=== PATIENT | male | born 1935 | race Caucasian/White ===

== ENCOUNTER 2019-02-24 06:00 | Outpatient (RCR) | payer MEDICARE, OTHER, SELFPAY | END 2019-02-25 23:59 | disposition home or self-care (01) | LOC: LAB 06:00 | PROVIDERS: Visit Provider Family Medicine | DX: F34.1 Dysthymic disorder (principal) | CPT/HCPCS: 36415 ×3; 80048; 85025; 85610 ×3 ==

== ENCOUNTER 2019-09-15 13:06 | Inpatient (IN) | payer MEDICARE, OTHER, SELFPAY ==
[2019-09-15 13:11] VITALS: BP 115/91; PULSE 74; RESP 14; TEMP 37.2; O2SAT 95; BMI 25.8
--- NOTE | 2019-09-15 13:12 | W.ED.MALEGU ---
HPI - Male Genitourinary General: Chief complaint: Urogenital-Male Stated complaint: direct admit Time Seen by Provider: 09/15/19 13:11 Source: patient Mode of arrival: ambulatory Limitations: no limitations History of Present Illness: HPI Narrative: Mr. James is a nice 84-year-old male who comes in with urinary retention. He is to be a direct admission by Dr. Carranza but was here in the ER to get screened. Patient has cough, fever, shortness of breath, loss of sense of smell and loss of sense of taste. He has no symptoms consistent with covert infection. Review of Systems General: Reports: 10 or more systems reviewed and unremarkable except in HPI and below PFSH ED PFSH: Medical History BPH NOS w ur obs/LUTS Cardiomyopathy Chronic GERD Clot retention of urine Hyperlipidemia Hypertension Hypothyroidism Kidney stone Thromboembolism Urinary retention Surgical History H/O skin graft History of bone marrow biopsy Previous back surgery Social History Smoking and tobacco status: never smoked Alcohol intake: never Marital status: / Current occupational status: retired History of recent travel: No Physical Exam Const: COMMON NORMALS: no acute distress, patient oriented x3, no limitations, healthy appearing and well nourished GENERAL APPEARANCE: cooperative, well kempt and well developed HENMT: COMMON NORMALS: normocephalic, atraumatic, external ears normal, EAC's normal and Normal external nose present HEAD & SCALP: normal to inspection, normocephalic and atraumatic FACE & SINUS: normal facial exam and face symmetric NOSE: Normal external nose present and Normal nares present EXTERNAL EAR: Yes external ears normal EXTERNAL AUDITORY CANAL: EAC's normal MOUTH: Normal oral and palatal mucosa present, lip normal and tongue normal Eye: COMMON NORMALS: Equal, round and reactive pupils present and conjunctivae normal GENERAL EYE: appearance normal, both eyes and all related structures ALIGNMENT: Yes alignment normal PERIORBITAL: periorbital findings normal EYELID: eyelids normal CONJUNCTIVA: Yes conjunctivae normal SCLERA: sclerae normal PUPIL: Yes Equal, round and reactive pupils present Neck/C-Spine: COMMON NORMALS: full ROM, no lymphadenopathy, supple, no meningeal signs and no JVD GENERAL: Yes normal visual inspection and Yes trachea midline Chest: COMMONS NORMALS: normal inspection of the chest and normal palpation of entire chest wall Resp: COMMON NORMALS: normal respiratory effort, No retractions and No use of accessory muscles EFFORT & INSPECTION: Yes able to speak in complete sentences and Yes symmetric chest movement AUSCULTATION: no crackles, no rales, no rhonchi and no wheezes Cardio: COMMON NORMALS: no JVD, regular rate, regular rhythm, S1 normal heart sound present and S2 normal heart sound present RATE: regular rate RHYTHM: regular rhythm HEART SOUNDS: S1 normal heart sound present, S2 normal heart sound present, no click, no gallops, no murmurs, no rubs and abnormal split S2 GI: COMMON NORMALS: Soft to palpation and No hepatosplenomegaly present PALPATION: Yes Soft to palpation, Yes Tenderness to palpation present (GI), No Guarding due to palpation present (GI), No Rigid due to palpation, Yes No hepatosplenomegaly present, No Hernia present, No Palpable mass present and No Pulsatile mass present : COMMON NORMALS: Yes no CVA tenderness BLADDER/KIDNEY EXAM: Yes no CVA tenderness Back/Pelvis: COMMON NORMALS: no CVA tenderness, thoracic and lumbar spine normal to inspection, no thoracic nor lumbar tenderness and thoraco-lumbar ROM normal Extremity: COMMON NORMALS: normal to inspection, full ROM, capillary refill normal, no joint enlargement, no clubbing, cyanosis or edema and no calf tenderness Neuro: COMMON NORMALS: patient oriented x3, CN's II-XII intact bilaterally, moves all extremities, no focal motor deficits and no sensory deficits noted MENINGEAL SIGNS: Yes no meningeal signs SPEECH: speech normal Psych: COMMON NORMALS: mental status grossly normal, Normal thought process present, cooperative, normal affect, speech normal and activity/motor behavior normal APPEARANCE: Yes well kempt SPEECH: Yes normal speech THOUGHT PROCESS: Normal thought process present Skin: COMMON NORMALS: no rashes or lesions noted, turgor normal, no jaundice, no petechiae and no mottling GENERAL SKIN EXAM: no rashes or lesions noted and turgor normal MDM - Male MDM Narrative: Medical decision making narrative: Patient has no signs or symptoms consistent with covert infection. Do not believe he needs screened with the test. The patient be admitted to Dr. Carranza with Dr. Auguste consulting. Admission orders have already been placed. Discharge Plan Discharge Patient Disposition: Admitted As Inpatient Clinical Impression: Clot retention of urine, BPH NOS w ur obs/LUTS Condition: Stable Prescriptions: No Action tamsulosin 0.4 mg capsule 0.4 mg PO DAILY RF: 0 levothyroxine 50 mcg capsule 50 mcg PO DAILY RF: 0 nystatin 100,000 unit/gram powder 1 applic TOPICAL DAILY RF: 0 acetaminophen 500 mg capsule 500 mg PO Q6H PRNRF: 0 magnesium hydroxide [Milk of Magnesia] 400 mg/5 mL suspension 5 ml PO DAILY PRNRF: 0 digoxin 125 mcg (0.125 mg) tablet 125 mcg PO DAILY RF: 0 carvedilol 6.25 mg tablet 6.25 mg PO BID RF: 0 fluoxetine 40 mg capsule 40 mg PO DAILY RF: 0 aripiprazole 2 mg tablet 2 mg PO DAILY RF: 0 albuterol sulfate 0.63 mg/3 mL solution for nebulization 0.63 mg INHALATION Q6H RF: 0 calcium carbonate [Calcium 600] 600 mg calcium (1,500 mg) tablet 600 mg PO DAILY RF: 0 ascorbic acid (vitamin C) 500 mg capsule PO RF: 0 cholecalciferol (vitamin D3) 1,250 mcg (50,000 unit) capsule PO RF: 0 tramadol 50 mg tablet 50 mg PO BID PRNRF: 0 lisinopril 20 mg tablet 20 mg PO DAILY RF: 0 prednisone 1 mg tablet 1 mg PO DAILY RF: 0 furosemide 20 mg tablet 20 mg PO DAILY RF: 0 warfarin 6 mg tablet 3 mg PO DAILY RF: 0 cephalexin 500 mg capsule 500 mg PO TID RF: 0 [place]: Shyann Har[place], [facility] [place] - Coding Level of Care Code ED Neuro Urologist for Renzo Arana
--- NOTE | 2019-09-15 14:46 | PM.HP ---
Providers/Chief Complaint Admitting Physician: Nishi Angela MD Primary Care Provider: Shyann Harman MD, [facility] [place] Chief Complaint: Blood in urine, difficulty urinating History of Present Illness Alex James is a 84 year old male presents directly from urology clinic at the behest of Dr. Carranza following referral there from [facility] due to noted urinary retention and gross hematuria with noted bladder distention and abnormal appearing bladder with clot on CT scan of the abdomen and pelvis. Patient is quite a limited historian and is not able to provide much detail. Case was discussed with Dr. Carranza with request for direct admission. From the review of [facility] records and visit note from earlier today, patient has quite a few medical comorbidities including chronic atrial fibrillation, on anticoagulation with Coumadin, history of right lower extremity DVT, chronic systolic CHF, hypertension. He lives at assisted living facility close to [facility] and states that he had noticed gross blood in his urine for about 3 to 4 days now. He does not recall seeing any blood clots and no blood in his stool. He denies abdominal pain, is unable to tell me how much she was urinating within that timeframe, denies any fever/chills, denies prior episodes of the same. He has been on Coumadin for some time though cannot remember exactly how long and does not recall his last INR. He follows up at the [facility] and med list confirmation is currently pending. He had a cystoscopy done by Dr. Carranza earlier today with clot evacuation, aggressive irrigation and catheter placement. There was some evidence of papillary changes on the bladder neck suspicious for TCCA. Direct admission is requested for further management of gross hematuria including continued aggressive irrigation with potential need for cystoscopy in OR. I have requested lab work and verbal report of last INR is 2.6. Current blood pressure is 87/51 and have requested a 1 L normal saline bolus to be given. Currently in the process of establishing peripheral IV access. Patient does not appear to be in any distress, discussed plan of care which she is agreeable to. Also discussed CODE STATUS, would like to be full code. Review of Systems General: Reports: Other (Patient is a limited historian) Const: Denies: fever(s) or chills Card: Denies: chest pain, edema, swelling of feet/ankles, lightheadedness, syncope, pre-syncope, dyspnea on exertion or orthopnea Resp: Denies: dyspnea, productive cough or non-productive cough GI: Denies: abdominal pain, nausea, vomiting, hematemesis or hematochezia : Reports: difficulty urinating and hematuria; Denies: dysuria Musc: Denies: back pain Skin/Breast: Denies: rash Neuro: Reports: weakness in extremities; Denies: difficulty walking or frequent falls Psych: Denies: anxiety Medications/Allergies Home Medications Medication Instructions Recorded Confirmed Last Taken Type acetaminophen 500 mg capsule 500 mg PO Q6H PRN 09/15/19 09/15/19 Unknown History albuterol sulfate 2.5 mg INHALATION Q4H PRN 09/15/19 09/15/19 Unknown History aripiprazole 2 mg tablet 2 mg PO DAILY 09/15/19 09/15/19 09/14/19 History bisacodyl 10 mg CA DAILY PRN 09/15/19 09/15/19 Unknown History calcium carbonate 600 mg calcium 1,500 mg PO DAILY 09/15/19 09/15/19 09/15/19 History (1,500 mg) tablet carvedilol 6.25 mg tablet 6.25 mg PO BID 09/15/19 09/15/19 09/15/19 History cephalexin 500 mg capsule 500 mg PO TID 09/15/19 09/15/19 09/15/19 History cholecalciferol (vitamin D3) 25 mcg PO DAILY 09/15/19 09/15/19 09/15/19 History [Vitamin D3] digoxin 125 mcg (0.125 mg) tablet 125 mcg PO DAILY 09/15/19 09/15/19 09/15/19 History fluoxetine 40 mg capsule 40 mg PO DAILY 09/15/19 09/15/19 09/15/19 History furosemide 20 mg tablet 20 mg PO BID 09/15/19 09/15/19 09/15/19 History levothyroxine 50 mcg capsule 50 mcg PO DAILY 09/15/19 09/15/19 09/15/19 History lisinopril 20 mg tablet 20 mg PO BID 09/15/19 09/15/19 09/15/19 History magnesium hydroxide 400 mg/5 mL 30 ml PO DAILY PRN 09/15/19 09/15/19 Unknown History oral suspension polyethylene glycol 3350 [Miralax] 17 g PO DAILY 09/15/19 09/15/19 Unknown History prednisone 1 mg tablet 1 mg PO DAILY 09/15/19 09/15/19 09/15/19 History tamsulosin 0.4 mg capsule 0.4 mg PO DAILY 09/15/19 09/15/19 09/14/19 History tramadol 50 mg tablet 50 mg PO BID PRN 09/15/19 09/15/19 Unknown History warfarin See Rx Instructions .ROUTE .COMPLEX 09/15/19 09/15/19 09/14/19 History warfarin 6 mg tablet See Rx Instructions .ROUTE .COMPLEX 09/15/19 09/15/19 09/13/19 History Allergies Allergy/AdvReac Type Severity Reaction Status Date / Time No Known Allergies Allergy Unverified 09/15/19 08:38 PFSH Acute PFSH: Medical History (Updated 09/15/19 @ 20:14 by Nishi Angela MD) BPH (benign prostatic hyperplasia) BPH NOS w ur obs/LUTS Cardiomyopathy Chronic atrial fibrillation Chronic GERD Clot retention of urine Congestive heart failure Hyperlipidemia Hypertension Hypothyroidism Kidney stone Osteoarthritis Peripheral vascular disease Thromboembolism Urinary retention Surgical History H/O skin graft History of bone marrow biopsy Previous back surgery Social History Smoking and tobacco status: never smoked Alcohol intake: never Substance/Drug Use: never Lives independently: Yes Housing: Assisted Living Facility Marital status: / Current occupational status: retired History of recent travel: No Vitals/I&O/Wt Last Vital Signs Temp 98.9 F 09/15/19 13:11 Pulse 74 09/15/19 13:11 Resp 14 09/15/19 13:11 BP 115/91 09/15/19 13:11 Pulse Ox 95 09/15/19 13:11 Weight last 48 hrs Weight 77.111 kg Physical Exam Const: COMMON NORMALS: no acute distress, patient oriented x3 and alert GENERAL APPEARANCE: cooperative and comfortable ORIENTATION/CONSCIOUSNESS: Yes awake OTHER: -looks appropriate for age HENMT: COMMON NORMALS: normocephalic, atraumatic and moist oral mucous membranes HEAD & SCALP: normocephalic and atraumatic GENERAL EAR: hearing grossly impaired Laterality: bilateral Eye: COMMON NORMALS: Equal, round and reactive pupils present, EOMs intact bilaterally and conjunctivae normal CONJUNCTIVA: Yes conjunctivae normal PUPIL: Yes Equal, round and reactive pupils present Neck/C-Spine: COMMON NORMALS: full ROM GENERAL: Yes normal visual inspection and Yes trachea midline Resp: COMMON NORMALS: normal respiratory effort, No retractions, No use of accessory muscles and clear to auscultation bilaterally EFFORT & INSPECTION: Yes able to speak in complete sentences, Yes symmetric chest movement and No tachypneic AUSCULTATION: clear to auscultation bilaterally Cardio: COMMON NORMALS: regular rate, regular rhythm, S1 normal heart sound present and S2 normal heart sound present RATE: regular rate RHYTHM: regular rhythm HEART SOUNDS: S1 normal heart sound present, S2 normal heart sound present and Murmur heart sound present systolic GI: COMMON NORMALS: Normal to inspection, nondistended, normoactive bowel sounds present, Soft to palpation and non-tender PALPATION: Yes Soft to palpation : BLADDER/KIDNEY EXAM: Yes catheter in place Extremity: COMMON NORMALS: normal to inspection, full ROM and no clubbing, cyanosis or edema; negative for no pedal edema Neuro: COMMON NORMALS: patient oriented x3, moves all extremities, no focal motor deficits and no sensory deficits noted Psych: COMMON NORMALS: mental status grossly normal, Normal thought process present, cooperative, normal affect and speech normal SPEECH: Yes normal speech THOUGHT PROCESS: Normal thought process present Skin: COMMON NORMALS: no rashes or lesions noted, no jaundice, no petechiae and no mottling NARRATIVE SKIN EXAM: -chronic venous stasis dermatitis GENERAL SKIN EXAM: no rashes or lesions noted Data : 09/15/19 14:10 09/15/19 14:10 A&P Assessment and plan (1) Clot retention of urine: -Noted to have urinary retention and required aggressive irrigation of bladder done by Dr. Carranza in clinic -Catheter placed; continue to monitor output -Continue bladder irrigation -Urology evaluation by Dr. Carranza appreciated -Due to noted gross hematuria will need to continue to hold Coumadin and any other antiplatelet or anticoagulation therapy -Close monitoring of hemoglobin -UA with noted hematuria/+LE/+bacteria/minimal pyuria; start on Ceftriaxone particularly with noted instrumentation, catheter placement, leukocytosis Status: Acute (2) Lesion of bladder: -Noted to have evidence of papillary lesion in the bladder consistent with TCCA cystoscopy and noted abnormal appearing bladder with clot on CT scan Status: Acute (3) BPH NOS w ur obs/LUTS: -Resume tamsulosin -Noted chronic bladder wall thickening with evidence of bilateral hydronephrosis likely related to bladder outlet obstruction -Catheter in place Status: Acute (4) Hypertension: -Monitor vital signs -Resume oral antihypertensives Status: Chronic Qualifiers: Hypertension type: essential hypertension Qualified Code(s): I10 - Essential (primary) hypertension (5) Hypothyroidism: -Resume levothyroxine Status: Chronic Qualifiers: Hypothyroidism type: unspecified Qualified Code(s): E03.9 - Hypothyroidism, unspecified (6) Hyperlipidemia: Status: Chronic Qualifiers: Hyperlipidemia type: unspecified Qualified Code(s): E78.5 - Hyperlipidemia, unspecified (7) Congestive heart failure: -No evidence of CHF exacerbation currently -Echo (2013): EF=35%, diffuse hypokinesis, moderate MR, trace AR, moderate to severe TR, moderate biatrial enlargement Status: Chronic Qualifiers: Heart failure type: systolic Heart failure chronicity: chronic Qualified Code(s): I50.22 - Chronic systolic (congestive) heart failure (8) Chronic atrial fibrillation: -Rate controlled -Telemetry monitoring Status: Chronic (9) Warfarin-induced coagulopathy: -Has been taking Coumadin secondary to chronic atrial fibrillation -INR supratherapeutic at 3.32; daily INR -Hold Coumadin in light of gross hematuria Status: Acute Additional A&P Information -NPO after midnight in case of need for intervention -DVT ppx with SCDs, no AC due to bleeding -Dispo: home -Code status: FULL code Attestations Medical Necessity Statement*: Alex James's hospital stay will require greater than 2 midnights for management of gross hematuria including irrigation, noted urinary retention s/p catheter placement Time Spent in Patient Care: Greater than 35 minutes (>than 50% of time spent in counselling and/or direct pt care on unit). Coding Level of Care Code Acute Oracle Applications Developer for Chg Fwd Exam Comprehensive Diagnoses Clot retention of urine R33.8 Lesion of bladder N32.9 BPH NOS w ur obs/LUTS N40.1 Hypertension I10 Hypertension type: essential hypertension Hypothyroidism E03.9 Hypothyroidism type: unspecified Hyperlipidemia E78.5 Hyperlipidemia type: unspecified Congestive heart failure I50.22 Heart failure type: systolic Heart failure chronicity: chronic Chronic atrial fibrillation I48.20 Warfarin-induced coagulopathy D68.32; T45.515A
[2019-09-15 15:27] LABS: Lactic Sepsis W/Reflex 1.2 mmol/L (0.5-2.2)
[2019-09-15 15:28] LABS: Alanine Aminotransferase 12 U/L (0-41); Albumin Level 3.7 g/dL (3.5-5.2); Alkaline Phosphatase 72 IU/L (40-130); Anion Gap 12.7 (5-19); Aspartate Amino Transferase 22 U/L (0-40); Blood Urea Nitrogen 42 mg/dL (8-23); Calcium 8.6 mg/dL (8.5-10.5); Carbon Dioxide 23 mmol/L (22-29); Chloride 105 mmol/L (98-107); Globulin 2.8 g/dL (1.3-4.6); Glucose 119 mg/dL (65-115); Osmolality Calculated 281 mOsm/kg (285-295); Potassium 4.7 mmol/L (3.5-5.1); Sodium 136 mmol/L (136-145); Total Bilirubin 0.8 mg/dL (0.15-1.2); Total Protein 6.5 g/dL (6.6-8.7)
[2019-09-15] MEDS: sodium chloride 0.9% 1,000 ML 999 ML IV (15:36)
[2019-09-15 15:57] VITALS: BP 109/66; PULSE 72; RESP 18; O2SAT 92
[2019-09-15 16:02] LABS: Basophils # 0.1 10^3/uL (0.0-0.1); Basophils % 0.4 %; Eosinophils # 0.4 10^3/uL (0.0-0.8); Eosinophils % 2.9 %; Hematocrit 37.6 % (42.0-52.0); Hemoglobin 11.8 g/dL (11.7-16.6); Lymphocytes % 7.6 %; Mean Corpuscular HGB Conc 31.4 g/dL (30.0-36.0); Mean Corpuscular Hemoglobin 30.6 pg (28.0-34.0); Mean Corpuscular Volume 97.4 fL (80-94); Mean Platelet Volume 11.3 fL (7.4-10.4); Monocytes # 1.6 10^3/uL (0.2-0.9); Monocytes % 12.8 %; Neutrophils # 9.55 10^3/uL (1.8-7.7); Neutrophils % 75.9 %; Nucleated Red Blood Cells % 0 %; Platelet Count 179 10^3/cmm (130-400); Red Blood Count 3.86 10^6/uL (4.1-5.3); Red Cell Distribution Width 15.5 % (12.1-15.1); White Blood Count 12.6 10^3/uL (4.0-10.0)
[2019-09-15 16:26] LABS: INR 3.32 (0.8-1.2)
[2019-09-15 16:27] VITALS: BP 117/65; PULSE 79; RESP 18; TEMP 36.2; O2SAT 97
--- NOTE | 2019-09-15 16:27 | ECG_ITS ---
[facility] Test Date: 2019-09-15 Pat Name: Alex James Department: Room: 270 Gender: Male [employer] Prescription Clerk: : 1935 Requested By: Nishi Angela Order Number: [id number] MD: Jason Wall M.D. Measurements Intervals [place] Rate: 85 P: [place]: -1 QRS: -56 QRSD: 108 T: 68 QT: 386 QTc: 461 Interpretive Statements ATRIAL FIBRILLATION WITH ABERRANT CONDUCTION OR VENTRICULAR PREMATURE COMPLEXES INCOMPLETE RIGHT BUNDLE BRANCH BLOCK [90+ ms QRS DURATION, TERMINAL R IN V1/V2, 40+ ms S IN I/aVL/V4/V5/V6] LEFT ANTERIOR FASCICULAR BLOCK [QRS AXIS <= -45, QR IN I, RS IN II] MODERATE ST DEPRESSION [0.05+ mV ST DEPRESSION] No previous ECG available for comparison Electronically Signed On 09-16-2019 16:30:52 CDT by Jason Wall M.D. [id number]
--- NOTE | 2019-09-15 16:28 | PC.NURSE ---
patient arrived on unit
[2019-09-15] MEDS: carvedilol 6.25 mg Tablet PO (17:42)
[2019-09-15] MEDS: sodium chloride 0.45% 1,000 ML 75 ML IV (17:42)
--- NOTE | 2019-09-15 18:10 | P.MISC_ITS ---
Miscellaneous Note Purpose of Documentation: Transfer of information on H&P done in the clinic to inpatient Note: Alex James [place] ER referral Following for: URINARY RETENTION GROSS HEMATURIA CURRENT VISIT 09/15/2019: UROLOGY INITIAL visit Patient was seen in the emergency department at [facility] this weekend with complaints of gross hematuria and bladder distention. I spoke with the ER physician. He had about 2000 cc in his bladder per his report. Large amount of blood was drained. Some clots. I encouraged him to put a larger catheter and then the 16 that they had and. He assured me that if he would. INR was elevated at 2.6 patient is on warfarin. CT scan showed markedly abnormal appearing bladder with clot and question of neoplastic process. Current data Catheter is draining bloody urine. Bladder feels somewhat distended. I did review the CT scan and agree that it looks abnormal. I expect there is probably neoplastic process. Recommended cystoscopy for further evaluation. PROCEDURE: Cystoscopy with clot evacuation 2% lidocaine jelly was instilled into the urethra. Flexible cystoscope was advanced through the urethra into the bladder. Large amount of clot was immediately detected. There was evidence of some papillary changes on the bladder neck suspicious for TCCA. Bladder was aggressively irrigated through the scope as well through an additional catheter until clot was cleared and no more was returning. This was about 3 L of sterile water. Scope was then repassed and while there was still some clot and there the visualization was much better and there appeared to be significant amount of papillary change consistent with TCCA. Catheter was replaced. 24 Moroccan hematuria catheter. Patient will be admitted for further evaluation and treatment. Obtained for medical management. We will plan on direct admission but have him screened appropriately in the emergency department first. The Above Note Contains the Following: Location, Severity, Quality, Context, Modifing Factors and Associated Signs and Symptoms Allergies No Known Allergies Allergy (Unverified 09/15/19 08:38) Home Medications acetaminophen 500 mg PO Q6H PRN albuterol sulfate 0.63 mg inhalation Q6H aripiprazole 2 mg PO DAILY ascorbic acid (vitamin C) mg PO calcium carbonate (Calcium 600) 600 mg PO DAILY carvedilol 6.25 mg PO BID cephalexin 500 mg PO TID cholecalciferol (vitamin D3) PO digoxin 125 mcg PO DAILY fluoxetine 40 mg PO DAILY furosemide 20 mg PO DAILY levothyroxine 50 mcg PO DAILY lisinopril 20 mg PO DAILY magnesium hydroxide (Milk of Magnesia) 5 mL PO DAILY PRN nystatin 1 applic topical DAILY prednisone 1 mg PO DAILY tamsulosin 0.4 mg PO DAILY tramadol 50 mg PO BID PRN warfarin 3 mg PO DAILY PFSH No Known Allergies Allergy (Unverified 09/15/19 08:38) Medical History Cardiomyopathy Chronic GERD Hyperlipidemia Hypertension Hypothyroidism Kidney stone Thromboembolism Urinary retention Surgical History H/O skin graft History of bone marrow biopsy Previous back surgery Social History Smoking and tobacco status: never smoked Alcohol intake: never Marital status: / Current occupational status: retired History of recent travel: No Review of Systems Const: Denies: fever(s), chills or fatigue Eyes: Denies: change in vision ENMT: Denies: change in hearing Card: Denies: chest pain Resp: Denies: dyspnea, productive cough or non-productive cough GI: Denies: abdominal pain : Reports: hematuria; Denies: flank pain, dysuria, urinary frequency or urinary urgency Musc: Denies: neck pain or back pain Adonay/Lymph: Denies: easy bruising or easy bleeding Vital Signs 11:32 Weight 170 lb BMI 25.8 BP 116/72 Pulse 88 Temp 98.9 F Physical Exam Const: COMMON NORMALS: alert and well nourished GENERAL APPEARANCE: cooperative, well kempt, well developed, anxious and ill appearing HENMT: COMMON NORMALS: normocephalic and atraumatic HEAD & SCALP: normocephalic and atraumatic Eye: COMMON NORMALS: conjunctivae normal and no scleral icterus CONJUNCTIVA: Yes conjunctivae normal Neck/C-Spine: COMMON NORMALS: full ROM GENERAL: Yes normal visual inspection Resp: COMMON NORMALS: normal respiratory effort EFFORT & INSPECTION: No lab ored and No Actively coughing Cardio: COMMON NORMALS: regular rate RATE: regular rate PERIPHERAL PULSES: other (Venous stasis changes bilaterally lower extremities) OTHER: Loud systolic murmur GI: COMMON NORMALS: Soft to palpation and non-tender PALPATION: Yes Soft to palpation : MALE GROIN/PERINEUM EXAM: No ecchymosis and No hernia PENIS: normal penis MEATUS: meatus normal, no meatla discharge and No Blood at meatus present SCROTUM: Yes testes descended bilaterally, No edematous and No scrotal swelling TESTES: No absent testicle, No testicular tenderness, No testicular mass, Yes epididymides normal and No epididymal tenderness Extremity: COMMON NORMALS: no clubbing, cyanosis or edema OTHER: Changes bilateral lower extremities with mild edema Neuro: COMMON NORMALS: no focal motor deficits SENSORIUM/ORIENTATION: Yes alert Psych: APPEARANCE: Yes well kempt ATTITUDE: Yes engaged Skin: COMMON NORMALS: no rashes or lesions noted and no jaundice GENERAL SKIN EXAM: no rashes or lesions noted Assessment & Plan (1) Clot retention of urine: Assessment & Plan - Onesimo Carranza MD: Admit to the hospital for bladder irrigation and management. He failed outpatient management. Consider cystoscopy under anesthesia for clot evacuation if cannot clear with aggressive irrigation through large bore hematuria catheter. Hold WARFARIN. 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 Suspicious also on CT scan. Status: Acute Code(s): N32.9 - Bladder disorder, unspecified (3) BPH NOS w ur obs/LUTS: Assessment & Plan - Onesimo Carranza MD: Chronic bladder wall thickening with evidence of bilateral hydronephrosis likely related to bladder outlet obstruction. Orders: Orders: Cysto W Clot Evacuation (FFS only) Today
[2019-09-15 18:23] LABS: Add Urine Microscopic? YES; Bilirubin Urine Neg (NEGATIVE); Blood Urine 3+ (Negative); Glucose Urine UA Norm (Normal); Ketones Urine Negative (Negative); Leukocyte Esterase Urine 1+ (Negative); Nitrate Urine Negative (Negative); Protein Urine 3+ (Negative); Urine Appearance Turbid (CLEAR); Urine Color Red (Yellow); Urobilinogen Urine Neg (Negative); pH Urine 5 (5-7)
[2019-09-15 18:24] LABS: Add Urine Culture? Yes; Bacteria Urine 1+
[2019-09-15 18:25] LABS: RBC Urine TOO NUMEROUS TO CNT /hpf (0-2)
--- NOTE | 2019-09-15 18:36 | PC.NURSE ---
irrigated tapia catheter with 120ml sterile water. rcvd 75ml out
[2019-09-15 19:36] VITALS: BP 94/60; PULSE 72; RESP 18; TEMP 37; O2SAT 97
[2019-09-15] MEDS: cefTRIAXone 1,000 MG in sodium chloride 0.9% (plus) 50 ML 100 MG IV (20:57)
[2019-09-15 23:45] VITALS: BP 117/63; PULSE 82; RESP 18; TEMP 36.7; O2SAT 96
[2019-09-16] VITALS (10 sets, daily range): BP systolic 103–126; BP diastolic 57–75; PULSE 67–82; RESP 16–24; TEMP 36.4–36.8; O2SAT 94–100
--- NOTE | 2019-09-16 01:33 | PC.NURSE ---
MANUAL IRRIGATION Manually irrigated tapia catheter twice tonight. Urine continues to be dark red with no clots noted. Patient was made NPO at midnight. Tapia draining without any issues noted.
[2019-09-16] MEDS: sodium chloride 0.45% 1,000 ML 75 ML IV ×2 (05:30→20:57)
[2019-09-16 05:45] LABS: INR 2.96 (0.8-1.2)
[2019-09-16 06:05] LABS: Anion Gap 13.8 (5-19); Blood Urea Nitrogen 40 mg/dL (8-23); Calcium 8.3 mg/dL (8.5-10.5); Carbon Dioxide 22 mmol/L (22-29); Chloride 106 mmol/L (98-107); Glucose 119 mg/dL (65-115); Osmolality Calculated 283 mOsm/kg (285-295); Potassium 4.8 mmol/L (3.5-5.1); Sodium 137 mmol/L (136-145)
[2019-09-16 06:46] LABS: Basophils # 0.1 10^3/uL (0.0-0.1); Basophils % 0.8 %; Eosinophils # 0.4 10^3/uL (0.0-0.8); Eosinophils % 4.2 %; Hematocrit 35.6 % (42.0-52.0); Hemoglobin 11.3 g/dL (11.7-16.6); Lymphocytes % 9.9 %; Mean Corpuscular HGB Conc 31.7 g/dL (30.0-36.0); Mean Corpuscular Hemoglobin 31.4 pg (28.0-34.0); Mean Corpuscular Volume 98.9 fL (80-94); Mean Platelet Volume 11.5 fL (7.4-10.4); Monocytes # 1.1 10^3/uL (0.2-0.9); Monocytes % 10.8 %; Neutrophils # 7.71 10^3/uL (1.8-7.7); Neutrophils % 73.9 %; Nucleated Red Blood Cells % 0 %; Platelet Count 170 10^3/cmm (130-400); Red Cell Distribution Width 15.5 % (12.1-15.1); White Blood Count 10.4 10^3/uL (4.0-10.0)
[2019-09-16] MEDS: carvedilol 6.25 mg Tablet PO ×2 (09:19→17:41)
[2019-09-16] MEDS: calcium carbonate 500 mg Chew Tablet 1500 MG PO (09:19)
[2019-09-16] MEDS: levothyroxine 50 mcg Tablet PO (09:19)
[2019-09-16] MEDS: digoxin 125 mcg Tablet PO (09:19)
[2019-09-16] MEDS: predniSONE 1 mg Tablet PO (09:19)
[2019-09-16] MEDS: ARIPiprazole 2 mg Tablet PO (09:19)
[2019-09-16] MEDS: tamsulosin 0.4 mg Capsule PO (09:19)
[2019-09-16] MEDS: polyethylene glycol 3350 Pkt 17 gm PO (09:21)
[2019-09-16] MEDS: cholecalciferol (vitamin D3) 1,000 unit Tablet 1000 UNIT PO (09:21)
[2019-09-16] MEDS: fluoxetine 20 mg Capsule 40 MG PO (09:21)
--- NOTE | 2019-09-16 09:48 | PC.NURSE ---
Rcvd call from [place], [facility], she was checking on patient.
--- NOTE | 2019-09-16 10:54 | PC.CHAP ---
Pastoral Care Encounter/Spiritual Assessment Type of Contact [] Declined adult manager visit [] Patient/Family/Request visit [] Outpatient visit [] Follow-up visit [] Physician referral [] Code/Alert [x] Routine visit [] Staff referral [] Actively dying [] Patient sleeping [] Family support [] [] Out of room [] Palliative care [] [x] Receiving care in room [] Pre-surgical visit [] Trauma [] Long length of stay [] ICU visit [] Other: Relational/Emotional Strength [x] Patient feels connected with others/family/visitors/staff [] Distress [] Loneliness/isolation [] Abandonment Spirituality of Patient [x] Person of Adrienne [] Attends Rastafari of their Adrienne [x] Believes in Prayer [] Reads Bible or Catholic materials [] There are Spiritual issues to be addressed Group President Interventions [x] Prayer [x] Active listening [x] Non-anxious presence [x] Spiritual/emotional support [] Crisis/trauma care [x] Spiritual counseling [] Bereavement support [] Provided bereavement packet [] Provided Bible/devotional materials [] Provided toy/stuffed animal, coloring book to patient or family member [] Provided Communion [] Anointing/[place] [] Salvation [x] Completed spiritual assessment [] Other: Impact on Illness or Injury [] Angry [] Fearful [] Anxious [] Often cries [] Exhaustion [] Unable to work [] Unable to attend bahai [] Unable to walk/stand [] Unable to read [] Unable to drive [] Unable to eat/drink [] Unable to sleep [] Unable to be with family [] Patient intubated [] Other: Summary Will have surgery to [facility], feels good, good attitude Family to care for him Time spent with patient 10 mins
--- NOTE | 2019-09-16 11:14 | PC.NURSE ---
Placed [address] tapia and CBI. Notified Dr Carranza. Per Dr Carranza, still need to do periodically manually irrigation.
[2019-09-16] MEDS: phytonadione (ADULT) 10 mg/mL Ampule 1 mL PO (12:52)
[2019-09-16 13:20] LABS: Basophils # 0.1 10^3/uL (0.0-0.1); Basophils % 0.7 %; Eosinophils # 0.4 10^3/uL (0.0-0.8); Eosinophils % 3.7 %; Hematocrit 35.3 % (42.0-52.0); Hemoglobin 11.2 g/dL (11.7-16.6); Lymphocytes # 0.9 10^3/uL (0.8-4.8); Lymphocytes % 9.3 %; Mean Corpuscular HGB Conc 31.7 g/dL (30.0-36.0); Mean Corpuscular Hemoglobin 31.9 pg (28.0-34.0); Mean Corpuscular Volume 100.6 fL (80-94); Mean Platelet Volume 11.2 fL (7.4-10.4); Monocytes % 10.2 %; Neutrophils # 7.21 10^3/uL (1.8-7.7); Neutrophils % 75.8 %; Nucleated Red Blood Cells % 0 %; Platelet Count 166 10^3/cmm (130-400); Red Blood Count 3.51 10^6/uL (4.1-5.3); Red Cell Distribution Width 15.8 % (12.1-15.1); White Blood Count 9.5 10^3/uL (4.0-10.0)
[2019-09-16 13:48] LABS: Alanine Aminotransferase 12 U/L (0-41); Albumin Level 3.6 g/dL (3.5-5.2); Alkaline Phosphatase 72 IU/L (40-130); Anion Gap 12.4 (5-19); Aspartate Amino Transferase 21 U/L (0-40); Blood Urea Nitrogen 35 mg/dL (8-23); Calcium 8.6 mg/dL (8.5-10.5); Carbon Dioxide 22 mmol/L (22-29); Chloride 105 mmol/L (98-107); Globulin 2.7 g/dL (1.3-4.6); Glucose 159 mg/dL (65-115); Osmolality Calculated 281 mOsm/kg (285-295); Potassium 4.4 mmol/L (3.5-5.1); Sodium 135 mmol/L (136-145); Total Bilirubin 0.9 mg/dL (0.15-1.2); Total Protein 6.3 g/dL (6.6-8.7)
[2019-09-16 15:46] LABS: INR 2.73 (0.8-1.2)
--- NOTE | 2019-09-16 16:18 | PC.NURSE ---
called patient's brother per patient's request.
--- NOTE | 2019-09-16 16:22 | PM.PN ---
Subjective Subjective: Interval history: Had 1125 mL urine output overnight, hemodynamically stable, maintained on room air, stable hemoglobin, improved renal function, INR of 2.96. Per discussion with Dr. Carranza will plan for or tomorrow if can get INR less than 1.5. Has three-way catheter in place for CBI. Noted hematuria. Medications: Reviewed: Yes Medication Review Details: Active Medications Generic Name Dose Route Start Last Admin Trade Name Freq PRN Reason Stop Dose Admin Acetaminophen 650 mg 09/15/19 16:27 Tylenol PO Q6H PRN Mild/Mod Pain Or Temp >/= 101 Aripiprazole 2 mg 09/16/19 09:00 09/16/19 09:19 Abilify PO 2 mg DAILY PLACIDO Administration Bisacodyl 10 mg 09/15/19 16:27 Bisac-Evac RI DAILY PRN Constipation Calcium Carbonate 1,500 mg 09/16/19 09:00 09/16/19 09:19 Tums PO 1,500 mg DAILY PLACIDO Administration Carvedilol 6.25 mg 09/15/19 18:00 09/16/19 09:19 Coreg PO 6.25 mg BID PLACIDO Administration Digoxin 125 mcg 09/16/19 09:00 09/16/19 09:19 Lanoxin PO 125 mcg DAILY PLACIDO Administration Fluoxetine HCl 40 mg 09/16/19 09:00 09/16/19 09:21 Prozac PO 40 mg DAILY PLACIDO Administration Sodium Chloride 1,000 mls @ 75 ml s/hr 09/15/19 16:27 09/16/19 05:30 Sodium Chloride 0.45% IV 75 mls/hr .[id number] PLACIDO Administration Ceftriaxone Sodium 1,000 mg/ 50 mls @ 100 mls/ hr 09/15/19 20:15 09/15/19 20:57 Sodium Chloride IV 100 mls/hr Q24H PLACIDO Administration Protocol Dextrose/Sodium Ch loride 1,000 mls @ 0 mls /hr 09/16/19 10:45 Dextrose 5%-Sod Chloride 0.45% IV .Q0M PLACIDO KVO Levothyroxine Sodi um 50 mcg 09/16/19 09:00 09/16/19 09:19 Synthroid PO 50 mcg DAILY PLACIDO Administration Magnesium Hydroxid e 30 ml 09/15/19 16:27 Milk Of Magnesia PO DAILY PRN Constipation Morphine Sulfate 2 mg 09/15/19 16:27 Morphine IVP Q4H PRN SEVERE PAIN Ondansetron HCl 4 mg 09/15/19 16:27 Zofran IVP Q8H PRN vomiting, or N/V if npo Polyethylene Glyco l 17 gm 09/16/19 09:00 09/16/19 09:21 Miralax PO 17 gm DAILY PLACIDO Administration Prednisone 1 mg 09/16/19 09:00 09/16/19 09:19 Prednisone PO 1 mg DAILY PLACIDO Administration Tamsulosin HCl 0.4 mg 09/16/19 09:00 09/16/19 09:19 Flomax PO 0.4 mg DAILY PLACIDO Administration Tramadol HCl 50 mg 09/15/19 16:27 Ultram PO BID PRN MILD TO MODERATE PAIN Vitamin D 1,000 unit 09/16/19 09:00 09/16/19 09:21 Vitamin D3 PO 1,000 unit DAILY PLACIDO Administration No Known Allergies Allergy (Unverified 09/15/19 08:38) Vitals/I&O/Wt Last Vital Signs Temp 98.3 F 09/16/19 15:25 Pulse 77 09/16/19 15:25 Resp 18 09/16/19 15:25 BP 117/62 09/16/19 15:25 Pulse Ox 99 09/16/19 15:25 09/16/19 09/16/19 09/16/19 06:59 14:59 22:59 Intake Total 885 / 2245 720 / 720 Output Total 1125 / 1550 1001 / 1001 Balance -240 / 695 -281 / -281 Weight last 48 hrs Weight 75.07 kg Weight 77.111 kg Physical Exam Const: COMMON NORMALS: no acute distress, patient oriented x3 and alert GENERAL APPEARANCE: cooperative and comfortable ORIENTATION/CONSCIOUSNESS: Yes awake OTHER: -looks appropriate for age HENMT: COMMON NORMALS: normocephalic, atraumatic and moist oral mucous membranes HEAD & SCALP: normocephalic and atraumatic GENERAL EAR: hearing grossly impaired Laterality: bilateral Eye: COMMON NORMALS: Equal, round and reactive pupils present, EOMs intact bilaterally and conjunctivae normal CONJUNCTIVA: Yes conjunctivae normal PUPIL: Yes Equal, round and reactive pupils present Neck/C-Spine: COMMON NORMALS: full ROM GENERAL: Yes normal visual inspection and Yes trachea midline Resp: COMMON NORMALS: normal respiratory effort, No retractions, No use of accessory muscles and clear to auscultation bilaterally EFFORT & INSPECTION: Yes able to speak in complete sentences, Yes symmetric chest movement and No tachypneic AUSCULTATION: clear to auscultation bilaterally Cardio: COMMON NORMALS: regular rate, regular rhythm, S1 normal heart sound present and S2 normal heart sound present RATE: regular rate RHYTHM: regular rhythm HEART SOUNDS: S1 normal heart sound present, S2 normal heart sound present and Murmur heart sound present systolic GI: COMMON NORMALS: Normal to inspection, nondistended, normoactive bowel sounds present, Soft to palpation and non-tender PALPATION: Yes Soft to palpation : BLADDER/KIDNEY EXAM: Yes catheter in place OTHER: -noted gross hematuria Extremity: COMMON NORMALS: normal to inspection, full ROM and no clubbing, cyanosis or edema; negative for no pedal edema Neuro: COMMON NORMALS: patient oriented x3, moves all extremities, no focal motor deficits and no sensory deficits noted SENSORIUM/ORIENTATION: Yes alert Psych: COMMON NORMALS: mental status grossly normal, Normal thought process present, cooperative, normal affect and speech normal SPEECH: Yes normal speech THOUGHT PROCESS: Normal thought process present Skin: COMMON NORMALS: no rashes or lesions noted, no jaundice, no petechiae and no mottling NARRATIVE SKIN EXAM: -chronic venous stasis dermatitis GENERAL SKIN EXAM: no rashes or lesions noted Urinary Catheter Management^: 3-way Urethral CBI: Cath Placed During This Visit: yes Urinary Catheter Date of Insertion: 09/16/19 Urinary Catheter Time of Insertion: 11:09 Data : 09/16/19 11:26 09/16/19 11:26 Micro: Microbiology 09/15/19 16:49 Blood Culture - Preliminary Blood SPECIMEN COLLECTED 09/15/19 16:47 Blood Culture - Preliminary Blood SPECIMEN COLLECTED A&P Assessment and plan (1) Clot retention of urine: -Noted to have urinary retention and required aggressive irrigation of bladder done by Dr. Carranza in clinic -Catheter placed; continue to monitor output -Continue bladder irrigation -Urology evaluation by Dr. Carranza appreciated; plan for cystoscopy with clot evacuation and possible bladder tumor resection tomorrow if INR < 1.5 -Due to noted gross hematuria will need to continue to hold Coumadin and any other antiplatelet or anticoagulation therapy -Close monitoring of hemoglobin -UA with noted hematuria/+LE/+bacteria/minimal pyuria; on Ceftriaxone particularly with noted instrumentation, catheter placement, leukocytosis Status: Acute (2) Lesion of bladder: -Noted to have evidence of papillary lesion in the bladder consistent with TCCA cystoscopy and noted abnormal appearing bladder with clot on CT scan Status: Acute (3) BPH NOS w ur obs/LUTS: -continue tamsulosin -Noted chronic bladder wall thickening with evidence of bilateral hydronephrosis likely related to bladder outlet obstruction -Catheter in place Status: Acute (4) Hypertension: -VSS; continue to monitor vital signs -continue oral antihypertensives Status: Chronic Qualifiers: Hypertension type: essential hypertension Qualified Code(s): I10 - Essential (primary) hypertension (5) Hypothyroidism: -continue levothyroxine Status: Chronic Qualifiers: Hypothyroidism type: unspecified Qualified Code(s): E03.9 - Hypothyroidism, unspecified (6) Hyperlipidemia: Status: Chronic Qualifiers: Hyperlipidemia type: unspecified Qualified Code(s): E78.5 - Hyperlipidemia, unspecified (7) Congestive heart failure: -No evidence of CHF exacerbation currently -Echo (2013): EF=35%, diffuse hypokinesis, moderate MR, trace AR, moderate to severe TR, moderate biatrial enlargement Status: Chronic Qualifiers: Heart failure chronicity: chronic Heart failure type: systolic Qualified Code(s): I50.22 - Chronic systolic (congestive) heart failure (8) Chronic atrial fibrillation: -Rate controlled -Telemetry monitoring Status: Chronic (9) Warfarin-induced coagulopathy: -Has been taking Coumadin secondary to chronic atrial fibrillation -daily INR -Hold Coumadin in light of gross hematuria -due to need for procedure, hematuria, will need to reverse coagulopathy; give vitamin K and FFPs; goal is INR <1.5 Status: Acute Additional A&P Information -on CLD currently -DVT ppx with SCDs, no AC due to bleeding -Dispo: home -Code status: FULL code Attestations Medical Necessity Statement*: Patient requires hospitalization for continued management of gross hematuria, warfarin induced coagulopathy pending cystoscopy with clot evacuation and possible bladder tumor resection. Time Spent in Patient Care: 16 - 35 minutes (>than 50% of time spent in counselling and/or direct pt care on unit). Coding Level of Care Code Acute Etymology Professor for Chg Fwd Exam Comprehensive Diagnoses Clot retention of urine R33.8 Lesion of bladder N32.9 BPH NOS w ur obs/LUTS N40.1 Hypertension I10 Hypertension type: essential hypertension Hypothyroidism E03.9 Hypothyroidism type: unspecified Hyperlipidemia E78.5 Hyperlipidemia type: unspecified Congestive heart failure I50.22 Heart failure chronicity: chronic Heart failure type: systolic Chronic atrial fibrillation I48.20 Warfarin-induced coagulopathy D68.32; T45.515A
[2019-09-16] MEDS: cefTRIAXone 1,000 MG in sodium chloride 0.9% (plus) 50 ML 100 MG IV (20:57)
--- NOTE | 2019-09-16 21:13 | PM.PN ---
Subjective Subjective: Interval history: Urology f/u: HD#2 Still with grossly bloody urine and clots. Difficulty clearing clots. Aggressive irrigation by staff helped. CBI initiated. Rv'd with Dr. Angela and given the difficulty with managing bladder and ongoing effect of Warfarin, she will be working to decrease INR and hopefully ceased bleeding or at worst improve safety of cysto under anesthesia, clot evac, possible TURBT. Vitals/I&O/Wt Last Vital Signs Temp 98.1 F 09/16/19 21:04 Pulse 67 09/16/19 21:04 Resp 16 09/16/19 21:04 BP 114/71 09/16/19 21:04 Pulse Ox 98 09/16/19 20:45 09/16/19 09/16/19 09/16/19 06:59 14:59 22:59 Intake Total 885 / 2295 720 / 720 1198 / 1918 Output Total 1125 / 1550 1001 / 1001 100 / 1101 Balance -240 / 745 -281 / -281 1098 / 817 Weight last 48 hrs Weight 165 lb 8 oz Weight 170 lb Physical Exam Const: COMMON NORMALS: no acute distress, alert and well nourished GENERAL APPEARANCE: well kempt and well developed HENMT: COMMON NORMALS: normocephalic and atraumatic HEAD & SCALP: normocephalic and atraumatic Eye: COMMON NORMALS: conjunctivae normal and no scleral icterus CONJUNCTIVA: Yes conjunctivae normal Resp: COMMON NORMALS: normal respiratory effort EFFORT & INSPECTION: No labored and No Actively coughing : COMMON NORMALS: Yes no CVA tenderness, Yes normal external exam and Yes scrotum normal BLADDER/KIDNEY EXAM: Yes no CVA tenderness Back/Pelvis: COMMON NORMALS: no CVA tenderness Neuro: SENSORIUM/ORIENTATION: Yes alert Psych: APPEARANCE: Yes grossly normal and Yes well kempt ATTITUDE: Yes calm and Yes engaged Skin: COMMON NORMALS: no rashes or lesions noted and no jaundice GENERAL SKIN EXAM: no rashes or lesions noted Urinary Catheter Management^: 3-way Urethral CBI: Cath Placed During This Visit: yes Urinary Catheter Date of Insertion: 09/16/19 Urinary Catheter Time of Insertion: 11:09 Data : 09/16/19 11:26 09/16/19 11:26 Micro: Microbiology 09/15/19 16:49 Blood Culture - Preliminary Blood NEGATIVE TO DATE 09/15/19 16:47 Blood Culture - Preliminary Blood NEGATIVE TO DATE A&P Assessment and plan (1) Warfarin-induced coagulopathy: Status: Acute (2) Clot retention of urine: ? clot evac tomorrow if can safely reduce risk of bleeding Status: Acute (3) BPH NOS w ur obs/LUTS: Status: Acute (4) Lesion of bladder: Status: Acute Attestations Medical Necessity Statement*: failed OP management of hematuria. Surgery indicated Coding Level of Care Code Acute Corporate Aircraft Mechanic for [facility] Fwd Diagnoses Warfarin-induced coagulopathy D68.32; T45.515A Clot retention of urine R33.8 BPH NOS w ur obs/LUTS N40.1 Lesion of bladder N32.9
[2019-09-17] VITALS (26 sets, daily range): BP systolic 84–170; BP diastolic 50–87; PULSE 52–86; RESP 12–24; TEMP 36.6–36.9; O2SAT 93–100
[2019-09-17 04:43] LABS: INR 1.47 (0.8-1.2)
[2019-09-17 04:48] LABS: Anion Gap 13.5 (5-19); Blood Urea Nitrogen 26 mg/dL (8-23); Calcium 8.5 mg/dL (8.5-10.5); Carbon Dioxide 21 mmol/L (22-29); Chloride 109 mmol/L (98-107); Glucose 104 mg/dL (65-115); Osmolality Calculated 285 mOsm/kg (285-295); Potassium 4.5 mmol/L (3.5-5.1); Sodium 139 mmol/L (136-145)
[2019-09-17 04:50] LABS: Basophils # 0.1 10^3/uL (0.0-0.1); Basophils % 0.7 %; Eosinophils # 0.6 10^3/uL (0.0-0.8); Eosinophils % 6.4 %; Hematocrit 32.2 % (42.0-52.0); Hemoglobin 10.1 g/dL (11.7-16.6); Mean Corpuscular HGB Conc 31.4 g/dL (30.0-36.0); Mean Corpuscular Volume 98.8 fL (80-94); Monocytes # 0.9 10^3/uL (0.2-0.9); Monocytes % 10.5 %; Neutrophils # 6.13 10^3/uL (1.8-7.7); Neutrophils % 70.9 %; Nucleated Red Blood Cells % 0 %; Platelet Count 152 10^3/cmm (130-400); Red Blood Count 3.26 10^6/uL (4.1-5.3); Red Cell Distribution Width 15.2 % (12.1-15.1); White Blood Count 8.6 10^3/uL (4.0-10.0)
--- NOTE | 2019-09-17 07:06 | P.PN_ITS ---
Subjective Subjective: Interval history: Urology follow-up: Continues with gross hematuria. CBI running. INR is now 1.47. Based on the above I recommended proceeding with surgery as previously disc ussed. Plan will be to perform clot evacuation and possible TURBT pending what ever is discovered behind the clot. Reviewed with the patient in detail. Informed consent obtained. No fever or chills. Denies chest pain. No shortness of breath Mild confusion at baseline. Medications: Reviewed: Yes Vitals/I&O/Wt Last Vital Signs Temp 98.2 F 09/17/19 04:00 Pulse 76 09/17/19 04:00 Resp 18 09/17/19 04:00 BP 128/74 09/17/19 04:00 Pulse Ox 98 09/17/19 04:00 09/16/19 09/17/19 09/17/19 22:59 06:59 14:59 Intake Total 1198 / 1918 328 / 2246 Output Total 100 / 1101 Balance 1098 / 817 328 / 1145 Weight last 48 hrs Weight 165 lb 8 oz Weight 170 lb Physical Exam Const: COMMON NORMALS: no acute distress, alert and well nourished GENERAL APPEARANCE: well kempt and well developed ORIENTATION/CONSCIOUSNESS: not confused HENMT: COMMON NORMALS: normocephalic and atraumatic HEAD & SCALP: normocephalic and atraumatic Resp: COMMON NORMALS: normal respiratory effort EFFORT & INSPECTION: No labored and No Actively coughing Neuro: SENSORIUM/ORIENTATION: Yes alert Psych: APPEARANCE: Yes grossly normal and Yes well kempt ATTITUDE: Yes calm and Yes engaged Urinary Catheter Management^: 3-way Urethral CBI: Cath Placed During This Visit: yes Reason for Continuing Indwelling Catheter: Other Urinary Catheter Date of Insertion: 09/16/19 Urinary Catheter Time of Insertion: 11:09 Data : 09/17/19 04:20 09/17/19 04:20 Micro: Microbiology 09/15/19 16:49 Blood Culture - Preliminary Blood NEGATIVE TO DATE 09/15/19 16:47 Blood Culture - Preliminary Blood NEGATIVE TO DATE A&P Assessment and plan (1) Clot retention of urine: Decision for surgery. To the operating room as time available. Status: Acute (2) BPH NOS w ur obs/LUTS: Status: Acute (3) Warfarin-induced coagulopathy: Corrected. Status: Acute Attestations Medical Necessity Statement*: Require surgical intervention today for the above discussed issues. Coagulopathy has been corrected. Coding Level of Care Code Acute Tour Sales Representative for Chg Fwd Diagnoses Clot retention of urine R33.8 BPH NOS w ur obs/LUTS N40.1 Warfarin-induced coagulopathy D68.32; T45.515A
--- NOTE | 2019-09-17 07:57 | PM.PN ---
Subjective Subjective: Interval history: Hemodynamically stable, afebrile, warfarin induced coagulopathy corrected with INR 1.47 this morning, received an additional unit of FFP's overnight. Plan to proceed to the OR per Dr. Carranza today. Received call from anesthesia following completion of case stating that patient was being transferred to ICU on vent support, had been noted to be hypotensive at the end of the case, decreased responsiveness, received epinephrine with some improvement in his blood pressure. Serial ABGs done, reviewed. Repeat labs pending. EBL of 50 mL. CBI ongoing. Currently on FiO2 of 100% and PEEP of 8. On propofol for sedation. Hernandez catheter is show some blood-tinged urine though this seems to be clearing up. Seen later in the afternoon following repeat ABG showing significantly increased PO2 so FiO2 decreased to 40%. Remains on sedation with propofol though this is been weaned down. CBI continues. Repeat hemoglobin noted to be 9.6 this afternoon. Medications: Reviewed: Yes Medication Review Details: Active Medications Generic Name Dose Route Start Last Admin Trade Name Freq PRN Reason Stop Dose Admin Acetaminophen 650 mg 09/15/19 16:27 Tylenol PO Q6H PRN Mild/Mod Pain Or Temp >/= 101 Albuterol Sulfate 2.5 mg 09/17/19 07:19 Albuterol INHALATION ONCE PRN WHEEZING Aripiprazole 2 mg 09/16/19 09:00 09/16/19 09:19 Abilify PO 2 mg DAILY PLACIDO Administration Bisacodyl 10 mg 09/15/19 16:27 Bisac-Evac ID DAILY PRN Constipation Calcium Carbonate 1,500 mg 09/16/19 09:00 09/16/19 09:19 Tums PO 1,500 mg DAILY PLACIDO Administration Carvedilol 6.25 mg 09/15/19 18:00 09/16/19 17:41 Coreg PO 6.25 mg BID PLACIDO Administration Dexamethasone 4 mg 09/17/19 07:19 Decadron IVP 09/18/19 07:19 Q5M PRN Nausea unrelieved by Reglan Digoxin 125 mcg 09/16/19 09:00 09/16/19 09:19 Lanoxin PO 125 mcg DAILY PLACIDO Administration Famotidine 20 mg 09/17/19 07:19 Pepcid Inj IVP ONCE PRN HEARTBURN Fentanyl 50 mcg 09/17/19 07:19 Sublimaze IVP Q10M PRN Preop Pain Fentanyl 50 mcg 09/17/19 07:19 Sublimaze IVP 09/18/19 07:19 Q5M PRN Pain level 6-10 P ACU Phase I Fentanyl 100 mcg 09/17/19 07:19 Sublimaze IVP ONCE PRN Per anesthesia fo r block Fluoxetine HCl 40 mg 09/16/19 09:00 09/16/19 09:21 Prozac PO 40 mg DAILY PLACIDO Administration Hydromorphone HCl 0.5 mg 09/17/19 07:19 Dilaudid Inj IVP 09/18/19 07:19 Q10M PRN Pain level 7-10 P ACU Phase I Hydromorphone HCl 0.25 mg 09/17/19 07:19 Dilaudid Inj IVP 09/18/19 07:19 Q10M PRN Pain level 4-6 PA CU Phase I Sodium Chloride 1,000 mls @ 75 ml s/hr 09/15/19 16:27 09/16/19 20:57 Sodium Chloride 0.45% IV 75 mls/hr .[id number] PLACIDO Administration Ceftriaxone Sodium 1,000 mg/ 50 mls @ 100 mls/ hr 09/15/19 20:15 09/16/19 20:57 Sodium Chloride IV 100 mls/hr Q24H PLACIDO Administration Protocol Dextrose/Sodium Ch loride 1,000 mls @ 0 mls /hr 09/16/19 10:45 Dextrose 5%-Sod Chloride 0.45% IV .Q0M PLACIDO KVO Sodium Chloride 500 mls @ 999 mls /hr 09/17/19 07:19 Sodium Chloride 0.9% IV .Q31M PRN HYPOTENSION Sodium Chloride 1,000 mls @ 30 ml s/hr 09/17/19 07:30 Sodium Chloride 0.9% IV 09/18/19 07:29 .Q24H PLACIDO Ipratropium Bromid e 0.5 mg 09/17/19 07:19 Atrovent Neb INHALATION ONCE PRN WHEEZING Levothyroxine Sodi um 50 mcg 09/16/19 09:00 09/16/19 09:19 Synthroid PO 50 mcg DAILY PLACIDO Administration Lidocaine HCl 0.1 ml 09/17/19 07:19 Lidocaine 1% INTRADERMA 09/18/19 07:18 PRN PRN anesthetic prior to IV start Lidocaine HCl 1 ml 09/17/19 07:19 Lidocaine 2% Vis cous TOPICAL PRN PRN Anesthetic prior to IV start Magnesium Hydroxid e 30 ml 09/15/19 16:27 Milk Of Magnesia PO DAILY PRN Constipation Meperidine HCl 12.5 mg 09/17/19 07:19 Demerol IVP 09/18/19 07:19 Q5M PRN Shivering PACU Ph ase I Metoclopramide HCl 10 mg 09/17/19 07:19 Reglan IVP 09/18/19 07:19 Q5M PRN Nausea unrelieved by Zofran Metoclopramide HCl 10 mg 09/17/19 07:19 Reglan IVP ONCE PRN N/V if zofran ine ffective Midazolam HCl 5 mg 09/17/19 07:19 Versed IVP ONCE PRN Per anesthesia fo r block Midazolam HCl 2 mg 09/17/19 07:19 Versed IVP Q5M PRN Preop Anxiety Morphine Sulfate 2 mg 09/15/19 16:27 Morphine IVP Q4H PRN SEVERE PAIN Morphine Sulfate 2 mg 09/17/19 07:19 Morphine IVP 09/18/19 07:19 Q2M PRN Pain level 6-10 P ACU Phase I Morphine Sulfate 2 mg 09/17/19 07:19 Morphine IVP 09/18/19 07:19 Q5M PRN Pain level 2-5 PA CU Phase I Morphine Sulfate 0 mg 09/17/19 07:19 Morphine IVP Q5M PRN Breakthrough Pain PACU PhaseII Ondansetron HCl 4 mg 09/15/19 16:27 Zofran IVP Q8H PRN vomiting, or N/V if npo Ondansetron HCl 4 mg 09/17/19 07:19 Zofran IVP Q15M PRN Nausea/Vomiting P ACU PHASE II Ondansetron HCl 4 mg 09/17/19 07:19 Zofran IVP Q5M PRN NAUSEA AND VOMITI NG Ondansetron HCl 4 mg 09/17/19 07:19 Zofran IVP 09/18/19 07:19 Q5M PRN Nausea PACU Phase I Polyethylene Glyco l 17 gm 09/16/19 09:00 09/16/19 09:21 Miralax PO 17 gm DAILY PLACIDO Administration Prednisone 1 mg 09/16/19 09:00 09/16/19 09:19 Prednisone PO 1 mg DAILY PLACIDO Administration Scopolamine 1 patch 09/17/19 07:19 Transderm-Scop TRANSDERMA ONCE PRN Nausea/ Vomiting Prophylaxis Tamsulosin HCl 0.4 mg 09/16/19 09:00 09/16/19 09:19 Flomax PO 0.4 mg DAILY PLACIDO Administration Tramadol HCl 50 mg 09/15/19 16:27 Ultram PO BID PRN MILD TO MODERATE PAIN Vitamin D 1,000 unit 09/16/19 09:00 09/16/19 09:21 Vitamin D3 PO 1,000 unit DAILY PLACIDO Administration No Known Allergies Allergy (Unverified 09/15/19 08:38) Vitals/I&O/Wt Last Vital Signs Temp 98.4 F 09/17/19 07:30 Pulse 81 09/17/19 07:30 Resp 18 09/17/19 07:30 BP 125/60 09/17/19 07:30 Pulse Ox 93 09/17/19 07:30 09/16/19 09/17/19 09/17/19 22:59 06:59 14:59 Intake Total 1198 / 1918 328 / 2246 Output Total 100 / 1101 Balance 1098 / 817 328 / 1145 Weight last 48 hrs Weight 75.07 kg Weight 77.111 kg Physical Exam Const: COMMON NORMALS: no acute distress GENERAL APPEARANCE: frail appearing and patient mechanically ventilated OTHER: -looks appropriate for age -Sedated with propofol HENMT: COMMON NORMALS: normocephalic, atraumatic and moist oral mucous membranes HEAD & SCALP: normocephalic and atraumatic GENERAL EAR: hearing grossly impaired Laterality: bilateral Eye: COMMON NORMALS: EOMs intact bilaterally and conjunctivae normal CONJUNCTIVA: Yes conjunctivae normal PUPIL: Yes Pinpoint pupils bilaterally Neck/C-Spine: COMMON NORMALS: full ROM GENERAL: Yes normal visual inspection and Yes trachea midline Resp: COMMON NORMALS: normal respiratory effort, No retractions, No use of accessory muscles and clear to auscultation bilaterally EFFORT & INSPECTION: Yes able to speak in complete sentences, Yes symmetric chest movement and No tachypneic AUSCULTATION: clear to auscultation bilaterally OTHER: -Intubated, initial FiO2 of 100% with PEEP of 8 and tidal volume of 500; by late afternoon titrated to FiO2 40% Cardio: COMMON NORMALS: regular rate, regular rhythm, S1 normal heart sound present and S2 normal heart sound present RATE: regular rate RHYTHM: regular rhythm HEART SOUNDS: S1 normal heart sound present, S2 normal heart sound present and Murmur heart sound present systolic GI: COMMON NORMALS: Normal to inspection, nondistended, normoactive bowel sounds present, Soft to palpation and non-tender PALPATION: Yes Soft to palpation : BLADDER/KIDNEY EXAM: Yes catheter in place Catheter type (Male): other (Three-way) OTHER: -noted gross hematuria Extremity: COMMON NORMALS: normal to inspection, full ROM and no clubbing, cyanosis or edema; negative for no pedal edema Neuro: OTHER: -Sedated Psych: OTHER: -Sedated Skin: COMMON NORMALS: no rashes or lesions noted, no jaundice, no petechiae and no mottling NARRATIVE SKIN EXAM: -chronic venous stasis dermatitis GENERAL SKIN EXAM: no rashes or lesions noted Urinary Catheter Management^: 3-way Urethral CBI: Cath Placed During This Visit: yes Reason for Continuing Indwelling Catheter: Other Urinary Catheter Date of Insertion: 09/16/19 Urinary Catheter Time of Insertion: 11:09 Data : 09/17/19 14:57 09/17/19 17:41 Micro: Microbiology 09/15/19 17:45 Urine Culture - Preliminary Urine,Clean Catch 09/15/19 16:49 Blood Culture - Preliminary Blood NEGATIVE TO DATE 09/15/19 16:47 Blood Culture - Preliminary Blood NEGATIVE TO DATE A&P Assessment and plan (1) Acute respiratory failure: -Remains on vent support following return from OR -Sedation with propofol -Daily ABG, chest x-ray while on vent support -Weaning trial when appropriate -Pulmonary toilet, RT -Repeat echo ordered with noted EF of 40%, global LV hypokinesis, severe biatrial enlargement, mild AR -ABG seems to be indicative of metabolic acidosis, give some sodium bicarbonate, IVF Status: Acute Qualifiers: Respiratory failure complication: unspecified whether with hypoxia or hypercapnia Qualified Code(s): J96.00 - Acute respiratory failure, unspecified whether with hypoxia or hypercapnia (2) Clot retention of urine: -Noted to have urinary retention and required aggressive irrigation of bladder done by Dr. Carranza in clinic -Catheter placed; continue to monitor output -Continue bladder irrigation -Urology evaluation by Dr. Carranza appreciated; plan for cystoscopy with clot evacuation and possible bladder tumor resection today (INR < 1.5) -Due to noted gross hematuria will need to continue to hold Coumadin and any other antiplatelet or anticoagulation therapy -Close monitoring of hemoglobin -UA with noted hematuria/+LE/+bacteria/minimal pyuria; on Ceftriaxone particularly with noted instrumentation, catheter placement, leukocytosis. Urine cx prelim negative. Blood cx prelim negative. 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 cystoscopy and noted abnormal appearing bladder with clot on CT scan s/p bladder tumor resection Status: Acute (4) BPH NOS w ur obs/LUTS: -continue tamsulosin -Noted chronic bladder wall thickening with evidence of bilateral hydronephrosis likely related to bladder outlet obstruction -3-way catheter in place due to need for CBI Status: Acute (5) Hypertension: -hypotensive post-op; continue to monitor vital signs -continue oral antihypertensives -IVF hydration Status: Chronic Qualifiers: Hypertension type: essential hypertension Qualified Code(s): I10 - Essential (primary) hypertension (6) Hypothyroidism: -continue levothyroxine Status: Chronic Qualifiers: Hypothyroidism type: unspecified Qualified Code(s): E03.9 - Hypothyroidism, unspecified (7) Hyperlipidemia: Status: Chronic Qualifiers: Hyperlipidemia type: unspecified Qualified Code(s): E78.5 - Hyperlipidemia, unspecified (8) Congestive heart failure: -No evidence of CHF exacerbation currently though need to monitor closely for this due to need for fluid resuscitation -Echo: EF=40%, diffuse LV hypokinesis, severe biatrial enlargement Status: Chronic Qualifiers: Heart failure chronicity: chronic Heart failure type: systolic Qualified Code(s): I50.22 - Chronic systolic (congestive) heart failure (9) Chronic atrial fibrillation: -Rate controlled -Telemetry monitoring Status: Chronic (10) Warfarin-induced coagulopathy: -Has been taking Coumadin secondary to chronic atrial fibrillation -daily INR -Hold Coumadin in light of gross hematuria -due to need for procedure, hematuria, needed reversal of coagulopathy; given vitamin K x 1 and FFPs x 2 Status: Acute Additional A&P Information -NPO due to vent support -DVT ppx with SCDs, no AC due to bleeding -Dispo: home -Code status: FULL code -transferred to ICU post-op due to vent support, hemodynamic instability Attestations Medical Necessity Statement*: Patient requires hospitalization for continued management of hematuria and noted bladder abnormality, pending cystoscopy, clot evacuation and bladder tumor resection today. Time Spent in Patient Care: 16 - 35 minutes (>than 50% of time spent in counselling and/or direct pt care on unit). 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
[2019-09-17] MEDS: sodium chloride 0.9% 1,000 ML 30 ML IV (10:38)
--- NOTE | 2019-09-17 10:51 | P.ANESASSM_ITS ---
Pre-Anesthetic Assessment Pre-Anesthetic Assessment: Height/Weight: Height 1.73 m Weight 75.07 kg Temp Pulse Resp BP Pulse Ox 98.5 F 86 18 126/81 95 09/17/19 10:25 09/17/19 10:25 09/17/19 10:25 09/17/19 10:25 09/17/19 10:25 Preop Diagnosis: hematuria Proposed Procedure: Operation Date: 09/17/19 11:00 Proposed Procedures p Transurethral Resection Bladder Tumor(Not Applicable) - Onesimo Carranza MD s Cystoscopy(Not Applicable) - Onesimo Carranza MD s Clot Evacuation Fulguration(Not Applicable) - Onesimo Carranza MD Familial anesthetic complications: none Was Beta Chano taken within 24 hours: Yes Last intake: Intake Last Liquid Date 09/17/19 Last Liquid Time 00:00 Last Solid Date 09/17/19 Last Solid Time 00:00 Social: Social History: No alcohol and No tobacco Exam: Pre-Anes Outpt Exam: alert, oriented x 3, clear to auscultation bilaterally and regular rate & rhythm Airway: Cervical ROM: WNL MP: 3 Dentition: False Pulmonary: Pulmonary: None reported CV/HEM: CV/HEM: Afib (rate controlled), CHF, HTN and GA Comments: echo 2013 - severe TR, mod MR, trace AV, EF 35% reversing warfarin with FFP and ling K Metabolic: Metabolic: Hyperlipidemia and Thyroid Neuropsych: Neuropsych: None reported Anesthetic Plan: ASA status: 4 Anesthesia: General Meds/Allergies Current Medications: Current Medications Generic Name Dose Route Start Last Admin Trade Name Freq PRN Reason Stop Dose Admin Aripiprazole 2 mg 09/16/19 09:00 09/16/19 09:19 Abilify PO 2 mg DAILY PLACIDO Administration Calcium Carbonate 1,500 mg 09/16/19 09:00 09/16/19 09:19 Tums PO 1,500 mg DAILY PLACIDO Administration Carvedilol 6.25 mg 09/15/19 18:00 09/16/19 17:41 Coreg PO 6.25 mg BID PLACIDO Administration Digoxin 125 mcg 09/16/19 09:00 09/16/19 09:19 Lanoxin PO 125 mcg DAILY PLACIDO Administration Fluoxetine HCl 40 mg 09/16/19 09:00 09/16/19 09:21 Prozac PO 40 mg DAILY PLACIDO Administration Sodium Chloride 1,000 mls @ 75 ml s/hr 09/15/19 16:27 09/16/19 20:57 Sodium Chloride 0.45% IV 75 mls/hr .[id number] PLACIDO Administration Ceftriaxone Sodium 1,000 mg/ 50 mls @ 100 mls/ hr 09/15/19 20:15 09/16/19 20:57 Sodium Chloride IV 100 mls/hr Q24H PLACIDO Administration Protocol Sodium Chloride 1,000 mls @ 30 ml s/hr 09/17/19 07:30 09/17/19 10:38 Sodium Chloride 0.9% IV 09/18/19 07:29 30 mls/hr .Q24H PLACIDO Administration Levothyroxine Sodi um 50 mcg 09/16/19 09:00 09/16/19 09:19 Synthroid PO 50 mcg DAILY PLACIDO Administration Polyethylene Glyco l 17 gm 09/16/19 09:00 09/16/19 09:21 Miralax PO 17 gm DAILY PLACIDO Administration Prednisone 1 mg 09/16/19 09:00 09/16/19 09:19 Prednisone PO 1 mg DAILY PLACIDO Administration Tamsulosin HCl 0.4 mg 09/16/19 09:00 09/16/19 09:19 Flomax PO 0.4 mg DAILY PLACIDO Administration Vitamin D 1,000 unit 09/16/19 09:00 09/16/19 09:21 Vitamin D3 PO 1,000 unit DAILY PLACIDO Administration Additional Medication Information: Active Medications Generic Name Dose Route Start Last Admin Trade Name Freq PRN Reason Stop Dose Admin Acetaminophen 650 mg 09/15/19 16:27 Tylenol PO Q6H PRN Mild/Mod Pain Or Temp >/= 101 Albuterol Sulfate 2.5 mg 09/17/19 07:19 Albuterol INHALATION ONCE PRN WHEEZING Aripiprazole 2 mg 09/16/19 09:00 09/16/19 09:19 Abilify PO 2 mg DAILY PLACIDO Administration Bisacodyl 10 mg 09/15/19 16:27 Bisac-Evac MO DAILY PRN Constipation Calcium Carbonate 1,500 mg 09/16/19 09:00 09/16/19 09:19 Tums PO 1,500 mg DAILY PLACIDO Administration Carvedilol 6.25 mg 09/15/19 18:00 09/16/19 17:41 Coreg PO 6.25 mg BID PLACIDO Administration Dexamethasone 4 mg 09/17/19 07:19 Decadron IVP 09/18/19 07:19 Q5M PRN Nausea unrelieved by Reglan Digoxin 125 mcg 09/16/19 09:00 09/16/19 09:19 Lanoxin PO 125 mcg DAILY PLACIDO Administration Famotidine 20 mg 09/17/19 07:19 Pepcid Inj IVP ONCE PRN HEARTBURN Fentanyl 50 mcg 09/17/19 07:19 Sublimaze IVP Q10M PRN Preop Pain Fentanyl 50 mcg 09/17/19 07:19 Sublimaze IVP 09/18/19 07:19 Q5M PRN Pain level 6-10 P ACU Phase I Fentanyl 100 mcg 09/17/19 07:19 Sublimaze IVP ONCE PRN Per anesthesia fo r block Fluoxetine HCl 40 mg 09/16/19 09:00 09/16/19 09:21 Prozac PO 40 mg DAILY PLACIDO Administration Hydromorphone HCl 0.5 mg 09/17/19 07:19 Dilaudid Inj IVP 09/18/19 07:19 Q10M PRN Pain level 7-10 P ACU Phase I Hydromorphone HCl 0.25 mg 09/17/19 07:19 Dilaudid Inj IVP 09/18/19 07:19 Q10M PRN Pain level 4-6 PA CU Phase I Sodium Chloride 1,000 mls @ 75 ml s/hr 09/15/19 16:27 09/16/19 20:57 Sodium Chloride 0.45% IV 75 mls/hr .[id number] PLACIDO Administration Ceftriaxone Sodium 1,000 mg/ 50 mls @ 100 mls/ hr 09/15/19 20:15 09/16/19 20:57 Sodium Chloride IV 100 mls/hr Q24H PLACIDO Administration Protocol Dextrose/Sodium Ch loride 1,000 mls @ 0 mls /hr 09/16/19 10:45 Dextrose 5%-Sod Chloride 0.45% IV .Q0M PLACIDO KVO Sodium Chloride 500 mls @ 999 mls /hr 09/17/19 07:19 Sodium Chloride 0.9% IV .Q31M PRN HYPOTENSION Sodium Chloride 1,000 mls @ 30 ml s/hr 09/17/19 07:30 Sodium Chloride 0.9% IV 09/18/19 07:29 .Q24H PLACIDO Ipratropium Bromid e 0.5 mg 09/17/19 07:19 Atrovent Neb INHALATION ONCE PRN WHEEZING Levothyroxine Sodi um 50 mcg 09/16/19 09:00 09/16/19 09:19 Synthroid PO 50 mcg DAILY PLACIDO Administration Lidocaine HCl 0.1 ml 09/17/19 07:19 Lidocaine 1% INTRADERMA 09/18/19 07:18 PRN PRN anesthetic prior to IV start Lidocaine HCl 1 ml 09/17/19 07:19 Lidocaine 2% Vis cous TOPICAL PRN PRN Anesthetic prior to IV start Magnesium Hydroxid e 30 ml 09/15/19 16:27 Milk Of Magnesia PO DAILY PRN Constipation Meperidine HCl 12.5 mg 09/17/19 07:19 Demerol IVP 09/18/19 07:19 Q5M PRN Shivering PACU Ph ase I Metoclopramide HCl 10 mg 09/17/19 07:19 Reglan IVP 09/18/19 07:19 Q5M PRN Nausea unrelieved by Zofran Metoclopramide HCl 10 mg 09/17/19 07:19 Reglan IVP ONCE PRN N/V if zofran ine ffective Midazolam HCl 5 mg 09/17/19 07:19 Versed IVP ONCE PRN Per anesthesia fo r block Midazolam HCl 2 mg 09/17/19 07:19 Versed IVP Q5M PRN Preop Anxiety Morphine Sulfate 2 mg 09/15/19 16:27 Morphine IVP Q4H PRN SEVERE PAIN Morphine Sulfate 2 mg 09/17/19 07:19 Morphine IVP 09/18/19 07:19 Q2M PRN Pain level 6-10 P ACU Phase I Morphine Sulfate 2 mg 09/17/19 07:19 Morphine IVP 09/18/19 07:19 Q5M PRN Pain level 2-5 PA CU Phase I Morphine Sulfate 0 mg 09/17/19 07:19 Morphine IVP Q5M PRN Breakthrough Pain PACU PhaseII Ondansetron HCl 4 mg 09/15/19 16:27 Zofran IVP Q8H PRN vomiting, or N/V if npo Ondansetron HCl 4 mg 09/17/19 07:19 Zofran IVP Q15M PRN Nausea/Vomiting P ACU PHASE II Ondansetron HCl 4 mg 09/17/19 07:19 Zofran IVP Q5M PRN NAUSEA AND VOMITI NG Ondansetron HCl 4 mg 09/17/19 07:19 Zofran IVP 09/18/19 07:19 Q5M PRN Nausea PACU Phase I Polyethylene Glyco l 17 gm 09/16/19 09:00 09/16/19 09:21 Miralax PO 17 gm DAILY PLACIDO Administration Prednisone 1 mg 09/16/19 09:00 09/16/19 09:19 Prednisone PO 1 mg DAILY PLACIDO Administration Scopolamine 1 patch 09/17/19 07:19 Transderm-Scop TRANSDERMA ONCE PRN Nausea/ Vomiting Prophylaxis Tamsulosin HCl 0.4 mg 09/16/19 09:00 09/16/19 09:19 Flomax PO 0.4 mg DAILY PLACIDO Administration Tramadol HCl 50 mg 09/15/19 16:27 Ultram PO BID PRN MILD TO MODERATE PAIN Vitamin D 1,000 unit 09/16/19 09:00 09/16/19 09:21 Vitamin D3 PO 1,000 unit DAILY PLACIDO Administration No Known Allergies Allergy (Unverified 09/15/19 08:38) PFSH Anesthesia PFSH: Medical History (Updated 09/15/19 @ 20:14 by Nishi Angela MD) BPH (benign prostatic hyperplasia) BPH NOS w ur obs/LUTS Cardiomyopathy Chronic atrial fibrillation Chronic GERD Clot retention of urine Congestive heart failure Hyperlipidemia Hypertension Hypothyroidism Kidney stone Osteoarthritis Peripheral vascular disease Thromboembolism Urinary retention Surgical History H/O skin graft History of bone marrow biopsy Previous back surgery Social History Smoking and tobacco status: never smoked Alcohol intake: never Substance/Drug Use: never Lives independently: Yes Housing: Assisted Living Facility Marital status: / Current occupational status: retired History of recent travel: No Data Anesthesia CBC & Chem 7: 09/17/19 04:20 09/17/19 04:20 Other Labs: Laboratory Results - last 48 hr 09/15/19 09/15/19 09/15/19 14:10 14:10 14:10 WBC 12.6 H RBC 3.86 L Hgb 11.8 Hct 37.6 L MCV 97.4 H MCH 30.6 MCHC 31.4 RDW 15.5 H Plt Count 179 MPV 11.3 H Neut % (Auto) 75.9 Lymph % (Auto) 7.6 [place] % (Auto) 12.8 Eos % (Auto) 2.9 Baso % (Auto) 0.4 Neut # (Auto) 9.55 H Lymph # (Auto) 1.0 [place] # (Auto) 1.6 H Eos # (Auto) 0.4 Baso # (Auto) 0.1 Nucleated RBC % (auto) 0 Nucleated RBCs # 0.0 PT INR Sodium 136 Potassium 4.7 Chloride 105 Carbon Dioxide 23 Anion Gap 12.7 BUN 42 H Creatinine 1.4 H Glucose 119 H Calculated Osmolality 281 L Lactic Acid 1.2 Calcium 8.6 Total Bilirubin 0.8 AST 22 ALT 12 Alkaline Phosphatase 72 Total Protein 6.5 L Albumin 3.7 Globulin 2.8 Urine Color Urine Appearance Urine pH Ur Specific [place] Urine Protein Urine Glucose (UA) Urine Ketones Urine Blood Urine Nitrate Urine Bilirubin Urine Urobilinogen Ur Leukocyte Esterase Urine RBC Urine WBC Ur Squamous Epith Cells Amorphous Sediment Urine Bacteria Blood Type Rho(D) Type 09/15/19 09/15/19 09/16/19 14:10 17:45 04:12 WBC 10.4 H RBC 3.60 L Hgb 11.3 L Hct 35.6 L MCV 98.9 H MCH 31.4 MCHC 31.7 RDW 15.5 H Plt Count 170 MPV 11.5 H Neut % (Auto) 73.9 Lymph % (Auto) 9.9 [place] % (Auto) 10.8 Eos % (Auto) 4.2 Baso % (Auto) 0.8 Neut # (Auto) 7.71 H Lymph # (Auto) 1.0 [place] # (Auto) 1.1 H Eos # (Auto) 0.4 Baso # (Auto) 0.1 Nucleated RBC % (auto) 0 Nucleated RBCs # 0.0 PT 35.00 H INR 3.32 H Sodium Potassium Chloride Carbon Dioxide Anion Gap BUN Creatinine Glucose Calculated Osmolality Lactic Acid Calcium Total Bilirubin AST ALT Alkaline Phosphatase Total Protein Albumin Globulin Urine Color Red Urine Appearance Turbid Urine pH 5 Ur Specific [place] 1.020 Urine Protein 3+ H Urine Glucose (UA) Norm Urine Ketones Negative Urine Blood 3+ H Urine Nitrate Negative Urine Bilirubin Neg Urine Urobilinogen Neg Ur Leukocyte Esterase 1+ H Urine RBC Too numerous to cnt H Urine WBC 5-10 H Ur Squamous Epith Cells None Amorphous Sediment Not Reportable Urine Bacteria 1+ H Blood Type Rho(D) Type 09/16/19 09/16/19 09/16/19 04:12 04:12 11:26 WBC RBC Hgb Hct MCV MCH MCHC RDW Plt Count MPV Neut % (Auto) Lymph % (Auto) [place] % (Auto) Eos % (Auto) Baso % (Auto) Neut # (Auto) Lymph # (Auto) [place] # (Auto) Eos # (Auto) Baso # (Auto) Nucleated RBC % (auto) Nucleated RBCs # PT 32.00 H INR 2.96 H Sodium 137 135 L Potassium 4.8 4.4 Chloride 106 105 Carbon Dioxide 22 22 Anion Gap 13.8 12.4 BUN 40 H 35 H Creatinine 1.3 H 1.2 Glucose 119 H 159 H Calculated Osmolality 283 L 281 L Lactic Acid Calcium 8.3 L 8.6 Total Bilirubin 0.9 AST 21 ALT 12 Alkaline Phosphatase 72 Total Protein 6.3 L Albumin 3.6 Globulin 2.7 Urine Color Urine Appearance Urine pH Ur Specific [place] Urine Protein Urine Glucose (UA) Urine Ketones Urine Blood Urine Nitrate Urine Bilirubin Urine Urobilinogen Ur Leukocyte Esterase Urine RBC Urine WBC Ur Squamous Epith Cells Amorphous Sediment Urine Bacteria Blood Type Rho(D) Type 09/16/19 09/16/19 09/16/19 11:26 15:21 15:21 WBC 9.5 RBC 3.51 L Hgb 11.2 L Hct 35.3 L MCV 100.6 H MCH 31.9 MCHC 31.7 RDW 15.8 H Plt Count 166 MPV 11.2 H Neut % (Auto) 75.8 Lymph % (Auto) 9.3 [place] % (Auto) 10.2 Eos % (Auto) 3.7 Baso % (Auto) 0.7 Neut # (Auto) 7.21 Lymph # (Auto) 0.9 [place] # (Auto) 1.0 H Eos # (Auto) 0.4 Baso # (Auto) 0.1 Nucleated RBC % (auto) 0 Nucleated RBCs # 0.0 PT 30.00 H INR 2.73 H Sodium Potassium Chloride Carbon Dioxide Anion Gap BUN Creatinine Glucose Calculated Osmolality Lactic Acid Calcium Total Bilirubin AST ALT Alkaline Phosphatase Total Protein Albumin Globulin Urine Color Urine Appearance Urine pH Ur Specific [place] Urine Protein Urine Glucose (UA) Urine Ketones Urine Blood Urine Nitrate Urine Bilirubin Urine Urobilinogen Ur Leukocyte Esterase Urine RBC Urine WBC Ur Squamous Epith Cells Amorphous Sediment Urine Bacteria Blood Type O Positive Rho(D) Type Positive 09/16/19 09/17/19 09/17/19 22:09 04:20 04:20 WBC 8.6 RBC 3.26 L Hgb 10.1 L Hct 32.2 L MCV 98.8 H MCH 31.0 MCHC 31.4 RDW 15.2 H Plt Count 152 MPV 11.0 H Neut % (Auto) 70.9 Lymph % (Auto) 11.0 [place] % (Auto) 10.5 Eos % (Auto) 6.4 Baso % (Auto) 0.7 Neut # (Auto) 6.13 Lymph # (Auto) 1.0 [place] # (Auto) 0.9 Eos # (Auto) 0.6 Baso # (Auto) 0.1 Nucleated RBC % (auto) 0 Nucleated RBCs # 0.0 PT 21.50 H 18.40 H INR 1.80 H 1.47 H Sodium Potassium Chloride Carbon Dioxide Anion Gap BUN Creatinine Glucose Calculated Osmolality Lactic Acid Calcium Total Bilirubin AST ALT Alkaline Phosphatase Total Protein Albumin Globulin Urine Color Urine Appearance Urine pH Ur Specific [place] Urine Protein Urine Glucose (UA) Urine Ketones Urine Blood Urine Nitrate Urine Bilirubin Urine Urobilinogen Ur Leukocyte Esterase Urine RBC Urine WBC Ur Squamous Epith Cells Amorphous Sediment Urine Bacteria Blood Type Rho(D) Type 09/17/19 04:20 WBC RBC Hgb Hct MCV MCH MCHC RDW Plt Count MPV Neut % (Auto) Lymph % (Auto) [place] % (Auto) Eos % (Auto) Baso % (Auto) Neut # (Auto) Lymph # (Auto) [place] # (Auto) Eos # (Auto) Baso # (Auto) Nucleated RBC % (auto) Nucleated RBCs # PT INR Sodium 139 Potassium 4.5 Chloride 109 H Carbon Dioxide 21 L Anion Gap 13.5 BUN 26 H Creatinine 1.1 Glucose 104 Calculated Osmolality 285 Lactic Acid Calcium 8.5 Total Bilirubin AST ALT Alkaline Phosphatase Total Protein Albumin Globulin Urine Color Urine Appearance Urine pH Ur Specific [place] Urine Protein Urine Glucose (UA) Urine Ketones Urine Blood Urine Nitrate Urine Bilirubin Urine Urobilinogen Ur Leukocyte Esterase Urine RBC Urine WBC Ur Squamous Epith Cells Amorphous Sediment Urine Bacteria Blood Type Rho(D) Type Micro: Microbiology 09/15/19 17:45 Urine Culture - Preliminary Urine,Clean Catch 09/15/19 16:49 Blood Culture - Preliminary Blood NEGATIVE TO DATE 09/15/19 16:47 Blood Culture - Preliminary Blood NEGATIVE TO DATE Cardiac Studies: No Data to Display
[2019-09-17] MEDS: lidocaine 2% Urojet 20 mL TOPICAL (11:33)
--- NOTE | 2019-09-17 13:29 | P.OP_ITS ---
Operative Report Date of procedure: September 17, 2019 Pre-op Diagnosis: Clot urinary retention, bladder tumor Post-op diagnosis: same Procedure Done: Cystoscopy, clot evacuation Transurethral resection of bladder tumor large Pathology: Bladder tumor and clot Surgeon: Tere Anesthesia: General Estimated blood loss: 150 cc to 200 cc estimated Urine output: Not measured Complications: None Findings: 1. 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 Appears to be muscle invasive. Not completely resected but fulgurated down to its base 2. Large clot adherent to the left lateral and anterior bladder wall evacuated. Has become organized. Condition: stable Disposition: PACU Brief History: Mr. James is a very pleasant 84-year-old white male who presented to the emergency department at [facility] recently with gross hematuria and clot retention. Presented to my office in follow-up with a catheter in place and was found to have a large amount of clot in the bladder and was direct admitted from my office to the hospital for further evaluation. Further complicated by chronic warfarin therapy. His warfarin has been stopped upon admission he was placed on multiple manual irrigations as well as eventually CBI but failed to spontaneously stop. In the office a flexible cystoscopy was performed that showed what appeared to be papillary tumor but it was not easily identified because of the large amount of clot in the bladder. Ultimately was decided to proceed with cystoscopy clot evacuation and transurethral section of bladder tumor due to the inability to manage this con servatively. Procedure: After routine preoperative evaluation examination and obtaining of informed consent he was taken to the operating suite on 09/17/2019 where general anesthesia was administered without difficulty after appropriate timeout was formed, SCDs confirmed to be functioning, preoperative antibiotics administered, beta-emiliana protocol confirmed. Prepped and draped in usual sterile fashion in dorsolithotomy position pain careful attention to avoiding pressure points. 21 [place] cystoscope with 30 degree lens was introduced into urethral meatus and advanced into the bladder under videoscopy. There is a large amount of clot in the bladder. The 21 [place] cystoscope was then exchanged for a 25 [place] cystoscope and Miguel A evacuator was utilized to remove a large amount of clot. It was then reinspected and there was a large papillary tumor with wide base involvement appeared to be muscle invasive on the left lateral bladder wall probably involving least to one diverticulum. There was also a very large well organized clot with some papillary changes around it on the anterior bladder wall. The urethra was then calibrated with Giovani sounds and easily accommodated 30 [place]. 2% lidocaine jelly was instilled into the urethra. The 25 continuous flow resectoscope sheath with visual obturator in place was advanced into the bladder under videoscopy. The bipolar gyrus system was utilized with the super loop 30 degree lens. Attention was directed to the papillary tumor on the left bladder wall. It was hard to see the extent of it. The area involving the bladder neck was initially resected and this was from lateral to the left ureteral orifice extending anteriorly along the left bladder wall to the roughly 2 o'clock position. The resection was then extended more in a cephalad direction until the extent of the tumor was completely defined. Deep resection was conducted but the tumor appeared to be muscle invasive and not completely resected. The button probe was utilized to fulgurate the base. The tumor itself was greater than 5 cm in diameter. Attention was directed to the anterior bladder mass that was felt to be mostly old clot but possibly some papillary tumor. The resectoscope was actually used for resecting this organized clot and eventually broke loose from the anterior bladder wall. Was then broken up into pieces utilizing the loop and these pieces were evacuated with the Ellik evacuator. The bladder itself was rather inflamed and fairly diffusely oozing but no severe bleeding was noted after fulguration of the tumor base with the button probe and spot fulgurating areas along the bladder neck. All chips were evacuated from the bladder with an Ellik evacuator and confirmed. Hemostasis was good. Bladder was drained with a 24 [place] three-way Hernandez catheter and CBI was initiated and remained clear with fairly low rate. Tolerated procedure well without complications and was awakened in the operating room and returned to the recovery room in stable condition.
--- NOTE | 2019-09-17 14:03 | PC.NURSE ---
called ICU and gave report to Jessenia
[2019-09-17 14:46] LABS: ABG PCO2 39.4 mmHg (35-45); ABG PH Result 7.22 (7.35-7.45); Arterial Blood Gas Hematocrit 32.3 % (42-52); Base Excess ABG -11.1 mmol/L (-2.0-2.0); Blood Gas Allen Test Pos; Blood Gas Sample Site Not specified; Blood Gas Sample Type Arterial; Carboxyhemoglobin 1.1 %THgb (0.4-20.1); HGB O2 Sat 98.3 % (95-100); Ionized Calcium Level - ABG 1.2 mmol/L (1.1-1.4); Methemoglobin 0.8 % (0.4-1.5); Potassium Level - ABG 4.2 mmol/L (3.5-5.0); Total Hemoglobin 10.5 g/dL (14-18)
--- NOTE | 2019-09-17 14:55 | PC.NURSE ---
Addendum entered by Sigrid Garner RN 09/17/19 15:23: et tube and CBI noted. anesthesia at bedside. Original Note: pt here from OR
--- NOTE | 2019-09-17 15:00 | PC.NURSE ---
RECEIVED FROM OR, PT INTUBATED/CBI WITH PINK/RED DRAINAGE. ARTERIAL LINE TO LEFT BRACHIAL. BILAT WRIST RESTRAINTS ON. SCD'S ON/WORKING.
--- NOTE | 2019-09-17 16:01 | USCV_ITS ---
Alex James Age: 84 Gender: M : 1935 Exam Date: 09/17/2019 16:28 Ordering Phys: Nishi Angela MD Technologist: Meghan Fan Exam Location: [facility] [place] Indication: HYPOTENSION POST OP KNOWN HX OF CHF WITH EF OF 35% BP: 170 / 66 HR: 60 Rhythm: Sinus Technical Quality: Good MEASUREMENTS (Male / Female) Normal Values 2D ECHO LV Diastolic Diameter PLAX 4.6 cm 4.2 - 5.9 / 3.9 - 5.3 cm LV Systolic Diameter PLAX 4.5 cm LV Chamber Size 4.3 cm IVS Diastolic Thickness 3.9 cm 0.6 - 1.0 / 0.6 - 0.9 cm IVS Systolic Thickness 1.7 cm LVPW Diastolic Thickness 4.6 cm 0.6 - 1.0 / 0.6 - 0.9 cm LVPW Systolic Thickness 1.7 cm RV Chamber Size 4.1 cm LVOT Diameter 2.0 cm LV Ejection Fraction 2D Teich 8.4 % LV Ejection Fraction MOD 2C -60.1 % LV Ejection Fraction 2C AL -60.0 % LA Diameter 4.7 cm LA Width 4.4 cm LA Height 6.5 cm RA Width 4.8 cm RA Height 5.8 cm Aorta at Sinotubular Diameter 3.4 cm M-MODE LV Diastolic Diameter MM 5.8 cm 4.2 - 5.9 / 3.9 - 5.3 cm LV Systolic Diameter MM 5.3 cm LV Ejection Fraction MM Teich 16.0 % IVS Diastolic Thickness MM 1.4 cm 0.6 - 1.0 / 0.6 - 0.9 cm IVS Systolic Thickness MM 1.7 cm LVPW Diastolic Thickness MM 1.5 cm 0.6 - 1.0 / 0.6 - 0.9 cm LVPW Systolic Thickness MM 1.8 cm RV Diastolic Diameter MM 2.3 cm Aortic Annulus Diameter 3.6 cm LA Ao Ratio MM 1.3 MV E Point Septal Separation 0.9 cm DOPPLER AV Peak Velocity 300.0 cm/s LVOT Peak Velocity 51.0 cm/s AV Area Cont Eq vti 0.5 cm squared AV Area Cont Eq pk 0.6 cm squared FINDINGS Left Ventricle Normal left ventricular cavity size. Mild left ventricular hypertrophy. Mildly decreased left ventricular systolic function. Global left ventricular hypokinesis. Left ventricular ejection fraction is estimated at 40 %. Diastolic function was not assessed. Right Ventricle Normal right ventricular size and systolic function. Right Atrium Severely increased right atrial size. Left Atrium Severely increased left atrial size. Mitral Valve Structurally normal mitral valve. Doppler interrogation not performed Aortic Valve Structurally normal trileaflet aortic valve. Severe aortic valve calcification. Technologist noted the aortic valve leaflets were restricted in motion. Visually the valve stenosis appears severe. The gradient however does not suggest severe aortic stenosis with a calculated aortic valve area 0.55 cm squared. There is also mild aortic insufficiency. Tricuspid Valve Structurally normal tricuspid valve. Pulmonic Valve Pulmonic valve not well visualized. Pericardium There is a small hemodynamically insignificant pericardial effusion. Aorta Normal ascending aorta dimension. CONCLUSIONS Normal left ventricular cavity size. Mild left ventricular hypertrophy. Mildly decreased left ventricular systolic function. Global left ventricular hypokinesis. Left ventricular ejection fraction is estimated at 40 %. Diastolic function was not assessed. Severely increased right atrial size. Severely increased left atrial size. Structurally normal trileaflet aortic valve. Severe aortic valve calcification. Technologist noted the aortic valve leaflets were restricted in motion. Visually the valve stenosis appears severe. The gradient however does not suggest severe aortic stenosis with a calculated aortic valve area 0.55 cm squared. There is also mild aortic insufficiency. There is a small hemodynamically insignificant pericardial effusion. Previous study was performed 12/15/2013. The current evaluation of the left ventricular function is similar or slightly better than was noted in 2013. Otherwise the small pericardial effusion is new and the aortic stenosis appears to be new. Dr. Jason Wall MD (Electronically Signed) Final Date: 17 September 2019 17:10 S
[2019-09-17 16:24] LABS: Basophils # 0.1 10^3/uL (0.0-0.1); Basophils % 0.6 %; Eosinophils # 0.3 10^3/uL (0.0-0.8); Eosinophils % 3.3 %; Hematocrit 31.1 % (42.0-52.0); Hemoglobin 9.6 g/dL (11.7-16.6); Lymphocytes # 0.7 10^3/uL (0.8-4.8); Lymphocytes % 7.9 %; Mean Corpuscular HGB Conc 30.9 g/dL (30.0-36.0); Mean Corpuscular Hemoglobin 30.6 pg (28.0-34.0); Mean Platelet Volume 12.7 fL (7.4-10.4); Monocytes # 0.7 10^3/uL (0.2-0.9); Monocytes % 7.7 %; Neutrophils # 7.42 10^3/uL (1.8-7.7); Neutrophils % 79.9 %; Nucleated Red Blood Cells % 0 %; Platelet Count 174 10^3/cmm (130-400); Red Blood Count 3.14 10^6/uL (4.1-5.3); Red Cell Distribution Width 15.2 % (12.1-15.1); White Blood Count 9.3 10^3/uL (4.0-10.0)
[2019-09-17] MEDS: sodium bicarbonate 8.4% 1 mEq/mL 50mL Syr 50 MEQ IVP (16:53)
[2019-09-17] MEDS: sodium chloride 0.9% 1,000 ML 125 ML IV (16:54)
[2019-09-17 17:03] LABS: ABG PCO2 36.1 mmHg (35-45); ABG PH Result 7.25 (7.35-7.45); Arterial Blood Gas Hematocrit 31.2 % (42-52); Base Excess ABG -10.4 mmol/L (-2.0-2.0); Blood Gas Allen Test Pos; Blood Gas Sample Site Radial, left; Blood Gas Sample Type Arterial; Blood Gas Tidal Volume 0.5; Oxygen Device VENT
--- NOTE | 2019-09-17 17:31 | XR_ITS ---
WS: [id number] Portable AP upright chest, 09/17/2019 Clinical Data: OG PLACEMENT Comparison: Portable chest, 12/14/2013. Findings: The endotracheal tube and oral gastric tube are in good position. There is a patchy opacity in the left lower lobe which could represent pneumonia. No nodules, masses or effusions are seen. Th e heart is enlarged. The pulmonary vascularity is not increased. No pneumothorax is seen. The aortic arch and descending aorta show calcification. XR/XR chest 1V portable [id number] Impression: 1. Satisfactory position of oral gastric and endotracheal tube. 2. Possible left lower lobe pneumonia. 3. Cardiomegaly.
[2019-09-17] MEDS: propofol 1,000 MG/100 ML INJ 11.3 MG IV (17:46)
[2019-09-17 18:10] LABS: Anion Gap 13.4 (5-19); Blood Urea Nitrogen 26 mg/dL (8-23); Calcium 7.5 mg/dL (8.5-10.5); Carbon Dioxide 18 mmol/L (22-29); Chloride 112 mmol/L (98-107); Glucose 138 mg/dL (65-115); Osmolality Calculated 287 mOsm/kg (285-295); Potassium 4.4 mmol/L (3.5-5.1); Sodium 139 mmol/L (136-145)
--- NOTE | 2019-09-17 18:51 | PC.NURSE ---
PT RECOVERY TIME AN HOUR. CBI DRAINING WITHOUT COMPLICATIONS. RESTING QUIETLY.
--- NOTE | 2019-09-17 19:17 | PM.MISC ---
Miscellaneous Note Note: UROLOGY postoperative check: Earlier today he underwent a cystoscopy, clot evacuation, transurethral resection of large bladder tumor. Technically the procedure went well. 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 He remained stable throughout the case. Catheter was left indwelling and CBI was started. At the immediate completion of the procedure he appeared to be a good candidate for return to the floor but in the PACU early on he started developing tachypnea and hypotension. He was intubated and transferred to the ICU for further critical care. Currently from a urologic perspective: CBI is running with clear to light pink at a moderate pace. Reviewed with the nursing staff manual irrigation techniques and rationale for it. Discussed CBI titration. Will be available and encouraged the nursing staff to call for questions.
[2019-09-17] MEDS: cefTRIAXone 1,000 MG in sodium chloride 0.9% (plus) 50 ML 100 MG IV (21:14)
[2019-09-18] VITALS (34 sets, daily range): BP systolic 96–136; BP diastolic 44–80; PULSE 66–143; RESP 12–24; TEMP 36.4–37.7; O2SAT 94–100
[2019-09-18] MEDS: propofol 1,000 MG/100 ML INJ 11.3 MG IV (00:38)
[2019-09-18] MEDS: sodium chloride 0.9% 1,000 ML 125 ML IV ×3 (02:54→18:16)
[2019-09-18 04:57] LABS: INR 1.35 (0.8-1.2)
[2019-09-18 05:24] LABS: Anion Gap 14.5 (5-19); Blood Urea Nitrogen 25 mg/dL (8-23); Calcium 7.6 mg/dL (8.5-10.5); Carbon Dioxide 16 mmol/L (22-29); Chloride 113 mmol/L (98-107); Glucose 103 mg/dL (65-115); Osmolality Calculated 285 mOsm/kg (285-295); Potassium 4.5 mmol/L (3.5-5.1); Sodium 139 mmol/L (136-145)
[2019-09-18 05:49] LABS: ABG PCO2 35.5 mmHg (35-45); ABG PH Result 7.32 (7.35-7.45); Arterial Blood Gas Hematocrit 32.1 % (42-52); Base Excess ABG -7.1 mmol/L (-2.0-2.0); Blood Gas Sample Site Femoral, left; Blood Gas Sample Type Arterial; HCO3 ABG 18.3 mmol/L (22-26); Oxygen Device VENT
[2019-09-18 05:58] LABS: Basophils # 0.1 10^3/uL (0.0-0.1); Basophils % 0.5 %; Eosinophils # 0.1 10^3/uL (0.0-0.8); Hematocrit 30.1 % (42.0-52.0); Hemoglobin 9.2 g/dL (11.7-16.6); Lymphocytes # 0.6 10^3/uL (0.8-4.8); Lymphocytes % 6.1 %; Mean Corpuscular HGB Conc 30.6 g/dL (30.0-36.0); Mean Corpuscular Hemoglobin 30.5 pg (28.0-34.0); Mean Corpuscular Volume 99.7 fL (80-94); Mean Platelet Volume 11.3 fL (7.4-10.4); Monocytes # 0.9 10^3/uL (0.2-0.9); Neutrophils # 8.42 10^3/uL (1.8-7.7); Neutrophils % 83.1 %; Nucleated Red Blood Cells % 0 %; Platelet Count 156 10^3/cmm (130-400); Red Blood Count 3.02 10^6/uL (4.1-5.3); Red Cell Distribution Width 15.4 % (12.1-15.1); White Blood Count 10.1 10^3/uL (4.0-10.0)
--- NOTE | 2019-09-18 06:00 | XR_ITS ---
WS: [id number] Portable AP semiupright chest, 09/18/2019 Clinical Data: on vent support Comparison: Portable chest, 09/17/2019 Findings: The oral gastric and endotracheal tube remain in good position. No nodules, masses or effus ions are seen. The heart is enlarged. The pulmonary vascularity is not increased. The patchy opacity in the left mid lung has diminished but there is now opacity in the right hilum. XR/XR chest 1V portable [id number] Impression: 1. No change in position of endotracheal tube and oral gastric tube. 2. Decrease in opacity in left midlung. 3. Increase in opacity in right hilum. 4. No change in atherosclerosis and cardiomegaly.
--- NOTE | 2019-09-18 08:31 | P.PN_ITS ---
Subjective Subjective: Interval history: Remains on vent support, FiO2 40%, ABG noted, sedation with propofol at 25 mcg/kg/min. weaning trial today, had 500 mL urine output overnight, CBI ongoing. He is postop day #1 status post cystoscopy, clot evacuation and bladder tumor resection. Hemodynamically stable, afebrile. Slight leukocytosis with white count of 10.1, hemoglobin of 9.2, normal cr eatinine. [place]-tinged urine in Hernandez bag. Weaning trial successful and able to extubate. Seen several times throughout the day including during visit with brother in the afternoon. Has done well thr oughout the day, passed bedside swallow and started on diet. Case discussed briefly with Dr. Carranza. Medications: Reviewed: Yes Medication Review Details: Active Medications Generic Name Dose Route Start Last Admin Trade Name Freq PRN Reason Stop Dose Admin Acetaminophen 650 mg 09/15/19 16:27 Tylenol PO Q6H PRN Mild/Mod Pain Or Temp >/= 101 Aripiprazole 2 mg 09/16/19 09:00 09/17/19 17:35 Abilify PO Not Given DAILY [facility] Bisacodyl 10 mg 09/15/19 16:27 Bisac-Evac [place] DAILY PRN Constipation Calcium Carbonate 1,500 mg 09/16/19 09:00 09/17/19 17:36 Tums PO Not Given DAILY [facility] Carvedilol 6.25 mg 09/15/19 18:00 09/17/19 18:35 Coreg PO Not Given BID PLACIDO Digoxin 125 mcg 09/16/19 09:00 09/17/19 17:36 Lanoxin PO Not Given DAILY PLACIDO Fluoxetine HCl 40 mg 09/16/19 09:00 09/17/19 17:37 Prozac PO Not Given DAILY [facility] Ceftriaxone Sodium 1,000 mg/ 50 mls @ 100 mls/ hr 09/15/19 20:15 09/17/19 21:44 Sodium Chloride IV Infused Q24H [facility] Infusion Protocol Dextrose/Sodium Ch loride 1,000 mls @ 0 mls /hr 09/16/19 10:45 Dextrose 5%-Sod Chloride 0.45% IV .Q0M PLACIDO KVO Sodium Chloride 1,000 mls @ 125 m ls/hr 09/17/19 16:15 09/18/19 02:54 Sodium Chloride 0.9% IV 125 mls/hr .Q8H PLACIDO Administration Propofol 1,000 mg in 100 m ls @ 0 mls/hr 09/17/19 16:15 09/18/19 00:38 Diprivan IV 25 mcg/kg/min .Q0M PLACIDO 11.3 mls/hr Administration Protocol Per Protocol Levothyroxine Sodi um 50 mcg 09/16/19 09:00 09/17/19 17:37 Synthroid PO Not Given DAILY [facility] Magnesium Hydroxid e 30 ml 09/15/19 16:27 Milk Of Magnesia PO DAILY PRN Constipation Morphine Sulfate 2 mg 09/15/19 16:27 Morphine IVP Q4H PRN SEVERE PAIN Ondansetron HCl 4 mg 09/15/19 16:27 Zofran IVP Q8H PRN vomiting, or N/V if npo Polyethylene Glyco l 17 gm 09/16/19 09:00 09/17/19 17:37 Miralax PO Not Given DAILY [facility] Prednisone 1 mg 09/16/19 09:00 09/17/19 17:37 Prednisone PO Not Given DAILY [facility] Tamsulosin HCl 0.4 mg 09/16/19 09:00 09/17/19 17:37 Flomax PO Not Given DAILY [facility] Tramadol HCl 50 mg 09/15/19 16:27 Ultram PO BID PRN MILD TO MODERATE PAIN Vitamin D 1,000 unit 09/16/19 09:00 09/17/19 17:36 Vitamin D3 PO Not Given DAILY [facility] No Known Allergies Allergy (Unverified 09/15/19 08:38) Vitals/I&O/Wt Last Vital Signs Temp 98.5 F 09/17/19 10:25 Pulse 71 09/18/19 06:00 Resp 17 09/18/19 07:49 BP 102/48 09/18/19 06:00 Pulse Ox 100 09/18/19 06:00 09/17/19 09/18/19 09/18/19 22:59 06:59 14:59 Intake Total 1550 / 1550 1077.593 / 2627.593 Output Total 1050 / 1050 500 / 1550 Balance 500 / 500 577.593 / 1077.593 Physical Exam Const: COMMON NORMALS: no acute distress GENERAL APPEARANCE: frail appearing and patient mechanically ventilated ORIENTATION/CONSCIOUSNESS: Yes awake OTHER: -looks appropriate for age -Sedated with propofol HENMT: COMMON NORMALS: normocephalic, atraumatic and moist oral mucous membranes HEAD & SCALP: normocephalic and atraumatic GENERAL EAR: hearing grossly impaired Laterality: bilateral Eye: COMMON NORMALS: EOMs intact bilaterally and conjunctivae normal CONJUNCTIVA: Yes conjunctivae normal PUPIL: Yes Pinpoint pupils bilaterally Neck/C-Spine: COMMON NORMALS: full ROM GENERAL: Yes normal visual inspection and Yes trachea midline Resp: COMMON NORMALS: normal respiratory effort, No retractions, No use of accessory muscles and clear to auscultation bilaterally EFFORT & INSPECTION: Yes able to speak in complete sentences, Yes symmetric chest movement and No tachypneic AUSCULTATION: clear to auscultation bilaterally OTHER: -on vent support (40%/500/8) Cardio: COMMON NORMALS: regular rate, regular rhythm, S1 normal heart sound present and S2 normal heart sound present RATE: regular rate RHYTHM: regular rhythm HEART SOUNDS: S1 normal heart sound present, S2 normal heart sound present and Murmur heart sound present systolic GI: COMMON NORMALS: Normal to inspection, nondistended, normoactive bowel sounds present, Soft to palpation and non-tender PALPATION: Yes Soft to palpation : BLADDER/KIDNEY EXAM: Yes catheter in place OTHER: -noted pink-tinged urine Extremity: COMMON NORMALS: normal to inspection, full ROM and no clubbing, cyanosis or edema; negative for no pedal edema Neuro: COMMON NORMALS: moves all extremities, no focal motor deficits and no sensory deficits noted OTHER: -Sedated Psych: COMMON NORMALS: mental status grossly normal, Normal thought process present, cooperative, normal affect and speech normal SPEECH: Yes normal speech THOUGHT PROCESS: Normal thought process present OTHER: -Sedated Skin: COMMON NORMALS: no rashes or lesions noted, no jaundice, no petechiae and no mottling NARRATIVE SKIN EXAM: -chronic venous stasis dermatitis GENERAL SKIN EXAM: no rashes or lesions noted Urinary Catheter Management^: 3-way Urethral CBI: Cath Placed During This Visit: yes Reason for Continuing Indwelling Catheter: Accurate Measurement of Urinary Output in Critically Ill Patients Urinary Catheter Date of Insertion: 09/16/19 Urinary Catheter Time of Insertion: 11:09 Data : 09/18/19 03:59 09/18/19 03:59 Micro: Microbiology 09/17/19 15:15 Gram Stain - Final Sputum - Endotracheal Tube Aspirate 09/15/19 17:45 Urine Culture - Preliminary Urine,Clean Catch A&P Assessment and plan (1) Acute respiratory failure: -Remains on vent support following return from OR -Sedation with propofol -Daily ABG, chest x-ray while on vent support -Weaning trial today -Pulmonary toilet, RT -Repeat echo ordered with noted EF of 40%, global LV hypokinesis, severe biatrial enlargement, mild AR -given some sodium bicarbonate, on IVF -CXR today reported as increased opacity in R hilum Status: Acute Qualifiers: Respiratory failure complication: unspecified whether with hypoxia or hypercapnia Qualified Code(s): J96.00 - Acute respiratory failure, unspecified whether with hypoxia or hypercapnia (2) Clot retention of urine: -Noted to have urinary retention and required aggressive irrigation of bladder done by Dr. Carranza in clinic -Catheter placed; continue to monitor output -Continue bladder irrigation -Urology evaluation by Dr. Carranza appreciated; s/p cystoscopy with clot evacuation and bladder tumor resection; POD # 1 -Due to noted gross hematuria, Coumadin on hold -Close monitoring of hemoglobin -UA with noted hematuria/+LE/+bacteria/minimal pyuria; on Ceftriaxone particularly with noted instrumentation, catheter placement, leukocytosis. Urine cx prelim negative. Blood cx prelim negative. Status: Resolved (3) Lesion of bladder: -Noted to have evidence of papillary lesion in the bladder consistent with TCCA cystoscopy and noted abnormal appearing bladder with clot on CT scan s/p bladder tumor resection Status: Deleted (4) BPH NOS w ur obs/LUTS: -continue tamsulosin -Noted chronic bladder wall thickening with evidence of bilateral hydronephrosis likely related to bladder outlet obstruction -3-way catheter in place due to need for CBI Status: Acute (5) Hypertension: -hypotensive post-op; continue to monitor vital signs -continue oral antihypertensives -IVF hydration Status: Chronic Qualifiers: Hypertension type: essential hypertension Qualified Code(s): I10 - Essential (primary) hypertension (6) Hypothyroidism: -continue levothyroxine Status: Chronic Qualifiers: Hypothyroidism type: unspecified Qualified Code(s): E03.9 - Hypothyroidism, unspecified (7) Hyperlipidemia: Status: Chronic Qualifiers: Hyperlipidemia type: unspecified Qualified Code(s): E78.5 - Hyperlipidemia, unspecified (8) Congestive heart failure: -No evidence of CHF exacerbation currently though need to monitor closely for this due to need for fluid resuscitation -Echo: EF=40%, diffuse LV hypokinesis, severe biatrial enlargement Status: Chronic Qualifiers: Heart failure chronicity: chronic Heart failure type: systolic Qualified Code(s): I50.22 - Chronic systolic (congestive) heart failure (9) Chronic atrial fibrillation: -Rate controlled -Telemetry monitoring Status: Chronic (10) Warfarin-induced coagulopathy: -Has been taking Coumadin secondary to chronic atrial fibrillation -daily INR -Hold Coumadin in light of gross hematuria -due to need for procedure, hematuria, needed reversal of coagulopathy; given vitamin K x 1 and FFPs x 2 Status: Acute Additional A&P Information -NPO, bedside dysphasia screening -DVT ppx with SCDs, no AC due to bleeding -Dispo: home -Code status: FULL code -ICU care post-op due to vent support, hemodynamic instability Attestations Medical Necessity Statement*: Patient requires hospitalization for continued management of acute respiratory failure, on vent support, he is status post cystoscopy, clot evacuation and bladder tumor resection. Time Spent in Patient Care: 16 - 35 minutes (>than 50% of time spent in counselling and/or direct pt care on unit) . Critical Care Time: The high probability of a clinically significant, sudden or life threatening deterioration of the patient's [cardiovascular, respiratory] system(s) required my full and direct attention, intervention and personal management. The critical care time is as shown. This time is in addition to time spent performing any reported procedures but includes the following: [x] Data and vital sign review and interpretation [x] Patient assessment, examination and intervention [x] Documentation [x] Medication orders and management Critical Care Time (min): 20 Coding Level of Care Code Acute Detasseler for Chema Fwd Exam Comprehensive Diagnoses Acute respiratory failure J96.00 Respiratory failure complication: unspecified whether with hypoxia or hypercapnia Clot retention of urine R33.8 Lesion of bladder N32.9 BPH NOS w ur obs/LUTS N40.1 Hypertension I10 Hypertension type: essential hypertension Hypothyroidism E03.9 Hypothyroidism type: unspecified Hyperlipidemia E78.5 Hyperlipidemia type: unspecified Congestive heart failure I50.22 Heart failure chronicity: chronic Heart failure type: systolic Chronic atrial fibrillation I48.20 Warfarin-induced coagulopathy D68.32; T45.515A
[2019-09-18 08:35] LABS: Lactate (Lactic Acid level) 0.8 mmol/L (0.5-2.2)
--- NOTE | 2019-09-18 08:50 | PC.SOCIAL ---
IMM Page 2 of IMM given to patient. SS will need to explain this when patient is extubated.
[2019-09-18] MEDS: morphine 4 mg/mL SDV 1 mL 2 MG IVP ×2 (12:18→17:37)
[2019-09-18] MEDS: tamsulosin 0.4 mg Capsule PO (13:36)
[2019-09-18] MEDS: TRAMadol 50 mg Tablet PO (13:37)
[2019-09-18] MEDS: cholecalciferol (vitamin D3) 1,000 unit Tablet 1000 UNIT PO (13:37)
[2019-09-18] MEDS: levothyroxine 50 mcg Tablet PO (13:37)
[2019-09-18] MEDS: calcium carbonate 500 mg Chew Tablet 1500 MG PO (13:37)
[2019-09-18] MEDS: fluoxetine 20 mg Capsule 40 MG PO (13:38)
[2019-09-18] MEDS: digoxin 125 mcg Tablet PO (13:38)
[2019-09-18] MEDS: polyethylene glycol 3350 Pkt 17 gm PO (13:39)
[2019-09-18] MEDS: carvedilol 6.25 mg Tablet PO (18:09)
--- NOTE | 2019-09-18 19:00 | PC.NURSE ---
Report taken from SOLEDAD Randall. Vital signs are stable. Patient is resting comfortably. Oxygen saturation is 97% on 1L/NC. CBI is running very slow. Dr. Carranza at bedside and states CBI can be tapered to stop throughout the night if the patient's urine stays pink to clear. Currently clear. 2 bags of sodium irrigant hanging with around 600 mL per bag remaining. 550 mL of urine emptied from patient's tapia catheter. Patient has no concerns at this time. Bed in lowest position, call light in place.
--- NOTE | 2019-09-18 19:00 | PC.NURSE ---
Upon beginning of shift reported art line was removed today. Dressing is present. No bleeding noted from site.
--- NOTE | 2019-09-18 19:09 | PM.PN ---
Subjective Subjective: Interval history: POD #1 extensive clot evacuation, transurethral section of large bladder tumor left bladder Doing much better this afternoon. This morning his urine was much better as far as clarity and CBI was able to be weaned down substantially with essentially clear urine this evening. He is also been extubated since I saw him this morning. He is alert and oriented very pleasant. Still forgetful but remembers the important details of what we had discussed preoperatively. Discussed with the nursing staff the goals of CBI and flow management. Had a long discussion with his brother today updating him on the findings intraoperatively and the vents postoperatively. He had a chance to visit with Alex today. He was pretty upbeat. Tried to call his sister but she was not available. We will try again tomorrow. I am scheduled to be leaving town tomorrow or Sunday pending his status. At this point it looks like it will be safe based on his ability to wean off the CBI and his urine remaining clear. We will confirm that before he leaves. Discussed with Dr. Angela. Otherwise no fever or chills. No expressed shortness of breath. He did have some groin pain earlier but that seems to be improved now. Denies any significant complaints other than mentioned above Vitals/I&O/Wt Last Vital Signs Temp 97.6 F 09/18/19 16:00 Pulse 106 H 09/18/19 18:00 Resp 16 09/18/19 17:37 BP 104/59 09/18/19 18:00 Pulse Ox 99 09/18/19 18:00 09/18/19 09/18/19 09/18/19 06:59 14:59 22:59 Intake Total 1077.593 / 2627.593 1000 / 1000 743.75 / 1743.75 Output Total 500 / 1550 Balance 577.593 / 9532.548 7778 / 1000 743.75 / 1743.75 Physical Exam Const: COMMON NORMALS: no acute distress, alert and well nourished GENERAL APPEARANCE: well kempt and well developed HENMT: COMMON NORMALS: normocephalic and atraumatic HEAD & SCALP: normocephalic and atraumatic Resp: COMMON NORMALS: normal respiratory effort EFFORT & INSPECTION: No labored and No Actively coughing Neuro: SENSORIUM/ORIENTATION: Yes alert Psych: APPEARANCE: Yes grossly normal and Yes well kempt ATTITUDE: Yes calm and Yes engaged Urinary Catheter Management^: 3-way Urethral CBI: Cath Placed During This Visit: yes Reason for Continuing Indwelling Catheter: Accurate Measurement of Urinary Output in Critically Ill Patients Urinary Catheter Date of Insertion: 09/16/19 Urinary Catheter Time of Insertion: 11:09 Data : 09/18/19 03:59 09/18/19 03:59 Micro: Microbiology 09/17/19 15:15 Gram Stain - Final Sputum - Endotracheal Tube Aspirate Sputum Culture - Preliminary 09/15/19 17:45 Urine Culture - Final Urine,Clean Catch A&P Assessment and plan (1) 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 Not completely resected but resected deeply. Certainly the source of his gross hematuria and clot retention. Overall health is poor. We will review palliative treatment after he recovers. Status: Acute (2) BPH NOS w ur obs/LUTS: Recent retention. Likely related to clots and chronic BPH/obstruction. We will leave the catheter in. 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
[2019-09-18] MEDS: cefTRIAXone 1,000 MG in sodium chloride 0.9% (plus) 50 ML 100 MG IV (20:04)
[2019-09-19] VITALS (15 sets, daily range): BP systolic 97–130; BP diastolic 55–83; PULSE 74–117; RESP 16–23; TEMP 36.3–36.7; O2SAT 92–98
[2019-09-19 05:36] LABS: Basophils # 0.1 10^3/uL (0.0-0.1); Basophils % 0.5 %; Eosinophils # 0.4 10^3/uL (0.0-0.8); Eosinophils % 4.2 %; Hematocrit 25.4 % (42.0-52.0); Lymphocytes % 10.4 %; Mean Corpuscular HGB Conc 35.4 g/dL (30.0-36.0); Mean Corpuscular Hemoglobin 37.8 pg (28.0-34.0); Mean Corpuscular Volume 106.7 fL (80-94); Monocytes # 1.1 10^3/uL (0.2-0.9); Monocytes % 11.5 %; Neutrophils # 6.72 10^3/uL (1.8-7.7); Neutrophils % 72.9 %; Nucleated Red Blood Cells % 0 %; Platelet Count 158 10^3/cmm (130-400); Red Blood Count 2.38 10^6/uL (4.1-5.3); Red Cell Distribution Width 17.5 % (12.1-15.1); White Blood Count 9.2 10^3/uL (4.0-10.0)
[2019-09-19 05:48] LABS: INR 1.29 (0.8-1.2)
[2019-09-19 05:54] LABS: Anion Gap 11.2 (5-19); Blood Urea Nitrogen 21 mg/dL (8-23); Carbon Dioxide 20 mmol/L (22-29); Chloride 112 mmol/L (98-107); Glucose 95 mg/dL (65-115); Osmolality Calculated 284 mOsm/kg (285-295); Potassium 4.2 mmol/L (3.5-5.1); Sodium 139 mmol/L (136-145)
--- NOTE | 2019-09-19 08:32 | P.PN_ITS ---
Subjective Subjective: Interval history: Postoperative day #2 clot evacuation transurethral section of bladder tumor large. CBI has been weaned off with minimal pinkness of the color of the urine. No requirement for manual irrigation. He is feeling much better. Appetite improving. No fever or chills. Seems back to his baseline from mental status perspective. Recommendations: 1. Maintain Hernandez catheter at discharge. Nursing can put a plug in the irrigation port. 2. I will see him back early the week of September 28 for reevaluation. Hopefully voiding trial at that time. 3. Reviewed my out-of-town schedule with Dr. Angela and with the patient. It does not appear that there will be any further intervention required urologically. If things do not work out so well and he starts having significant rebleeding my office/nurse practitioner Kimber Jones can help facilitate transfer as indicated to regional urology. Medications: Reviewed: Yes Vitals/I&O/Wt Last Vital Signs Temp 99.0 F 09/18/19 19:00 Pulse 81 09/19/19 07:47 Resp 16 09/19/19 07:47 BP 120/68 09/19/19 06:00 Pulse Ox 98 09/19/19 07:47 09/18/19 09/19/19 09/19/19 22:59 06:59 14:59 Intake Total 743.75 / 1743.75 Output Total 550 / 550 600 / 1150 Balance 193.75 / 1193.75 -600 / 593.75 Physical Exam Const: COMMON NORMALS: no acute distress, alert and well nourished GENERAL APPEARANCE: well kempt and well developed HENMT: COMMON NORMALS: normocephalic and atraumatic HEAD & SCALP: normocephalic and atraumatic Resp: COMMON NORMALS: normal respiratory effort EFFORT & INSPECTION: No labored and No Actively coughing Neuro: SENSORIUM/ORIENTATION: Yes alert Psych: APPEARANCE: Yes grossly normal and Yes well kempt ATTITUDE: Yes calm and Yes engaged Urinary Catheter Management^: 3-way Urethral CBI: Cath Placed During This Visit: yes Reason for Continuing Indwelling Catheter: Acute Urinary Retention or Obstruction Urinary Catheter Date of Insertion: 09/16/19 Urinary Catheter Time of Insertion: 11:09 Data : 09/19/19 04:45 09/19/19 04:45 Micro: Microbiology 09/17/19 15:15 Gram Stain - Final Sputum - Endotracheal Tube Aspirate Sputum Culture - Preliminary 09/15/19 17:45 Urine Culture - Final Urine,Clean Catch A&P Assessment and plan (1) 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 Not completely resected but resected deeply. Certainly the source of his gross hematuria and clot retention. Overall health is poor. We will review palliative treatment after he recovers. Able to wean CBI off over the last 12 hours. Will need to be discharged on Hernandez catheter for further healing. I think it is necessary to avoid blood thinners for at least a couple weeks and that the risk of rebleeding is substantially higher and if that occurs again his overall status is poor enough that he may not be able to tolerate that insult. Risks and benefits point toward avoiding that situation Status: Acute (2) BPH NOS w ur obs/LUTS: Recent retention. Likely related to clots and chronic BPH/obstruction. We will leave the catheter in at discharge and try voiding trial on return to my clinic if he is recovered well enough. Status: Acute Attestations Medical Necessity Statement*: Significant improvement but with recent critical care events he is not ready for discharge yet but is working toward that. Will need Hernandez catheter in place at discharge. 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
[2019-09-19] MEDS: calcium carbonate 500 mg Chew Tablet 1500 MG PO (08:50)
[2019-09-19] MEDS: digoxin 125 mcg Tablet PO (08:50)
[2019-09-19] MEDS: tamsulosin 0.4 mg Capsule PO (08:50)
[2019-09-19] MEDS: polyethylene glycol 3350 Pkt 17 gm PO (08:50)
[2019-09-19] MEDS: cholecalciferol (vitamin D3) 1,000 unit Tablet 1000 UNIT PO (08:50)
[2019-09-19] MEDS: levothyroxine 50 mcg Tablet PO (08:51)
[2019-09-19] MEDS: carvedilol 6.25 mg Tablet PO ×2 (08:51→18:31)
[2019-09-19] MEDS: fluoxetine 20 mg Capsule 40 MG PO (08:51)
[2019-09-19] MEDS: predniSONE 1 mg Tablet PO (08:59)
[2019-09-19] MEDS: ARIPiprazole 2 mg Tablet PO (09:00)
--- NOTE | 2019-09-19 09:02 | P.PN_ITS ---
Subjective Subjective: Interval history: Since extubation has done well, currently on room air, hemodynamically stable and afebrile, had 1150 mL urine output overnight. Stable hemoglobin at 9.0, resolved leukocytosis, normal renal function and electrolytes. [place]pster-tinged urine okay per Dr. Carranza, no need to continue CBI. He is POD # 2 s/p cystoscopy, clot evacuation and large bladder tumor resection. Case discussed briefly with Dr. Carranza. Will advance diet. No complaints currently. Will transfer to the floor for continued care. Medications: Reviewed: Yes Medication Review Details: Active Medications Generic Name Dose Route Start Last Admin Trade Name Freq PRN Reason Stop Dose Admin Acetaminophen 650 mg 09/15/19 16:27 Tylenol PO Q6H PRN Mild/Mod Pain Or Temp >/= 101 Aripiprazole 2 mg 09/16/19 09:00 09/17/19 17:35 Abilify PO Not Given DAILY [facility] Bisacodyl 10 mg 09/15/19 16:27 Bisac-Evac [place] DAILY PRN Constipation Calcium Carbonate 1,500 mg 09/16/19 09:00 09/17/19 17:36 Tums PO Not Given DAILY [facility] Carvedilol 6.25 mg 09/15/19 18:00 09/17/19 18:35 Coreg PO Not Given BID [facility]O Digoxin 125 mcg 09/16/19 09:00 09/17/19 17:36 Lanoxin PO Not Given DAILY [facility] Fluoxetine HCl 40 mg 09/16/19 09:00 09/17/19 17:37 Prozac PO Not Given DAILY [facility] Ceftriaxone Sodium 1,000 mg/ 50 mls @ 100 mls/ hr 09/15/19 20:15 09/17/19 21:44 Sodium Chloride IV Infused Q24H [facility]O Infusion Protocol Dextrose/Sodium Ch loride 1,000 mls @ 0 mls /hr 09/16/19 10:45 Dextrose 5%-Sod Chloride 0.45% IV .Q0M [facility]ACIDO KVO Sodium Chloride 1,000 mls @ 125 m ls/hr 09/17/19 16:15 09/18/19 02:54 Sodium Chloride 0.9% IV 125 mls/hr .Q8H [facility]ACIDO Administration Propofol 1,000 mg in 100 m ls @ 0 mls/hr 09/17/19 16:15 09/18/19 00:38 Diprivan IV 25 mcg/kg/min .Q0M PLACIDO 11.3 mls/hr Administration Protocol Per Protocol Levothyroxine Sodi um 50 mcg 09/16/19 09:00 09/17/19 17:37 Synthroid PO Not Given DAILY [facility] Magnesium Hydroxid e 30 ml 09/15/19 16:27 Milk Of Magnesia PO DAILY PRN Constipation Morphine Sulfate 2 mg 09/15/19 16:27 Morphine IVP Q4H PRN SEVERE PAIN Ondansetron HCl 4 mg 09/15/19 16:27 Zofran IVP Q8H PRN vomiting, or N/V if npo Polyethylene Glyco l 17 gm 09/16/19 09:00 09/17/19 17:37 Miralax PO Not Given DAILY [facility] Prednisone 1 mg 09/16/19 09:00 09/17/19 17:37 Prednisone PO Not Given DAILY [facility] Tamsulosin HCl 0.4 mg 09/16/19 09:00 09/17/19 17:37 Flomax PO Not Given DAILY [facility] Tramadol HCl 50 mg 09/15/19 16:27 Ultram PO BID PRN MILD TO MODERATE PAIN Vitamin D 1,000 unit 09/16/19 09:00 09/17/19 17:36 Vitamin D3 PO Not Given DAILY [facility] No Known Allergies Allergy (Unverified 09/15/19 08:38) Vitals/I&O/Wt Last Vital Signs Temp 99.0 F 09/18/19 19:00 Pulse 95 09/19/19 08:50 Resp 16 09/19/19 07:47 BP 120/68 09/19/19 06:00 Pulse Ox 98 09/19/19 07:47 09/18/19 09/19/19 09/19/19 22:59 06:59 14:59 Intake Total 743.75 / 1743.75 Output Total 550 / 550 600 / 1150 Balance 193.75 / 1193.75 -600 / 593.75 Physical Exam Const: COMMON NORMALS: no acute distress, patient oriented x3 and alert GENERAL APPEARANCE: frail appearing ORIENTATION/CONSCIOUSNESS: Yes awake OTHER: -looks appropriate for age -very pleasant HENMT: COMMON NORMALS: normocephalic, atraumatic and moist oral mucous membranes HEAD & SCALP: normocephalic and atraumatic GENERAL EAR: hearing grossly impaired Laterality: bilateral Eye: COMMON NORMALS: Equal, round and reactive pupils present, EOMs intact bilaterally and conjunctivae normal CONJUNCTIVA: Yes conjunctivae normal PUPIL: Yes Equal, round and reactive pupils present Neck/C-Spine: COMMON NORMALS: full ROM GENERAL: Yes normal visual inspection and Yes trachea midline Resp: COMMON NORMALS: normal respiratory effort, No retractions, No use of acc essory muscles and clear to auscultation bilaterally EFFORT & INSPECTION: Yes able to speak in complete sentences, Yes symmetric chest movement and No tachypneic AUSCULTATION: clear to auscultation bilaterally OTHER: -on RA Cardio: COMMON NORMALS: regular rate, regular rhythm, S1 normal heart sound present and S2 normal heart sound present RATE: regular rate RHYTHM: regular rhythm HEART SOUNDS: S1 normal heart sound present, S2 normal heart sound present and Murmur heart sound present systolic GI: COMMON NORMALS: Normal to inspection, nondistended, normoactive bowel sounds present, Soft to palpation and non-tender PALPATION: Yes Soft to palpation : BLADDER/KIDNEY EXAM: Yes catheter in place OTHER: -noted pink-tinged urine Extremity: COMMON NORMALS: normal to inspection, full ROM and no clubbing, cyanosis or edema; negative for no pedal edema Neuro: COMMON NORMALS: patient oriented x3, moves all extremities, no focal motor deficits and no sensory deficits noted SENSORIUM/ORIENTATION: Yes alert Psych: COMMON NORMALS: mental status grossly normal, Normal thought process present, cooperative, normal affect and speech normal SPEECH: Yes normal speech THOUGHT PROCESS: Normal thought process present Skin: COMMON NORMALS: no rashes or lesions noted, no jaundice, no petechiae and no mottling NARRATIVE SKIN EXAM: -chronic venous stasis dermatitis GENERAL SKIN EXAM: no rashes or lesions noted Urinary Catheter Management^: 3-way Urethral CBI: Cath Placed During This Visit: yes Reason for Continuing Indwelling Catheter: Acute Urinary Retention or Obstruction Urinary Catheter Date of Insertion: 09/16/19 Urinary Catheter Time of Insertion: 11:09 Data : 09/19/19 04:45 09/19/19 04:45 Micro: Microbiology 09/17/19 15:15 Gram Stain - Final Sputum - Endotracheal Tube Aspirate Sputum Culture - Preliminary 09/15/19 17:45 Urine Culture - Final Urine,Clean Catch A&P Assessment and plan (1) Acute respiratory failure: -Extubated on 09/17 -Pulmonary toilet, RT -Repeat echo with noted EF of 40%, global LV hypokinesis, severe biatrial enlargement, mild AR -off IVF -CXR today reported as increased opacity in R hilum Status: Acute Qualifiers: Respiratory failure complication: unspecified whether with hypoxia or hypercapnia Qualified Code(s): J96.00 - Acute respiratory failure, unspecified whether with hypoxia or hypercapnia (2) Clot retention of urine: -Noted to have urinary retention and required aggressive irrigation of bladder done by Dr. Carranza in clinic -Catheter placed; continue to monitor output -no need for continued continuous bladder irrigation -Urology evaluation by Dr. Carranza appreciated; s/p cystoscopy with clot evacuation and bladder tumor resection; POD # 2 -Due to noted gross hematuria, Coumadin on hold -Close monitoring of hemoglobin -UA with noted hematuria/+LE/+bacteria/minimal pyuria; on Ceftriaxone particularly with noted instrumentation, catheter placement, leukocytosis. Urine cx prelim negative. Blood cx prelim negative. Will plan on continued antibiotics on discharge per discussion with Dr. 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 cystoscopy and noted abnormal appearing bladder with clot on CT scan s/p large bladder tumor resection Status: Deleted (4) BPH NOS w ur obs/LUTS: -continue tamsulosin -Noted chronic bladder wall thickening with evidence of bilateral hydronephrosis likely related to bladder outlet obstruction -3-way catheter in place due to need for CBI Status: Acute (5) Hypertension: -hypotensive post-op; continue to monitor vital signs -continue oral antihypertensives -off IVF hydration Status: Chronic Qualifiers: Hypertension type: essential hypertension Qualified Code(s): I10 - Essential (primary) hypertension (6) Hypothyroidism: -continue levothyroxine Status: Chronic Qualifiers: Hypothyroidism type: unspecified Qualified Code(s): E03.9 - Hypothyroidism, unspecified (7) Hyperlipidemia: Status: Chronic Qualifiers: Hyperlipidemia type: unspecified Qualified Code(s): E78.5 - Hyperlipidemia, unspecified (8) Congestive heart failure: -No evidence of CHF exacerbation currently -Echo: EF=40%, diffuse LV hypokinesis, severe biatrial enlargement Status: Chronic Qualifiers: Heart failure chronicity: chronic Heart failure type: systolic Qualified Code(s): I50.22 - Chronic systolic (congestive) heart failure (9) Chronic atrial fibrillation: -Rate controlled -Telemetry monitoring Status: Chronic (10) Warfarin-induced coagulopathy: -Has been taking Coumadin secondary to chronic atrial fibrillation -daily INR -Hold Coumadin in light of gross hematuria. Very high risk for bleeding if anticoagulation resumed so we will continue to hold off on this -due to need for procedure, hematuria, needed reversal of coagulopathy; given vitamin K x 1 and FFPs x 2 Status: Acute Additional A&P Information -bedside dysphasia screening, has done well with liquid diet so will advance diet -DVT ppx with SCDs, no AC due to bleeding -Dispo: We will need SNF placement in light of hematuria, need for continued Hernandez catheter maintenance -Code status: FULL code -Transfer to floor for continued care Attestations Medical Necessity Statement*: Patient requires hospitalization for continued management of hematuria, status post large bladder tumor resection and clot evacuation. Time Spent in Patient Care: 16 - 35 minutes (>than 50% of time spent in counselling and/or direct pt care on unit) . Coding Level of Care Code Acute Rig Welder for Chg Fwd Exam Comprehensive Diagnoses Acute respiratory failure J96.00 Respiratory failure complication: unspecified whether with hypoxia or hypercapnia Clot retention of urine R33.8 Lesion of bladder N32.9 BPH NOS w ur obs/LUTS N40.1 Hypertension I10 Hypertension type: essential hypertension Hypothyroidism E03.9 Hypothyroidism type: unspecified Hyperlipidemia E78.5 Hyperlipidemia type: unspecified Congestive heart failure I50.22 Heart failure chronicity: chronic Heart failure type: systolic Chronic atrial fibrillation I48.20 Warfarin-induced coagulopathy D68.32; T45.515A
--- NOTE | 2019-09-19 19:29 | PM.MISC ---
Miscellaneous Note Purpose of Documentation: UPDATE Note: Evening check. Urine is bloody or this evening than it has been since the CBI was tapered off. Reviewed with the nursing staff. Recommendations: 1. Manual irrigation to clear any clots. This will probably be enough 2. If persists can restart normal saline CBI and taper as tolerated.
[2019-09-19] MEDS: cefTRIAXone 1,000 MG in sodium chloride 0.9% (plus) 50 ML 100 MG IV (21:25)
--- NOTE | 2019-09-19 21:53 | PC.NURSE ---
BREWER IRRIGATION Aggressively irrigated 5 clots in first syringe that were dime size, using sterile technique. Pt tolerated well. No other clots were irrigated after the first syringe. Pushed in before irrigation: 100mL Pushed in throughout entire irrigation: 250mL Pulled out: 210mL Brewer bag contained 250mL and contained several dime sized clots.
[2019-09-20] VITALS (7 sets, daily range): BP systolic 119–135; BP diastolic 70–77; PULSE 61–85; RESP 14–20; TEMP 36.6–37; O2SAT 92–99
--- NOTE | 2019-09-20 05:24 | PC.NURSE ---
TAPIA IRRIGATION Aggressively irrigated tapia, using sterile technique. Pt tolerated well. One pea sized clot observed in second syringe. In 100mL before irrigation in during irrigation 100mL Out 175mL
[2019-09-20 05:58] LABS: Basophils # 0.1 10^3/uL (0.0-0.1); Basophils % 0.6 %; Eosinophils # 0.3 10^3/uL (0.0-0.8); Eosinophils % 2.9 %; Hemoglobin 9.8 g/dL (11.7-16.6); Lymphocytes % 9.5 %; Mean Corpuscular HGB Conc 33.8 g/dL (30.0-36.0); Mean Corpuscular Hemoglobin 35.4 pg (28.0-34.0); Mean Corpuscular Volume 104.7 fL (80-94); Mean Platelet Volume 11.1 fL (7.4-10.4); Monocytes % 10.1 %; Neutrophils # 7.84 10^3/uL (1.8-7.7); Neutrophils % 76.4 %; Nucleated Red Blood Cells % 0 %; Platelet Count 186 10^3/cmm (130-400); Red Blood Count 2.77 10^6/uL (4.1-5.3); Red Cell Distribution Width 17.6 % (12.1-15.1); White Blood Count 10.3 10^3/uL (4.0-10.0)
[2019-09-20] MEDS: calcium carbonate 500 mg Chew Tablet 1500 MG PO (09:19)
[2019-09-20] MEDS: cholecalciferol (vitamin D3) 1,000 unit Tablet 1000 UNIT PO (09:19)
[2019-09-20] MEDS: carvedilol 6.25 mg Tablet PO ×2 (09:19→17:22)
[2019-09-20] MEDS: tamsulosin 0.4 mg Capsule PO (09:19)
[2019-09-20] MEDS: ARIPiprazole 2 mg Tablet PO (09:19)
[2019-09-20] MEDS: levothyroxine 50 mcg Tablet PO (09:19)
[2019-09-20] MEDS: predniSONE 1 mg Tablet PO (09:19)
[2019-09-20] MEDS: fluoxetine 20 mg Capsule 40 MG PO (09:19)
[2019-09-20] MEDS: digoxin 125 mcg Tablet PO (09:20)
[2019-09-20] MEDS: ondansetron 2 mg/ML SDV 2 mL 4 MG IVP (09:32)
--- NOTE | 2019-09-20 10:41 | PC.SOCIAL ---
IMM Update Pg 2 of IMM updated and copy left at bedside for patient.
--- NOTE | 2019-09-20 12:28 | PM.PN ---
Subjective Subjective: Interval history: Patient did require some manual irrigation due to noted clots, urine has cleared up, hemodynamically stable, afebrile, remains on room air, improved hemoglobin today, slight increase in creatinine from 0.9->1.1 though still within normal limits, slight increase in leukocytosis from 9.2->10.3 today. He is POD # 3 s/p cystoscopy with clot evacuation and bladder tumor resection. Had some nausea and abdominal discomfort earlier this AM, resolved now. Feels ok otherwise. Medications: Reviewed: Yes Medication Review Details: Active Medications Generic Name Dose Route Start Last Admin Trade Name Freq PRN Reason Stop Dose Admin Acetaminophen 650 mg 09/15/19 16:27 Tylenol PO Q6H PRN Mild/Mod Pain Or Temp >/= 101 Aripiprazole 2 mg 09/16/19 09:00 09/20/19 09:19 Abilify PO 2 mg DAILY [facility] Administration Bisacodyl 10 mg 09/15/19 16:27 Bisac-Evac [place] DAILY PRN Constipation Calcium Carbonate 1,500 mg 09/16/19 09:00 09/20/19 09:19 Tums PO 1,500 mg DAILY [facility] Administration Carvedilol 6.25 mg 09/15/19 18:00 09/20/19 09:19 Coreg PO 6.25 mg BID [facility] Administration Digoxin 125 mcg 09/16/19 09:00 09/20/19 09:20 Lanoxin PO 125 mcg DAILY [facility] Administration Fluoxetine HCl 40 mg 09/16/19 09:00 09/20/19 09:19 Prozac PO 40 mg DAILY [facility] Administration Ceftriaxone Sodium 1,000 mg/ 50 mls @ 100 mls/ hr 09/15/19 20:15 09/19/19 21:25 Sodium Chloride IV 100 mls/hr Q24H [facility] Administration Protocol Levothyroxine Sodi um 50 mcg 09/16/19 09:00 09/20/19 09:19 Synthroid PO 50 mcg DAILY [facility] Administration Magnesium Hydroxid e 30 ml 09/15/19 16:27 Milk Of Magnesia PO DAILY PRN Constipation Morphine Sulfate 2 mg 09/15/19 16:27 09/18/19 17:37 Morphine IVP 2 mg Q4H PRN Administration SEVERE PAIN Ondansetron HCl 4 mg 09/15/19 16:27 09/20/19 09:32 Zofran IVP 4 mg Q8H PRN Administration vomiting, or N/V if npo Polyethylene Glyco l 17 gm 09/19/19 13:33 Miralax PO PRN PRN CONSTIPATION Prednisone 1 mg 09/16/19 09:00 09/20/19 09:19 Prednisone PO 1 mg DAILY [facility] Administration Tamsulosin HCl 0.4 mg 09/16/19 09:00 09/20/19 09:19 Flomax PO 0.4 mg DAILY [facility] Administration Tramadol HCl 50 mg 09/15/19 16:27 09/18/19 13:37 Ultram PO 50 mg BID PRN Administration MILD TO MODERATE PAIN Vitamin D 1,000 unit 09/16/19 09:00 09/20/19 09:19 Vitamin D3 PO 1,000 unit DAILY [facility] Administration No Known Allergies Allergy (Unverified 09/15/19 08:38) Vitals/I&O/Wt Last Vital Signs Temp 98.5 F 09/20/19 12:00 Pulse 61 09/20/19 12:00 Resp 14 09/20/19 12:00 BP 130/70 09/20/19 12:00 Pulse Ox 94 09/20/19 12:00 09/19/19 09/20/19 09/20/19 22:59 06:59 14:59 Intake Total 240 / 594 240 / 240 Output Total 250 / 400 275 / 675 Balance -10 / 194 -275 / -81 240 / 240 Physical Exam Const: COMMON NORMALS: no acute distress, patient oriented x3 and alert GENERAL APPEARANCE: frail appearing ORIENTATION/CONSCIOUSNESS: Yes awake OTHER: -looks appropriate for age -very pleasant HENMT: COMMON NORMALS: normocephalic, atraumatic and moist oral mucous membranes HEAD & SCALP: normocephalic and atraumatic GENERAL EAR: hearing grossly impaired Laterality: bilateral Eye: COMMON NORMALS: Equal, round and reactive pupils present, EOMs intact bilaterally and conjunctivae normal CONJUNCTIVA: Yes conjunctivae normal PUPIL: Yes Equal, round and reactive pupils present Neck/C-Spine: COMMON NORMALS: full ROM GENERAL: Yes normal visual inspection and Yes trachea midline Resp: COMMON NORMALS: normal respiratory effort, No retractions, No use of accessory muscles and clear to auscultation bilaterally EFFORT & INSPECTION: Yes able to speak in complete sentences, Yes symmetric chest movement and No tachypneic AUSCULTATION: clear to auscultation bilaterally OTHER: -on RA Cardio: COMMON NORMALS: regular rate, regular rhythm, S1 normal heart sound present and S2 normal heart sound present RATE: regular rate RHYTHM: regular rhythm HEART SOUNDS: S1 normal heart sound present, S2 normal heart sound present and Murmur heart sound present systolic GI: COMMON NORMALS: Normal to inspection, nondistended, normoactive bowel sounds present, Soft to palpation and non-tender PALPATION: Yes Soft to palpation : BLADDER/KIDNEY EXAM: Yes catheter in place MALE GROIN/PERINEUM EXAM: Yes hernia (large L inguinal hernia) OTHER: -noted pink-tinged urine Extremity: COMMON NORMALS: normal to inspection, full ROM and no clubbing, cyanosis or edema; negative for no pedal edema Neuro: COMMON NORMALS: patient oriented x3, moves all extremities, no focal motor deficits and no sensory deficits noted SENSORIUM/ORIENTATION: Yes alert Psych: COMMON NORMALS: mental status grossly normal, Normal thought process present, cooperative, normal affect and speech normal SPEECH: Yes normal speech THOUGHT PROCESS: Normal thought process present Skin: COMMON NORMALS: no rashes or lesions noted, no jaundice, no petechiae and no mottling NARRATIVE SKIN EXAM: -chronic venous stasis dermatitis GENERAL SKIN EXAM: no rashes or lesions noted Urinary Catheter Management^: 3-way Urethral CBI: Cath Placed During This Visit: yes Reason for Continuing Indwelling Catheter: Acute Urinary Retention or Obstruction Urinary Catheter Date of Insertion: 09/16/19 Urinary Catheter Time of Insertion: 11:09 Data : 09/20/19 05:31 09/19/19 04:45 Micro: Microbiology 09/17/19 15:15 Gram Stain - Final Sputum - Endotracheal Tube Aspirate Sputum Culture - Final A&P Assessment and plan (1) Acute respiratory failure: -Extubated on 09/17 -Pulmonary toilet, RT -Repeat echo with noted EF of 40%, global LV hypokinesis, severe biatrial enlargement, mild AR -off IVF -CXR (09/17) reported as increased opacity in R hilum Status: Acute Qualifiers: Respiratory failure complication: unspecified whether with hypoxia or hypercapnia Qualified Code(s): J96.00 - Acute respiratory failure, unspecified whether with hypoxia or hypercapnia (2) Clot retention of urine: -Noted to have urinary retention and required aggressive irrigation of bladder done by Dr. Carranza in clinic -Catheter placed; continue to monitor output -no need for continued continuous bladder irrigation -Urology evaluation by Dr. Carranza appreciated; s/p cystoscopy with clot evacuation and bladder tumor resection; POD # 3 -Due to noted gross hematuria, Coumadin on hold -Close monitoring of hemoglobin -UA with noted hematuria/+LE/+bacteria/minimal pyuria; on Ceftriaxone particularly with noted instrumentation, catheter placement, leukocytosis. Urine cx prelim negative. Blood cx prelim negative. Will plan on continued antibiotics on discharge per discussion with Dr. 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 cystoscopy and noted abnormal appearing bladder with clot on CT scan s/p large bladder tumor resection Status: Deleted (4) BPH NOS w ur obs/LUTS: -continue tamsulosin -Noted chronic bladder wall thickening with evidence of bilateral hydronephrosis likely related to bladder outlet obstruction -3-way catheter in place due to need for CBI Status: Acute (5) Hypertension: -normotensive; continue to monitor vital signs -continue oral antihypertensives -off IVF hydration Status: Chronic Qualifiers: Hypertension type: essential hypertension Qualified Code(s): I10 - Essential (primary) hypertension (6) Hypothyroidism: -continue levothyroxine Status: Chronic Qualifiers: Hypothyroidism type: unspecified Qualified Code(s): E03.9 - Hypothyroidism, unspecified (7) Hyperlipidemia: Status: Chronic Qualifiers: Hyperlipidemia type: unspecified Qualified Code(s): E78.5 - Hyperlipidemia, unspecified (8) Congestive heart failure: -No evidence of CHF exacerbation currently -Echo: EF=40%, diffuse LV hypokinesis, severe biatrial enlargement Status: Chronic Qualifiers: Heart failure chronicity: chronic Heart failure type: systolic Qualified Code(s): I50.22 - Chronic systolic (congestive) heart failure (9) Chronic atrial fibrillation: -Rate controlled -Telemetry monitoring Status: Chronic (10) Warfarin-induced coagulopathy: -Has been taking Coumadin secondary to chronic atrial fibrillation -Hold Coumadin in light of gross hematuria. Very high risk for bleeding if anticoagulation resumed so we will continue to hold off on this -due to need for procedure, hematuria, needed reversal of coagulopathy; given vitamin K x 1 and FFPs x 2 Status: Acute Additional A&P Information -cardiac diet as tolerated -DVT ppx with SCDs, no AC due to bleeding -Dispo: accepted to [facility] [place], anticipate discharge tomorrow -Code status: FULL code Attestations Medical Necessity Statement*: Patient requires hospitalization for continued post-op care, will need monitoring today to determine how much manual irrigation will be necessary for intermittent hematuria. Time Spent in Patient Care: 16 - 35 minutes (>than 50% of time spent in counselling and/or direct pt care on unit). Coding Level of Care Code Acute Final Rail Cutter for Chg Fwd Exam Comprehensive Diagnoses Acute respiratory failure J96.00 Respiratory failure complication: unspecified whether with hypoxia or hypercapnia Clot retention of urine R33.8 Lesion of bladder N32.9 BPH NOS w ur obs/LUTS N40.1 Hypertension I10 Hypertension type: essential hypertension Hypothyroidism E03.9 Hypothyroidism type: unspecified Hyperlipidemia E78.5 Hyperlipidemia type: unspecified Congestive heart failure I50.22 Heart failure chronicity: chronic Heart failure type: systolic Chronic atrial fibrillation I48.20 Warfarin-induced coagulopathy D68.32; T45.515A
[2019-09-20] MEDS: cefTRIAXone 1,000 MG in sodium chloride 0.9% (plus) 50 ML 100 MG IV (20:30)
[2019-09-21] VITALS: BP 122/74; PULSE 90; RESP 18; TEMP 37; O2SAT 97
[2019-09-21 04:00] VITALS: BP 128/79; PULSE 86; RESP 17; TEMP 37.1; O2SAT 96
--- NOTE | 2019-09-21 05:59 | PC.NURSE ---
SHIFT SUMMARY Has had a good night. Hernandez draining pink tinged urine without any clots noted. Did have X3 loose/liquid BM's tonight. Gets up to BSC with one assist. Says does feel weak when up.
[2019-09-21 08:00] VITALS: BP 128/82; PULSE 72; RESP 16; TEMP 36.7; O2SAT 95
[2019-09-21] MEDS: tamsulosin 0.4 mg Capsule PO (08:13)
[2019-09-21] MEDS: fluoxetine 20 mg Capsule 40 MG PO (08:13)
[2019-09-21 08:14] VITALS: PULSE 72
[2019-09-21] MEDS: carvedilol 6.25 mg Tablet PO (08:14)
[2019-09-21] MEDS: digoxin 125 mcg Tablet PO (08:14)
[2019-09-21] MEDS: predniSONE 1 mg Tablet PO (08:14)
[2019-09-21] MEDS: ARIPiprazole 2 mg Tablet PO (08:14)
[2019-09-21] MEDS: cholecalciferol (vitamin D3) 1,000 unit Tablet 1000 UNIT PO (08:15)
[2019-09-21] MEDS: levothyroxine 50 mcg Tablet PO (08:15)
[2019-09-21] MEDS: calcium carbonate 500 mg Chew Tablet 1500 MG PO (08:16)
--- NOTE | 2019-09-21 11:14 | P.DS_ITS ---
Discharge Providers Date of Admission: 09/15/19 15:01 Date of Discharge: September 21, 2019 Attending Provider at Admission: Nishi Angela MD Attending Provider at Discharge: Nishi Angela MD Primary Care Provider: Shyann Harman MD, [facility] [place] Diagnoses at Discharge Discharge Diagnosis (1) Acute respiratory failure: Status: Resolved Problem details: -Extubated on 09/17 -Pulmonary toilet, RT -Repeat echo with noted EF of 40%, global LV hypokinesis, severe biatrial enlargement, mild AR -off IVF -CXR (09/17) reported as increased opacity in R hilum Qualifiers: Respiratory failure complication: unspecified whether with hypoxia or hypercapnia Qualified Code(s): J96.00 - Acute respiratory failure, unspecified whether with hypoxia or hypercapnia (2) Clot retention of urine: Status: Resolved Problem details: -Noted to have urinary retention and required aggressive irrigation of bladder done by Dr. Carranza in clinic -Catheter placed; continue to monitor output -no need for continued continuous bladder irrigation -Urology evaluation by Dr. Carranza appreciated; s/p cystoscopy with clot evacuation and bladder tumor resection; POD # 4 -Due to noted gross hematuria, Coumadin on hold -Close monitoring of hemoglobin -UA with noted hematuria/+LE/+bacteria/minimal pyuria; on Ceftriaxone particularly with noted instrumentation, catheter placement, leukocytosis. Urine cx prelim negative. Blood cx prelim negative. Will d/c on continued antibiotics on discharge per discussion with Dr. 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 cystoscopy and noted abnormal appearing bladder with clot on CT scan s/p large bladder tumor resection (4) BPH NOS w ur obs/LUTS: Status: Acute Problem details: -continue tamsulosin -Noted chronic bladder wall thickening with evidence of bilateral hydronephrosis likely related to bladder outlet obstruction -3-way catheter in place due to need for CBI (5) Hypertension: Status: Chronic Problem details: -normotensive; continue to monitor vital signs -continue Coreg, resume low dose lasix, d/c ACEi -off IVF hydration Qualifiers: Hypertension type: essential hypertension Qualified Code(s): I10 - Essential (primary) hypertension (6) Hypothyroidism: Status: Chronic Problem details: -continue levothyroxine Qualifiers: Hypothyroidism type: unspecified Qualified Code(s): E03.9 - Hypothyroidism, unspecified (7) Hyperlipidemia: Status: Chronic Qualifiers: Hyperlipidemia type: unspecified Qualified Code(s): E78.5 - Hyperlipidemia, unspecified (8) Congestive heart failure: Status: Chronic Problem details: -No evidence of CHF exacerbation currently -Echo: EF=40%, diffuse LV hypokinesis, severe biatrial enlargement Qualifiers: Heart failure chronicity: chronic Heart failure type: systolic Qualified Code(s): I50.22 - Chronic systolic (congestive) heart failure (9) Chronic atrial fibrillation: Status: Chronic Problem details: -Rate controlled -Telemetry monitoring (10) Warfarin-induced coagulopathy: Status: Chronic Problem details: -Has been taking Coumadin secondary to chronic atrial fibrillation -Hold Coumadin in light of gross hematuria. Very high risk for bleeding if anticoagulation resumed so we will continue to hold off on this -due to need for procedure, hematuria, needed reversal of coagulopathy; given vitamin K x 1 and FFPs x 2 Reason for Visit Reason for Visit: Blood in urine, difficulty urinating Hospital Course Hospital Course: Patient was initially admitted to the medical surgical floor secondary to having been found to have gross hematuria and having been evaluated by Dr. Carranza in the office. Direct admission was requested in light of patient's symptoms. He was found to have an abnormal appearing bladder with ariadna t on CT scan and required aggressive irrigation of the bladder and placement of Hernandez catheter by Dr. Carranza in the clinic prior to admission. Patient had been on anticoagulation with Coumadin with noted Coumadin induced coagulopathy. In light of gross hematuria anticoagulation was held. INR was found to be supratherapeutic and due to need for surgical intervention including clot evacuation, resection of bladder tumor patient required reversal of coagulopathy, given vitamin K x1 and 2 bags of FFPs. He is hemoglobin was closely monitored as well and he has not required transfusion of any additional blood products. Unfortunately immediately postop he was found to be quite hypotensive and somewhat difficult to arouse so remained intubated and was transferred to ICU thereafter. He was extubated within approximately 24 hours postop and has remained stable from a respiratory standpoint. He is POD # 4 s/p cystoscopy with clot evacuation and bladder tumor resection, pathology is pendi ng though per Dr. Carranza grossly appears to be neoplastic. With continued irrigation urine has cleared up but he has required some manual irrigation due to some clotting. Hernandez catheter is to remain in place per Dr. Carranza's instructions and manual irrigation to be done as needed to clear any noted clots and ensure Hernandez catheter is functioning normally. Patient is to remain off anticoagulation for at least 2 to 3 weeks due to high risk of bleeding. Unfortunately due to underlying history of chronic atrial fibrillation this will put him at risk for possible stroke, however in light of gross hematuria, benefits of discontinuation of anticoagulation far outweigh risks of stroke. Had an intensive discussion about this with the patient as well. Once respiratory status is stabilized status post extubation he was transferred to the floor for continued care. Due to hospitalization and advanced age she has been physically deconditioned and will require rehabilitation. He was previo usly living in an assisted living facility. He is agreeable to SNF placement and has been accepted to [facility] [place]. He will be continued on empiric antibiotic therapy, blood cultures have been negative, urine cultures have been negative as well and sputum cultures grew mixed jeramy. While hospitalized he was covered with ceftriaxone. He has been afebrile, hemodynamically stable and on room air. He will require continued monitoring of his hemoglobin. Follow-up has been arranged with Dr. Carranza for September 28 and he will need to follow-up with his primary care provider as well. Of note patient's blood pressure has been well controlled without SUNIL inhibitor or Lasix. However due to underlying chronic systolic CHF with ejection fraction of 40% we will resume low-dose Lasix. Lisinopril can be discontinued at this time. Discharge Summary: -Patient to follow up with primary care physician within 1 week or per SNF -Patient to follow up with Dr. Carranza on 09/29/2019 -Patient will need follow up CBC done on Sunday to continue to monitor his hemoglobin. Physical Exam Const: COMMON NORMALS: no acute distress, patient oriented x3 and alert GENERAL APPEARANCE: frail appearing ORIENTATION/CONSCIOUSNESS: Yes awake OTHER: -looks appropriate for age -very pleasant HENMT: COMMON NORMALS: normocephalic, atraumatic and moist oral mucous membranes HEAD & SCALP: normocephalic and atraumatic GENERAL EAR: hearing grossly impaired Laterality: bilateral Eye: COMMON NORMALS: Equal, round and reactive pupils present, EOMs intact bilaterally and conjunctivae normal CONJUNCTIVA: Yes conjunctivae normal PUPIL: Yes Equal, round and reactive pupils present Neck/C-Spine: COMMON NORMALS: full ROM GENERAL: Yes normal visual inspection and Yes trachea midline Resp: COMMON NORMALS: normal respiratory effort, No retractions, No use of accessory muscles and clear to auscultation bilaterally EFFORT & INSPECTION: Yes able to speak in complete sentences, Yes symmetric chest movement and No tachypneic AUSCULTATION: clear to auscultation bilaterally OTHER: -on RA Cardio: COMMON NORMALS: regular rate, regular rhythm, S1 normal heart sound present and S2 normal heart sound present RATE: regular rate RHYTHM: regular rhythm HEART SOUNDS: S1 normal heart sound present, S2 normal heart sound present and Murmur heart sound present systolic GI: COMMON NORMALS: Normal to inspection, nondistended, normoactive bowel sounds present, Soft to palpation and non-tender PALPATION: Yes Soft to palpation : BLADDER/KIDNEY EXAM: Yes catheter in place MALE GROIN/PERINEUM EXAM: Yes hernia (large L inguinal hernia) OTHER: -no hematuria, dark yellow urine in catheter bag Extremity: COMMON NORMALS: normal to inspection, full ROM and no clubbing, cyanosis or edema; negative for no pedal edema Neuro: COMMON NORMALS: patient oriented x3, moves all extremities, no focal motor deficits and no sensory deficits noted SENSORIUM/ORIENTATION: Yes alert Psych: COMMON NORMALS: mental status grossly normal, Normal thought process present, cooperative, normal affect and speech normal SPEECH: Yes normal speech THOUGHT PROCESS: Normal thought process present Skin: COMMON NORMALS: no rashes or lesions noted, no jaundice, no petechiae and no mottling NARRATIVE SKIN EXAM: -chronic venous stasis dermatitis GENERAL SKIN EXAM: no rashes or lesions noted Urinary Catheter Management^: 3-way Urethral CBI: Cath Placed During This Visit: yes Reason for Continuing Indwelling Catheter: Acute Urinary Retention or Obstruction Urinary Catheter Date of Insertion: 09/16/19 Urinary Catheter Time of Insertion: 11:09 Discharge Data Data Completed and Pending: Completed Studies During Hospitalization Category Date Time Status XR chest 1V gavino ble [id number] Routine Exams 09/18/19 06:00 Completed XR chest 1V gavino ble [id number] Stat Exams 09/17/19 17:31 Completed CV echo limited 9 7118 Routine Ultrasound 09/17/19 16:01 Completed Pending at discharge Category Date Time Status Pathology: Surgic al [PTH] Routine Pth 09/17/19 14:39 Received Vitals: Last Vital Signs Temp 98.0 F 09/21/19 08:00 Pulse 72 09/21/19 08:14 Resp 16 09/21/19 08:00 BP 128/82 09/21/19 08:00 Pulse Ox 95 09/21/19 08:00 Discharge Plan Discharge Patient Disposition: Xfer SNF Condition: Stable Prescriptions: New levothyroxine 50 mcg tablet 50 mcg PO DAILY Qty: 30 RF: 0 Continued fluoxetine 40 mg capsule 40 mg PO DAILY Qty: 30 RF: 0 carvedilol 6.25 mg tablet 6.25 mg PO BID Qty: 30 RF: 0 albuterol sulfate 2.5 mg /3 mL (0.083 %) Solution For Nebulization 2.5 mg INHALATION Q4H PRN (Reason: Shortness Of Breath) Qty: 30 RF: 0 Miralax 17 gram Powder In Packet 17 g PO DAILY Qty: 30 RF: 0 tramadol 50 mg tablet 50 mg PO BID PRN (Reason: Pain) Qty: 30 RF: 0 Calcium 600 600 mg calcium (1,500 mg) tablet 1,500 mg PO DAILY Qty: 30 RF: 0 Milk of Magnesia 400 mg/5 mL suspension 30 ml PO DAILY PRN (Reason: Constipation) Qty: 30 RF: 0 tamsulosin 0.4 mg capsule 0.4 mg PO DAILY Qty: 30 RF: 0 prednisone 1 mg tablet 1 mg PO DAILY Qty: 30 RF: 0 bisacodyl 10 mg Suppository 10 mg KS DAILY PRN (Reason: Constipation) Qty: 30 RF: 0 digoxin 125 mcg (0.125 mg) tablet 125 mcg PO DAILY Qty: 30 RF: 0 acetaminophen 500 mg capsule 500 mg PO Q6H PRN (Reason: Pain) Qty: 30 RF: 0 aripiprazole 2 mg tablet 2 mg PO DAILY Qty: 30 RF: 0 Vitamin D3 25 mcg (1,000 unit) Tablet 25 mcg PO DAILY Qty: 30 RF: 0 Changed cephalexin 500 mg capsule 500 mg PO Q6H 7 Days Qty: 28 RF: 0 furosemide 20 mg tablet 20 mg PO DAILY Qty: 30 RF: 0 Discontinued lisinopril 20 mg tablet 20 mg PO BID RF: 0 warfarin 6 mg tablet See Rx Instructions .ROUTE .COMPLEX RF: 0 warfarin 5 mg Tablet See Rx Instructions .ROUTE .COMPLEX RF: 0 Discharge Orders: Discharge Order (Routine); Ordered 09/21/19 Ordered By: Nishi Angela Referrals: [facility] [Outside] Shyann Harman MD, [facility] [place] [Primary Care Provider] - 4-7 days (Post hospital discharge follow up. ) Onesimo Carranza MD [Physician] - 09/29/19 (Post hospital discharge follow up) Discharge Diet: Cardiac Discharge Activity: Increase activity as tolerated and As per PT/OT instructions Patient Instructions: Levothyroxine (By mouth) Activity Restrictions/Additional Instructions: -Patient has a Hernandez catheter in place that will need to be irrigated manually as needed to clear any clots and/or if noted gross hematuria -Patient is quite deconditioned physically so will need continued fall precautions and assistance with all out of bed activity -Patient will need CBC drawn on Sunday (09/23/2019) to continue to monitor his hemoglobin. Discharge Attestations Time Spent in Discharge Care*: greater than 30 min Specific Discharge Activities: Specific discharge activities: educating patient, discussing with case liner/social workers/dc planners, documenting/other paperwork and evaluating patient/reviewing data Status at Discharge: Cognitive status at discharge: cognitively intact , Behavioral status at discharge: cooperative , Functional status at discharge: other assisted ambulation (at least 1 person assist) Overall status at discharge: patient is progressing back to baseline Quality Metrics Clinical Quality Measures During this hospital stay, did patient experience: None Coding Level of Care Code Acute Student Specialist for [facility] Fwd Exam Comprehensive Diagnoses Acute respiratory failure J96.00 Respiratory failure complication: unspecified whether with hypoxia or hypercapnia Clot retention of urine R33.8 Lesion of bladder N32.9 BPH NOS w ur obs/LUTS N40.1 Hypertension I10 Hypertension type: essential hypertension Hypothyroidism E03.9 Hypothyroidism type: unspecified Hyperlipidemia E78.5 Hyperlipidemia type: unspecified Congestive heart failure I50.22 Heart failure chronicity: chronic Heart failure type: systolic Chronic atrial fibrillation I48.20 Warfarin-induced coagulopathy D68.32; T45.515A
[2019-09-21 11:32] VITALS: PULSE 72
[2019-09-21 11:56] VITALS: BP 126/71; PULSE 73; RESP 16; TEMP 36.6; O2SAT 98
== END 2019-09-21 13:16 | disposition skilled nursing facility (03) | DRG 668 ==
LOC: ER 15:02 → MEDSURG 15:33 → ICU 09-17 14:34 → MEDSURG 09-19 13:16
PROVIDERS: Anesthesiology; Urology; Admitting Provider Family Medicine; PCP Family Medicine; Visit Provider Family Medicine
PROC: 0TBB8ZZ Excision of Bladder, Via Natural or Artificial Opening Endoscopic (ICD-10-PCS; principal; 2019-09-17 11:00)
PROC: 0TJB8ZZ Inspection of Bladder, Via Natural or Artificial Opening Endoscopic (ICD-10-PCS; CPT 52000; 2019-09-17 11:00)
PROC: 0T5B8ZZ Destruction of Bladder, Via Natural or Artificial Opening Endoscopic (ICD-10-PCS; 2019-09-17 11:00)
DX: R31.0 Gross hematuria (principal); J96.00 Acute respiratory failure, unspecified whether with hypoxia or hypercapnia; I50.22 Chronic systolic (congestive) heart failure; D68.32 Hemorrhagic disorder due to extrinsic circulating anticoagulants; I48.20 Chronic atrial fibrillation, unspecified; I42.9 Cardiomyopathy, unspecified; T45.515A Adverse effect of anticoagulants, initial encounter; Y92.230 Patient room in hospital as the place of occurrence of the external cause; I11.0 Hypertensive heart disease with heart failure; E03.9 Hypothyroidism, unspecified; E78.5 Hyperlipidemia, unspecified; N40.1 Benign prostatic hyperplasia with lower urinary tract symptoms; R33.8 Other retention of urine
CPT/HCPCS: 12345; 36415; 36430; 36600; 71045; 80048; 80051; 80053; 81001; 81003; 82803; 82810; 83605; 83986; 85025; 85610; 86900; 86927; 87040; 87070; 87086; 87205; 88305; 93005; 93308; 94002; 94003; 94799; 96375; 97110; 97116; 97161; 97530; 99282; J0696; J2270; J2370; J2405; J2704; J2710; J3010; J3430; J3490; J7030; J7512; P9017

== ENCOUNTER 2019-09-26 09:19 | Inpatient (IN) | payer MEDICARE, OTHER, SELFPAY ==
[2019-09-26] VITALS (12 sets, daily range): BP systolic 111–136; BP diastolic 64–79; PULSE 73–85; RESP 16–20; TEMP 36.4–37; O2SAT 94–99; BMI 25.4
--- NOTE | 2019-09-26 09:35 | CT_ITS ---
WS: [id number] CT ABDOMEN PELVIS TECHNIQUE: Contrast-enhanced CT of the abdomen and pelvis with coronal and sagittal reformatted image s. CLINICAL INFORMATION: hematemesis COMPARISON: CT abdomen pelvis September 13, 2019 and DLP: 826.[address] scans at [facility] use at least one of these dose optimization techniques: automat ed exposure control; mA and/or kV adjustment per patient size (includes targeted exams where dose is matched to clinical indication); or iterative reconstruction. FINDINGS: Cardiomegaly. Small pericardial effusion. Bibasilar atelectasis. Large left inguinal hernia containin g dilated sigmoid colon with air-fluid levels. This is progressed since September 13, 2019. There is diffu se dilatation with air-fluid levels involving the entire mid to distal small bowel and colon. Finding s presumably due to obstruction from the incarcerated left inguinal hernia. No evidence of ischemia. No free air. Air-fluid level in the stomach and distal esophagus. Proximal duodenum is decompressed. Small bowel measures up to 4 CM. A few small hepatic cysts. Cholelithiasis. Fatty atrophy of the pancreas. Normal caliber abdominal ao rta. Aortic calcification. Adrenal glands are normal. Normal spleen. Large bilateral lobulated renal cysts. No hydronephrosis. Lung bases are well aerated. Hernandez catheter in place. Diffuse thickening of the bladder suspicious for transitional cell carcinoma. Recommend correlation w ith clinical history. Attempted notification EVELIO Montero at 09/26/2019 11:04 AM. Not currently available for verbal report. CT/CT abdomen pelvis w con* [id number] IMPRESSION: 1. Obstructed left inguinal hernia containing sigmoid colon with air-fluid lev els. Upstream dilatation involving the mid and distal small bowel and entire co nick with air-fluid levels. Obstruction is new since September 13, 2019. 2. Cardiomegaly with small pericardial effusion. 3. Hernadnez catheter in place with diffuse nodular bladder wall thickening suspic ious for transitional cell carcinoma. Some high attenuation in the bladder susp icious for blood products. 4. Lobulated bilateral renal cysts. 5. Cholelithiasis.
--- NOTE | 2019-09-26 09:56 | W.ED.NAVMDI ---
Documented by User: EVELIO Montero 09/26/19 09:58 HPI - Nausea/Vomiting/Diarrhea General: Chief complaint: Nausea/Vomiting/Diarrhea Stated complaint: COFFEE GROUND EMESIS Time Seen by Provider: 09/26/19 09:35 History of Present Illness: HPI Narrative: Patient brought in by ambulance with complaint of hematic emesis coffee-ground emesis this morning. Patient states he feels fine threw up a couple times was recently in the hospital for bladder mass. Patient has a Hernandez in. MD elicited complaint: vomiting Pertinent past history: other Onset (ago): hour(s) Description of vomiting: coffee grounds Associated nausea: Yes Associated abdominal pain: No Associated symtoms: Reports no associated symptoms and nausea; Denies anxiety, change in vision, chest pain or headache(s) Review of Systems Const: Denies: fever(s), chills or body aches Eyes: Denies: change in vision or blurry vision ENMT: Denies: throat pain or nasal congestion Card: Denies: chest pain or dyspnea on exertion Resp: Denies: dyspnea, productive cough or non-productive cough GI: Reports: nausea, vomiting and coffee ground emesis : Denies: difficulty urinating Musc: Denies: extremity pain Skin/Breast: Denies: rash Neuro: Denies: headache(s) Psych: Denies: anxiety or depression Adonay/Lymph: Denies: easy bruising PFSH ED PFSH: Medical History (Updated 09/26/19 @ 12:47 by Shanelle Kwok) BPH (benign prostatic hyperplasia) BPH NOS w ur obs/LUTS -continue tamsulosin -Noted chronic bladder wall thickening with evidence of bilateral hydronephrosis likely related to bladder outlet obstruction -3-way catheter in place due to need for CBI 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 Carranza in clinic -Catheter placed; continue to monitor output -no need for continued continuous bladder irrigation -Urology evaluation by Dr. Carranza appreciated; s/p cystoscopy with clot evacuation and bladder tumor resection; POD # 4 -Due to noted gross hematuria, Coumadin on hold -Close monitoring of hemoglobin -UA with noted hematuria/+LE/+bacteria/minimal pyuria; on Ceftriaxone particularly with noted instrumentation, catheter placement, leukocytosis. Urine cx prelim negative. Blood cx prelim negative. Will d/c on continued antibiotics on discharge per discussion with Dr. Carranza Congestive heart failure -No evidence of CHF exacerbation currently -Echo: EF=40%, diffuse LV hypokinesis, severe biatrial enlargement Hyperlipidemia Hypertension -normotensive; continue to monitor vital signs -continue Coreg, resume low dose lasix, d/c ACEi -off IVF hydration Hypothyroidism -continue levothyroxine Kidney stone Osteoarthritis Peripheral vascular disease Thromboembolism Urinary retention Surgical History H/O skin graft History of bone marrow biopsy Previous back surgery Social History Smoking and tobacco status: never smoked Alcohol intake: never Lives independently: Yes Housing: Assisted Living Facility Marital status: / Marital status details: x 52 yrs Current occupational status: retired History of recent travel: No Physical Exam Const: COMMON NORMALS: no acute distress, average body habitus and patient oriented x3 HENMT: COMMON NORMALS: normocephalic HEAD & SCALP: normal to inspection and normocephalic FACE & SINUS: normal facial exam Eye: COMMON NORMALS: conjunctivae normal GENERAL EYE: appearance normal, both eyes and all related structures CONJUNCTIVA: Yes conjunctivae normal Neck/C-Spine: COMMON NORMALS: no JVD Chest: COMMONS NORMALS: normal inspection of the chest Resp: COMMON NORMALS: normal respiratory effort and clear to auscultation bilaterally AUSCULTATION: clear to auscultation bilaterally Cardio: COMMON NORMALS: no JVD, regular rate and regular rhythm RATE: regular rate RHYTHM: regular rhythm GI: INSPECTION: Yes abdominal distension AUSCULTATION: Yes normoactive bowel sounds : OTHER: Hernandez in place has a large scrotal hernia left side Extremity: COMMON NORMALS: normal to inspection and full ROM Neuro: COMMON NORMALS: patient oriented x3 Course Vital Signs: Vital signs: Vital Signs Temperature 98.6 F 09/26/19 09:45 Pulse Rate 79 09/26/19 12:23 Respiratory Rate 16 09/26/19 12:23 Blood Pressure 111/69 09/26/19 12:23 Pulse Oximetry 96 09/26/19 12:23 MDM - Nausea/Vomiting/Diarrhea Lab Data: Labs: Lab Results 09/26/19 09/26/19 09/26/19 Range/Units 08:42 08:42 09:51 WBC 12.9 H (4.0-10.0) 10^3/ uL RBC 3.89 L (4.1-5.3) 10^6/u L Hgb 11.7 (11.7-16.6) g/dL Hct 37.1 L (42.0-52.0) % MCV 95.4 H (80-94) fL MCH 30.1 (28.0-34.0) pg MCHC 31.5 (30.0-36.0) g/dL RDW 15.9 H (12.1-15.1) % Plt Count 312 (130-400) 10^3/c mm MPV 10.9 H (7.4-10.4) fL Neut % (Auto) 87.4 % Lymph % (Auto) 5.1 % Carlisle % (Auto) 6.0 % Eos % (Auto) 0.5 % Baso % (Auto) 0.4 % Neut # (Auto) 11.23 H (1.8-7.7) 10^3/u L Lymph # (Auto) 0.7 L (0.8-4.8) 10^3/u L Carlisle # (Auto) 0.8 (0.2-0.9) 10^3/u L Eos # (Auto) 0.1 (0.0-0.8) 10^3/u L Baso # (Auto) 0.1 (0.0-0.1) 10^3/u L Nucleated RBC % (a uto) 0 % Nucleated RBCs # 0.0 /100WBC Sodium 138 (136-145) mmol/L Potassium 4.0 (3.5-5.1) mmol/L Chloride 105 (98-107) mmol/L Carbon Dioxide 19 L (22-29) mmol/L Anion Gap 18.0 (5-19) BUN 23 (8-23) mg/dL Creatinine 1.2 (0.7-1.2) mg/dL GFR Calculation Not Reportable Glucose 155 H (65-115) mg/dL Calculated Osmolal ity 286 (285-295) mOsm/k g Calcium 9.3 (8.5-10.5) mg/dL Total Bilirubin 1.1 (0.15-1.2) mg/dL AST 27 (0-40) U/L ALT 18 (0-41) U/L Alkaline Phosphata se 125 (40-130) IU/L Total Protein 7.5 (6.6-8.7) g/dL Albumin 4.5 (3.5-5.2) g/dL Globulin 3.0 (1.3-4.6) g/dL Urine Color (Yellow) Urine Appearance (CLEAR) Urine pH (5-7) Ur Specific Gravit y (1.005-1.030) Urine Protein (Negative) Urine Glucose (UA) (Normal) Urine Ketones (Negative) Urine Blood (Negative) Urine Nitrate (Negative) Urine Bilirubin (NEGATIVE) Urine Urobilinogen (Negative) mg/dL Ur Leukocyte Nadia ase (Negative) Urine RBC (0-2) /hpf Urine WBC (0-5) /hpf Ur Squamous Epith Cells (0-5) Calcium Oxalate Cr ystal /hpf Amorphous Sediment Urine Bacteria (NONE) Urine Mucus Blood Type O Positive Rho(D) Type Positive Antibody Screen Negative 09/26/19 Range/Units 10:50 WBC (4.0-10.0) 10^3/ uL RBC (4.1-5.3) 10^6/u L Hgb (11.7-16.6) g/dL Hct (42.0-52.0) % MCV (80-94) fL MCH (28.0-34.0) pg MCHC (30.0-36.0) g/dL RDW (12.1-15.1) % Plt Count (130-400) 10^3/c mm MPV (7.4-10.4) fL Neut % (Auto) % Lymph % (Auto) % Carlisle % (Auto) % Eos % (Auto) % Baso % (Auto) % Neut # (Auto) (1.8-7.7) 10^3/u L Lymph # (Auto) (0.8-4.8) 10^3/u L Carlisle # (Auto) (0.2-0.9) 10^3/u L Eos # (Auto) (0.0-0.8) 10^3/u L Baso # (Auto) (0.0-0.1) 10^3/u L Nucleated RBC % (a uto) % Nucleated RBCs # /100WBC Sodium (136-145) mmol/L Potassium (3.5-5.1) mmol/L Chloride (98-107) mmol/L Carbon Dioxide (22-29) mmol/L Anion Gap (5-19) BUN (8-23) mg/dL Creatinine (0.7-1.2) mg/dL GFR Calculation Glucose (65-115) mg/dL Calculated Osmolal ity (285-295) mOsm/k g Calcium (8.5-10.5) mg/dL Total Bilirubin (0.15-1.2) mg/dL AST (0-40) U/L ALT (0-41) U/L Alkaline Phosphata se (40-130) IU/L Total Protein (6.6-8.7) g/dL Albumin (3.5-5.2) g/dL Globulin (1.3-4.6) g/dL Urine Color Yellow (Yellow) Urine Appearance Cloudy (CLEAR) Urine pH 5.0 (5-7) Ur Specific Gravit y 1.015 (1.005-1.030) Urine Protein 2+ H (Negative) Urine Glucose (UA) Norm (Normal) Urine Ketones Negative (Negative) Urine Blood 3+ H (Negative) Urine Nitrate Negative (Negative) Urine Bilirubin Neg (NEGATIVE) Urine Urobilinogen Norm (Negative) mg/dL Ur Leukocyte Nadia ase 2+ H (Negative) Urine RBC >100 H (0-2) /hpf Urine WBC 25-40 H (0-5) /hpf Ur Squamous Epith Cells 5-10 H (0-5) Calcium Oxalate Cr ystal 0-4 H /hpf Amorphous Sediment Not Reportable Urine Bacteria 2+ H (NONE) Urine Mucus 1+ Blood Type Rho(D) Type Antibody Screen Discharge Plan Discharge Patient Disposition: Admitted As Inpatient Admit Provider: Rosa M Robles Clinical Impression: Hematemesis, Bowel obstruction Condition: Stable Sign Out Sign Out Data: Patient Sign Out occurred on 09/26/19 at 11:17. Patient's care was discussed, and care was transferred from to [facility]. Coding Level of Care Code ED Travel Accommodation Inspector for g Fwd Exam Comprehensive Documented by User: Shanelle Kwok 09/26/19 12:47 HPI - Nausea/Vomiting/Diarrhea General: Chief complaint: Nausea/Vomiting/Diarrhea Stated complaint: COFFEE GROUND EMESIS Time Seen by Provider: 09/26/19 09:35 PFSH ED PFSH: Medical History (Updated 09/26/19 @ 12:47 by Shanelle Kwok) BPH (benign prostatic hyperplasia) BPH NOS w ur obs/LUTS -continue tamsulosin -Noted chronic bladder wall thickening with evidence of bilateral hydronephrosis likely related to bladder outlet obstruction -3-way catheter in place due to need for CBI 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 Carranza in clinic -Catheter placed; continue to monitor output -no need for continued continuous bladder irrigation -Urology evaluation by Dr. Carranza appreciated; s/p cystoscopy with clot evacuation and bladder tumor resection; POD # 4 -Due to noted gross hematuria, Coumadin on hold -Close monitoring of hemoglobin -UA with noted hematuria/+LE/+bacteria/minimal pyuria; on Ceftriaxone particularly with noted instrumentation, catheter placement, leukocytosis. Urine cx prelim negative. Blood cx prelim negative. Will d/c on continued antibiotics on discharge per discussion with Dr. Carranza Congestive heart failure -No evidence of CHF exacerbation currently -Echo: EF=40%, diffuse LV hypokinesis, severe biatrial enlargement Hyperlipidemia Hypertension -normotensive; continue to monitor vital signs -continue Coreg, resume low dose lasix, d/c ACEi -off IVF hydration Hypothyroidism -continue levothyroxine Kidney stone Osteoarthritis Peripheral vascular disease Thromboembolism Urinary retention Surgical History H/O skin graft History of bone marrow biopsy Previous back surgery Social History Smoking and tobacco status: never smoked Alcohol intake: never Lives independently: Yes Housing: Assisted Living Facility Marital status: / Marital status details: x 52 yrs Current occupational status: retired History of recent travel: No Course Vital Signs: Vital signs: Vital Signs Temperature 98.6 F 09/26/19 09:45 Pulse Rate 79 09/26/19 12:23 Respiratory Rate 16 09/26/19 12:23 Blood Pressure 111/69 09/26/19 12:23 Pulse Oximetry 96 09/26/19 12:23 MDM - Nausea/Vomiting/Diarrhea MDM Narrative: Medical decision making narrative: Case was turned over to me from Ankur Doherty APN. Please see his notes for his history, physical exam and medical decision-making notes. I agree with his work-up and assessment. Case was turned over me secondary to the likelihood of needing admission and GI bleed. Patient states he is no longer on any anticoagulation. Here his vital signs are stable. There is no history of liver disease or liver cirrhosis. CT scan shows obstruction and before I could attempt a reduction Dr. Russell who had been consulted and saw the patient and was able to completely reduce his hernia by his report but then the hernia immediately recurs. He will follow clinically. He agrees with admission to the floor. I also reviewed the case with Dr. Robles and she is agreeable to admission to the floor. Lactate, digoxin are pending at this time. We will follow-up on those labs and further care will be dictated by Dr. Robles and Yvonne. Lab Data: Attestation: I reviewed the patient's lab results. Labs: Lab Results 09/26/19 09/26/19 09/26/19 Range/Units 08:42 08:42 09:51 WBC 12.9 H (4.0-10.0) 10^3/ uL RBC 3.89 L (4.1-5.3) 10^6/u L Hgb 11.7 (11.7-16.6) g/dL Hct 37.1 L (42.0-52.0) % MCV 95.4 H (80-94) fL MCH 30.1 (28.0-34.0) pg MCHC 31.5 (30.0-36.0) g/dL RDW 15.9 H (12.1-15.1) % Plt Count 312 (130-400) 10^3/c mm MPV 10.9 H (7.4-10.4) fL Neut % (Auto) 87.4 % Lymph % (Auto) 5.1 % Carlisle % (Auto) 6.0 % Eos % (Auto) 0.5 % Baso % (Auto) 0.4 % Neut # (Auto) 11.23 H (1.8-7.7) 10^3/u L Lymph # (Auto) 0.7 L (0.8-4.8) 10^3/u L Carlisle # (Auto) 0.8 (0.2-0.9) 10^3/u L Eos # (Auto) 0.1 (0.0-0.8) 10^3/u L Baso # (Auto) 0.1 (0.0-0.1) 10^3/u L Nucleated RBC % (a uto) 0 % Nucleated RBCs # 0.0 /100WBC Sodium 138 (136-145) mmol/L Potassium 4.0 (3.5-5.1) mmol/L Chloride 105 (98-107) mmol/L Carbon Dioxide 19 L (22-29) mmol/L Anion Gap 18.0 (5-19) BUN 23 (8-23) mg/dL Creatinine 1.2 (0.7-1.2) mg/dL GFR Calculation Not Reportable Glucose 155 H (65-115) mg/dL Calculated Osmolal ity 286 (285-295) mOsm/k g Calcium 9.3 (8.5-10.5) mg/dL Total Bilirubin 1.1 (0.15-1.2) mg/dL AST 27 (0-40) U/L ALT 18 (0-41) U/L Alkaline Phosphata se 125 (40-130) IU/L Total Protein 7.5 (6.6-8.7) g/dL Albumin 4.5 (3.5-5.2) g/dL Globulin 3.0 (1.3-4.6) g/dL Urine Color (Yellow) Urine Appearance (CLEAR) Urine pH (5-7) Ur Specific Gravit y (1.005-1.030) Urine Protein (Negative) Urine Glucose (UA) (Normal) Urine Ketones (Negative) Urine Blood (Negative) Urine Nitrate (Negative) Urine Bilirubin (NEGATIVE) Urine Urobilinogen (Negative) mg/dL Ur Leukocyte Nadia ase (Negative) Urine RBC (0-2) /hpf Urine WBC (0-5) /hpf Ur Squamous Epith Cells (0-5) Calcium Oxalate Cr ystal /hpf Amorphous Sediment Urine Bacteria (NONE) Urine Mucus Blood Type O Positive Rho(D) Type Positive Antibody Screen Negative 09/26/19 Range/Units 10:50 WBC (4.0-10.0) 10^3/ uL RBC (4.1-5.3) 10^6/u L Hgb (11.7-16.6) g/dL Hct (42.0-52.0) % MCV (80-94) fL MCH (28.0-34.0) pg MCHC (30.0-36.0) g/dL RDW (12.1-15.1) % Plt Count (130-400) 10^3/c mm MPV (7.4-10.4) fL Neut % (Auto) % Lymph % (Auto) % Carlisle % (Auto) % Eos % (Auto) % Baso % (Auto) % Neut # (Auto) (1.8-7.7) 10^3/u L Lymph # (Auto) (0.8-4.8) 10^3/u L Carlisle # (Auto) (0.2-0.9) 10^3/u L Eos # (Auto) (0.0-0.8) 10^3/u L Baso # (Auto) (0.0-0.1) 10^3/u L Nucleated RBC % (a uto) % Nucleated RBCs # /100WBC Sodium (136-145) mmol/L Potassium (3.5-5.1) mmol/L Chloride (98-107) mmol/L Carbon Dioxide (22-29) mmol/L Anion Gap (5-19) BUN (8-23) mg/dL Creatinine (0.7-1.2) mg/dL GFR Calculation Glucose (65-115) mg/dL Calculated Osmolal ity (285-295) mOsm/k g Calcium (8.5-10.5) mg/dL Total Bilirubin (0.15-1.2) mg/dL AST (0-40) U/L ALT (0-41) U/L Alkaline Phosphata se (40-130) IU/L Total Protein (6.6-8.7) g/dL Albumin (3.5-5.2) g/dL Globulin (1.3-4.6) g/dL Urine Color Yellow (Yellow) Urine Appearance Cloudy (CLEAR) Urine pH 5.0 (5-7) Ur Specific Gravit y 1.015 (1.005-1.030) Urine Protein 2+ H (Negative) Urine Glucose (UA) Norm (Normal) Urine Ketones Negative (Negative) Urine Blood 3+ H (Negative) Urine Nitrate Negative (Negative) Urine Bilirubin Neg (NEGATIVE) Urine Urobilinogen Norm (Negative) mg/dL Ur Leukocyte Nadia ase 2+ H (Negative) Urine RBC >100 H (0-2) /hpf Urine WBC 25-40 H (0-5) /hpf Ur Squamous Epith Cells 5-10 H (0-5) Calcium Oxalate Cr ystal 0-4 H /hpf Amorphous Sediment Not Reportable Urine Bacteria 2+ H (NONE) Urine Mucus 1+ Blood Type Rho(D) Type Antibody Screen Imaging Data^: CT Abd/Pel: Radiologist's impression: [place] [address] CT Scan Report Signed Patient: Alex James Unit #: [id number] : 1935 Age/Sex: 84 / M ADM Date: 09/26/19 Loc: ER Room/Bed: Attending Dr: Ordering Provider/Ordering MD: Shabana Doherty , [facility] Date of Service: 09/26/19 Procedure(s): CT abdomen pelvis w con* [id number] Accession Number(s): [id number] Report Number: [id number] WS: [id number] CT ABDOMEN PELVIS TECHNIQUE: Contrast-enhanced CT of the abdomen and pelvis with coronal and sagittal reformatted images. CLINICAL INFORMATION: hematemesis COMPARISON: CT abdomen pelvis September 13, 2019 and DLP: 826.[address] scans at [facility] use at least one of these dose optimization techniques: automated exposure control; mA and/or kV adjustment per patient size (includes targeted exams where dose is matched to clinical indication); or iterative reconstruction. FINDINGS: Cardiomegaly. Small pericardial effusion. Bibasilar atelectasis. Large left inguinal hernia containing dilated sigmoid colon with air-fluid levels. This is progressed since September 13, 2019. There is diffuse dilatation with air-fluid levels involving the entire mid to distal small bowel and colon. Findings presumably due to obstruction from the incarcerated left inguinal hernia. No evidence of ischemia. No free air. Air-fluid level in the stomach and distal esophagus. Proximal duodenum is decompressed. Small bowel measures up to 4 CM. A few small hepatic cysts. Cholelithiasis. Fatty atrophy of the pancreas. Normal caliber abdominal aorta. Aortic calcification. Adrenal glands are normal. Normal spleen. Large bilateral lobulated renal cysts. No hydronephrosis. Lung bases are well aerated. Hernandez catheter in place. Diffuse thickening of the bladder suspicious for transitional cell carcinoma. Recommend correlation with clinical history. Attempted notification EVELIO Montero at 09/26/2019 11:04 AM. Not currently available for verbal report. CT/CT abdomen pelvis w con* [id number] IMPRESSION: 1. Obstructed left inguinal hernia containing sigmoid colon with air-fluid levels. Upstream dilatation involving the mid and distal small bowel and entire colon with air-fluid levels. Obstruction is new since September 13, 2019. 2. Cardiomegaly with small pericardial effusion. 3. Hernandez catheter in place with diffuse nodular bladder wall thickening suspicious for transitional cell carcinoma. Some high attenuation in the bladder suspicious for blood products. 4. Lobulated bilateral renal cysts. 5. Cholelithiasis. Dictated By: Scott Leal MD Signed By: Scott Leal MD Signed Date/Time: 09/26/19 1106 DD/ 1056 EKG Data^: EKG 1: Attestation: I personally reviewed and interpreted this EKG as follows: EKG interpretation date: 09/26/19 EKG interpretation time: 12:21 Interpretation: Atrial fibrillation with ventricular rate of 80 beats a minute, left axis deviation, borderline LVH, nonspecific ST-T wave changes. Discharge Plan Discharge Patient Disposition: Admitted As Inpatient Admit Provider: Rosa M Robles Clinical Impression: Hematemesis, Bowel obstruction Condition: Stable Sign Out Sign Out Data: Patient Sign Out occurred on 09/26/19 at 11:17. Patient's care was discussed, and care was transferred from to Shanelle Kwok. Coding Level of Care Code ED Travel Accommodation Inspector for Chg Fwd Exam Comprehensive
[2019-09-26 10:15] LABS: Alanine Aminotransferase 18 U/L (0-41); Albumin Level 4.5 g/dL (3.5-5.2); Alkaline Phosphatase 125 IU/L (40-130); Aspartate Amino Transferase 27 U/L (0-40); Basophils # 0.1 10^3/uL (0.0-0.1); Basophils % 0.4 %; Blood Urea Nitrogen 23 mg/dL (8-23); Calcium 9.3 mg/dL (8.5-10.5); Carbon Dioxide 19 mmol/L (22-29); Chloride 105 mmol/L (98-107); Eosinophils # 0.1 10^3/uL (0.0-0.8); Eosinophils % 0.5 %; Glucose 155 mg/dL (65-115); Hematocrit 37.1 % (42.0-52.0); Hemoglobin 11.7 g/dL (11.7-16.6); Lymphocytes # 0.7 10^3/uL (0.8-4.8); Lymphocytes % 5.1 %; Mean Corpuscular HGB Conc 31.5 g/dL (30.0-36.0); Mean Corpuscular Hemoglobin 30.1 pg (28.0-34.0); Mean Corpuscular Volume 95.4 fL (80-94); Mean Platelet Volume 10.9 fL (7.4-10.4); Monocytes # 0.8 10^3/uL (0.2-0.9); Neutrophils # 11.23 10^3/uL (1.8-7.7); Neutrophils % 87.4 %; Nucleated Red Blood Cells % 0 %; Osmolality Calculated 286 mOsm/kg (285-295); Platelet Count 312 10^3/cmm (130-400); Red Blood Count 3.89 10^6/uL (4.1-5.3); Red Cell Distribution Width 15.9 % (12.1-15.1); Sodium 138 mmol/L (136-145); Total Bilirubin 1.1 mg/dL (0.15-1.2); Total Protein 7.5 g/dL (6.6-8.7); White Blood Count 12.9 10^3/uL (4.0-10.0)
[2019-09-26] MEDS: lidocaine 2% viscous 15 ML, aluminum-mag hydrox-simethicon 30 ML, sucralfate oral liq 1 GM PO (10:18)
[2019-09-26] MEDS: ondansetron 2 mg/ML SDV 2 mL 4 MG IVP (10:49)
[2019-09-26] MEDS: iodixanol 320 mg/mL 100mL Btl IV (10:49)
[2019-09-26] MEDS: pantoprazole 40 mg SDV IVP ×2 (10:49→11:52)
[2019-09-26 11:29] LABS: Add Urine Microscopic? YES; Bilirubin Urine Neg (NEGATIVE); Blood Urine 3+ (Negative); Glucose Urine UA Norm (Normal); Ketones Urine Negative (Negative); Leukocyte Esterase Urine 2+ (Negative); Nitrate Urine Negative (Negative); Protein Urine 2+ (Negative); Specific Gravity, Urine 1.015 (1.005-1.030); Urine Appearance Cloudy (CLEAR); Urine Color Yellow (Yellow); Urobilinogen Urine Norm (Negative)
[2019-09-26 11:41] LABS: Add Urine Culture? Yes; Bacteria Urine 2+; Calcium Oxalate Crystals Urine 0-4 /hpf; Mucus Urine 1+; RBC Urine >100 /hpf (0-2); WBC Urine 25-40 /hpf (0-5)
[2019-09-26] MEDS: pantoprazole 40 MG in sodium chloride 0.9% (plus) 100 ML 20 MG IV ×2 (11:52→18:26)
--- NOTE | 2019-09-26 12:07 | ECG_ITS ---
[facility] Test Date: 2019-09-26 Pat Name: Alex James Department: Room: Gender: Male Patient Support Associate: : 1935 Requested By: Shanelle Call Order Number: [id number] Dre MD: Jason Wall M.D. Measurements Intervals [place] Rate: 80 P: MI: -1 QRS: -42 QRSD: 124 T: -44 QT: 425 QTc: 493 Interpretive Statements ATRIAL FIBRILLATION WITH ABERRANT CONDUCTION OR VENTRICULAR PREMATURE COMPLEXES LEFT AXIS DEVIATION [QRS AXIS < -30] MODERATE INTRAVENTRICULAR CONDUCTION DELAY [110+ ms QRS DURATION] MODERATE ST DEPRESSION [0.05+ mV ST DEPRESSION] PROLONGED QT INTERVAL Compared to ECG 09/15/2019 17:46:29 Left-axis deviation now present Intraventricular conduction delay now present Prolonged QT interval now present Incomplete right bundle-branch block no longer present Left anterior fascicular block no longer present ST (T wave) deviation still present Electronically Signed On 09-26-2019 16:06:21 CDT by Jason Wall M.D. [email or web address]
[2019-09-26] MEDS: piperacillin-tazobactam 3.375 GM in sodium chloride 0.9% (plus) 50 ML IV (12:21)
--- NOTE | 2019-09-26 12:24 | PC.NURSE ---
Pt cleaned , placed new clean diaper and repositioned for comfort
--- NOTE | 2019-09-26 12:36 | PC.NURSE ---
EKG done at 1221 and shown to ER doctor
[2019-09-26 12:48] LABS: INR 1.13 (0.8-1.2)
[2019-09-26 12:49] LABS: Partial Thromboplastin Time 34.8 SECONDS (23.9-36.7)
--- NOTE | 2019-09-26 12:50 | PM.CONSULT ---
Providers/Reason For Consult Consulting Physican/Specialty*: General Surgery Cooper Russell MD Reason for Consult*: 1. Large left inguinal hernia containing sigmoid colon on CT. 2. Coffee-ground emesis. Attending Physician: Rosa M Robles MD Primary Care Provider: Shyann Harman MD, [facility] History of Present Illness History of Present Illness Alex James is a 84 year old male who presented to the emergency room today with a report of coffee-ground emesis from his assisted living facility. The patient was just in the hospital within the past 10 days and was discovered to have bladder cancer and underwent TURBT but it is suspected the tumor is muscle invasive. He has a indwelling Hernandez catheter. He says he had a small bowel movement this morning, but admits that he had several episodes of emesis at the assisted living facility. He cannot tell me that he saw any blood, but I believe this was reported as coffee-ground emesis. The patient has a documented history of GERD, but says he rarely gets heartburn. He has no known history of peptic ulcer disease. He was found to have a very large left inguinal hernia on exam but reports that that has been there for years, and is not giving him any more problems than it ever has. He denies any abdominal pain. He had a CAT scan which revealed the large left inguinal hernia and the radiologist felt that the sigmoid colon that was within the hernia was compromised enough that it was creating an obstructive process. Meds/Allergies Home Medications and Allergies Home Medications Medication Instructions Recorded Confirmed Last Taken Type acetaminophen 500 mg PO Q6H PRN #30 cap 09/21/19 09/26/19 Unknown Rx albuterol sulfate 2.5 mg INHALATION Q4H PRN #30 vial 09/21/19 09/26/19 Unknown Rx aripiprazole 2 mg PO DAILY #30 tab 09/21/19 09/26/19 09/25/19 Rx bisacodyl 10 mg NM DAILY PRN #30 each 09/21/19 09/26/19 Unknown Rx calcium carbonate [Calcium 600] 1,500 mg PO DAILY #30 tab 09/21/19 09/26/19 09/25/19 Rx carvedilol 6.25 mg PO BID #30 tab 09/21/19 09/26/19 09/25/19 Rx cephalexin 500 mg PO Q6H 7 Days #28 cap 09/21/19 09/26/19 09/25/19 Rx cholecalciferol (vitamin D3) 25 mcg PO DAILY #30 tab 09/21/19 09/26/19 09/25/19 Rx [Vitamin D3] digoxin 125 mcg PO DAILY #30 tab 09/21/19 09/26/19 09/25/19 Rx fluoxetine 40 mg PO DAILY #30 cap 09/21/19 09/26/19 09/25/19 Rx furosemide 20 mg PO DAILY #30 tab 09/21/19 09/26/19 09/25/19 Rx levothyroxine 50 mcg PO DAILY #30 tab 09/21/19 09/26/19 09/25/19 Rx magnesium hydroxide [Milk of 30 ml PO DAILY PRN #30 ml 09/21/19 09/26/19 Unknown Rx Magnesia] prednisone 1 mg PO DAILY #30 tab 09/21/19 09/26/19 09/25/19 Rx tamsulosin 0.4 mg PO DAILY #30 cap 09/21/19 09/26/19 09/25/19 Rx tramadol 50 mg PO BID PRN #30 tab 09/21/19 09/26/19 09/25/19 Rx Allergies Allergy/AdvReac Type Severity Reaction Status Date / Time No Known Allergies Allergy Unverified 09/26/19 09:29 Current Medications Current Medications Generic Name Dose Route Start Last Admin Trade Name Freq PRN Reason Stop Dose Admin Pantoprazole Sodium 40 mg/ 100 mls @ 20 mls/hr 09/26/19 11:11 09/26/19 11:52 Sodium Chloride IV 09/26/19 16:10 8 mg/hr .Q5H ONE 20 mls/hr Administration 8 MG/HR PFSH Acute PFSH: Medical History (Updated 09/26/19 @ 13:07 by Cooper Russell MD) BPH (benign prostatic hyperplasia) BPH NOS w ur obs/LUTS -continue tamsulosin -Noted chronic bladder wall thickening with evidence of bilateral hydronephrosis likely related to bladder outlet obstruction -3-way catheter in place due to need for CBI 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 Carranza in clinic -Catheter placed; continue to monitor output -no need for continued continuous bladder irrigation -Urology evaluation by Dr. Carranza appreciated; s/p cystoscopy with clot evacuation and bladder tumor resection; POD # 4 -Due to noted gross hematuria, Coumadin on hold -Close monitoring of hemoglobin -UA with noted hematuria/+LE/+bacteria/minimal pyuria; on Ceftriaxone particularly with noted instrumentation, catheter placement, leukocytosis. Urine cx prelim negative. Blood cx prelim negative. Will d/c on continued antibiotics on discharge per discussion with Dr. Carranza Congestive heart failure -No evidence of CHF exacerbation currently -Echo: EF=40%, diffuse LV hypokinesis, severe biatrial enlargement Hyperlipidemia Hypertension -normotensive; continue to monitor vital signs -continue Coreg, resume low dose lasix, d/c ACEi -off IVF hydration Hypothyroidism -continue levothyroxine Kidney stone No intervention needed Osteoarthritis Peripheral vascular disease Thromboembolism History of DVT right lower extremity Urinary retention Surgical History (Updated 09/26/19 @ 13:00 by Cooper Russell MD) H/O skin graft Following debridement on left lower extremity for necrotizing fasciitis History of bone marrow biopsy Previous back surgery Previously documented, but patient cannot remember having this done as of 09/26/2019 Social History Smoking and tobacco status: never smoked Alcohol intake: never Lives independently: Yes Housing: Assisted Living Facility Marital status: / Marital status details: x 52 yrs Current occupational status: retired History of recent travel: No Vitals/I&O/Wt Last Vital Signs Temp 98.6 F 09/26/19 09:45 Pulse 79 09/26/19 12:23 Resp 16 09/26/19 12:23 BP 111/69 09/26/19 12:23 Pulse Ox 96 09/26/19 12:23 Weight last 48 hrs Weight 167 lb Physical Exam Narrative: EXAM NARRATIVE: The patient was encountered in his room in the emergency department. He does not appear to be in any acute distress. The pupils are equal. No carotid bruits are heard. The lungs are clear anteriorly. The heart seems regular but there is a significant systolic murmur best heard at the left lower sternal border and over the mitral area. His heart seems quite large as I can hear his heartbeat very easily even through the left side of his chest laterally. The abdomen is softly distended throughout. He does not seem to have much in the way of tenderness, however. He has a large left inguinal hernia occupying the majority of the left hemiscrotum. This was actually very soft and minimally tender, and while I can get all of the fluid and contents to temporarily reduce, upon letting go everything just feels the hemiscrotum back up again. In short, this does not appear to be tightly incarcerated at all. The extremities show some evidence of arterial insufficiency but no significant edema. Neurologically the patient can move all limbs to command. Data Imaging^: CT Abd/Pel: Radiologist's impression: CT abdomen/pelvis 09/26/2019 iMPRESSION: 1. Obstructed left inguinal hernia containing sigmoid colon with air-fluid levels. Upstream dilatation involving the mid and distal small bowel and entire colon with air-fluid levels. Obstruction is new since September 13, 2019. 2. Cardiomegaly with small pericardial effusion. 3. Hernandez catheter in place with diffuse nodular bladder wall thickening suspicious for transitional cell carcinoma. Some high attenuation in the bladder suspicious for blood products. 4. Lobulated bilateral renal cysts. 5. Cholelithiasis. A&P Assessment and plan (1) Hernia, inguinal, left: The patient has a documented history of a large left inguinal hernia at least as far back as 2013. His hernia extends into the left hemiscrotum and contains a loop of sigmoid colon. The radiologist felt that the patient was obstructed from this, but it is quite soft and reducible; it just extends right back into the scrotum after is reduced. In looking at the CT, the patient has some narrowing of the sigmoid as it enters the hernia but he has fluid filling the sigmoid distally and even a full rectum of fluid. While he may have some partial obstruction from this, I do not think he is completely obstructed. Nevertheless, I discussed repairing the hernia with him since he has been dealing with it for so long. He does not really want to have surgery at this point. We briefly discussed a nasogastric tube since he has been vomiting, and he says, I will think about it. Status: Acute (2) Coffee ground emesis: The patient has no history of peptic ulcer disease but does have a documented history of GERD. He has been on Coumadin, but it is unclear how long it is been since he has been on that. I will be discussing a possible EGD with him as the days progress, certainly if there are any further issues. Status: Acute (3) Chronic GERD: Status: Acute Consult Attestations Medical Necessity Statement: See admitting service's notation. Coding Level of Care Code Acute Spa Coordinator for Chg Fwd Diagnoses Hernia, inguinal, left K40.90 Coffee ground emesis K92.0 Chronic GERD K21.9
[2019-09-26 13:13] LABS: Lactic Sepsis W/Reflex 1.1 mmol/L (0.5-2.2)
[2019-09-26 13:15] LABS: Troponin(5th) Baseline 41 ng/L (0-15)
[2019-09-26 13:36] LABS: Digoxin 0.7 ng/mL (0.6-1.2)
--- NOTE | 2019-09-26 14:07 | ECG_ITS ---
[facility] Test Date: 2019-09-26 Pat Name: Alex James Department: Room: 251 Gender: Male Camp Director: : 1935 Requested By: Shanelle Call Order Number: [id number] Dre MD: Jason Wall M.D. Measurements Intervals [place] Rate: 79 P: SD: -1 QRS: -34 QRSD: 121 T: -38 QT: 433 QTc: 498 Interpretive Statements ATRIAL FIBRILLATION MARKED LEFT AXIS DEVIATION [QRS AXIS < -30] MODERATE INTRAVENTRICULAR CONDUCTION DELAY [110+ ms QRS DURATION] MODERATE ST DEPRESSION [0.05+ mV ST DEPRESSION] PROLONGED QT INTERVAL Compared to ECG 09/26/2019 12:21:04 Ventricular premature complex(es) no longer present Aberrant conduction of supraventricular beat(s) no longer present ST (T wave) deviation still present Electronically Signed On 09-26-2019 16:20:28 CDT by Jason Wall M.D. [id number]
[2019-09-26] MEDS: sodium chloride 0.9% 1,000 ML 100 ML IV (14:49)
[2019-09-26 15:26] LABS: Troponin 5 2HR 45.24 ng/L (0-15); Troponin 5 2HR Delta 4.24 ABS# (0-10)
--- NOTE | 2019-09-26 17:04 | PM.HP ---
Providers/Chief Complaint Admitting Physician: Rosa M Robles MD Primary Care Provider: Shyann Harman MD, [facility] [place] Chief Complaint: COFFEE GROUND EMESIS History of Present Illness Alex James is a 84 year old male with PMH systolic CHF EF 40%, chronic atrial fibrillation,history of right lower extremity DVT, hypertension, invasive bladder cancer recently admitted here for gross hematuria and warfarin induced coagulaopathy s/p clot evacuation, resection of bladder tumor. Postop he was found to be quite hypotensive and somewhat difficult to arouse so remained intubated and was transferred to ICU thereafter. He was extubated within approximately 24 hours postop and has remained stable from a respiratory standpoint. anticoagulation was discontinued for at least 2 to 3 weeks due to high risk of bleeding. He was discharged to SNF on 09/20 in stable condition. He returned today for reported coffee-ground emesis and multiple episodes of vomiting. He had a CAT scan which revealed a long standing large left inguinal hernia with concern for obstructive process. Surgical consult was sought for the same. He denies any ezra, brielle bleeding per rectum. he is hemodynamically stable, no evidence of anemia, hb at 11 Review of Systems General: Reports: 10 or more systems reviewed and unremarkable except in HPI and below Const: Denies: fever(s), chills or body aches Eyes: Denies: change in vision, blurry vision or photophobia ENMT: Reports: hoarseness; Denies: throat pain, enlarged tonsils, odynophagia or nasal congestion Card: Denies: chest pain, palpitations, irregular heart rhythm, edema, swelling of feet/ankles, lightheadedness, pre-syncope, dyspnea on exertion or orthopnea Resp: Denies: dyspnea, productive cough, non-productive cough, wheezing, stridor, pain on inspiration, change in phlegm color, hemoptysis or chest congestion GI: Denies: abdominal pain, nausea, vomiting, hematemesis, coffee ground emesis, dysphagia, heartburn, diarrhea, constipation, GI cramping, change in stool character, hematochezia or melena : Denies: flank pain, dysuria, urinary frequency, urinary urgency, urinary hesitancy or hematuria Musc: Denies: neck pain, back pain, extremity pain, joint swelling, joint warmth or deformity Neuro: Denies: headache(s), numbness in extremities, weakness in extremities, sensory changes, difficulty walking, frequent falls, dizziness, vertigo, behavioral changes, Slurred speech present or seizure-like activity Psych: Denies: anxiety, depression, suicidal ideation or homicidal ideation Endo: Denies: polyuria, polydipsia, tired all the time, cold intolerance or hot flashes Adonay/Lymph: Denies: easy bruising or easy bleeding Medications/Allergies Home Medications Medication Instructions Recorded Confirmed Last Taken Type acetaminophen 500 mg PO Q6H PRN #30 cap 09/21/19 09/26/19 Unknown Rx albuterol sulfate 2.5 mg INHALATION Q4H PRN #30 vial 09/21/19 09/26/19 Unknown Rx aripiprazole 2 mg PO DAILY #30 tab 09/21/19 09/26/19 09/25/19 Rx bisacodyl 10 mg IA DAILY PRN #30 each 09/21/19 09/26/19 Unknown Rx calcium carbonate [Calcium 600] 1,500 mg PO DAILY #30 tab 09/21/19 09/26/19 09/25/19 Rx carvedilol 6.25 mg PO BID #30 tab 09/21/19 09/26/19 09/25/19 Rx cephalexin 500 mg PO Q6H 7 Days #28 cap 09/21/19 09/26/19 09/25/19 Rx cholecalciferol (vitamin D3) 25 mcg PO DAILY #30 tab 09/21/19 09/26/19 09/25/19 Rx [Vitamin D3] digoxin 125 mcg PO DAILY #30 tab 09/21/19 09/26/19 09/25/19 Rx fluoxetine 40 mg PO DAILY #30 cap 09/21/19 09/26/19 09/25/19 Rx furosemide 20 mg PO DAILY #30 tab 09/21/19 09/26/19 09/25/19 Rx levothyroxine 50 mcg PO DAILY #30 tab 09/21/19 09/26/19 09/25/19 Rx magnesium hydroxide [Milk of 30 ml PO DAILY PRN #30 ml 09/21/19 09/26/19 Unknown Rx Magnesia] prednisone 1 mg PO DAILY #30 tab 09/21/19 09/26/19 09/25/19 Rx tamsulosin 0.4 mg PO DAILY #30 cap 09/21/19 09/26/1909/24/20 Rx tramadol 50 mg PO BID PRN #30 tab 09/21/19 09/26/19 09/25/19 Rx Allergies Allergy/AdvReac Type Severity Reaction Status Date / Time No Known Allergies Allergy Unverified 09/26/19 09:29 PFSH Acute PFSH: Medical History BPH (benign prostatic hyperplasia) BPH NOS w ur obs/LUTS -continue tamsulosin -Noted chronic bladder wall thickening with evidence of bilateral hydronephrosis likely related to bladder outlet obstruction -3-way catheter in place due to need for CBI 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 Carranza in clinic -Catheter placed; continue to monitor output -no need for continued continuous bladder irrigation -Urology evaluation by Dr. Carranza appreciated; s/p cystoscopy with clot evacuation and bladder tumor resection; POD # 4 -Due to noted gross hematuria, Coumadin on hold -Close monitoring of hemoglobin -UA with noted hematuria/+LE/+bacteria/minimal pyuria; on Ceftriaxone particularly with noted instrumentation, catheter placement, leukocytosis. Urine cx prelim negative. Blood cx prelim negative. Will d/c on continued antibiotics on discharge per discussion with Dr. 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 History of bone marrow biopsy Previous back surgery Previously documented, but patient cannot remember having this done as of 09/26/2019 Social History Smoking and tobacco status: never smoked Alcohol intake: never Lives independently: Yes Housing: Assisted Living Facility Marital status: / Marital status details: x 52 yrs Current occupational status: retired History of recent travel: No Vitals/I&O/Wt Last Vital Signs Temp 98.4 F 09/26/19 15:39 Pulse 73 09/26/19 15:39 Resp 20 H 09/26/19 15:39 BP 132/66 09/26/19 15:39 Pulse Ox 94 09/26/19 15:39 Weight last 48 hrs Weight 75.75 kg Physical Exam Narrative: EXAM NARRATIVE: GEN: Awake, alert and oriented, no acute distress CVS: S1S2 N RS: CTA B/L Abd: Soft,distended+, BS sluggish, non tender to palpation MANAGING SUPERVISOR: no focal neuro deficits Data : 09/26/19 08:42 09/26/19 08:42 A&P Assessment and plan (1) Hematemesis: Status: Acute Qualifiers: Nausea presence: with nausea Qualified Code(s): K92.0 - Hematemesis (2) Bowel obstruction: Status: Acute Qualifiers: Intestinal obstruction extent: complete Intestinal obstruction type: unspecified Qualified Code(s): K56.601 - Complete intestinal obstruction, unspecified as to cause (3) Hernia, inguinal, left: Status: Acute (4) 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 no repeat episodes here Received protonix 80mg in ED and started on infusion Hb stable at 11.7, no hemodynamic comrpomise NPO for now # SBO due to obstructed hernia Surgical consult with Dr. Russell Patient declined placement of NGT & would like some greg eot decide about possible EGD Continue NPO for now, IVF gentle hydration # recent h/o bladder ca s/p cytoscopic resection, no current hematuria # chronic A fib, rate controlled, off a/c due to h/o significant hematuria # cardiomyopathy with systolic CHF, currently euvolemic, gentle iv hydration Full code DVT ppx: lovenox Attestations Medical Necessity Statement*: SBO, hematemesis, anticpate > 2 midnight for evaluation and management Coding Level of Care Code Acute Lead Pressman for Chg Fwd Diagnoses Hematemesis K92.0 Nausea presence: with nausea Bowel obstruction K56.601 Intestinal obstruction extent: complete Intestinal obstruction type: unspecified Hernia, inguinal, left K40.90 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
[2019-09-26] MEDS: carvedilol 6.25 mg Tablet PO (17:39)
[2019-09-26] MEDS: enoxaparin 40 mg/0.4 mL Syringe SUBCUT (17:39)
--- NOTE | 2019-09-26 18:07 | ECG_ITS ---
[facility] Test Date: 2019-09-26 Pat Name: Alex James Department: Room: 251 Gender: Male Home Teaching Grades 9 Thru 12 Teacher: : 1935 Requested By: Shanelle Call Order Number: [id number] Dre MD: Makeda Cason M.D. Measurements Intervals [place] Rate: 77 P: [place]: -1 QRS: -46 QRSD: 129 T: -35 QT: 437 QTc: 497 Interpretive Statements ATRIAL FIBRILLATION WITH ABERRANT CONDUCTION OR VENTRICULAR PREMATURE COMPLEXES LEFT ANTERIOR FASCICULAR BLOCK NONSPECIFIC ST & T-WAVE ABNORMALITY PROLONGED QT INTERVAL Compared to ECG 09/26/2019 14:16:23 Ventricular premature complex(es) now present Aberrant conduction of supraventricular beat(s) now present Left anterior fascicular block now present T-wave abnormality now present Left-axis deviation no longer present Intraventricular conduction delay no longer present ST (T wave) deviation no longer present Electronically Signed On 09-27-2019 7:03:51 CDT by Makeda Cason M.D. [id number]
[2019-09-26 19:45] LABS: Troponin 5 6HR 50.03 ng/L (0-15); Troponin 5 6HR Delta 9.03 ng/L (0-12)
[2019-09-26 19:53] LABS: Digoxin 0.8 ng/mL (0.6-1.2)
[2019-09-27] VITALS (8 sets, daily range): BP systolic 101–132; BP diastolic 52–74; PULSE 68–79; RESP 16–18; TEMP 36.5–36.9; O2SAT 95–99
[2019-09-27] MEDS: pantoprazole 40 MG in sodium chloride 0.9% (plus) 100 ML 20 MG IV ×4 (00:20→10:36)
[2019-09-27] MEDS: sodium chloride 0.9% 1,000 ML 100 ML IV (02:12)
[2019-09-27 04:55] LABS: Blood Urea Nitrogen 26 mg/dL (8-23); Calcium 7.9 mg/dL (8.5-10.5); Carbon Dioxide 16 mmol/L (22-29); Chloride 114 mmol/L (98-107); Glucose 121 mg/dL (65-115); Osmolality Calculated 284 mOsm/kg (285-295); Sodium 138 mmol/L (136-145)
[2019-09-27 05:07] LABS: Anion Gap 12.4 (5-19); Potassium 4.4 mmol/L (3.5-5.1)
[2019-09-27 06:35] LABS: Basophils # 0.1 10^3/uL (0.0-0.1); Basophils % 0.7 %; Eosinophils # 0.2 10^3/uL (0.0-0.8); Eosinophils % 1.7 %; Hematocrit 30.4 % (42.0-52.0); Hemoglobin 10.1 g/dL (11.7-16.6); Lymphocytes # 0.7 10^3/uL (0.8-4.8); Lymphocytes % 7.9 %; Mean Corpuscular HGB Conc 33.2 g/dL (30.0-36.0); Mean Corpuscular Hemoglobin 33.7 pg (28.0-34.0); Mean Corpuscular Volume 101.3 fL (80-94); Mean Platelet Volume 10.2 fL (7.4-10.4); Monocytes # 0.8 10^3/uL (0.2-0.9); Monocytes % 9.1 %; Neutrophils # 7.09 10^3/uL (1.8-7.7); Nucleated Red Blood Cells % 0 %; Platelet Count 237 10^3/cmm (130-400); Red Cell Distribution Width 17.1 % (12.1-15.1); White Blood Count 8.9 10^3/uL (4.0-10.0)
[2019-09-27] MEDS: predniSONE 1 mg Tablet PO (08:33)
[2019-09-27] MEDS: carvedilol 6.25 mg Tablet PO ×2 (08:33→17:24)
[2019-09-27] MEDS: ARIPiprazole 2 mg Tablet PO (08:33)
[2019-09-27] MEDS: digoxin 125 mcg Tablet PO (08:33)
[2019-09-27] MEDS: fluoxetine 20 mg Capsule 40 MG PO (08:34)
--- NOTE | 2019-09-27 08:51 | PM.PN ---
Subjective Subjective: Interval history: The patient has no complaints this morning. He said he had a bowel movement this morning. I did confirm this with nursing. He says he is not terribly hungry but would appreciate something to drink. Vitals/I&O/Wt Last Vital Signs Temp 97.7 F 09/27/19 07:14 Pulse 70 09/27/19 08:34 Resp 18 09/27/19 07:14 BP 112/52 09/27/19 07:14 Pulse Ox 96 09/27/19 08:34 09/26/19 09/27/19 09/27/19 22:59 06:59 14:59 Intake Total 1570 / 1570 Output Total 50 / 500 450 / 500 Balance -50 / 1070 1120 / 1070 Weight last 48 hrs Weight 167 lb Physical Exam Narrative: EXAM NARRATIVE: The abdomen is less distended and is very soft. His large left inguinal hernia persists but remains reducible. Data : 09/27/19 06:18 09/27/19 03:21 A&P Assessment and plan (1) Hernia, inguinal, left: Persists. The patient indicates that he does not have any interest in having this repaired surgically right now. Status: Acute (2) Coffee ground emesis: Hemoglobin remains relatively stable. No further reports of hematemesis. Status: Acute (3) Chronic GERD: Status: Acute Attestations Medical Necessity Statement*: See admitting service's notation. Coding Level of Care Code Acute [employer] Center Manager for Renzo Arana Diagnoses Hernia, inguinal, left K40.90 Coffee ground emesis K92.0 Chronic GERD K21.9
--- NOTE | 2019-09-27 11:21 | PC.CHAP ---
Pastoral Care Encounter/Spiritual Assessment Type of Contact [] Declined sign shop supervisor visit [] Patient/Family/Request visit [] Outpatient visit [] Follow-up visit [] Physician referral [] Code/Alert [X] Routine visit [] Staff referral [] Actively dying [X] Patient sleeping [] Family support [] [] Out of room [] Palliative care [] [] Receiving care in room [] Pre-surgical visit [] Trauma [] Long length of stay [] ICU visit [] Other: Relational/Emotional Strength [] Patient feels connected with others/family/visitors/staff [] Distress [] Loneliness/isolation [] Abandonment Spirituality of Patient [] Person of Adrienne [] Attends Yarsani of their Adrienne [] Believes in Prayer [] Reads Bible or Anabaptism materials [] There are Spiritual issues to be addressed Transportation Worker Interventions [] Prayer [] Active listening [] Non-anxious presence [] Spiritual/emotional support [] Crisis/trauma care [] Spiritual counseling [] Bereavement support [] Provided bereavement packet [] Provided Bible/devotional materials [] Provided toy/stuffed animal, coloring book to patient or family member [] Provided Communion [] Anointing/[place] [] Salvation [] Completed spiritual assessment [] Other: Impact on Illness or Injury [] Angry [] Fearful [] Anxious [] Often cries [] Exhaustion [] Unable to work [] Unable to attend sikh [] Unable to walk/stand [] Unable to read [] Unable to drive [] Unable to eat/drink [] Unable to sleep [] Unable to be with family [] Patient intubated [] Other: Summary This pt indicated that a sign shop supervisor visit was welcome, but he was sleeping when I stopped by the room. I will try again tomorrow. Time spent with patient
--- NOTE | 2019-09-27 13:15 | PM.PN ---
Subjective Subjective: Interval history: Advanced to clear liquid today, had BM this morning, passing flatus, abdomen less distended, no further episodes of coffee ground emesis. Leukocytosis resolving. Medications: Reviewed: Yes Vitals/I&O/Wt Last Vital Signs Temp 97.9 F 09/27/19 11:06 Pulse 77 09/27/19 11:06 Resp 16 09/27/19 11:06 BP 128/67 09/27/19 11:06 Pulse Ox 97 09/27/19 11:06 09/26/19 09/27/19 09/27/19 22:59 06:59 14:59 Intake Total 1570 / 1570 215.667 / 215.667 Output Total 50 / 50 450 / 500 Balance -50 / -50 1120 / 1070 215.667 / 215.667 Weight last 48 hrs Weight 75.75 kg Physical Exam Narrative: EXAM NARRATIVE: GEN: Awake, alert and oriented, no acute distress CVS: S1S2 N RS: CTA B/L Abd: Soft, non tender, less distended today AUTOMATIC LATHE TENDER: no focal neuro deficits Data : 09/27/19 06:18 09/27/19 03:21 A&P Assessment and plan (1) Hematemesis: Status: Acute Qualifiers: Nausea presence: with nausea Qualified Code(s): K92.0 - Hematemesis (2) Bowel obstruction: Status: Acute Qualifiers: Intestinal obstruction extent: complete Intestinal obstruction type: unspecified Qualified Code(s): K56.601 - Complete intestinal obstruction, unspecified as to cause (3) Hernia, inguinal, left: Status: Acute (4) 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 no repeat episodes here Hb at 10<-- 11 D/c protonix drip start protonix 40mg po BID start on clears # SBO due to obstructed hernia Surgical consult appreciated Now appears to be resolving with conservative management Patient declined surgical intervnetion for hernia # recent h/o bladder ca s/p cytoscopic resection, no current hematuria UA +, howevre difficult to interpret with chronic Hernandez, was supposed to complete a 7 day course of cephalexin on discharge, will order CTX fro inpatient use and then change to po on d/c # chronic A fib, rate controlled, off a/c due to h/o significant hematuria # cardiomyopathy with systolic CHF, currently euvolemic, gentle iv hydration at 30cc/hr until adequate po intake can be resumed Full code DVT ppx: lovenox Attestations Medical Necessity Statement*: awaiting optimization of bowel function Coding Level of Care Code Acute Head Silverman for Chg Fwd Diagnoses Hematemesis K92.0 Nausea presence: with nausea Bowel obstruction K56.601 Intestinal obstruction extent: complete Intestinal obstruction type: unspecified Hernia, inguinal, left K40.90 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
[2019-09-27] MEDS: cefTRIAXone 1,000 MG in sodium chloride 0.9% (plus) 50 ML 100 MG IV (14:00)
[2019-09-27 16:20] LABS: Glucose Point of Care 187 mg/dL (70-110)
[2019-09-27] MEDS: enoxaparin 40 mg/0.4 mL Syringe SUBCUT (17:25)
[2019-09-27] MEDS: pantoprazole DR 40 mg Tablet PO (17:25)
[2019-09-27] MEDS: sodium chloride 0.9% 1,000 ML 30 ML IV (21:45)
[2019-09-28] VITALS (8 sets, daily range): BP systolic 105–119; BP diastolic 55–69; PULSE 55–81; RESP 16–20; TEMP 36.4–36.8; O2SAT 93–100
[2019-09-28 05:53] LABS: Basophils # 0.1 10^3/uL (0.0-0.1); Basophils % 0.8 %; Eosinophils # 0.2 10^3/uL (0.0-0.8); Eosinophils % 3.4 %; Hematocrit 28.9 % (42.0-52.0); Hemoglobin 9.2 g/dL (11.7-16.6); Lymphocytes # 0.8 10^3/uL (0.8-4.8); Lymphocytes % 11.3 %; Mean Corpuscular HGB Conc 31.8 g/dL (30.0-36.0); Mean Corpuscular Hemoglobin 31.9 pg (28.0-34.0); Mean Corpuscular Volume 100.3 fL (80-94); Mean Platelet Volume 10.3 fL (7.4-10.4); Monocytes # 0.8 10^3/uL (0.2-0.9); Monocytes % 10.6 %; Neutrophils # 5.21 10^3/uL (1.8-7.7); Neutrophils % 73.5 %; Nucleated Red Blood Cells % 0 %; Platelet Count 230 10^3/cmm (130-400); Red Blood Count 2.88 10^6/uL (4.1-5.3); Red Cell Distribution Width 15.8 % (12.1-15.1); White Blood Count 7.1 10^3/uL (4.0-10.0)
[2019-09-28 06:12] LABS: Alanine Aminotransferase 10 U/L (0-41); Albumin Level 3.3 g/dL (3.5-5.2); Alkaline Phosphatase 90 IU/L (40-130); Aspartate Amino Transferase 18 U/L (0-40); Blood Urea Nitrogen 26 mg/dL (8-23); Calcium 8.3 mg/dL (8.5-10.5); Carbon Dioxide 14 mmol/L (22-29); Chloride 116 mmol/L (98-107); Globulin 2.6 g/dL (1.3-4.6); Glucose 117 mg/dL (65-115); Osmolality Calculated 284 mOsm/kg (285-295); Sodium 138 mmol/L (136-145); Total Bilirubin 0.5 mg/dL (0.15-1.2); Total Protein 5.9 g/dL (6.6-8.7)
--- NOTE | 2019-09-28 07:42 | P.PN_ITS ---
Subjective Subjective: Interval history: The patient has no specific complaints this morning, and yet he says he is doing 50-50. He continues to have some loose bowel movements. He denies abdominal pain. Vitals/I&O/Wt Last Vital Signs Temp 97.9 F 09/28/19 04:00 Pulse 62 09/28/19 04:00 Resp 17 09/28/19 04:00 BP 113/59 09/28/19 04:00 Pulse Ox 96 09/28/19 04:00 09/27/19 09/28/19 09/28/19 22:59 06:59 14:59 Intake Total 240 / 1253.167 Output Total 400 / 975 575 / 975 Balance -160 / 278.167 -575 / 278.167 Weight last 48 hrs Weight 167 lb Physical Exam Narrative: EXAM NARRATIVE: Abdomen is soft and nontender. He certainly is less distended than he was when he presented. Data : 09/28/19 05:39 09/28/19 05:39 A&P Assessment and plan (1) Hernia, inguinal, left: The patient actually expressed some interest to me today in having his hernia repaired. He has some trepidation based on the fact that he had some problems following his recent bladder surgery necessitating intubation and an I [facility] admission, which is certainly understandable. I made him aware that it does not seem to be an urgent situation right now, and he has lived with the hernia for many years, but I am sure it is at least giving him intermittent problems. He is going to give the issue with some more thought today. Status: Acute (2) Coffee ground emesis: Hemoglobin has drifted just slightly. The patient is on Lovenox, but there is no clinical evidence otherwise of continued bleeding. Status: Acute (3) Chronic GERD: Status: Acute Attestations Medical Necessity Statement*: See admitting service's notation. Coding Level of Care Code Acute Technical Testing Engineer for [facility] Diagnoses Hernia, inguinal, left K40.90 Coffee ground emesis K92.0 Chronic GERD K21.9
[2019-09-28] MEDS: potassium chloride premix 40 MEQ/100 ML PREMIX 25 MEQ IV (08:37)
[2019-09-28] MEDS: fluoxetine 20 mg Capsule 40 MG PO (08:38)
[2019-09-28] MEDS: lidocaine 1% INJ 20 mL 5 ML IV (08:38)
[2019-09-28] MEDS: carvedilol 6.25 mg Tablet PO ×2 (08:38→17:58)
[2019-09-28] MEDS: ARIPiprazole 2 mg Tablet PO (08:39)
[2019-09-28] MEDS: digoxin 125 mcg Tablet PO (08:39)
[2019-09-28] MEDS: predniSONE 1 mg Tablet PO (08:40)
[2019-09-28] MEDS: pantoprazole DR 40 mg Tablet PO ×2 (08:40→17:58)
--- NOTE | 2019-09-28 11:00 | PC.CHAP ---
Pastoral Care Encounter/Spiritual Assessment Type of Contact [] Declined cloth dyeing range tender visit [] Patient/Family/Request visit [] Outpatient visit [X] Follow-up visit [] Physician referral [] Code/Alert [X] Routine visit [] Staff referral [] Actively dying [] Patient sleeping [] Family support [] [] Out of room [] Palliative care [] [] Receiving care in room [] Pre-surgical visit [] Trauma [] Long length of stay [] ICU visit [] Other: Relational/Emotional Strength [] Patient feels connected with others/family/visitors/staff [] Distress [X] Loneliness/isolation [] Abandonment Spirituality of Patient [] Person of Adrienne [] Attends Judaism of their Adrienne [] Believes in Prayer [] Reads Bible or Pentecostalism materials [] There are Spiritual issues to be addressed Photo Equipment Technician Interventions [] Prayer [X] Active listening [X] Non-anxious presence [X] Spiritual/emotional support [] Crisis/trauma care [] Spiritual counseling [X] Bereavement support [] Provided bereavement packet [] Provided Bible/devotional materials [] Provided toy/stuffed animal, coloring book to patient or family member [] Provided Communion [] Anointing/Mineral [] Salvation [X] Completed spiritual assessment [] Other: Impact on Illness or Injury [] Angry [] Fearful [] Anxious [] Often cries [] Exhaustion [] Unable to work [] Unable to attend jew [] Unable to walk/stand [] Unable to read [] Unable to drive [] Unable to eat/drink [] Unable to sleep [] Unable to be with family [] Patient intubated [] Other: Summary: Third attempt to visit Mr. James. He was interested in visiting and spent most of the time talking about his of 6 years. Mr. James seems of sound mind and advocated for himself in postponing another surgery to have taken place today until he feels stronger. Our visit was cut short when his physician rounded. However, he is open to a future cloth dyeing range tender visit. He continues to question why his would have developed cancer. I suspect depression, but due to visit being cut short, I was unable to continue that assessment as well as delve more into the spiritual connections related to her . Time spent with patient:20 mins
--- NOTE | 2019-09-28 11:01 | PM.PN ---
Subjective Subjective: Interval history: No events overnight tolerating diet well. Patient is passing flatus, states abdomen is not distended anymore, having 2-3 semisoft/soft bowel movements. Medications: Reviewed: Yes Vitals/I&O/Wt Last Vital Signs Temp 98.3 F 09/28/19 07:44 Pulse 66 09/28/19 08:39 Resp 18 09/28/19 07:44 BP 110/65 09/28/19 07:44 Pulse Ox 99 09/28/19 08:08 09/27/19 09/28/19 09/28/19 22:59 06:59 14:59 Intake Total 240 / 1253.167 480 / 480 Output Total 400 / 400 575 / 975 Balance -160 / 853.167 -575 / 278.167 480 / 480 Physical Exam Narrative: EXAM NARRATIVE: GEN: Awake, alert and oriented, no acute distress CVS: S1S2 N RS: CTA B/L Abd: Soft, non tender, less distended today CLINICAL LAB ASSISTANT: no focal neuro deficits Extremities: Bilateral varicose vein, chronic venous stasis changes Data : 09/28/19 05:39 09/28/19 05:39 Micro: Microbiology 09/26/19 10:50 Urine Culture - Preliminary Urine,Clean Catch A&P Assessment and plan (1) Hematemesis: Status: Acute Qualifiers: Nausea presence: with nausea Qualified Code(s): K92.0 - Hematemesis (2) Bowel obstruction: Status: Acute Qualifiers: Intestinal obstruction extent: complete Intestinal obstruction type: unspecified Qualified Code(s): K56.601 - Complete intestinal obstruction, unspecified as to cause (3) Hernia, inguinal, left: Status: Acute (4) 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 Mildly low as compared to yesterday. Could be dilutional as all the lines are lower today. Continue with Protonix 40 mg twice daily. Advance diet to full liquid diet. SBO due to obstructed hernia partially obstructed left inguinal hernia containing a loop of sigmoid colon: Surgical consult appreciated Today patient expressed some interest in surgical repair but states he needs to think further. Given the fact that hemoglobin is trended down a little today along with patient possibly thinking of surgery case was discussed with Dr. Russell and plan is to monitor him for 24 more hours and patient is agreeable they will take him to the OR otherwise possible discharge tomorrow. Patient having semisoft bowel movements. Given the fact that he has been on antibiotics for last 7 to 8 days cannot rule out C. difficile. We will do stool studies. Recent h/o bladder ca s/p cytoscopic resection, no current hematuria UA +, however difficult to interpret with chronic Hernandez, was supposed to complete a 7 day course of cephalexin on discharge, last dose to be done today. Patient received ceftriaxone yesterday. We will give 1 more dose today. Chronic A fib, rate controlled, off a/c due to h/o significant hematuria Continue with home dose of digoxin and carvedilol. Cardiomyopathy with systolic CHF, currently euvolemic. Last echocardiogram from 2013:Mildly increased left ventricular cavity size. Moderate diffuse hypokinesia left ventricle with ejection fraction of 35%. Moderate biatrial enlargement. Moderately severe tricuspid and moderate mitral valve regurgitation. Full code DVT ppx: lovenox Attestations Medical Necessity Statement*: Needs continued hospitalization for hematemesis work-up, SBO, partially obstructed inguinal hernia Time Spent in Patient Care: Greater than 35 minutes (>than 50% of time spent in counselling and/or direct pt care on unit). 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
[2019-09-28 11:12] LABS: Iron 21 ug/dL (59-158); Percent Saturation 9.2 % (20-50); Total Iron Binding Capacity 228 mcg/dl; Unsaturated Iron Binding 207 ug/dL (112-347)
[2019-09-28] MEDS: cefTRIAXone 1,000 MG in sodium chloride 0.9% (plus) 50 ML 100 MG IV (11:26)
[2019-09-28] MEDS: enoxaparin 40 mg/0.4 mL Syringe SUBCUT (17:58)
[2019-09-29] VITALS (7 sets, daily range): BP systolic 108–133; BP diastolic 65–79; PULSE 59–88; RESP 18–20; TEMP 36.3–36.6; O2SAT 98
[2019-09-29 04:03] LABS: Alanine Aminotransferase 10 U/L (0-41); Albumin Level 3.3 g/dL (3.5-5.2); Alkaline Phosphatase 89 IU/L (40-130); Anion Gap 10.3 (5-19); Aspartate Amino Transferase 16 U/L (0-40); Blood Urea Nitrogen 22 mg/dL (8-23); Carbon Dioxide 14 mmol/L (22-29); Chloride 117 mmol/L (98-107); Globulin 2.5 g/dL (1.3-4.6); Glucose 113 mg/dL (65-115); Osmolality Calculated 283 mOsm/kg (285-295); Potassium 3.3 mmol/L (3.5-5.1); Sodium 138 mmol/L (136-145); Total Bilirubin 0.3 mg/dL (0.15-1.2); Total Protein 5.8 g/dL (6.6-8.7)
[2019-09-29 06:28] LABS: Basophils # 0.1 10^3/uL (0.0-0.1); Basophils % 0.8 %; Eosinophils # 0.4 10^3/uL (0.0-0.8); Eosinophils % 4.6 %; Hematocrit 30.7 % (42.0-52.0); Hemoglobin 9.4 g/dL (11.7-16.6); Lymphocytes % 13.1 %; Mean Corpuscular HGB Conc 30.6 g/dL (30.0-36.0); Mean Corpuscular Hemoglobin 29.7 pg (28.0-34.0); Mean Corpuscular Volume 97.2 fL (80-94); Mean Platelet Volume 10.7 fL (7.4-10.4); Monocytes # 0.8 10^3/uL (0.2-0.9); Monocytes % 10.3 %; Neutrophils # 5.45 10^3/uL (1.8-7.7); Neutrophils % 70.8 %; Nucleated Red Blood Cells % 0 %; Platelet Count 209 10^3/cmm (130-400); Red Blood Count 3.16 10^6/uL (4.1-5.3); Red Cell Distribution Width 15.7 % (12.1-15.1); White Blood Count 7.7 10^3/uL (4.0-10.0)
--- NOTE | 2019-09-29 06:57 | P.PN_ITS ---
Subjective Subjective: Interval history: The patient has no complaints this morning. I talked to the patient and his sister (by phone) yesterday regarding his inguinal hernia. He has decided against proceeding with repair of his hernia at this time. It might be just as well, because he has now been found to have C. difficile in his stool. Vitals/I&O/Wt Last Vital Signs Temp 97.4 F L 09/29/19 04:00 Pulse 59 L 09/29/19 04:00 Resp 20 H 09/29/19 04:00 BP 115/68 09/29/19 04:00 Pulse Ox 98 09/29/19 04:00 09/28/19 09/28/19 09/29/19 14:59 22:59 06:59 Intake Total 1250 / 1970 720 / 1970 Output Total 250 / 525 275 / 525 Balance 1250 / 1445 470 / 1445 -275 / 1445 Physical Exam Narrative: EXAM NARRATIVE: Exam is unchanged. Data : 09/29/19 03:03 09/29/19 03:03 Micro: Microbiology 09/28/19 13:45 Stool Lactoferrin - Final Stool C.difficile Toxin B Gene (PCR) - Final Occult Blood (FIT) - Final 09/26/19 10:50 Urine Culture - Preliminary Urine,Clean Catch A&P Assessment and plan (1) Hernia, inguinal, left: We are going to hold off on a repair of his hernia. I will continue to try to follow peripherally but probably will not continue to see daily. Please call if I can be of further assistance. Status: Acute (2) Coffee ground emesis: Hemoglobin has drifted just slightly. The patient is on Lovenox, but there has been no clinical evidence otherwise of continued bleeding. Status: Acute (3) Chronic GERD: Status: Acute Attestations Medical Necessity Statement*: See admitting service's notation. Coding Level of Care Code Acute Insulation Estimator for [facility] Diagnoses Hernia, inguinal, left K40.90 Coffee ground emesis K92.0 Chronic GERD K21.9
[2019-09-29] MEDS: digoxin 125 mcg Tablet PO (08:06)
[2019-09-29] MEDS: carvedilol 6.25 mg Tablet PO (08:06)
[2019-09-29] MEDS: fluoxetine 20 mg Capsule 40 MG PO (08:06)
[2019-09-29] MEDS: ARIPiprazole 2 mg Tablet PO (08:06)
[2019-09-29] MEDS: pantoprazole DR 40 mg Tablet PO (08:06)
[2019-09-29] MEDS: predniSONE 1 mg Tablet PO (08:07)
--- NOTE | 2019-09-29 10:15 | PC.SOCIAL ---
IMM Page 2 of IMM and explained to patient. Initialed, dated, and timed and placed in chart. Copy provided to patient.
--- NOTE | 2019-09-29 15:27 | PM.DCS ---
Discharge Providers Date of Admission: 09/26/19 12:29 Date of Discharge: September 29, 2019 Attending Provider at Admission: Rosa M Robles MD Attending Provider at Discharge: Rosa M Robles MD Primary Care Provider: Shyann Harman MD, [facility] [place] Diagnoses at Discharge Discharge Diagnosis (1) Hernia, inguinal, left: Status: Acute (2) Coffee ground emesis: Status: Acute (3) Chronic GERD: Status: Acute (4) Bowel obstruction: Status: Acute Qualifiers: Intestinal obstruction extent: complete Intestinal obstruction type: unspecified Qualified Code(s): K56.601 - Complete intestinal obstruction, unspecified as to cause (5) C. difficile diarrhea: Status: Acute Reason for Visit Reason for Visit: COFFEE GROUND EMESIS Hospital Course Discharge Summary: Alex James is a 84 year old male with PMH systolic CHF EF 40%, chronic atrial fibrillation,history of right lower extremity DVT, hypertension, invasive bladder cancer recently admitted here for gross hematuria and warfarin induced coagulaopathy s/p clot evacuation, resection of bladder tumor. Postop he was found to be quite hypotensive and somewhat difficult to arouse so remained intubated and was transferred to ICU thereafter. He was extubated within approximately 24 hours postop and has remained stable from a respiratory standpoint. anticoagulation was discontinued for at least 2 to 3 weeks due to high risk of bleeding. He was discharged to SNF on 09/20 in stable condition. He returned on 09/25 for reported coffee-ground emesis and multiple episodes of vomiting. He had a CAT scan which revealed a long standing large left inguinal hernia with concern for obstructive process. Surgical consult was sought for the same, he was managed conservatively, declined surgical intervenetion for the large hernia, SBO improved with conservative management. He initially had constipation but then developed with C. difficile testing was done and return for PCR positive. He was started on treatment with oral vancomycin. There were no signs of toxic megacolon or fulminant C. difficile. Plan is to continue oral vancomycin for the next 14 days. He has not had any recurrence of hematemesis since being here. Hemoglobin has remained relatively stable at around 10. Anticoagulation remains on hold while he was here. He declined EGD for now, recommended to follow-up in the next 2 to 3 weeks. Protonix 40 mg p.o. twice daily has been initiated for the same. He denies any ezra, brielle bleeding per rectum. he is hemodynamically stable at day of discharge. Recommend follow-up with Dr. Carranza in the next 1 to 3 days. Physical Exam Narrative: EXAM NARRATIVE: GEN: Awake, alert and oriented, no acute distress CVS: S1S2 N RS: CTA B/L Abd: Soft, nt/nd , bs+ TIMBER POISONER: no focal neuro deficits Discharge Data Data Completed and Pending: Completed Studies During Hospitalization Category Date Time Status CT abdomen pelvis w con* [id number] Urge nt Cat Scan 09/26/19 09:35 Completed Labs from last 24 hours 09/29/19 09/29/19 03:03 03:03 WBC 7.7 RBC 3.16 L Hgb 9.4 L Hct 30.7 L MCV 97.2 H MCH 29.7 MCHC 30.6 RDW 15.7 H Plt Count 209 MPV 10.7 H Neut % (Auto) 70.8 Lymph % (Auto) 13.1 [place] % (Auto) 10.3 Eos % (Auto) 4.6 Baso % (Auto) 0.8 Neut # (Auto) 5.45 Lymph # (Auto) 1.0 [place] # (Auto) 0.8 Eos # (Auto) 0.4 Baso # (Auto) 0.1 Nucleated RBC % (a uto) 0 Nucleated RBCs # 0.0 Sodium 138 Potassium 3.3 L Chloride 117 H Carbon Dioxide 14 L Anion Gap 10.3 BUN 22 Creatinine 1.5 H GFR Calculation Not Reportable Glucose 113 Calculated Osmolal ity 283 L Calcium 8.0 L Total Bilirubin 0.3 AST 16 ALT 10 Alkaline Phosphata se 89 Total Protein 5.8 L Albumin 3.3 L Globulin 2.5 Vitals: Last Vital Signs Temp 97.3 F L 09/29/19 13:30 Pulse 67 09/29/19 13:30 Resp 18 09/29/19 13:30 BP 122/67 09/29/19 13:30 Pulse Ox 98 09/29/19 13:30 Discharge Plan Discharge Patient Disposition: Xfer SNF Condition: Stable Prescriptions: New vancomycin 1,000 mg Recon Soln 125 mg PO QID 14 Days Qty: 60 RF: 0 pantoprazole 40 mg Tablet,Delayed Release (Dr/Ec) 40 mg PO BID 30 Days Qty: 60 RF: 0 Continued fluoxetine 40 mg capsule 40 mg PO DAILY Qty: 30 RF: 0 carvedilol 6.25 mg tablet 6.25 mg PO BID Qty: 30 RF: 0 albuterol sulfate 2.5 mg /3 mL (0.083 %) Solution For Nebulization 2.5 mg INHALATION Q4H PRN (Reason: Shortness Of Breath) Qty: 30 RF: 0 tramadol 50 mg tablet 50 mg PO BID PRN (Reason: Pain) Qty: 30 RF: 0 calcium carbonate [Calcium 600] 600 mg calcium (1,500 mg) tablet 1,500 mg PO DAILY Qty: 30 RF: 0 magnesium hydroxide [Milk of Magnesia] 400 mg/5 mL suspension 30 ml PO DAILY PRN (Reason: Constipation) Qty: 30 RF: 0 tamsulosin 0.4 mg capsule 0.4 mg PO DAILY Qty: 30 RF: 0 prednisone 1 mg tablet 1 mg PO DAILY Qty: 30 RF: 0 levothyroxine 50 mcg tablet 50 mcg PO DAILY Qty: 30 RF: 0 bisacodyl 10 mg Suppository 10 mg MT DAILY PRN (Reason: Constipation) Qty: 30 RF: 0 cephalexin 500 mg capsule 500 mg PO Q6H 7 Days Qty: 28 RF: 0 digoxin 125 mcg (0.125 mg) tablet 125 mcg PO DAILY Qty: 30 RF: 0 furosemide 20 mg tablet 20 mg PO DAILY Qty: 30 RF: 0 acetaminophen 500 mg capsule 500 mg PO Q6H PRN (Reason: Pain) Qty: 30 RF: 0 aripiprazole 2 mg tablet 2 mg PO DAILY Qty: 30 RF: 0 cholecalciferol (vitamin D3) [Vitamin D3] 25 mcg (1,000 unit) Tablet 25 mcg PO DAILY Qty: 30 RF: 0 Discharge Orders: Discharge Order (Routine); Ordered 09/29/19 Ordered By: Rosa M Robles Referrals: Onesimo Carranza MD [Physician] - 09/30/19 3:15 pm Cooper Russell MD [Physician] - 2 weeks Discharge Diet: Usual diet Discharge Activity: Resume usual activity Patient Instructions: Clostridium Difficile, Vancomycin (By mouth), Pantoprazole (By mouth) Discharge Attestations Time Spent in Discharge Care*: less than 30 min Status at Discharge: Cognitive status at discharge: cognitively intact, Behavioral status at discharge: cooperative, Quality Metrics Clinical Quality Measures During this hospital stay, did patient experience: None Coding Level of Care Code Acute Innersole Fitter for Chg Fwd Diagnoses Hernia, inguinal, left K40.90 Coffee ground emesis K92.0 Chronic GERD K21.9 Bowel obstruction K56.601 Intestinal obstruction extent: complete Intestinal obstruction type: unspecified C. difficile diarrhea A04.72
== END 2019-09-29 16:48 | disposition skilled nursing facility (03) | DRG 389 ==
LOC: ER 11:17 → MEDSURG 12:45
PROVIDERS: Emergency Medicine; Nurse Practitioner Family; Student in an Organized Health Care Education/Training Program; Admitting Provider Student in an Organized Health Care Education/Training Program; PCP Family Medicine; Visit Provider Student in an Organized Health Care Education/Training Program
DX: K56.601 Complete intestinal obstruction, unspecified as to cause (principal); N13.8 Other obstructive and reflux uropathy; I42.9 Cardiomyopathy, unspecified; I48.20 Chronic atrial fibrillation, unspecified; I50.22 Chronic systolic (congestive) heart failure; K92.0 Hematemesis; A04.72 Enterocolitis due to Clostridium difficile, not specified as recurrent; K40.90 Unilateral inguinal hernia, without obstruction or gangrene, not specified as recurrent; C67.2 Malignant neoplasm of lateral wall of bladder; Z96.0 Presence of urogenital implants; K21.9 Gastro-esophageal reflux disease without esophagitis; N40.1 Benign prostatic hyperplasia with lower urinary tract symptoms; R33.8 Other retention of urine; I11.0 Hypertensive heart disease with heart failure; E78.5 Hyperlipidemia, unspecified; E03.9 Hypothyroidism, unspecified; N20.0 Calculus of kidney; M19.90 Unspecified osteoarthritis, unspecified site; I73.9 Peripheral vascular disease, unspecified; Z86.718 Personal history of other venous thrombosis and embolism
CPT/HCPCS: 12345; 36415; 36416; 74177; 80048; 80053; 80162; 81001; 81003; 82274; 82962; 83540; 83550; 83605; 83630; 84484; 85025; 85610; 85730; 86850; 86900; 87086; 87493; 87506; 93005; 96372; 96375; 99283; C9113; J0696; J1650; J2405; J2543; J3370; J3480; J7030; J7512; Q9967

== ENCOUNTER → 2019-11-26 10:56 | Outpatient (BNVA) | payer MEDICARE, OTHER, SELFPAY | PROVIDERS: PCP Family Medicine; Visit Provider Urology | DX: C67.2 Malignant neoplasm of lateral wall of bladder (principal) | CPT/HCPCS: 80053; 81001; 87077; 87086; 87186 ==

== ENCOUNTER 2019-12-19 08:42 | Emergency (ER) | payer MEDICARE, OTHER, SELFPAY ==
[2019-12-19 08:46] VITALS: BP 114/80; PULSE 82; RESP 18; TEMP 36.6; O2SAT 97; BMI 26.4
--- NOTE | 2019-12-19 08:51 | US_ITS ---
WS: [id number] SCROTAL ULTRASOUND EXAMINATION CLINICAL INFORMATION: scrotal swelling COMPARISON: None. FINDINGS: TESTES Edematous scrotum with marked skin thickening. Small left hydrocele. Scrotal thickening measuring up to 1.4 cm. Increased vascularity about the left testicle appears to be due to varicoceles. Normal int ratesticular vascularity Normal in size and echotexture, without focal lesion. Color Doppler: Normal color Doppler flow pattern. Right testes size: 3.2 cm x 1.8 cm x 1.8 cm. Left testes size: 3.8 cm x 2.9 cm x 3.2 cm. EPIDIDYMIDES Normal in size and echotexture, without focal lesion. Color Doppler: Normal color Doppler flow pattern. Right epididymis size: 1.0 cm . Left epididymitis size: 0.9 cm HYDROCELE Left hydrocele VARICOCELE Left OTHER FINDINGS None. US/US scrotum [id number] IMPRESSION: 1. Edematous scrotum with prominent skin thickening. 2. Normal testicular echotexture bilaterally with normal intratesticular vascu larity. 3. Small left hydrocele with increased vascularity about the left testicle due to varicoceles.
--- NOTE | 2019-12-19 08:52 | W.ED.MALEGU ---
HPI - Male Genitourinary General: Chief complaint: Urogenital-Male Stated complaint: SCROTUM SWELLING/ BLADDER CANCER Time Seen by Provider: 12/19/19 08:43 History of Present Illness: HPI Narrative: Patient is an 84-year-old male comes to the ED via EMS for scrotal swelling. Past medical history of BPH, bladder cancer, A. fib, GERD, CHF, hyperlipidemia and hypertension. Patient lives at [facility] with [facility]. Patient's nurse called this morning with complaints of patient having scrotal swelling and his penis inverted. When patient arrived here he complained of no pain or discomfort. He says he is able to urinate without any problem. He was aware of his bladder cancer diagnosis. Associated symptoms: Deny dysuria, hematuria, nausea or vomiting Review of Systems Const: Denies: fever(s), chills or fatigue Eyes: Denies: change in vision or eye discomfort ENMT: Denies: throat pain, odynophagia, nasal discharge or nasal congestion Card: Denies: chest pain, palpitations, edema, swelling of feet/ankles, dyspnea on exertion or orthopnea Resp: Denies: dyspnea, productive cough or non-productive cough GI: Denies: abdominal pain, nausea, vomiting, diarrhea, constipation or hematochezia : Reports: scrotal swelling; Denies: flank pain, difficulty urinating, dysuria or hematuria Musc: Denies: neck pain, back pain or extremity swelling Skin/Breast: Denies: rash or new lesions Neuro: Denies: headache(s), numbness in extremities or weakness in extremities [facility] ED PFSH: Medical History BPH (benign prostatic hyperplasia) BPH NOS w ur obs/LUTS -continue tamsulosin -Noted chronic bladder wall thickening with evidence of bilateral hydronephrosis likely related to bladder outlet obstruction -3-way catheter in place due to need for CBI 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 Carranza in clinic -Catheter placed; continue to monitor output -no need for continued continuous bladder irrigation -Urology evaluation by Dr. Carranza appreciated; s/p cystoscopy with clot evacuation and bladder tumor resection; POD # 4 -Due to noted gross hematuria, Coumadin on hold -Close monitoring of hemoglobin -UA with noted hematuria/+LE/+bacteria/minimal pyuria; on Ceftriaxone particularly with noted instrumentation, catheter placement, leukocytosis. Urine cx prelim negative. Blood cx prelim negative. Will d/c on continued antibiotics on discharge per discussion with Dr. 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 History of bone marrow biopsy Previous back surgery Previously documented, but patient cannot remember having this done as of 09/26/2019 Social History Smoking and tobacco status: never smoked Alcohol intake: never Lives independently: Yes Housing: Assisted Living Facility Marital status: / Marital status details: x 52 yrs Current occupational status: retired History of recent travel: No Physical Exam Const: COMMON NORMALS: no acute distress and alert GENERAL APPEARANCE: cooperative and comfortable ORIENTATION/CONSCIOUSNESS: Yes oriented to person and Yes oriented to place OTHER: Patient was unable to answer year and month question. HENMT: COMMON NORMALS: normocephalic HEAD & SCALP: normocephalic MOUTH: Normal oral and palatal mucosa present THROAT: posterior oropharynx normal and uvula midline Eye: COMMON NORMALS: Equal, round and reactive pupils present PUPIL: Yes Equal, round and reactive pupils present Neck/C-Spine: COMMON NORMALS: supple GENERAL: Yes normal visual inspection Resp: COMMON NORMALS: normal respiratory effort, No retractions, No use of accessory muscles and clear to auscultation bilaterally AUSCULTATION: clear to auscultation bilaterally Cardio: COMMON NORMALS: regular rate, S1 normal heart sound present, No gallops present (Cardio), No clicks present (Cardio) and Peripheral pulses 2+ throughout RATE: regular rate RHYTHM: abnormal rhythm irregularly irregular HEART SOUNDS: S1 normal heart sound present and Murmur heart sound present systolic Location: base Intensity: III/ Characteristics: harsh PERIPHERAL PULSES: Peripheral pulses 2+ throughout GI: COMMON NORMALS: Normal to inspection, nondistended, normoactive bowel sounds present, Soft to palpation, non-tender and no masses PALPATION: Yes Soft to palpation : COMMON NORMALS: Yes no CVA tenderness BLADDER/KIDNEY EXAM: Yes no CVA tenderness MALE GROIN/PERINEUM EXAM: No ecchymosis and No erythema PENIS: other (inverted penis) SCROTUM: Yes Scrotal tenderness present (mild discomfort), No erythematous and Yes scrotal swelling Scrotal swelling laterality: bilateral Back/Pelvis: COMMON NORMALS: no CVA tenderness Extremity: COMMON NORMALS: normal to inspection GENERAL: Yes edema (1+ pitting edema bilaterally at the ankles.) Neuro: COMMON NORMALS: moves all extremities SENSORIUM/ORIENTATION: Yes alert, Yes oriented to person and Yes oriented to place Skin: GENERAL SKIN EXAM: dry skin Course Reevaluation(s): Reevaluation #1: I performed a bladder scan on patient and I got around 200ml in bladder. Patient then tried to urinate and he was only able to get 30 mL out. He felt like he could urinate more but was unable to. Hernandez catheter was then placed and over 200 mL of urine came out. Consultations: Consultation #1: I contacted Dr. Carranza and he was familiar with this patient and has seen him multiple times in his clinic. I told him of the ultrasound findings and the scrotal swelling. He thought scrotal swelling is just edema. He told me to bladder scan to make sure he is not having trouble urinating. Have patient follow-up with Dr. Carranza. Vital Signs: Vital signs: Vital Signs Temperature 98.9 F 12/19/19 14:10 Pulse Rate 88 12/19/19 14:10 Respiratory Rate 16 12/19/19 14:10 Blood Pressure 114/62 12/19/19 14:10 Pulse Oximetry 96 12/19/19 14:10 MDM - Male MDM Narrative: Medical decision making narrative: Patient is an 84-year-old male comes to the ED via EMS for scrotal swelling. Past medical history of BPH, bladder cancer, A. fib, GERD, CHF, hyperlipidemia and hypertension. [facility]. Patient's nurse called this morning with complaints of patient having scrotal swelling and his penis inverted. Exam shows scrotal swelling and patient appeared to have some mild scrotal tenderness upon palpation. Hemoglobin 9.4, which is the same value as it was on 09/29/19. 1.6 creatinine today and on 09/29/19 it was 1.5. UA showed many white blood cells, RBCs and some bacteria even though urine was obtained by catheter put patient on Bactrim to treat potential UTI. Patient discharged with Hernandez catheter and will follow up with Dr. Carranza. Lab Data: Attestation: I reviewed the patient's lab results. Labs: Lab Results 12/19/19 12/19/19 12/19/19 Range/Units 09:09 09:09 11:35 WBC 5.5 (4.0-10.0) 10^3/ uL RBC 3.28 L (4.1-5.3) 10^6/u L Hgb 9.4 L (11.7-16.6) g/dL Hct 29.6 L (42.0-52.0) % MCV 90.2 (80-94) fL MCH 28.7 (28.0-34.0) pg MCHC 31.8 (30.0-36.0) g/dL RDW 22.0 H (12.1-15.1) % Plt Count 166 (130-400) 10^3/c mm MPV 10.7 H (7.4-10.4) fL Neut % (Auto) 69.6 % Lymph % (Auto) 12.0 % [place] % (Auto) 9.3 % Eos % (Auto) 4.7 % Baso % (Auto) 1.1 % Neut # (Auto) 3.81 (1.8-7.7) 10^3/u L Lymph # (Auto) 0.7 L (0.8-4.8) 10^3/u L [place] # (Auto) 0.5 (0.2-0.9) 10^3/u L Eos # (Auto) 0.3 (0.0-0.8) 10^3/u L Baso # (Auto) 0.1 (0.0-0.1) 10^3/u L Nucleated RBC % (a uto) 0.7 % Nucleated RBCs # 0.0 /100WBC Sodium 136 (136-145) mmol/L Potassium 4.4 (3.5-5.1) mmol/L Chloride 103 (98-107) mmol/L Carbon Dioxide 21 L (22-29) mmol/L Anion Gap 16.4 (5-19) BUN 41 H (8-23) mg/dL Creatinine 1.6 H (0.7-1.2) mg/dL GFR Calculation Not Reportable Glucose 120 H (65-115) mg/dL Calculated Osmolal ity 293 (285-295) mOsm/k g Calcium 8.5 (8.5-10.5) mg/dL Total Bilirubin 0.9 (0.15-1.2) mg/dL AST 19 (0-40) U/L ALT 8 (0-41) U/L Alkaline Phosphata se 185 H (40-130) IU/L Total Protein 7.1 (6.6-8.7) g/dL Albumin 3.4 L (3.5-5.2) g/dL Globulin 3.7 (1.3-4.6) g/dL Urine Color Yellow (Yellow) Urine Appearance Cloudy (CLEAR) Urine pH 5 (5-7) Ur Specific Gravit y 1.015 (1.005-1.030) Urine Protein 2+ H (Negative) Urine Glucose (UA) Norm (Normal) Urine Ketones Negative (Negative) Urine Blood 3+ H (Negative) Urine Nitrate Negative (Negative) Urine Bilirubin Neg (Negative) Urine Urobilinogen Norm (Negative) mg/dL Ur Leukocyte Nadia ase 2+ H (Negative) Urine RBC 10-15 H (0-2) /hpf Urine WBC 55-80 H (0-5) /hpf Ur Squamous Epith Cells 0-4 H (0-5) /hpf Amorphous Sediment Not Reportable Urine Bacteria 3+ H (NONE) /hpf Imaging Data: US: Attestation: I personally reviewed and interpreted this imaging study as follows: Radiologist's impression: [address] [address] Ultrasound Report Signed Patient: Alex James Unit #: [id number] : 1935 Age/Sex: 84 / M ADM Date: 12/19/19 Loc: ER Room/Bed: Attending Dr: Ordering Provider/Ordering MD: Ector Chaudhry Date of Service: 12/19/19 Procedure(s): US scrotum 72804 Accession Number(s): [id number] Report Number: [id number] WS: [id number] SCROTAL ULTRASOUND EXAMINATION CLINICAL INFORMATION: scrotal swelling COMPARISON: None. FINDINGS: TESTES Edematous scrotum with marked skin thickening. Small left hydrocele. Scrotal thickening measuring up to 1.4 cm. Increased vascularity about the left testicle appears to be due to varicoceles. Normal intratesticular vascularity Normal in size and echotexture, without focal lesion. Color Doppler: Normal color Doppler flow pattern. Right testes size: 3.2 cm x 1.8 cm x 1.8 cm. Left testes size: 3.8 cm x 2.9 cm x 3.2 cm. EPIDIDYMIDES Normal in size and echotexture, without focal lesion. Color Doppler: Normal color Doppler flow pattern. Right epididymis size: 1.0 cm . Left epididymitis size: 0.9 cm HYDROCELE Left hydrocele VARICOCELE Left OTHER FINDINGS None. US/US scrotum [id number] IMPRESSION: 1. Edematous scrotum with prominent skin thickening. 2. Normal testicular echotexture bilaterally with normal intratesticular vascularity. 3. Small left hydrocele with increased vascularity about the left testicle due to varicoceles. Dictated By: Scott Leal MD Signed By: Scott Leal MD Signed Date/Time: 12/19/19 1009 DD/ 1002 Discharge Plan Discharge Patient Disposition: Home Clinical Impression: Acute urinary retention Condition: Stable Prescriptions: New sulfamethoxazole-trimethoprim 800-160 mg tablet 1 tab PO BID 7 Days Qty: 14 RF: 0 No Action Enema 19-7 gram/118 mL enema 118 ml OR DAILY PRNRF: 0 Senna Plus 8.6-50 mg capsule 1 tab-cap PO BID PRNRF: 0 diphenhydramine HCl [Benadryl] 25 mg capsule 25 mg PO DAILY RF: 0 lidocaine HCl 2 % jelly 1 applic INTRA-URET ONCE Qty: 1 RF: 0 fluoxetine 40 mg capsule 40 mg PO DAILY Qty: 30 RF: 0 carvedilol 6.25 mg tablet 6.25 mg PO BID Qty: 30 RF: 0 albuterol sulfate 2.5 mg /3 mL (0.083 %) Solution For Nebulization 2.5 mg INHALATION Q4H PRN (Reason: Shortness Of Breath) Qty: 30 RF: 0 tramadol 50 mg tablet 50 mg PO BID PRN (Reason: Pain) Qty: 30 RF: 0 calcium carbonate [Calcium 600] 600 mg calcium (1,500 mg) tablet 1,500 mg PO DAILY Qty: 30 RF: 0 magnesium hydroxide [Milk of Magnesia] 400 mg/5 mL suspension 30 ml PO DAILY PRN (Reason: Constipation) Qty: 30 RF: 0 tamsulosin 0.4 mg capsule 0.4 mg PO DAILY Qty: 30 RF: 0 prednisone 1 mg tablet 1 mg PO DAILY Qty: 30 RF: 0 levothyroxine 50 mcg tablet 50 mcg PO DAILY Qty: 30 RF: 0 bisacodyl 10 mg Suppository 10 mg OR DAILY PRN (Reason: Constipation) Qty: 30 RF: 0 cephalexin 500 mg capsule 500 mg PO Q6H 7 Days Qty: 28 RF: 0 digoxin 125 mcg (0.125 mg) tablet 125 mcg PO DAILY Qty: 30 RF: 0 furosemide 20 mg tablet 20 mg PO DAILY Qty: 30 RF: 0 acetaminophen 500 mg capsule 500 mg PO Q6H PRN (Reason: Pain) Qty: 30 RF: 0 aripiprazole 2 mg tablet 2 mg PO DAILY Qty: 30 RF: 0 cholecalciferol (vitamin D3) [Vitamin D3] 25 mcg (1,000 unit) Tablet 25 mcg PO DAILY Qty: 30 RF: 0 Discharge Orders: Discharge Order (Routine); Ordered 12/19/19 Ordered By: Ector Chaudhry Referrals: Syhann Harman MD, [facility] [Primary Care Provider] - Discharge Diet: Regular Discharge Activity: Increase activity as tolerated Patient Instructions: Urinary Retention in Men (ED), Hernandez Catheter Placement and Care (ED) Activity Restrictions/Additional Instructions: Follow-up with medical provider as directed. Contact Dr. Carranza's office to set up an appointment with him early next week. Take medications as prescribed. Return to the ER or your medical provider if condition worsens. Please read and understand discharge instructions. If any questions, please ask. Discharge Date/Time: 12/19/19 14:14 Coding Level of Care Code ED Final Assembly Inspector for Chg Fwd Exam Comprehensive
[2019-12-19 09:07] VITALS: BP 112/82; PULSE 82; RESP 18; O2SAT 96
[2019-12-19 09:36] LABS: Alanine Aminotransferase 8 U/L (0-41); Albumin Level 3.4 g/dL (3.5-5.2); Alkaline Phosphatase 185 IU/L (40-130); Anion Gap 16.4 (5-19); Aspartate Amino Transferase 19 U/L (0-40); Blood Urea Nitrogen 41 mg/dL (8-23); Calcium 8.5 mg/dL (8.5-10.5); Carbon Dioxide 21 mmol/L (22-29); Chloride 103 mmol/L (98-107); Globulin 3.7 g/dL (1.3-4.6); Glucose 120 mg/dL (65-115); Osmolality Calculated 293 mOsm/kg (285-295); Potassium 4.4 mmol/L (3.5-5.1); Sodium 136 mmol/L (136-145); Total Bilirubin 0.9 mg/dL (0.15-1.2); Total Protein 7.1 g/dL (6.6-8.7)
[2019-12-19 09:58] LABS: Basophils # 0.1 10^3/uL (0.0-0.1); Basophils % 1.1 %; Eosinophils # 0.3 10^3/uL (0.0-0.8); Eosinophils % 4.7 %; Hematocrit 29.6 % (42.0-52.0); Hemoglobin 9.4 g/dL (11.7-16.6); Lymphocytes # 0.7 10^3/uL (0.8-4.8); Mean Corpuscular HGB Conc 31.8 g/dL (30.0-36.0); Mean Corpuscular Hemoglobin 28.7 pg (28.0-34.0); Mean Corpuscular Volume 90.2 fL (80-94); Mean Platelet Volume 10.7 fL (7.4-10.4); Monocytes # 0.5 10^3/uL (0.2-0.9); Monocytes % 9.3 %; Neutrophils # 3.81 10^3/uL (1.8-7.7); Neutrophils % 69.6 %; Nucleated Red Blood Cells % 0.7 %; Platelet Count 166 10^3/cmm (130-400); Red Blood Count 3.28 10^6/uL (4.1-5.3); White Blood Count 5.5 10^3/uL (4.0-10.0)
[2019-12-19 10:12] VITALS: BP 112/62; PULSE 94; RESP 18; O2SAT 93
[2019-12-19 11:30] VITALS: BP 116/67; PULSE 100; RESP 18; O2SAT 94
[2019-12-19 11:43] LABS: Bilirubin Urine Neg (Negative); Blood Urine 3+ (Negative); Glucose Urine UA Norm (Normal); Ketones Urine Negative (Negative); Leukocyte Esterase Urine 2+ (Negative); Nitrate Urine Negative (Negative); Protein Urine 2+ (Negative); Specific Gravity, Urine 1.015 (1.005-1.030); Urine Appearance Cloudy (CLEAR); Urine Color Yellow (Yellow); Urobilinogen Urine Norm (Negative); pH Urine 5 (5-7)
[2019-12-19 11:58] LABS: Squamous Epithelial Cell Urine 0-4 /hpf (0-5); WBC Urine 55-80 /hpf (0-5)
[2019-12-19 12:03] LABS: Add Urine Culture? Yes; Bacteria Urine 3+ /hpf
[2019-12-19 12:46] VITALS: BP 116/61; PULSE 89; RESP 20; O2SAT 96
[2019-12-19] MEDS: sulfamethoxazole-trimeth DS 160-800 mg Tablet 1 TAB PO (12:49)
[2019-12-19 14:10] VITALS: BP 114/62; PULSE 88; RESP 16; TEMP 37.2; O2SAT 96
--- NOTE | 2019-12-19 14:34 | DCPLANNER ---
business account manager had message to schedule a follow up appointment for patient with Dr. Carranza. business account manager called the office of Dr. Carranza, spoke with Emmie, gave clinic patients information. business account manager was told that patients information would be printed and reviewed. Clinic will call patient with appointment information.
--- NOTE | 2019-12-22 15:35 | DCPLANNER ---
Patient has a follow up appointment scheduled for , January 08, 2020 at 9:[address] Carranza. Clinic will call patient with appointment information.
--- NOTE | 2020-01-28 12:29 | DCPLANNER ---
Patient had a follow up appointment scheduled for 01.08.[address] Carranza - patient did attend appointment.
== END 2019-12-19 14:14 | disposition home or self-care (01) ==
PROVIDERS: Emergency Provider Physician Assistant; PCP Family Medicine
DX: R33.9 Retention of urine, unspecified (principal); I48.20 Chronic atrial fibrillation, unspecified; I11.0 Hypertensive heart disease with heart failure; I50.9 Heart failure, unspecified; E78.5 Hyperlipidemia, unspecified
CPT/HCPCS: 12345; 51702; 76870; 80053; 81001; 85025; 87040; 87086; 99284

== ENCOUNTER 2020-01-19 16:54 | Inpatient (IN) | payer MEDICARE, OTHER, SELFPAY ==
--- NOTE | 2020-01-19 17:02 | XR_ITS ---
WS: [id number] XR chest 1V portable [id number] REASON FOR EXAM: Shortness of breath FINDINGS: There is marked cardiomegaly. There are small bilateral pleural effusions. There does not appear to be pulmonary edema or other infiltrate at this time. The chest appears improved compared to 09/18/2019. XR/XR chest 1V portable [id number] IMPRESSION: Improved abnormal chest as above.
[2020-01-19 17:03] VITALS: BP 112/58; PULSE 85; RESP 24; TEMP 36.4; O2SAT 96; BMI 22.0
--- NOTE | 2020-01-19 17:15 | CT_ITS ---
WS: [id number] CT head wo con* [id number] REASON FOR EXAM: ams IV CONTRAST ADMINISTERED: Noncontrast TOTAL EXAM DLP: 820.[address] scans at [facility] use at least one of these dose optimization techniques: automat ed exposure control; mA and/or kV adjustment per patient size (includes targeted exams where dose is matched to clinical indication); or iterative reconstruction. FINDINGS: The bony calvarium is intact. No midline shift or other significant mass effect. No findings of intracranial hemorrhage and no extra-axial fluid collection. Symmetric global atrophy. No focal brain parenchymal abnormality. CT/CT head wo con* [id number] IMPRESSION: No acute intracranial abnormality.
--- NOTE | 2020-01-19 17:15 | ECG_ITS ---
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: : 1935 Requested By: Joselito Bernabe Order Number: [id number] MD: CONNIE JONES Measurements Intervals Alna Rate: 65 P: RI: QRS: -50 QRSD: 116 T: 95 QT: 417 QTc: 434 Interpretive Statements ATRIAL FIBRILLATION INCOMPLETE RIGHT BUNDLE BRANCH BLOCK [90+ ms QRS DURATION, TERMINAL R IN V1/V2, 40+ ms S IN I/aVL/V4/V5/V6] LEFT ANTERIOR FASCICULAR BLOCK [QRS AXIS <= -45, QR IN I, RS IN II] MODERATE ST DEPRESSION [0.05+ mV ST DEPRESSION] ABNORMAL QRS-T ANGLE [QRS-T AXIS DIFFERENCE > 60] Compared to ECG 09/26/2019 17:43:44 Incomplete right bundle-branch block now present ST (T wave) deviation now present Ventricular premature complex(es) no longer present Aberrant conduction of supraventricular beat(s) no longer present T-wave abnormality no longer present Prolonged QT interval no longer present Electronically Signed On 01-22-2020 15:30:07 COUNTER TOP MAKER by CONNIE JONES [id number]
[2020-01-19 17:35] LABS: ABG PCO2 26.7 mmHg (35-45); ABG PH Result 7.47 (7.35-7.45); Arterial Blood Gas Hematocrit 29.5 % (42-52); Base Excess ABG -3.2 mmol/L (-2.0-2.0); Blood Gas Operator Identificat GD; Blood Gas Sample Site Brachial, right; Blood Gas Sample Type Arterial; Carboxyhemoglobin 1.1 %THgb (0.4-20.1); HCO3 ABG 19.6 mmol/L (22-26); HGB O2 Sat 98.3 % (95-100); Methemoglobin 0.8 % (0.4-1.5); Oxygen Device NC; Total Hemoglobin 9.6 g/dL (14-18)
[2020-01-19 17:38] LABS: INR 1.33 (0.8-1.2)
--- NOTE | 2020-01-19 17:48 | ED_ITS ---
HPI - SOB/Dyspnea General: Chief Complaint: Shortness of Breath/Dyspnea Stated Complaint: WEAKNESS, LOW O2 Time Seen by Provider: 01/19/20 17:02 Source: patient and EMS Mode of arrival: EMS Limitations: no limitations History of Present Illness: HPI Narrative: Alex is an 84-year-old male that is here from assisted living. Per EMS and assisted living patient has had confusion. He is able to tell me his name and where he is from but does not know the year at home it was 194. Patient's not on oxygen then was in the 80s there on room air and they placed him on 4 L. Patient denies any cough or fever but full history is not very well from him due to his confusion. 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 Carranza in clinic -Catheter placed; continue to monitor output -no need for continued continuous bladder irrigation -Urology evaluation by Dr. Carranza appreciated; s/p cystoscopy with clot evacuation and bladder tumor resection; POD # 4 -Due to noted gross hematuria, Coumadin on hold -Close monitoring of hemoglobin -UA with noted hematuria/+LE/+bacteria/minimal pyuria; on Ceftriaxone particularly with noted instrumentation, catheter placement, leukocytosis. Urine cx prelim negative. Blood cx prelim negative. Will d/c on continued antibiotics on discharge per discussion with Dr. Carranza Congestive heart failure -No evidence of CHF exacerbation currently -Echo: EF=40%, diffuse LV hypokinesis, severe biatrial enlargement Hyperlipidemia Hypertension -normotensive; continue to monitor vital signs -continue Coreg, resume low dose lasix, d/c ACEi -off IVF hydration Hypothyroidism -continue levothyroxine Kidney stone No intervention needed Osteoarthritis Peripheral vascular disease Thromboembolism History of DVT right lower extremity Urinary retention Surgical History (System 01/19/20 @ 10:48 by Anabella Curran) H/O skin graft Following debridement on left lower extremity for necrotizing fasciitis History of bone marrow biopsy Previous back surgery Previously documented, but patient cannot remember having this done as of 09/26/2019 Family History (System 01/19/20 @ 10:48 by Anabella Curran) Father , at age 96 No problems noted. Mother , at age 72 Cancer breast Social History (System 01/19/20 @ 10:48 by Anabella Curran) Smoking and tobacco status: never smoked Alcohol intake: never Lives independently: Yes Housing: Assisted Living Facility Marital status: / Marital status details: x 52 yrs Current occupational status: retired History of recent travel: No Physical Exam Const: COMMON NORMALS: no acute distress, healthy appearing and alert; negative for patient oriented x3 ORIENTATION/CONSCIOUSNESS: Yes oriented to person, Yes oriented to place and Yes confused; not oriented to time HENMT: COMMON NORMALS: normocephalic and atraumatic HEAD & SCALP: normocephalic and atraumatic Eye: COMMON NORMALS: Equal, round and reactive pupils present and EOMs intact bilaterally PUPIL: Yes Equal, round and reactive pupils present Neck/C-Spine: COMMON NORMALS: full ROM and supple Chest: COMMONS NORMALS: normal inspection of the chest and normal palpation of entire chest wall Resp: COMMON NORMALS: normal respiratory effort, No retractions, No use of accessory muscles and clear to auscultation bilaterally AUSCULTATION: clear to auscultation bilaterally Cardio: COMMON NORMALS: regular rate, regular rhythm and No murmurs present (Cardio) RATE: regular rate RHYTHM: regular rhythm GI: COMMON NORMALS: Normal to inspection, nondistended, normoactive bowel sounds present, Soft to palpation, non-tender and no masses PALPATION: Yes Soft to palpation Extremity: COMMON NORMALS: normal to inspection and full ROM Neuro: COMMON NORMALS: moves all extremities and no focal motor deficits; negative for patient oriented x3 SENSORIUM/ORIENTATION: Yes alert, Yes oriented to person, Yes oriented to place and No oriented to time Psych: COMMON NORMALS: mental status grossly normal, Normal thought process present and cooperative THOUGHT PROCESS: Normal thought process present Skin: COMMON NORMALS: no rashes or lesions noted and no wounds GENERAL SKIN EXAM: no rashes or lesions noted Course Vital Signs: Vital signs: Vital Signs Temperature 97.6 F 01/19/20 17:03 Pulse Rate 70 01/19/20 18:59 Respiratory Rate 22 H 01/19/20 18:59 Blood Pressure 112/58 01/19/20 18:59 Pulse Oximetry 98 01/19/20 18:59 MDM - SOB/Dyspnea MDM Narrative: Medical decision making narrative: Patient presents here with confusion compared to baseline. Patient is well-appearing here has no signs of meningitis. He does have an elevated BNP with a history of CHF. He is required no oxygen here was able to turn his oxygen off and his pulse ox is been normal. I believe that EMS was getting a false reading. Spoke to hospitalist will admit for observation. Lab Data: Labs: Lab Results 01/19/20 01/19/20 01/19/20 Range/Units 17:15 17:15 17:15 WBC 4.6 (4.0-10.0) 10^3/ uL RBC 3.49 L (4.1-5.3) 10^6/u L Hgb 9.8 L (11.7-16.6) g/dL Hct 31.2 L (42.0-52.0) % MCV 89.4 (80-94) fL MCH 28.1 (28.0-34.0) pg MCHC 31.4 (30.0-36.0) g/dL RDW 27.1 H (12.1-15.1) % Plt Count 102 L (130-400) 10^3/c mm MPV 10.7 H (7.4-10.4) fL Neut % (Auto) 74.9 % Lymph % (Auto) 9.8 % Bulloch % (Auto) 7.2 % Eos % (Auto) 4.4 % Baso % (Auto) 1.1 % Neut # (Auto) 3.44 (1.8-7.7) 10^3/u L Lymph # (Auto) 0.5 L (0.8-4.8) 10^3/u L Bulloch # (Auto) 0.3 (0.2-0.9) 10^3/u L Eos # (Auto) 0.2 (0.0-0.8) 10^3/u L Baso # (Auto) 0.1 (0.0-0.1) 10^3/u L Nucleated RBC % (a uto) 1.7 % Nucleated RBCs # 0.1 /100WBC PT 16.90 H (12.1-14.9) SECO NDS INR 1.33 H (0.8-1.2) Specimen Type Sample Site ABG pH (7.35-7.45) ABG pCO2 (35-45) mmHg ABG pO2 (80.0-100.0) mmH g ABG HCO3 (22-26) mmol/L ABG Base Excess (-2.0-2.0) mmol/ L Deandre Test Hematocrit (42-52) % Hgb O2 Saturation (95-100) % Carboxyhemoglobin (0.4-20.1) %THgb Methemoglobin (0.4-1.5) % Total Hemoglobin (14-18) g/dL O2 Delivery Device O2 Liters/Min % FiO2 % Mandolin Repairer ID Sodium 140 (136-145) mmol/L Potassium 4.5 (3.5-5.1) mmol/L Chloride 106 (98-107) mmol/L Carbon Dioxide 20 L (22-29) mmol/L Anion Gap 18.5 (5-19) BUN 42 H (8-23) mg/dL Creatinine 1.6 H (0.7-1.2) mg/dL GFR Calculation Not Reportable Glucose 174 H (65-115) mg/dL Calculated Osmolal ity 305 H (285-295) mOsm/k g Calcium 8.9 (8.5-10.5) mg/dL Total Bilirubin 1.0 (0.15-1.2) mg/dL AST 19 (0-40) U/L ALT 8 (0-41) U/L Alkaline Phosphata se 216 H (40-130) IU/L NT-Pro-B Natriuret Pep 66083 H (0-450) pg/mL Total Protein 7.1 (6.6-8.7) g/dL Albumin 3.7 (3.5-5.2) g/dL Globulin 3.4 (1.3-4.6) g/dL Digoxin (0.6-1.2) ng/mL Influenza Type A A g (Negative) Influenza Type B A g (Negative) SARS-CoV-2 Ag (Rap id) (Negative) 01/19/20 01/19/20 01/19/20 Range/Units 17:17 17:30 17:30 WBC (4.0-10.0) 10^3/ uL RBC (4.1-5.3) 10^6/u L Hgb (11.7-16.6) g/dL Hct (42.0-52.0) % MCV (80-94) fL MCH (28.0-34.0) pg MCHC (30.0-36.0) g/dL RDW (12.1-15.1) % Plt Count (130-400) 10^3/c mm MPV (7.4-10.4) fL Neut % (Auto) % Lymph % (Auto) % Bulloch % (Auto) % Eos % (Auto) % Baso % (Auto) % Neut # (Auto) (1.8-7.7) 10^3/u L Lymph # (Auto) (0.8-4.8) 10^3/u L Bulloch # (Auto) (0.2-0.9) 10^3/u L Eos # (Auto) (0.0-0.8) 10^3/u L Baso # (Auto) (0.0-0.1) 10^3/u L Nucleated RBC % (a uto) % Nucleated RBCs # /100WBC PT (12.1-14.9) SECO NDS INR (0.8-1.2) Specimen Type Arterial Sample Site Brachial, right ABG pH 7.47 H (7.35-7.45) ABG pCO2 26.7 L (35-45) mmHg ABG pO2 151.0 H (80.0-100.0) mmH g ABG HCO3 19.6 L (22-26) mmol/L ABG Base Excess -3.2 L (-2.0-2.0) mmol/ L Deandre Test N/a Hematocrit 29.5 L (42-52) % Hgb O2 Saturation 98.3 (95-100) % Carboxyhemoglobin 1.1 (0.4-20.1) %THgb Methemoglobin 0.8 (0.4-1.5) % Total Hemoglobin 9.6 L (14-18) g/dL O2 Delivery Device Nc O2 Liters/Min 2.0 % FiO2 28.0 % Mandolin Repairer ID Gd Sodium (136-145) mmol/L Potassium (3.5-5.1) mmol/L Chloride (98-107) mmol/L Carbon Dioxide (22-29) mmol/L Anion Gap (5-19) BUN (8-23) mg/dL Creatinine (0.7-1.2) mg/dL GFR Calculation Glucose (65-115) mg/dL Calculated Osmolal ity (285-295) mOsm/k g Calcium (8.5-10.5) mg/dL Total Bilirubin (0.15-1.2) mg/dL AST (0-40) U/L ALT (0-41) U/L Alkaline Phosphata se (40-130) IU/L NT-Pro-B Natriuret Pep (0-450) pg/mL Total Protein (6.6-8.7) g/dL Albumin (3.5-5.2) g/dL Globulin (1.3-4.6) g/dL Digoxin (0.6-1.2) ng/mL Influenza Type A A g Negative (Negative) Influenza Type B A g Negative (Negative) SARS-CoV-2 Ag (Rap id) Negative (Negative) 01/19/20 Range/Units 18:32 WBC (4.0-10.0) 10^3/ uL RBC (4.1-5.3) 10^6/u L Hgb (11.7-16.6) g/dL Hct (42.0-52.0) % MCV (80-94) fL MCH (28.0-34.0) pg MCHC (30.0-36.0) g/dL RDW (12.1-15.1) % Plt Count (130-400) 10^3/c mm MPV (7.4-10.4) fL Neut % (Auto) % Lymph % (Auto) % Bulloch % (Auto) % Eos % (Auto) % Baso % (Auto) % Neut # (Auto) (1.8-7.7) 10^3/u L Lymph # (Auto) (0.8-4.8) 10^3/u L Bulloch # (Auto) (0.2-0.9) 10^3/u L Eos # (Auto) (0.0-0.8) 10^3/u L Baso # (Auto) (0.0-0.1) 10^3/u L Nucleated RBC % (a uto) % Nucleated RBCs # /100WBC PT (12.1-14.9) SECO NDS INR (0.8-1.2) Specimen Type Sample Site ABG pH (7.35-7.45) ABG pCO2 (35-45) mmHg ABG pO2 (80.0-100.0) mmH g ABG HCO3 (22-26) mmol/L ABG Base Excess (-2.0-2.0) mmol/ L Deandre Test Hematocrit (42-52) % Hgb O2 Saturation (95-100) % Carboxyhemoglobin (0.4-20.1) %THgb Methemoglobin (0.4-1.5) % Total Hemoglobin (14-18) g/dL O2 Delivery Device O2 Liters/Min % FiO2 % Mandolin Repairer ID Sodium (136-145) mmol/L Potassium (3.5-5.1) mmol/L Chloride (98-107) mmol/L Carbon Dioxide (22-29) mmol/L Anion Gap (5-19) BUN (8-23) mg/dL Creatinine (0.7-1.2) mg/dL GFR Calculation Glucose (65-115) mg/dL Calculated Osmolal ity (285-295) mOsm/k g Calcium (8.5-10.5) mg/dL Total Bilirubin (0.15-1.2) mg/dL AST (0-40) U/L ALT (0-41) U/L Alkaline Phosphata se (40-130) IU/L NT-Pro-B Natriuret Pep (0-450) pg/mL Total Protein (6.6-8.7) g/dL Albumin (3.5-5.2) g/dL Globulin (1.3-4.6) g/dL Digoxin 2.1 H (0.6-1.2) ng/mL Influenza Type A A g (Negative) Influenza Type B A g (Negative) SARS-CoV-2 Ag (Rap id) (Negative) Imaging Data^: CXR: Attestation: I personally reviewed and interpreted this imaging study as follows: Radiologist's impression: [address] [id number] XRay Report Signed Patient: Alex James Unit #: [id number] : 1935 Age/Sex: 84 / M ADM Date: 01/19/20 Loc: ER Room/Bed: Attending Dr: Ordering Provider/Ordering MD: Joselito Bernabe MD Date of Service: 01/19/20 Procedure(s): XR chest 1V portable [id number] Accession Number(s): [id number] Report Number: [id number] WS: [id number] XR chest 1V portable [id number] REASON FOR EXAM: Shortness of breath FINDINGS: There is marked cardiomegaly. There are small bilateral pleural effusions. There does not appear to be pulmonary edema or other infiltrate at this time. The chest appears improved compared to 09/18/2019. XR/XR chest 1V portable [id number] IMPRESSION: Improved abnormal chest as above. CT Head: Attestation: I personally reviewed and interpreted this imaging study as follows: Radiologist's impression: [address] [place] [address] CT Scan Report Signed Patient: Alex James Unit #: [id number] : 1935 Age/Sex: 84 / M ADM Date: 01/19/20 Loc: ER Room/Bed: Attending Dr: Ordering Provider/Ordering MD: Joselito Bernabe MD Date of Service: 01/19/20 Procedure(s): CT head wo con* [id number] Accession Number(s): [id number] Report Number: [id number] WS: [id number] CT head wo con* [id number] REASON FOR EXAM: ams IV CONTRAST ADMINISTERED: Noncontrast TOTAL EXAM DLP: 820.[address] scans at [facility] use at least one of these dose optimization techniques: automated exposure control; mA and/or kV adjustment per patient size (includes targeted exams where dose is matched to clinical indication); or iterative reconstruction. FINDINGS: The bony calvarium is intact. No midline shift or other significant mass effect. No findings of intracranial hemorrhage and no extra-axial fluid collection. Symmetric global atrophy. No focal brain parenchymal abnormality. CT/CT head wo con* [id number] IMPRESSION: No acute intracranial abnormality. EKG Data^: EKG 1: Attestation: I personally reviewed and interpreted this EKG as follows: EKG Interpretation Date: 01/19/20 EKG interpretation time: 18:29 Interpretation: afib hr [address] or t wave abnormalities qrs 116 qtc 428 Discharge Plan Discharge Patient Disposition: Admitted As Inpatient Clinical Impression: Altered mental status Congestive heart failure Qualifiers: Heart failure type: unspecified Heart failure chronicity: chronic Qualified Code(s): I50.9 - Heart failure, unspecified Condition: Stable Coding Level of Care Code ED [place] for g Fwd Exam Comprehensive
[2020-01-19 18:05] LABS: Alanine Aminotransferase 8 U/L (0-41); Albumin Level 3.7 g/dL (3.5-5.2); Alkaline Phosphatase 216 IU/L (40-130); Anion Gap 18.5 (5-19); Aspartate Amino Transferase 19 U/L (0-40); Blood Urea Nitrogen 42 mg/dL (8-23); Calcium 8.9 mg/dL (8.5-10.5); Carbon Dioxide 20 mmol/L (22-29); Chloride 106 mmol/L (98-107); Globulin 3.4 g/dL (1.3-4.6); Glucose 174 mg/dL (65-115); NT Pro B Type Natriuretic Pept 27416 pg/mL (0-450); Osmolality Calculated 305 mOsm/kg (285-295); Potassium 4.5 mmol/L (3.5-5.1); Sodium 140 mmol/L (136-145); Total Protein 7.1 g/dL (6.6-8.7)
[2020-01-19 18:19] LABS: Basophils # 0.1 10^3/uL (0.0-0.1); Basophils % 1.1 %; Eosinophils # 0.2 10^3/uL (0.0-0.8); Eosinophils % 4.4 %; Hematocrit 31.2 % (42.0-52.0); Hemoglobin 9.8 g/dL (11.7-16.6); Lymphocytes # 0.5 10^3/uL (0.8-4.8); Lymphocytes % 9.8 %; Mean Corpuscular HGB Conc 31.4 g/dL (30.0-36.0); Mean Corpuscular Hemoglobin 28.1 pg (28.0-34.0); Mean Corpuscular Volume 89.4 fL (80-94); Mean Platelet Volume 10.7 fL (7.4-10.4); Monocytes # 0.3 10^3/uL (0.2-0.9); Monocytes % 7.2 %; Neutrophils # 3.44 10^3/uL (1.8-7.7); Neutrophils % 74.9 %; Nucleated Red Blood Cells # 0.1 /100WBC; Nucleated Red Blood Cells % 1.7 %; Platelet Count 102 10^3/cmm (130-400); Red Blood Count 3.49 10^6/uL (4.1-5.3); Red Cell Distribution Width 27.1 % (12.1-15.1); White Blood Count 4.6 10^3/uL (4.0-10.0)
[2020-01-19 18:26] LABS: Influenza A by IFA Negative (Negative); Influenza B by IFA Negative (Negative)
[2020-01-19 18:27] LABS: SARS Covid-2 Antigen Negative (Negative)
[2020-01-19] MEDS: FUROsemide 10 mg/mL SDV 4mL 40 MG IVP (18:42)
[2020-01-19 18:59] VITALS: BP 112/58; PULSE 70; RESP 22; O2SAT 98
[2020-01-19 19:14] LABS: Digoxin 2.1 ng/mL (0.6-1.2)
--- NOTE | 2020-01-19 21:21 | PC.NURSE ---
pt brother Óscar at [phone] given an update with pt permission.
--- NOTE | 2020-01-19 21:56 | CTR_ITS ---
PROCEDURE INFORMATION: Exam: CT Abdomen And Pelvis Without Contrast Exam date and time: 01/19/2020 10:27 PM Age: 84 years old Clinical indication: Constipation; Additional info: Assess for hydronephrosis, obstruction TECHNIQUE: Imaging protocol: Computed tomography of the abdomen and pelvis without contrast. Radiation optimization: All CT scans at this facility use at least one of these dose optimization techniques: automated exposure control; mA and/or kV adjustment per patient size (includes targeted exams where dose is matched to clinical indication); or iterative reconstruction. COMPARISON: CT abdomen pelvis w con* [id number] 09/26/2019 10:26 AM RADIATION DOSE METRICS: Total DLP (mGy-cm): 1352.08 FINDINGS: Limitations: Examinations performed without intravenous contrast have limited ability to detect many conditions. Lungs: Moderate atelectasis and/or pneumonia at bilateral lung bases, increased from prior study. Moderate bilateral pleural effusions, new. Heart: Marked cardiomegaly. Small pericardial effusion. Liver: Unremarkable. Gallbladder and bile ducts: Numerous gallstones in the gallbladder. Pancreas: Unremarkable. Spleen: Unremarkable. Adrenal glands: Unremarkable. Kidneys and ureters: Many cysts in the right kidney, similar to prior study. Many cysts in the left kidney, similar to prior study. No renal stones identified. No hydronephrosis on either side. Stomach and bowel: No bowel obstruction identified. No diverticulitis identified. Appendix: The appendix is not identified as a separate structure. Intraperitoneal space: No free intraperitoneal air identified. Mild free fluid in the perihepatic region, perisplenic region, and pelvis, new. Large left inguinal hernia which contains fat, a short segment of the sigmoid colon, and substantial fluid. The fluid in the left inguinal hernia is new. Vasculature: No abdominal aortic aneurysm. Lymph nodes: Unremarkable. Urinary bladder: Hernandez catheter is noted in the bladder. Severe wall thickening of the bladder, consistent with chronic outlet obstruction and/or cystitis, increased relative to prior study. Reproductive: Unremarkable as visualized. Bones/joints: Marked degenerative changes of the lumbar spine. Soft tissues: Severe subcutaneous edema throughout the abdomen, pelvis, and proximal bilateral lower extremities, new. Other findings: If additional or more detailed information is needed, an addendum can be generated on request. CT/CT abdomen pelvis wo con [id number] IMPRESSION: 1. Severe wall thickening of the bladder, consistent with chronic outlet obstruction and/or cystitis, increased relative to prior study. 2. No renal stones identified. No hydronephrosis on either side. 3. Severe subcutaneous edema throughout the abdomen, pelvis, and proximal bilateral lower extremities, new. 4. Mild free fluid in the perihepatic region, perisplenic region, and pelvis, new. 5. Large left inguinal hernia which contains fat, a short segment of the sigmoid colon, and substantial fluid. The fluid in the left inguinal hernia is new. 6. Moderate atelectasis and/or pneumonia at bilateral lung bases, increased from prior study. Moderate bilateral pleural effusions, new. 7. Small pericardial effusion. Radiation Dose CTDIVOL = (mGy): DLP = 1352.08 (mGy-cm)
--- NOTE | 2020-01-19 22:13 | PM.HP ---
Providers/Chief Complaint Admitting Physician: Rosa M Robles MD Primary Care Provider: Shyann Har[place] [facility] [place] Complaint: WEAKNESS, LOW O2 History of Present Illness Alex James is a 84 year old male with PMH systolic CHF EF 40%, chronic atrial fibrillation off anticoagulation due to recurrent hematuria from known bladder cancer,history of right lower extremity DVT, hypertension, invasive bladder cancer with chronic changes noted on most recent urology w/up, overall poor candidate for aggressive cancer treatment due to significant functional decline. Per review of last urology notes, due to significant functional decline, there were concerns that patient may no longer be suitable for living at assisted living and there was possible consideration for hospice. He was recently treated for + urine cx for MRSA with 10 day course of po Bactrim. He is presenting today after being sent over from assisted living for increasing confusion and noted hypoxia this afternoon. Per EMS, 02 saturation was noted to be ~80%. However on presentation to the ER, patient was saturating 97% on RA. ABG did not reveal any signs of hypoxia or hypercapnea. Patient denies feeling short of breath. Per patient, his only complaint at this time is generalized weakness, progressive over the past month. He is able to correctly tell me his name, and that he is in the hospital. He does not know the year. Tells me there was concern about his breathing but unable to offer any details. When asked about if he feels he is confused, he sates that is a matter of perspective . Per discussion with his brother Óscar, this change in mentation has been more gradual at least over the past 2-3 months. Patient appears to have limited insight into his condition, he is aware that he has bladder cancer but uable to give me any details as to the treatment plan. Diagostics in the ER notable for ABG 7.47/151/26.7/19.7, cr stale at 1.6, BNP 2700, TSH 3.13, digoxin level 2.1, negative influenza and Covid antigens Review of Systems General: Reports: 10 or more systems reviewed and unremarkable except in HPI and below Const: Denies: fever(s), chills or body aches Eyes: Denies: change in vision, blurry vision or photophobia ENMT: Reports: hoarseness; Denies: throat pain, enlarged tonsils, odynophagia or nasal congestion Card: Denies: chest pain, palpitations, irregular heart rhythm, edema, swelling of feet/ankles, lightheadedness, pre-syncope, dyspnea on exertion or orthopnea Resp: Denies: dyspnea, productive cough, non-productive cough, wheezing, stridor, pain on inspiration, change in phlegm color, hemoptysis or chest congestion GI: Denies: abdominal pain, nausea, vomiting, hematemesis, coffee ground emesis, dysphagia, heartburn, diarrhea, constipation, GI cramping, change in stool character, hematochezia or melena : Denies: flank pain, dysuria, urinary frequency, urinary urgency, urinary hesitancy or hematuria Musc: Denies: neck pain, back pain, extremity pain, joint swelling, joint warmth or deformity Neuro: Denies: headache(s), numbness in extremities, weakness in extremities, sensory changes, difficulty walking, frequent falls, dizziness, vertigo, behavioral changes, Slurred speech present or seizure-like activity Psych: Denies: anxiety, depression, suicidal ideation or homicidal ideation Endo: Denies: polyuria, polydipsia, tired all the time, cold intolerance or hot flashes Adonay/Lymph: Denies: easy bruising or easy bleeding Medications/Allergies Home Medications Medication Instructions Recorded Confirmed Last Taken Type acetaminophen 500 mg PO Q6H PRN #30 cap 09/21/19 01/19/20 Unknown Rx aripiprazole 2 mg PO DAILY #30 tab 09/21/19 01/19/20 01/19/20 Rx bisacodyl 10 mg TN DAILY PRN #30 each 09/21/19 01/19/20 Unknown Rx calcium carbonate [Calcium 600] 1,500 mg PO DAILY #30 tab 09/21/19 01/19/20 01/19/20 Rx cholecalciferol (vitamin D3) 25 mcg PO DAILY #30 tab 09/21/19 01/19/20 01/19/20 Rx [Vitamin D3] digoxin 125 mcg PO DAILY #30 tab 09/21/19 01/19/20 01/19/20 Rx fluoxetine 40 mg PO DAILY #30 cap 09/21/19 01/19/20 01/19/20 Rx furosemide 20 mg PO DAILY #30 tab 09/21/19 01/19/20 01/19/20 Rx levothyroxine 50 mcg PO DAILY #30 tab 09/21/19 01/19/20 01/19/20 Rx magnesium hydroxide [Milk of 30 ml PO DAILY PRN #30 ml 09/21/19 01/19/20 Unknown Rx Magnesia] tamsulosin 0.4 mg PO DAILY #30 cap 09/21/19 01/19/20 01/19/20 Rx tramadol 50 mg PO BID PRN #30 tab 09/21/19 01/19/20 09/25/19 Rx diphenhydramine HCl 25 mg capsule 25 mg PO DAILY cap 10/08/19 01/19/20 01/19/20 History sennosides 8.6 mg-docusate sodium 1 tab-cap PO BID PRN 10/08/19 01/19/20 Unknown History 50 mg capsule sodium phosphates 19 gram-7 118 ml TN DAILY PRN 10/08/19 01/19/20 Unknown History gram/118 mL enema ascorbic acid (vitamin C) 1,000 mg 1 g PO BID tab 01/08/20 01/19/20 01/19/20 History tablet methenamine hippurate 1 gram tablet 1 g PO BID 01/08/20 01/19/20 01/19/20 History pantoprazole 40 mg tablet,delayed 40 mg PO BID tab 01/08/20 01/19/20 01/19/20 History release sulfamethoxazole-trimethoprim 1 tab PO BID 01/19/20 01/19/20 01/19/20 History Allergies Allergy/AdvReac Type Severity Reaction Status Date / Time No Known Allergies Allergy Verified 01/19/20 10:48 PFSH Acute PFSH: Medical History (Updated 01/20/20 @ 01:49 by Rosa M Robles MD) BPH (benign prostatic hyperplasia) BPH NOS w ur obs/LUTS -continue tamsulosin -Noted chronic bladder wall thickening with evidence of bilateral hydronephrosis likely related to bladder outlet obstruction -3-way catheter in place due to need for CBI 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 Carranza in clinic -Catheter placed; continue to monitor output -no need for continued continuous bladder irrigation -Urology evaluation by Dr. Carranza appreciated; s/p cystoscopy with clot evacuation and bladder tumor resection; POD # 4 -Due to noted gross hematuria, Coumadin on hold -Close monitoring of hemoglobin -UA with noted hematuria/+LE/+bacteria/minimal pyuria; on Ceftriaxone particularly with noted instrumentation, catheter placement, leukocytosis. Urine cx prelim negative. Blood cx prelim negative. Will d/c on continued antibiotics on discharge per discussion with Dr. 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 History of bone marrow biopsy Previous back surgery Previously documented, but patient cannot remember having this done as of 09/26/2019 Family History Father , at age 96 No problems noted. Mother , at age 72 Cancer breast Social History Smoking and tobacco status: never smoked Alcohol intake: never Lives independently: Yes Housing: Assisted Living Facility Marital status: / Marital status details: x 52 yrs Current occupational status: retired History of recent travel: No Vitals/I&O/Wt Last Vital Signs Temp 97.6 F 01/19/20 17:03 Pulse 70 01/19/20 18:59 Resp 22 H 01/19/20 18:59 BP 112/58 01/19/20 18:59 Pulse Ox 98 01/19/20 18:59 Weight last 48 hrs Weight 65.771 kg Physical Exam Const: COMMON NORMALS: no acute distress, average body habitus and alert NUTRITIONAL APPEARANCE: thin HENMT: COMMON NORMALS: normocephalic and atraumatic HEAD & SCALP: normocephalic and atraumatic Eye: COMMON NORMALS: Equal, round and reactive pupils present, EOMs intact bilaterally, conjunctivae normal and no scleral icterus CONJUNCTIVA: Yes conjunctivae normal PUPIL: Yes Equal, round and reactive pupils present Neck/C-Spine: COMMON NORMALS: no JVD Resp: COMMON NORMALS: normal respiratory effort, No retractions, No use of accessory muscles, clear to auscultation bilaterally and percussion normal AUSCULTATION: clear to auscultation bilaterally PERCUSSION: percussion normal Cardio: COMMON NORMALS: no JVD, regular rate, regular rhythm, S1 normal heart sound present, S2 normal heart sound present, No gallops present (Cardio), No clicks present (Cardio), No murmurs present (Cardio), No rub (Cardio) and Peripheral pulses 2+ throughout RATE: regular rate RHYTHM: regular rhythm HEART SOUNDS: S1 normal heart sound present and S2 normal heart sound present PERIPHERAL PULSES: Peripheral pulses 2+ throughout GI: COMMON NORMALS: Normal to inspection, nondistended, normoactive bowel sounds present, Soft to palpation, non-tender, No hepatosplenomegaly present, no masses and no bruits PALPATION: Yes Soft to palpation and Yes No hepatosplenomegaly present Extremity: COMMON NORMALS: normal to inspection, full ROM, capillary refill normal, no joint enlargement, no clubbing, cyanosis or edema, no calf tenderness and no pedal edema Neuro: COMMON NORMALS: patient oriented x3, CN's II-XII intact bilaterally, moves all extremities, no focal motor deficits, no sensory deficits noted, deep tendon reflexes 2+ bilaterally and gait normal SENSORIUM/ORIENTATION: Yes alert Psych: COMMON NORMALS: mental status grossly normal, Normal thought process present, cooperative, normal affect, speech normal, activity/motor behavior normal, denies hallucinations, denies homicidal ideation and denies suicidal ideation SPEECH: Yes normal speech THOUGHT PROCESS: Normal thought process present Skin: COMMON NORMALS: no rashes or lesions noted, no wounds, turgor normal, no jaundice, no petechiae and no mottling GENERAL SKIN EXAM: no rashes or lesions noted and turgor normal Data : 01/19/20 17:15 01/19/20 17:15 A&P Assessment and plan (1) Altered mental status: Per assisted living facility, patient noted to be confused today. Unable to reach staff at [facility] to estimate baseline an changes today. AT present time patient knows his name, age, and that he is in hospital. Knows that he resides in an assited living. [place] states names of his siblings. He does not know the year. Unable to tell me events leading up to admission. Appears to have limited insight into his medical cormorbidities. Per discussion with his brother Óscar, this has been patient's recent baseline over the past 2-3 months. He has had increasing weakness and functional decline over this same period. Today noted to have elevated digoxin level of 2.1, which perhaps may be contributing, though this remains hard to establish. For now, will plan to hold digoxin and monitor serial levels, evaluate for reversible causes of encephalopathy. Check lactate, procalcitonin, blood cx , C diff PCR in case of diarrhea. No current hematuria. Iv vancomycin mpirically undergoing infectious w/up given recent urine cx. Status: Acute Qualifiers: Altered mental status type: unspecified Qualified Code(s): R41.82 - Altered mental status, unspecified (2) Congestive heart failure: Elevated BNP >27K, per EMS patient was hypoxic with 02 sat ~80%. Since ER presentation, saturation 98% on RA. 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 States that patient has not made up his mind yet regarding next steps. 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 Patient states he wants to still do everything possible , but unable to ascertain how much he is comprehending at this time. Status: Acute (4) CKD (chronic kidney disease): Cr at recent baseline of 03/03 Status: Acute Qualifiers: Chronic kidney disease stage: unspecified stage Qualified Code(s): N18.9 - Chronic kidney disease, unspecified (5) Digoxin toxicity: digoxin level 2.1, monitor for now with serial checks No current acute arrhythmias, hyperkalemia , hold off on Digibind Status: Acute Qualifiers: Encounter type: initial encounter Injury intent: accidental or unintentional Qualified Code(s): T46.0X1A - Poisoning by cardiac-stimulant glycosides and drugs of similar action, accidental (unintentional), initial encounter Additional A&P Information DVT ppx: heparin Dispo: At assisted living currently, brother will discuss hospice with patient, full code for now Attestations Medical Necessity Statement*: >2midnight anticipate for evaluation and management of AMS, CHF and digoxin toxicity Coding Level of Care Code Acute Technical Mgr for [facility] Fwd Diagnoses Altered mental status R41.82 Altered mental status type: unspecified Congestive heart failure I50.9 Heart failure chronicity: chronic Heart failure type: unspecified 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
--- NOTE | 2020-01-19 22:19 | PC.NURSE ---
pt report called to Gayatri ROWE in SBAR format.
--- NOTE | 2020-01-19 22:25 | PC.PHAR ---
Vancomycin is dosed at 1gm IVPB every 24 hours to produce a predicted trough level of 19.90 (population based pharmacokinetic analysis). A trough level has been ordered from the lab to be obtained before the fourth dose to confirm and adjust if needed.
[2020-01-19 23:20] LABS: Thyroid Stimulating Hormone 3.13 uIU/mL (0.27-4.20)
[2020-01-19 23:47] VITALS: BP 127/68; PULSE 63; RESP 17; TEMP 36.4; O2SAT 99
[2020-01-20] VITALS (8 sets, daily range): BP systolic 123–133; BP diastolic 63–74; PULSE 67–78; RESP 17–28; TEMP 36.3–36.7; O2SAT 96–99
[2020-01-20 01:24] LABS: Specific Gravity, Urine 1.015 (1.005-1.030); Urine Color Yellow (Yellow)
[2020-01-20 01:25] LABS: Add Urine Microscopic? YES; Bilirubin Urine Neg (Negative); Blood Urine 3+ (Negative); Glucose Urine UA Norm (Normal); Ketones Urine Negative (Negative); Leukocyte Esterase Urine 1+ (Negative); Nitrate Urine Negative (Negative); Protein Urine Neg (Negative); Urobilinogen Urine Norm (Negative)
[2020-01-20 01:26] LABS: Add Urine Culture? Yes; Bacteria Urine 1+ /hpf; Mucus Urine TRACE /hpf; Squamous Epithelial Cell Urine 0-4 /hpf (0-5); WBC Urine 15-25 /hpf (0-5)
[2020-01-20] MEDS: heparin 5,000 unit/mL INJ 1 mL 5000 UNIT SUBCUT (02:48)
[2020-01-20 05:28] LABS: Lactic Sepsis W/Reflex 1.3 mmol/L (0.5-2.2)
[2020-01-20 05:37] LABS: Alanine Aminotransferase 8 U/L (0-41); Albumin Level 3.4 g/dL (3.5-5.2); Alkaline Phosphatase 196 IU/L (40-130); Anion Gap 15.1 (5-19); Aspartate Amino Transferase 17 U/L (0-40); Blood Urea Nitrogen 41 mg/dL (8-23); Calcium 8.7 mg/dL (8.5-10.5); Carbon Dioxide 23 mmol/L (22-29); Chloride 106 mmol/L (98-107); Glucose 132 mg/dL (65-115); Magnesium 2.2 mg/dL (1.7-2.3); Osmolality Calculated 302 mOsm/kg (285-295); Potassium 4.1 mmol/L (3.5-5.1); Sodium 140 mmol/L (136-145); Total Protein 6.4 g/dL (6.6-8.7)
[2020-01-20 05:38] LABS: Procalcitonin 0.23 ng/mL (0-0.5)
[2020-01-20 06:14] LABS: Digoxin 2.1 ng/mL (0.6-1.2)
[2020-01-20 07:16] LABS: Basophils # 0.1 10^3/uL (0.0-0.1); Basophils % 1.1 %; Eosinophils # 0.2 10^3/uL (0.0-0.8); Eosinophils % 4.3 %; Hematocrit 30.1 % (42.0-52.0); Lymphocytes # 0.5 10^3/uL (0.8-4.8); Lymphocytes % 10.4 %; Mean Corpuscular HGB Conc 30.6 g/dL (30.0-36.0); Mean Corpuscular Hemoglobin 27.5 pg (28.0-34.0); Mean Corpuscular Volume 89.9 fL (80-94); Mean Platelet Volume 10.5 fL (7.4-10.4); Monocytes # 0.3 10^3/uL (0.2-0.9); Monocytes % 7.2 %; Neutrophils # 3.42 10^3/uL (1.8-7.7); Neutrophils % 74.2 %; Nucleated Red Blood Cells # 0.1 /100WBC; Nucleated Red Blood Cells % 1.7 %; Platelet Count 98 10^3/cmm (130-400); Red Blood Count 3.35 10^6/uL (4.1-5.3); Red Cell Distribution Width 27.1 % (12.1-15.1); White Blood Count 4.6 10^3/uL (4.0-10.0)
[2020-01-20 07:38] LABS: Hemoglobin 9.2 g/dL (11.7-16.6)
[2020-01-20 07:40] LABS: Slide Review Slide Review Perform
--- NOTE | 2020-01-20 07:41 | PC.NURSE ---
kevin monitor is pulled off and wound in his fingers. iv is out also. i reported this to his nurse
--- NOTE | 2020-01-20 08:38 | PC.CHAP ---
Pastoral Care Encounter/Spiritual Assessment Type of Contact [] Declined library clerk visit [] Patient/Family/Request visit [] Outpatient visit [] Follow-up visit [] Physician referral [] Code/Alert [] Routine visit [] Staff referral [] Actively dying [] Patient sleeping [] Family support [] [] Out of room [] Palliative care [] [] Receiving care in room [] Pre-surgical visit [] Trauma [] Long length of stay [] ICU visit [] Other: Relational/Emotional Strength [] Patient feels connected with others/family/visitors/staff [] Distress [] Loneliness/isolation [] Abandonment Spirituality of Patient [] Person of Adrienne [] Attends Episcopalian of their Adrienne [] Believes in Prayer [] Reads Bible or Sabianist materials [] There are Spiritual issues to be addressed Disk Sander Interventions [] Prayer [] Active listening [] Non-anxious presence [] Spiritual/emotional support [] Crisis/trauma care [] Spiritual counseling [] Bereavement support [] Provided bereavement packet [] Provided Bible/devotional materials [] Provided toy/stuffed animal, coloring book to patient or family member [] Provided Communion [] Anointing/[place] [] Salvation [] Completed spiritual assessment [] Other: Impact on Illness or Injury [] Angry [] Fearful [] Anxious [] Often cries [] Exhaustion [] Unable to work [] Unable to attend spiritism [] Unable to walk/stand [] Unable to read [] Unable to drive [] Unable to eat/drink [] Unable to sleep [] Unable to be with family [] Patient intubated [] Other: Summary caution Time spent with patient
[2020-01-20] MEDS: tamsulosin 0.4 mg Capsule PO (09:10)
[2020-01-20] MEDS: FUROsemide 20 mg Tablet PO (09:17)
[2020-01-20] MEDS: levothyroxine 50 mcg Tablet PO (09:17)
[2020-01-20] MEDS: ARIPiprazole 2 mg Tablet PO (09:17)
[2020-01-20] MEDS: fluoxetine 20 mg Capsule 40 MG PO (09:18)
[2020-01-20] MEDS: pantoprazole DR 40 mg Tablet PO ×2 (09:18→17:20)
--- NOTE | 2020-01-20 11:07 | P.PN_ITS ---
Subjective Subjective: Interval history: Patient known to me from previous admission earlier this year, chart reviewed, had 725 mL urine output overnight following a dose of IV Lasix given in the ER, hemodynamically stable, afebrile and on room air. Stable renal function and hemoglobin. Urinalysis indicative of infection and noted evidence on imaging of pneumonia, on empiric vancomycin. Digoxin level remains supratherapeutic so will continue to hold. Notified by nursing staff that patient removed his IV and pulled off his telemetry. He is slow to respond to questions but is definitely confused. Sitter requested. Medications: Reviewed: Yes Medication Review Details: Active Medications Generic Name Dose Route Start Last Admin Trade Name Freq PRN Reason Stop Dose Admin Acetaminophen 650 mg 01/19/20 21:56 Acetaminophen 32 5 Mg Tablet PO Q6H PRN Mild/Mod Pain Or Temp >/= 101 Aripiprazole 2 mg 01/20/20 09:00 01/20/20 09:17 Aripiprazole 2 M g Tablet PO 2 mg DAILY PLACIDO Administration Bisacodyl 10 mg 01/19/20 22:03 Bisacodyl 10 Mg Supp RI DAILY PRN Constipation Fluoxetine HCl 40 mg 01/20/20 09:00 01/20/20 09:18 Fluoxetine 20 Mg Capsule PO 40 mg DAILY PLACIDO Administration Furosemide 40 mg 01/20/20 11:15 Furosemide 10 Mg /Ml Sdv 4ml IVP Q24H PLACIDO Vancomycin HCl 1,0 00 mg/ 250 mls @ 250 mls /hr 01/19/20 23:00 01/20/20 00:00 Sodium Chloride IV 250 mls/hr Q24H PLACIDO Administration Protocol As Directed Levothyroxine Sodi um 50 mcg 01/20/20 09:00 01/20/20 09:17 Levothyroxine 50 Mcg Tablet PO 50 mcg DAILY PLACIDO Administration Ondansetron HCl 4 mg 01/19/20 21:56 Ondansetron 2 Mg /Ml Sdv 2 Ml IVP Q8H PRN vomiting, or N/V if npo Pantoprazole Sodiu m 40 mg 01/20/20 09:00 01/20/20 09:[address] 40 Mg Tablet PO 40 mg BID PLACIDO Administration Senna/Docusate Sod ium 1 tab 01/20/20 09:00 Sennosides-Docus ate Tablet PO BID PRN CONSTIPATION Sodium Phosphate 118 ml 01/19/20 22:03 Fleet Enema 133 Ml Enema RI DAILY PRN Constipation Tamsulosin HCl 0.4 mg 01/20/20 09:00 01/20/20 09:10 Tamsulosin 0.4 M g Capsule PO 0.4 mg DAILY PLACIDO Administration Tramadol HCl 50 mg 01/19/20 22:03 Tramadol 50 Mg T ablet PO BID PRN Pain No Known Allergies Allergy (Verified 01/19/20 10:48) Vitals/I&O/Wt Last Vital Signs Temp 97.9 F 01/20/20 07:40 Pulse 75 01/20/20 07:40 Resp 18 01/20/20 07:40 BP 133/63 01/20/20 07:40 Pulse Ox 96 01/20/20 07:40 01/19/20 01/20/20 01/20/20 22:59 06:59 14:59 Output Total 775 / 775 Balance -775 / -775 Weight last 48 hrs Weight 65.771 kg Physical Exam Const: COMMON NORMALS: no acute distress and alert GENERAL APPEARANCE: cooperative and comfortable ORIENTATION/CONSCIOUSNESS: Yes awake and Yes confused HENMT: COMMON NORMALS: normocephalic, atraumatic, hearing grossly normal bilaterally and moist oral mucous membranes HEAD & SCALP: normocephalic and atraumatic Eye: COMMON NORMALS: Equal, round and reactive pupils present, EOMs intact bilaterally and conjunctivae normal CONJUNCTIVA: Yes conjunctivae normal PUPIL: Yes Equal, round and reactive pupils present Neck/C-Spine: COMMON NORMALS: full ROM GENERAL: Yes normal visual inspection and Yes trachea midline Resp: COMMON NORMALS: normal respiratory effort, No retractions, No use of accessory muscles and clear to auscultation bilaterally EFFORT & INSPECTION: Yes able to speak in complete sentences, Yes symmetric chest movement and No tachypneic AUSCULTATION: clear to auscultation bilaterally OTHER: -on RA Cardio: COMMON NORMALS: regular rate, regular rhythm, S1 normal heart sound present, S2 normal heart sound present and No murmurs present (Cardio) RATE: regular rate RHYTHM: regular rhythm HEART SOUNDS: S1 normal heart sound present and S2 normal heart sound present GI: COMMON NORMALS: Normal to inspection, nondistended, normoactive bowel sounds present, Soft to palpation and non-tender INSPECTION: Yes central obesity PALPATION: Yes Soft to palpation : BLADDER/KIDNEY EXAM: Yes catheter in place Catheter type (Male): urethral Extremity: COMMON NORMALS: normal to inspection, full ROM and no clubbing, cyanosis or edema; negative for no pedal edema Neuro: COMMON NORMALS: moves all extremities, no focal motor deficits, no sensory deficits noted and gait normal SENSORIUM/ORIENTATION: Yes alert and Yes Orientation impaired Psych: COMMON NORMALS: mental status grossly normal, Normal thought process present, cooperative, normal affect and speech normal SPEECH: Yes normal speech THOUGHT PROCESS: Normal thought process present Skin: COMMON NORMALS: no rashes or lesions noted, no jaundice, no petechiae and no mottling GENERAL SKIN EXAM: no rashes or lesions noted Data : 01/20/20 04:26 01/20/20 04:26 Micro: Microbiology 01/20/20 04:32 Blood Culture - Preliminary Blood SPECIMEN COLLECTED 01/20/20 04:26 Blood Culture - Preliminary Blood SPECIMEN COLLECTED A&P Assessment and plan (1) Congestive heart failure: -Clinical evidence of acute systolic CHF exacerbation as evidenced by anasarca, hypoxia, significant BNP elevation greater than 27,000, evidence of subcutaneous edema on imaging, bilateral pleural effusions -Continue IV diuresis with caution and monitoring of renal function -Echo (08/2019): EF=40%, global LV hypokinesis, severe biatrial enlargement, mild AR -daily weights, monitor Is & Os, fluid restriction -telemetry monitoring -continue to monitor vital signs; currently stable -continue to monitor respiratory status -supplemental oxygen as needed Status: Acute Qualifiers: Heart failure chronicity: acute on chronic Heart failure type: systolic Qualified Code(s): I50.23 - Acute on chronic systolic (congestive) heart failure (2) Digoxin toxicity: -supratherapeutic levels (2.1) -continue to hold digoxin -unclear if this is contributing to change in mental status Status: Acute Qualifiers: Encounter type: initial encounter Injury intent: accidental or unintentional Qualified Code(s): T46.0X1A - Poisoning by cardiac-stimulant glycosides and drugs of similar action, accidental (unintentional), initial encounter (3) CKD (chronic kidney disease): -RUMA on CKD stage 3 -baseline Cr has been gradually increasing, was previously wnl, now around 1.5- 1.6 -avoid nephrotoxins, renally dose meds -monitor urine output -closely monitor renal function particularly with diuresis Status: Acute Qualifiers: Chronic kidney disease stage: stage 3 (moderate) Chronic kidney disease stage 3 subtype: stage 3a (GFR 45-59) Qualified Code(s): N18.31 - Chronic kidne y disease, stage 3a (4) Altered mental status: -from history obtained, change in mental status has been gradual and progressive x 2-3 months -likely multifactorial given infection, high grade invasive bladder cancer, digoxin toxicity -CT head unremarkable -sitter needed -fall, aspiration precautions Status: Acute Qualifiers: Altered mental status type: unspecified Qualified Code(s): R41.82 - Altered mental status, unspecified (5) 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 Carranza on 01/08/20 -has already had large bladder tumor resection (08/2019) -very guarded prognosis; may be appropriate for hospice if agreeable Status: Chronic (6) Hernia, inguinal, left: -has known large left inguinal hernia Status: Chronic (7) UTI (urinary tract infection): -UA indicative of infection -f/u urine cx -on empiric Vancomycin; had been on Bactrim due to MRSA + urine cx (10/2019) Status: Acute Qualifiers: Hematuria presence: with hematuria Urinary tract infection type: acute cystitis Qualified Code(s): N30.01 - Acute cystitis with hematuria Additional A&P Information -noted bilateral lung base atelectasis vs. pneumonia; on empiric antibiotics -Advanced age -BPH with evidence of bladder outlet obstruction; on flomax -hypothyroidism; on levothyroxine -hyperlipidemia; on statin -chronic atrial fibrillation; digoxin on hold; no AC due to hematuria from underlying bladder cancer -chronic normocytic anemia due to chronic blood loss from underlying malignancy; baseline Hg is 9-10; continue to monitor H/H -currently NPO; if mental status improved, may start PO intake -PT evaluation -DVT ppx with SCDs, no AC due to bleeding risk -Dispo: was living at assisted living facility, may need SNF -Code status: FULL code Attestations Medical Necessity Statement*: Patient requires hospitalization for continued management of acute CHF exacerbation, on IV diuretics, IV antibiotics, and pending improvement in mental status. Time Spent in Patient Care: Greater than 35 minutes (>than 50% of time spent in counselling and/or direct pt care on unit) . 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
[2020-01-20] MEDS: FUROsemide 10 mg/mL SDV 4mL 40 MG IVP (12:56)
[2020-01-20] MEDS: vancomycin 1,000 MG in sodium chloride 0.9% 250 ML 250 MG IV ×2 (23:22)
[2020-01-21] VITALS (8 sets, daily range): BP systolic 113–135; BP diastolic 55–69; PULSE 70–78; RESP 16–18; TEMP 36.3–36.7; O2SAT 95–97
--- NOTE | 2020-01-21 03:26 | PC.NURSE ---
Patients stool positive for C-diff. Dr. Robles notified.
--- NOTE | 2020-01-21 03:49 | PC.NURSE ---
Dr. Robles ordered PO Vancomycin 125mg Q6H for C-diff. She instructed to keep the IV vancomycin as well.
[2020-01-21 05:44] LABS: Anion Gap 17.4 (5-19); Blood Urea Nitrogen 40 mg/dL (8-23); Carbon Dioxide 22 mmol/L (22-29); Chloride 105 mmol/L (98-107); Glucose 139 mg/dL (65-115); Osmolality Calculated 302 mOsm/kg (285-295); Potassium 4.4 mmol/L (3.5-5.1); Sodium 140 mmol/L (136-145)
[2020-01-21 05:53] LABS: Calcium 8.8 mg/dL (8.5-10.5); Magnesium 2.2 mg/dL (1.7-2.3)
[2020-01-21 05:54] LABS: Digoxin 1.8 ng/mL (0.6-1.2)
[2020-01-21 06:28] LABS: Basophils # 0.1 10^3/uL (0.0-0.1); Basophils % 1.6 %; Eosinophils # 0.2 10^3/uL (0.0-0.8); Eosinophils % 4.3 %; Hematocrit 30.7 % (42.0-52.0); Hemoglobin 9.5 g/dL (11.7-16.6); Lymphocytes # 0.4 10^3/uL (0.8-4.8); Lymphocytes % 9.8 %; Mean Corpuscular HGB Conc 30.9 g/dL (30.0-36.0); Mean Corpuscular Hemoglobin 27.5 pg (28.0-34.0); Mean Platelet Volume 11.1 fL (7.4-10.4); Monocytes # 0.4 10^3/uL (0.2-0.9); Monocytes % 8.1 %; Neutrophils # 3.26 10^3/uL (1.8-7.7); Neutrophils % 72.8 %; Nucleated Red Blood Cells # 0.1 /100WBC; Nucleated Red Blood Cells % 2.5 %; Platelet Count 110 10^3/cmm (130-400); Red Blood Count 3.45 10^6/uL (4.1-5.3); Red Cell Distribution Width 26.9 % (12.1-15.1); White Blood Count 4.5 10^3/uL (4.0-10.0)
[2020-01-21] MEDS: levothyroxine 50 mcg Tablet PO (08:38)
[2020-01-21] MEDS: ARIPiprazole 2 mg Tablet PO (08:39)
[2020-01-21] MEDS: pantoprazole DR 40 mg Tablet PO ×2 (08:39→17:44)
[2020-01-21] MEDS: fluoxetine 20 mg Capsule 40 MG PO (08:39)
[2020-01-21] MEDS: tamsulosin 0.4 mg Capsule PO (08:39)
[2020-01-21] MEDS: FUROsemide 10 mg/mL SDV 4mL 40 MG IVP (11:37)
--- NOTE | 2020-01-21 13:12 | PM.PN ---
Subjective Subjective: Interval history: Overnight was found to be positive for C. difficile and started on oral vancomycin, was already on isolation precautions. Seems to be less confused but more sleepy today, sitter at bedside, had 2250 mL urine output overnight. Stable hemoglobin and renal function, hemodynamic stable, afebrile, on room air. No bowel movement so far today. Digoxin level slightly decreased to 1.8. His appetite today has been quite diminished. Medications: Reviewed: Yes Medication Review Details: Active Medications Generic Name Dose Route Start Last Admin Trade Name Freq PRN Reason Stop Dose Admin Acetaminophen 650 mg 01/19/20 21:56 Acetaminophen 32 5 Mg Tablet PO Q6H PRN Mild/Mod Pain Or Temp >/= 101 Aripiprazole 2 mg 01/20/20 09:00 01/21/20 08:39 Aripiprazole 2 M g Tablet PO 2 mg DAILY PLACIDO Administration Bisacodyl 10 mg 01/19/20 22:03 Bisacodyl 10 Mg Supp NM DAILY PRN Constipation Fluoxetine HCl 40 mg 01/20/20 09:00 01/21/20 08:39 Fluoxetine 20 Mg Capsule PO 40 mg DAILY PLACIDO Administration Furosemide 40 mg 01/20/20 11:30 01/21/20 11:37 Furosemide 10 Mg /Ml Sdv 4ml IVP 40 mg Q24H PLACIDO Administration Vancomycin HCl 1,0 00 mg/ 250 mls @ 250 mls /hr 01/19/20 23:00 01/20/20 23:22 Sodium Chloride IV 250 mls/hr Q24H PLACIDO Administration Protocol As Directed Levothyroxine Sodi um 50 mcg 01/20/20 09:00 01/21/20 08:38 Levothyroxine 50 Mcg Tablet PO 50 mcg DAILY PLACIDO Administration Ondansetron HCl 4 mg 01/19/20 21:56 Ondansetron 2 Mg /Ml Sdv 2 Ml IVP Q8H PRN vomiting, or N/V if npo Pantoprazole Sodiu m 40 mg 01/20/20 09:00 01/21/20 08:[address] 40 Mg Tablet PO 40 mg BID PLACIDO Administration Senna/Docusate Sod ium 1 tab 01/20/20 09:00 Sennosides-Docus ate Tablet PO BID PRN CONSTIPATION Sodium Phosphate 118 ml 01/19/20 22:03 Fleet Enema 133 Ml Enema NM DAILY PRN Constipation Tamsulosin HCl 0.4 mg 01/20/20 09:00 01/21/20 08:39 Tamsulosin 0.4 M g Capsule PO 0.4 mg DAILY PLACIDO Administration Tramadol HCl 50 mg 01/19/20 22:03 Tramadol 50 Mg T ablet PO BID PRN Pain Vancomycin HCl 125 mg 01/21/20 03:45 01/21/20 08:39 Vancomycin 1,000 Mg Oral Jennifer (Btl) PO 1.25 ml Q6H PLACIDO Administration No Known Allergies Allergy (Verified 01/19/20 10:48) Vitals/I&O/Wt Last Vital Signs Temp 97.6 F 01/21/20 10:54 Pulse 72 01/21/20 10:54 Resp 17 01/21/20 10:54 BP 113/61 01/21/20 10:54 Pulse Ox 97 01/21/20 10:54 01/20/20 01/21/20 01/21/20 22:59 06:59 14:59 Intake Total 240 / 360 360 / 360 Output Total 1800 / 1800 450 / 2250 100 / 100 Balance -1560 / -1440 -450 / -1890 260 / 260 Weight last 48 hrs Weight 82.781 kg Weight 84.368 kg Weight 65.771 kg Physical Exam Const: COMMON NORMALS: no acute distress GENERAL APPEARANCE: cooperative, comfortable, lethargic and frail appearing ORIENTATION/CONSCIOUSNESS: Yes awake and Yes lethargic HENMT: COMMON NORMALS: normocephalic, atraumatic, hearing grossly normal bilaterally and moist oral mucous membranes HEAD & SCALP: normocephalic and atraumatic Eye: COMMON NORMALS: Equal, round and reactive pupils present, EOMs intact bilaterally and conjunctivae normal CONJUNCTIVA: Yes conjunctivae normal PUPIL: Yes Equal, round and reactive pupils present Neck/C-Spine: COMMON NORMALS: full ROM GENERAL: Yes normal visual inspection and Yes trachea midline Resp: COMMON NORMALS: normal respiratory effort, No retractions, No use of accessory muscles and clear to auscultation bilaterally EFFORT & INSPECTION: Yes able to speak in complete sentences, Yes symmetric chest movement and No tachypneic AUSCULTATION: clear to auscultation bilaterally OTHER: -on RA Cardio: COMMON NORMALS: regular rate, regular rhythm, S1 normal heart sound present, S2 normal heart sound present and No murmurs present (Cardio) RATE: regular rate RHYTHM: regular rhythm HEART SOUNDS: S1 normal heart sound present and S2 normal heart sound present GI: COMMON NORMALS: Normal to inspection, nondistended, normoactive bowel sounds present, Soft to palpation and non-tender INSPECTION: Yes central obesity PALPATION: Yes Soft to palpation : BLADDER/KIDNEY EXAM: Yes catheter in place Extremity: COMMON NORMALS: normal to inspection, full ROM and no clubbing, cyanosis or edema; negative for no pedal edema Neuro: COMMON NORMALS: moves all extremities, no focal motor deficits and no sensory deficits noted SENSORIUM/ORIENTATION: Yes Orientation impaired and Yes lethargic Psych: COMMON NORMALS: mental status grossly normal, Normal thought process present, cooperative, normal affect and speech normal SPEECH: Yes normal speech THOUGHT PROCESS: Normal thought process present Skin: COMMON NORMALS: no rashes or lesions noted, no jaundice, no petechiae and no mottling GENERAL SKIN EXAM: no rashes or lesions noted Data : 01/21/20 04:10 01/21/20 04:10 Micro: Microbiology 01/19/20 00:45 Urine Culture - Preliminary Urine,Clean Catch Staphylococcus sp coag neg 01/20/20 04:32 Blood Culture - Preliminary Blood NEGATIVE TO DATE 01/20/20 04:26 Blood Culture - Preliminary Blood NEGATIVE TO DATE 01/20/20 16:50 C.difficile Toxin B Gene (PCR) - Final Stool Routine Collection A&P Assessment and plan (1) Congestive heart failure: -Clinical evidence of acute systolic CHF exacerbation as evidenced by anasarca, hypoxia, significant BNP elevation greater than 27,000, evidence of subcutaneous edema on imaging, bilateral pleural effusions -Continue IV diuresis with caution and monitoring of renal function -Echo (08/2019): EF=40%, global LV hypokinesis, severe biatrial enlargement, mild AR -daily weights, monitor Is & Os, fluid restriction -telemetry monitoring -continue to monitor vital signs; currently stable -continue to monitor respiratory status -supplemental oxygen as needed Status: Acute Qualifiers: Heart failure chronicity: acute on chronic Heart failure type: systolic Qualified Code(s): I50.23 - Acute on chronic systolic (congestive) heart failure (2) Digoxin toxicity: -supratherapeutic levels (1.8) -continue to hold digoxin -unclear if this is contributing to change in mental status Status: Acute Qualifiers: Encounter type: initial encounter Injury intent: accidental or unintentional Qualified Code(s): T46.0X1A - Poisoning by cardiac-stimulant glycosides and drugs of similar action, accidental (unintentional), initial encounter (3) CKD (chronic kidney disease): -RUMA on CKD stage 3; RUMA resolved -baseline Cr has been gradually increasing, was previously wnl, now around 1.5-1.6 -avoid nephrotoxins, renally dose meds -continue to monitor urine output -closely monitor renal function particularly with diuresis Status: Acute Qualifiers: Chronic kidney disease stage: stage 3 (moderate) Chronic kidney disease stage 3 subtype: stage 3a (GFR 45-59) Qualified Code(s): N18.31 - Chronic kidney disease, stage 3a (4) Altered mental status: -from history obtained, change in mental status has been gradual and progressive x 2-3 months -likely multifactorial given infection, high grade invasive bladder cancer, digoxin toxicity -CT head unremarkable -sitter needed -fall, aspiration precautions Status: Acute Qualifiers: Altered mental status type: unspecified Qualified Code(s): R41.82 - Altered mental status, unspecified (5) 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 Carranza on 01/08/20 -has already had large bladder tumor resection (08/2019) -very guarded prognosis; may be appropriate for hospice if agreeable Status: Chronic (6) Hernia, inguinal, left: -has known large left inguinal hernia Status: Chronic (7) UTI (urinary tract infection): -UA indicative of infection -urine cx: coagulase negative Staph aureus -blood cx: prelim negative -on empiric Vancomycin; had been on Bactrim due to MRSA + urine cx (10/2019) Status: Acute Qualifiers: Hematuria presence: with hematuria Urinary tract infection type: acute cystitis Qualified Code(s): N30.01 - Acute cystitis with hematuria Additional A&P Information -noted bilateral lung base atelectasis vs. pneumonia; on empiric antibiotics -Advanced age -BPH with evidence of bladder outlet obstruction; on flomax -hypothyroidism; on levothyroxine -hyperlipidemia; on statin -chronic atrial fibrillation; digoxin on hold; no AC due to hematuria from underlying bladder cancer -chronic normocytic anemia due to chronic blood loss from underlying malignancy; baseline Hg is 9-10; continue to monitor H/H -C.difficile colitis; on contact isolation precautions, on oral vancomycin -mechanical soft diet as tolerated -PT evaluation appreciated -DVT ppx with SCDs, no AC due to bleeding risk -Dispo: was living at assisted living facility, may need SNF ([facility] [place]) -Code status: FULL code Attestations Medical Necessity Statement*: Patient requires hospitalization for continued IV diuresis, antibiotics for treatment of UTI and C.difficile colitis; pending appropriate disposition. Time Spent in Patient Care: 16 - 35 minutes (>than 50% of time spent in counselling and/or direct pt care on unit). 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
--- NOTE | 2020-01-21 17:49 | PC.NURSE ---
SHIFT SUMMARY PATIENT HAS BEEN A LITTLE MORE ALERT TODAY. AMBULATED AROUND ROOM WITH PHYSICAL THERAPY. GOOD URINE OUTPUT. MINIMAL PO INTAKE. SACRUM APPEARS TO BE HEALING. THIS NURSE APPLIED NEW OPTIFOAM. CURRENTLY RESTING IN BED.
[2020-01-21] MEDS: vancomycin 1,000 MG in sodium chloride 0.9% 250 ML 250 MG IV (22:20)
[2020-01-22] VITALS (7 sets, daily range): BP systolic 108–126; BP diastolic 37–68; PULSE 69–75; RESP 16–20; TEMP 36.4–37.2; O2SAT 89–97
--- NOTE | 2020-01-22 05:21 | PC.NURSE ---
shift summary Patient has slept well this shift. He is slightly confused at times on his treatment plan and needs reinforcement often.
[2020-01-22 06:19] LABS: Anion Gap 18.2 (5-19); Blood Urea Nitrogen 39 mg/dL (8-23); Calcium 8.4 mg/dL (8.5-10.5); Carbon Dioxide 22 mmol/L (22-29); Chloride 104 mmol/L (98-107); Glucose 135 mg/dL (65-115); Osmolality Calculated 301 mOsm/kg (285-295); Potassium 4.2 mmol/L (3.5-5.1); Sodium 140 mmol/L (136-145)
[2020-01-22 06:32] LABS: Digoxin 1.6 ng/mL (0.6-1.2)
[2020-01-22] MEDS: levothyroxine 50 mcg Tablet PO (07:42)
[2020-01-22] MEDS: fluoxetine 20 mg Capsule 40 MG PO (07:42)
[2020-01-22] MEDS: ARIPiprazole 2 mg Tablet PO (07:42)
[2020-01-22] MEDS: pantoprazole DR 40 mg Tablet PO ×2 (07:42→17:36)
[2020-01-22] MEDS: tamsulosin 0.4 mg Capsule PO (07:43)
--- NOTE | 2020-01-22 09:34 | PC.SOCIAL ---
Im explained to patient and given copy. He verbalized understanding and no questions voiced.
[2020-01-22] MEDS: FUROsemide 10 mg/mL SDV 4mL 40 MG IVP (11:48)
--- NOTE | 2020-01-22 14:01 | P.PN_ITS ---
Subjective Subjective: Interval history: Sitter remains at bedside due to noted confusion, had 400 mL urine output overnight for total negative fluid balance of 2.1 L. Hemodynamically stable, afebrile and remains on room air. Stable renal function and hemoglobin. Remains on isolation precautions secondary to C. difficile. Remains fatigued, but more alert. Has had bouts of confusion requiring redirection. Appetite remains mediocre. Medications: Reviewed: Yes Medication Review Details: Active Medications Generic Name Dose Route Start Last Admin Trade Name Freq PRN Reason Stop Dose Admin Acetaminophen 650 mg 01/19/20 21:56 Acetaminophen 32 5 Mg Tablet PO Q6H PRN Mild/Mod Pain Or Temp >/= 101 Aripiprazole 2 mg 01/20/20 09:00 01/22/20 07:42 Aripiprazole 2 M g Tablet PO 2 mg DAILY PLACIDO Administration Bisacodyl 10 mg 01/19/20 22:03 Bisacodyl 10 Mg Supp AR DAILY PRN Constipation Fluoxetine HCl 40 mg 01/20/20 09:00 01/22/20 07:42 Fluoxetine 20 Mg Capsule PO 40 mg DAILY PLACIDO Administration Furosemide 40 mg 01/20/20 11:30 01/22/20 11:48 Furosemide 10 Mg /Ml Sdv 4ml IVP 40 mg Q24H PLACIDO Administration Vancomycin HCl 1,0 00 mg/ 250 mls @ 250 mls /hr 01/19/20 23:00 01/21/20 22:20 Sodium Chloride IV 250 mls/hr Q24H PLACIDO Administration Protocol As Directed Levothyroxine Sodi um 50 mcg 01/20/20 09:00 01/22/20 07:42 Levothyroxine 50 Mcg Tablet PO 50 mcg DAILY PLACIDO Administration Ondansetron HCl 4 mg 01/19/20 21:56 Ondansetron 2 Mg /Ml Sdv 2 Ml IVP Q8H PRN vomiting, or N/V if npo Pantoprazole Sodiu m 40 mg 01/20/20 09:00 01/22/20 07:[address] 40 Mg Tablet PO 40 mg BID PLACIDO Administration Senna/Docusate Sod ium 1 tab 01/20/20 09:00 Sennosides-Docus ate Tablet PO BID PRN CONSTIPATION Sodium Phosphate 118 ml 01/19/20 22:03 Fleet Enema 133 Ml Enema [place] DAILY PRN Constipation Tamsulosin HCl 0.4 mg 01/20/20 09:00 01/22/20 07:43 Tamsulosin 0.4 M g Capsule PO 0.4 mg DAILY PLACIDO Administration Tramadol HCl 50 mg 01/19/20 22:03 Tramadol 50 Mg T ablet PO BID PRN Pain Vancomycin HCl 125 mg 01/21/20 03:45 01/22/20 07:49 Vancomycin 1,000 Mg Oral Jennifer (Btl) PO 1.25 ml Q6H PLACIDO Administration No Known Allergies Allergy (Verified 01/19/20 10:48) Vitals/I&O/Wt Last Vital Signs Temp 98.9 F 01/22/20 10:51 Pulse 73 01/22/20 10:51 Resp 16 01/22/20 10:51 BP 109/62 01/22/20 10:51 Pulse Ox 89 L 01/22/20 10:51 01/21/20 01/22/20 01/22/20 22:59 06:59 14:59 Intake Total 240 / 600 480 / 480 Output Total 275 / 375 400 / 775 200 / 200 Balance -35 / 225 -400 / -175 280 / 280 Weight last 48 hrs Weight 82.27 kg Weight 82.781 kg Physical Exam Const: COMMON NORMALS: no acute distress GENERAL APPEARANCE: cooperative, comfortable, lethargic and frail appearing ORIENTATION/CONSCIOUSNESS: Yes awake and Yes lethargic HENMT: COMMON NORMALS: normocephalic, atraumatic, hearing grossly normal bilaterally and moist oral mucous membranes HEAD & SCALP: normocephalic and atraumatic Eye: COMMON NORMALS: Equal, round and reactive pupils present, EOMs intact bilaterally and conjunctivae normal CONJUNCTIVA: Yes conjunctivae normal PUPIL: Yes Equal, round and reactive pupils present Neck/C-Spine: COMMON NORMALS: full ROM GENERAL: Yes normal visual inspection and Yes trachea midline Resp: COMMON NORMALS: normal respiratory effort, No retractions, No use of accessory muscles and clear to auscultation bilaterally EFFORT & INSPECTION: Yes able to speak in complete sentences, Yes symmetric chest movement and No tachypneic AUSCULTATION: clear to auscultation bilaterally OTHER: -on RA Cardio: COMMON NORMALS: regular rate, regular rhythm, S1 normal heart sound present, S2 normal heart sound present and No murmurs present (Cardio) RATE: regular rate RHYTHM: regular rhythm HEART SOUNDS: S1 normal heart sound present and S2 normal heart sound present GI: COMMON NORMALS: Normal to inspection, nondistended, normoactive bowel sounds present, Soft to palpation and non-tender INSPECTION: Yes central obesity PALPATION: Yes Soft to palpation : BLADDER/KIDNEY EXAM: Yes catheter in place Extremity: COMMON NORMALS: normal to inspection, full ROM and no clubbing, cyanosis or edema; negative for no pedal edema Neuro: COMMON NORMALS: moves all extremities, no focal motor deficits and no sensory deficits noted SENSORIUM/ORIENTATION: Yes Orientation impaired and Yes lethargic Psych: COMMON NORMALS: mental status grossly normal, Normal thought process present, cooperative, normal affect and speech normal SPEECH: Yes normal s peech THOUGHT PROCESS: Normal thought process present Skin: COMMON NORMALS: no rashes or lesions noted, no jaundice, no petechiae and no mottling GENERAL SKIN EXAM: no rashes or lesions noted Urinary Catheter Management^: Hernandez: Cath Placed During This Visit: no Reason for Continuing Indwelling Catheter: Chronic Indwelling Urinary Catheter on Admission Data : 01/21/20 04:10 01/22/20 04:52 Micro: Microbiology 01/19/20 00:45 Urine Culture - Preliminary Urine,Clean Catch Staphylococcus sp coag neg A&P Assessment and plan (1) Congestive heart failure: -Clinical evidence of acute systolic CHF exacerbation as evidenced by anasarca, hypoxia, significant BNP elevation greater than 27,000, evidence of subcutaneous edema on imaging, bilateral pleural effusions -Continue IV diuresis with caution and monitoring of renal function -Echo (08/2019): EF=40%, global LV hypokinesis, severe biatrial enlargement, mild AR -daily weights, monitor Is & Os, fluid restriction -telemetry monitoring -continue to monitor vital signs; currently stable -continue to monitor respiratory status -supplemental oxygen as needed Status: Acute Qualifiers: Heart failure chronicity: acute on chronic Heart failure type: systolic Qualified Code(s): I50.23 - Acute on chronic systolic (congestive) heart failure (2) Digoxin toxicity: -supratherapeutic levels (1.6) -continue to hold digoxin -unclear if this is contributing to change in mental status Status: Acute Qualifiers: Encounter type: initial encounter Injury intent: accidental or unintentional Qualified Code(s): T46.0X1A - Poisoning by cardiac-stimulant glycosides and drugs of similar action, accidental (unintentional), initial encounter (3) CKD (chronic kidney disease): -RUMA on CKD stage 3; RUMA resolved -baseline Cr has been gradually increasing, was previously wnl, now around 1.5- 1.6 -avoid nephrotoxins, renally dose meds -continue to monitor urine output -closely monitor renal function particularly with diuresis Status: Acute Qualifiers: Chronic kidney disease stage: stage 3 (moderate) Chronic kidney disease stage 3 subtype: stage 3a (GFR 45-59) Qualified Code(s): N18.31 - Chronic kidney disease, stage 3a (4) Altered mental status: -from history obtained, change in mental status has been gradual and progressive x 2-3 months -likely multifactorial given infection, high grade invasive bladder cancer, digoxin toxicity -CT head unremarkable -sitter needed -fall, aspiration precautions Status: Acute Qualifiers: Altered mental status type: unspecified Qualified Code(s): R41.82 - Altered mental status, unspecified (5) 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 Carranza on 01/08/20 -has already had large bladder tumor resection (08/2019) -very guarded prognosis; may be appropriate for hospice if agreeable Status: Chronic (6) Hernia, inguinal, left: -has known large left inguinal hernia Status: Chronic (7) UTI (urinary tract infection): -UA indicative of infection -urine cx: coagulase negative Staph aureus -blood cx: prelim negative -on empiric Vancomycin; had been on Bactrim due to MRSA + urine cx (10/2019) Status: Acute Qualifiers: Hematuria presence: with hematuria Urinary tract infection type: acute cystitis Qualified Code(s): N30.01 - Acute cystitis with hematuria Additional A&P Information -noted bilateral lung base atelectasis vs. pneumonia; on empiric antibiotics -Advanced age -BPH with evidence of bladder outlet obstruction; on flomax -hypothyroidism; on levothyroxine -hyperlipidemia; on statin -chronic atrial fibrillation; digoxin on hold; no AC due to hematuria from underlying bladder cancer -chronic normocytic anemia due to chronic blood loss from underlying malignancy; baseline Hg is 9-10; continue to monitor H/H -C.difficile colitis; on contact isolation precautions, on oral vancomycin (day 2) -mechanical soft diet as tolerated -PT evaluation appreciated -DVT ppx with SCDs, no AC due to bleeding risk -Dispo: was living at assisted living facility, needs SNF ([facility] [place]) -Code status: FULL code Attestations Medical Necessity Statement*: Patient requires hospitalization for continued treatment of UTI, continued IV diuresis, treatment of C. difficile colitis; pending appropriate disposition. Time Spent in Patient Care: 16 - 35 minutes (>than 50% of time spent in counselling and/or direct pt care on unit) . 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
--- NOTE | 2020-01-22 20:26 | PC.NURSE ---
This Nurse received phone call from Pt's sister Nancy, Nurse gave an update on patient.
[2020-01-22 22:44] LABS: Vancomycin Trough 15.4 ug/mL (10-15)
[2020-01-22] MEDS: vancomycin 1,000 MG in sodium chloride 0.9% 250 ML 250 MG IV (23:09)
[2020-01-23] VITALS (9 sets, daily range): BP systolic 102–130; BP diastolic 62–80; PULSE 70–84; RESP 17–19; TEMP 36.6–37; O2SAT 93–96; BMI 27.6
[2020-01-23 05:30] LABS: Anion Gap 13.7 (5-19); Blood Urea Nitrogen 41 mg/dL (8-23); Calcium 8.7 mg/dL (8.5-10.5); Carbon Dioxide 23 mmol/L (22-29); Chloride 104 mmol/L (98-107); Glucose 154 mg/dL (65-115); Osmolality Calculated 297 mOsm/kg (285-295); Potassium 3.7 mmol/L (3.5-5.1); Sodium 137 mmol/L (136-145)
[2020-01-23 05:35] LABS: Digoxin 1.3 ng/mL (0.6-1.2)
[2020-01-23] MEDS: tamsulosin 0.4 mg Capsule PO (09:06)
[2020-01-23] MEDS: levothyroxine 50 mcg Tablet PO (09:06)
[2020-01-23] MEDS: fluoxetine 20 mg Capsule 40 MG PO (09:06)
[2020-01-23] MEDS: ARIPiprazole 2 mg Tablet PO (09:06)
[2020-01-23] MEDS: pantoprazole DR 40 mg Tablet PO ×2 (09:06→17:15)
[2020-01-23] MEDS: FUROsemide 10 mg/mL SDV 4mL 40 MG IVP (11:56)
--- NOTE | 2020-01-23 15:38 | P.PN_ITS ---
Subjective Subjective: Interval history: Oral intake today has been minimal to none, had 400 mL urine output overnight, hemodynamically stable, on room air, stable renal function and hemoglobin, digoxin down to 1.3. Resting quietly in bed, sitter at bedside, quite frail and fatigued. Nephew Zachary at bedside, with patient's permission updated him on patient's clinical status. It seems that Zachary is patient's DPOA and he understands the patient is clinically deteriorating and does not think patient would want aggressive resuscitation if he is to decompensate. Review of paperwork from assisted living facility shows FULL code status. Patient does not have the insight to understand CODE STATUS in its entirety at this time. We will need to verify advance directives and healthcare proxy. Family is okay with continued treatment at this time. Medications: Reviewed: Yes Medication Review Details: Active Medications Generic Name Dose Route Start Last Admin Trade Name Freq PRN Reason Stop Dose Admin Acetaminophen 650 mg 01/19/20 21:56 Acetaminophen 32 5 Mg Tablet PO Q6H PRN Mild/Mod Pain Or Temp >/= 101 Aripiprazole 2 mg 01/20/20 09:00 01/23/20 09:06 Aripiprazole 2 M g Tablet PO 2 mg DAILY PLACIDO Administration Bisacodyl 10 mg 01/19/20 22:03 Bisacodyl 10 Mg Supp [place] DAILY PRN Constipation Fluoxetine HCl 40 mg 01/20/20 09:00 01/23/20 09:06 Fluoxetine 20 Mg Capsule PO 40 mg DAILY PLACIDO Administration Furosemide 40 mg 01/20/20 11:30 01/23/20 11:56 Furosemide 10 Mg /Ml Sdv 4ml IVP 40 mg Q24H PLACIDO Administration Vancomycin HCl 1,0 00 mg/ 250 mls @ 250 mls /hr 01/19/20 23:00 01/23/20 00:09 Sodium Chloride IV Infused Q24H PLACIDO Infusion Protocol As Directed Levothyroxine Sodi um 50 mcg 01/20/20 09:00 01/23/20 09:06 Levothyroxine 50 Mcg Tablet PO 50 mcg DAILY PLACIDO Administration Ondansetron HCl 4 mg 01/19/20 21:56 Ondansetron 2 Mg /Ml Sdv 2 Ml IVP Q8H PRN vomiting, or N/V if npo Pantoprazole Sodiu m 40 mg 01/20/20 09:00 01/23/20 09:[address] 40 Mg Tablet PO 40 mg BID PLACIDO Administration Senna/Docusate Sod ium 1 tab 01/20/20 09:00 Sennosides-Docus ate Tablet PO BID PRN CONSTIPATION Sodium Phosphate 118 ml 01/19/20 22:03 Fleet Enema 133 Ml Enema [place] DAILY PRN Constipation Tamsulosin HCl 0.4 mg 01/20/20 09:00 01/23/20 09:06 Tamsulosin 0.4 M g Capsule PO 0.4 mg DAILY PLACIDO Administration Tramadol HCl 50 mg 01/19/20 22:03 Tramadol 50 Mg T ablet PO BID PRN Pain Vancomycin HCl 125 mg 01/21/20 03:45 01/23/20 09:48 Vancomycin 1,000 Mg Oral Jennifer (Btl) PO 1.25 ml Q6H PLACIDO Administration No Known Allergies Allergy (Verified 01/19/20 10:48) Vitals/I&O/Wt Last Vital Signs Temp 97.9 F 01/23/20 12:00 Pulse 70 01/23/20 12:00 Resp 18 01/23/20 12:00 BP 125/66 01/23/20 12:00 Pulse Ox 95 01/23/20 12:00 01/23/20 01/23/20 01/23/20 06:59 14:59 22:59 Intake Total 370 / 970 Output Total 400 / 900 Balance -30 / 70 Weight last 48 hrs Weight 82.27 kg Weight 82.27 kg Physical Exam Const: COMMON NORMALS: no acute distress GENERAL APPEARANCE: cooperative, comfortable and frail appearing ORIENTATION/CONSCIOUSNESS: Yes awake OTHER: -Appears quite fatigued HENMT: COMMON NORMALS: normocephalic, atraumatic, hearing grossly normal bilaterally and moist oral mucous membranes HEAD & SCALP: normocephalic and atraumatic Eye: COMMON NORMALS: Equal, round and reactive pupils present, EOMs intact bilaterally and conjunctivae normal CONJUNCTIVA: Yes conjunctivae normal PUPIL: Yes Equal, round and reactive pupils present Neck/C-Spine: COMMON NORMALS: full ROM GENERAL: Yes normal visual inspection and Yes trachea midline Resp: COMMON NORMALS: normal respiratory effort, No retractions, No use of accessory muscles and clear to auscultation bilaterally EFFORT & INSPECTION: Yes able to speak in complete sentences, Yes symmetric chest movement and No tachypneic AUSCULTATION: clear to auscultation bilaterally OTHER: -on RA Cardio: COMMON NORMALS: regular rate, regular rhythm, S1 normal heart sound present, S2 normal heart sound present and No murmurs present (Cardio) RATE: regular rate RHYTHM: regular rhythm HEART SOUNDS: S1 normal heart sound present and S2 normal heart sound present GI: COMMON NORMALS: Normal to inspection, nondistended, normoactive bowel sounds present, Soft to palpation and non-tender INSPECTION: Yes central obesity PALPATION: Yes Soft to palpation : BLADDER/KIDNEY EXAM: Yes catheter in place Extremity: COMMON NORMALS: normal to inspection, full ROM and no clubbing, cyanosis or edema; negative for no pedal edema Neuro: COMMON NORMALS: moves all extremities, no focal motor deficits and no sensory deficits noted SENSORIUM/ORIENTATION: Yes Orientation impaired OTHER: -Generally quite weak Psych: COMMON NORMALS: mental status grossly normal, Normal thought process present, cooperative, normal affect and speech normal SPEECH: Yes normal speech THOUGHT PROCESS: Normal thought process present INSIGHT: Poor insight present (Psych) Skin: COMMON NORMALS: no rashes or lesions noted, no jaundice, no petechiae and no mottling GENERAL SKIN EXAM: no rashes or lesions noted Urinary Catheter Management^: Hernandez: Cath Placed During This Visit: no Reason for Continuing Indwelling Catheter: Accurate Measurement of Urinary Output in Critically Ill Patients Data : 01/21/20 04:10 01/23/20 04:42 Micro: Microbiology 01/19/20 00:45 Urine Culture - Final Urine,Clean Catch Staphylococcus epidermidis A&P Assessment and plan (1) Congestive heart failure: -Clinical evidence of acute systolic CHF exacerbation as evidenced by anasarca, hypoxia, significant BNP elevation greater than 27,000, evidence of subcutaneous edema on imaging, bilateral pleural effusions -d/c IV diuresis; has diuresed 2 L -Echo (08/2019): EF=40%, global LV hypokinesis, severe biatrial enlargement, mild AR -daily weights, monitor Is & Os, fluid restriction -telemetry monitoring -continue to monitor vital signs; currently stable -continue to monitor respiratory status -supplemental oxygen as needed Status: Acute Qualifiers: Heart failure chronicity: acute on chronic Heart failure type: systolic Qualified Code(s): I50.23 - Acute on chronic systolic (congestive) heart failure (2) Digoxin toxicity: -supratherapeutic levels (1.3) -continue to hold digoxin -unclear if this is contributing to change in mental status Status: Acute Qualifiers: Encounter type: initial encounter Injury intent: accidental or unintentional Qualified Code(s): T46.0X1A - Poisoning by cardiac-stimulant glycosides and drugs of similar action, accidental (unintentional), initial encounter (3) CKD (chronic kidney disease): -RUMA on CKD stage 3; RUMA resolved -baseline Cr has been gradually increasing, was previously wnl, now around 1.5- 1.6 -avoid nephrotoxins, renally dose meds -continue to monitor urine output -closely monitor renal function particularly with diuresis Status: Acute Qualifiers: Chronic kidney disease stage: stage 3 (moderate) Chronic kidney disease stage 3 subtype: stage 3a (GFR 45-59) Qualified Code(s): N18.31 - Chronic kidney disease, stage 3a (4) Altered mental status: -from history obtained, change in mental status has been gradual and progressive x 2-3 months -likely multifactorial given infection, high grade invasive bladder cancer, digoxin toxicity -CT head unremarkable -sitter needed -fall, aspiration precautions Status: Acute Qualifiers: Altered mental status type: unspecified Qualified Code(s): R41.82 - Altered mental status, unspecified (5) 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 Carranza on 01/08/20 -has already had large bladder tumor resection (08/2019) -very guarded prognosis; may be appropriate for hospice if agreeable Status: Chronic (6) Hernia, inguinal, left: -has known large left inguinal hernia Status: Chronic (7) UTI (urinary tract infection): -UA indicative of infection -urine cx: Staph epidermidis -blood cx: prelim negative -on empiric Vancomycin; had been on Bactrim due to MRSA + urine cx (10/2019) Status: Acute Qualifiers: Hematuria presence: with hematuria Urinary tract infection type: acute cystitis Qualified Code(s): N30.01 - Acute cystitis with hematuria Additional A&P Information -noted bilateral lung base atelectasis vs. pneumonia; on empiric antibiotics -Advanced age -BPH with evidence of bladder outlet obstruction; on flomax -hypothyroidism; on levothyroxine -hyperlipidemia; on statin -chronic atrial fibrillation; digoxin on hold; no AC due to hematuria from underlying bladder cancer -chronic normocytic anemia due to chronic blood loss from underlying malignancy; baseline Hg is 9-10; continue to monitor H/H -C.difficile colitis; on contact isolation precautions, on oral vancomycin (day 3) -mechanical soft diet as tolerated; oral intake has been quite poor -PT evaluation appreciated -DVT ppx with SCDs, no AC due to bleeding risk -Dispo: was living at assisted living facility, needs SNF ([facility] [place]). Met with and spoke with his nephew Zachary James ([phone]) who states that he is the patient's DPOA. Indicates that patient would not want aggressive resuscitative measures and understands the patient is declining with poor prognosis overall. We will need to confirm advanced directives and healthcare proxy. Current paperwork indicates FULL CODE STATUS. -Code status: FULL code Attestations Medical Necessity Statement*: Patient requires hospitalization for continued treatment of C.difficile colitis, UTI, pending appropriate disposition. Time Spent in Patient Care: 16 - 35 minutes (>than 50% of time spent in counselling and/or direct pt care on unit) . 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
[2020-01-23] MEDS: dronabinol 2.5 mg Capsule PO (16:52)
[2020-01-23] MEDS: vancomycin 1,000 MG in sodium chloride 0.9% 250 ML 250 MG IV (23:47)
[2020-01-24] VITALS (7 sets, daily range): BP systolic 104–124; BP diastolic 49–61; PULSE 70–83; RESP 18–20; TEMP 36.6–37.1; O2SAT 96–98; BMI 27.6
[2020-01-24 06:14] LABS: Digoxin 1.1 ng/mL (0.6-1.2)
[2020-01-24] MEDS: dronabinol 2.5 mg Capsule PO ×2 (06:38→17:45)
[2020-01-24] MEDS: levothyroxine 50 mcg Tablet PO (08:42)
[2020-01-24] MEDS: ARIPiprazole 2 mg Tablet PO (08:42)
[2020-01-24] MEDS: fluoxetine 20 mg Capsule 40 MG PO (08:42)
[2020-01-24] MEDS: tamsulosin 0.4 mg Capsule PO (08:42)
[2020-01-24] MEDS: pantoprazole DR 40 mg Tablet PO ×2 (08:42→17:45)
--- NOTE | 2020-01-24 11:15 | PC.SOCIAL ---
IMM Updated Page 2 of IMM updated with basia Spicer and KHOI by phone. He verbalizes understanding. Initialed, dated, and timed and placed back in chart. Copy provided to patient's bedside.
--- NOTE | 2020-01-24 13:25 | P.PN_ITS ---
Subjective Subjective: Interval history: Hemodynamically stable, afebrile and on room air, had 650 mL urine output overnight, required a dose of Zyprexa presumably due to increased confusion. Seems even more fatigued today, sitter at bedside, digoxin levels normalized. Oral intake remains mediocre. Has had some runs of V.tach on review of telemetry strips. Medications: Reviewed: Yes Medication Review Details: Active Medications Generic Name Dose Route Start Last Admin Trade Name Freq PRN Reason Stop Dose Admin Acetaminophen 650 mg 01/19/20 21:56 Acetaminophen 32 5 Mg Tablet PO Q6H PRN Mild/Mod Pain Or Temp >/= 101 Aripiprazole 2 mg 01/20/20 09:00 01/24/20 08:42 Aripiprazole 2 M g Tablet PO 2 mg DAILY PLACIDO Administration Bisacodyl 10 mg 01/19/20 22:03 Bisacodyl 10 Mg Supp [place] DAILY PRN Constipation Dronabinol 2.5 mg 01/23/20 17:00 01/24/20 06:38 Dronabinol 2.5 M g Capsule PO 2.5 mg BIDAC PLACIDO Administration Fluoxetine HCl 40 mg 01/20/20 09:00 01/24/20 08:42 Fluoxetine 20 Mg Capsule PO 40 mg DAILY PLACIDO Administration Vancomycin HCl 1,0 00 mg/ 250 mls @ 250 mls /hr 01/19/20 23:00 01/24/20 00:47 Sodium Chloride IV Infused Q24H PLACIDO Infusion Protocol As Directed Levothyroxine Sodi um 50 mcg 01/20/20 09:00 01/24/20 08:42 Levothyroxine 50 Mcg Tablet PO 50 mcg DAILY PLACIDO Administration Ondansetron HCl 4 mg 01/19/20 21:56 Ondansetron 2 Mg /Ml Sdv 2 Ml IVP Q8H PRN vomiting, or N/V if npo Pantoprazole Sodiu m 40 mg 01/20/20 09:00 01/24/20 08:[address] 40 Mg Tablet PO 40 mg BID PLACIDO Administration Senna/Docusate Sod ium 1 tab 01/20/20 09:00 Sennosides-Docus ate Tablet PO BID PRN CONSTIPATION Sodium Phosphate 118 ml 01/19/20 22:03 Fleet Enema 133 Ml Enema [place] DAILY PRN Constipation Tamsulosin HCl 0.4 mg 01/20/20 09:00 01/24/20 08:42 Tamsulosin 0.4 M g Capsule PO 0.4 mg DAILY PLACIDO Administration Tramadol HCl 50 mg 01/19/20 22:03 Tramadol 50 Mg T ablet PO BID PRN Pain Vancomycin HCl 125 mg 01/21/20 03:45 01/24/20 08:41 Vancomycin 1,000 Mg Oral Jennifer (Btl) PO 1.25 ml Q6H PLACIDO Administration No Known Allergies Allergy (Verified 01/19/20 10:48) Vitals/I&O/Wt Last Vital Signs Temp 98.7 F 01/24/20 11:56 Pulse 82 01/24/20 11:56 Resp 18 01/24/20 11:56 BP 113/61 01/24/20 11:56 Pulse Ox 97 01/24/20 10:24 01/23/20 01/24/20 01/24/20 22:59 06:59 14:59 Intake Total 120 / 120 350 / 470 Output Total 650 / 650 Balance 120 / 120 -300 / -180 Weight last 48 hrs Weight 82.27 kg Weight 82.27 kg Physical Exam Const: COMMON NORMALS: no acute distress GENERAL APPEARANCE: cooperative, comfortable and frail appearing ORIENTATION/CONSCIOUSNESS: Yes awake OTHER: -Appears quite fatigued, even more so today HENMT: COMMON NORMALS: normocephalic, atraumatic, hearing grossly normal bilaterally and moist oral mucous membranes HEAD & SCALP: normocephalic and atraumatic Eye: COMMON NORMALS: Equal, round and reactive pupils present, EOMs intact bilaterally and conjunctivae normal CONJUNCTIVA: Yes conjunctivae normal PUPIL: Yes Equal, round and reactive pupils present Neck/C-Spine: COMMON NORMALS: full ROM GENERAL: Yes normal visual inspection and Yes trachea midline Resp: COMMON NORMALS: normal respiratory effort, No retractions, No use of accessory muscles and clear to auscultation bilaterally EFFORT & INSPECTION: Yes able to speak in complete sentences, Yes symmetric chest movement and No tachypneic AUSCULTATION: clear to auscultation bilaterally OTHER: -on RA Cardio: COMMON NORMALS: regular rate, regular rhythm, S1 normal heart sound present, S2 normal heart sound present and No murmurs present (Cardio) RATE: regular rate RHYTHM: regular rhythm HEART SOUNDS: S1 normal heart sound present and S2 normal heart sound present GI: COMMON NORMALS: Normal to inspection, nondistended, normoactive bowel sounds present, Soft to palpation and non-tender INSPECTION: Yes central obesity PALPATION: Yes Soft to palpation : BLADDER/KIDNEY EXAM: Yes catheter in place Extremity: COMMON NORMALS: normal to inspection, full ROM and no clubbing, cyanosis or edema; negative for no pedal edema Neuro: COMMON NORMALS: moves all extremities, no focal motor deficits and no sensory deficits noted SENSORIUM/ORIENTATION: Yes Orientation impaired OTHER: -Generally quite weak Psych: COMMON NORMALS: mental status grossly normal, Normal thought process present, cooperative, normal affect and speech normal SPEECH: Yes normal speech THOUGHT PROCESS: Normal thought process present INSIGHT: Poor insight present (Psych) Skin: COMMON NORMALS: no rashes or lesions noted, no jaundice, no petechiae and no mottling GENERAL SKIN EXAM: no rashes or lesions noted Urinary Catheter Management^: Hernandez: Cath Placed During This Visit: no Reason for Continuing Indwelling Catheter: Chronic Indwelling Urinary Catheter on Admission Data : 01/21/20 04:10 01/23/20 04:42 Micro: Microbiology 01/19/20 00:45 Urine Culture - Final Urine,Clean Catch Staphylococcus epidermidis A&P Assessment and plan (1) Congestive heart failure: -Clinical evidence of acute systolic CHF exacerbation as evidenced by anasarca, hypoxia, significant BNP elevation greater than 27,000, evidence of subcutaneous edema on imaging, bilateral pleural effusions -d/c IV diuresis; has diuresed 2.2 L -Echo (08/2019): EF=40%, global LV hypokinesis, severe biatrial enlargement, mild AR -daily weights, monitor Is & Os, fluid restriction -telemetry monitoring -continue to monitor vital signs; currently stable -continue to monitor respiratory status -supplemental oxygen as needed Status: Acute Qualifiers: Heart failure chronicity: acute on chronic Heart failure type: systolic Qualified Code(s): I50.23 - Acute on chronic systolic (congestive) heart failure (2) Digoxin toxicity: -levels normalized (1.1) -resume digoxin -unclear if this is contributed to change in mental status Status: Resolved Qualifiers: Encounter type: initial encounter Injury intent: accidental or unintentional Qualified Code(s): T46.0X1A - Poisoning by cardiac-stimulant glycosides and drugs of similar action, accidental (unintentional), initial encounter (3) CKD (chronic kidney disease): -RUMA on CKD stage 3; RUMA resolved -baseline Cr has been gradually increasing, was previously wnl, now around 1.5- 1.6 -avoid nephrotoxins, renally dose meds -continue to monitor urine output -closely monitor renal function particularly with diuresis Status: Acute Qualifiers: Chronic kidney disease stage: stage 3 (moderate) Chronic kidney disease stage 3 subtype: stage 3a (GFR 45-59) Qualified Code(s): N18.31 - Chronic kidney disease, stage 3a (4) Altered mental status: -from history obtained, change in mental status has been gradual and progressive x 2-3 months -likely multifactorial given infection, high grade invasive bladder cancer, digoxin toxicity -CT head unremarkable -sitter needed -fall, aspiration precautions Status: Acute Qualifiers: Altered mental status type: unspecified Qualified Code(s): R41.82 - Altered mental status, unspecified (5) 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 Carranza on 01/08/20 -has already had large bladder tumor resection (08/2019) -very guarded prognosis; may be appropriate for hospice if agreeable Status: Chronic (6) Hernia, inguinal, left: -has known large left inguinal hernia Status: Chronic (7) UTI (urinary tract infection): -UA indicative of infection -urine cx: Staph epidermidis -blood cx: prelim negative -on empiric Vancomycin; had been on Bactrim due to MRSA + urine cx (10/2019) Status: Acute Qualifiers: Hematuria presence: with hematuria Urinary tract infection type: acute cystitis Qualified Code(s): N30.01 - Acute cystitis with hematuria Additional A&P Information -noted bilateral lung base atelectasis vs. pneumonia; on empiric antibiotics -Advanced age -BPH with evidence of bladder outlet obstruction; on flomax -hypothyroidism; on levothyroxine -hyperlipidemia; on statin -chronic atrial fibrillation; digoxin on hold; no AC due to hematuria from underlying bladder cancer -chronic normocytic anemia due to chronic blood loss from underlying malignancy; baseline Hg is 9-10; continue to monitor H/H -C.difficile colitis; on contact isolation precautions, on oral vancomycin (day 4) -mechanical soft diet as tolerated; oral intake has been quite poor -PT evaluation appreciated -DVT ppx with SCDs, no AC due to bleeding risk -Dispo: was living at assisted living facility, [place] [place] Met with and spoke with his nephew Zachary James ([phone]) who states that he is the patient's DPOA. Indicates that patient would not want aggressive resuscitative measures and understands the patient is declining with poor prognosis overall. Found scanned copy of DPOA and healthcare directives from 2013 indicating patient wound not desire aggressive resuscitative measures. -Code status: DNR/DNI per discussion with patient's nephew Attestations Medical Necessity Statement*: Patient requires hospitalization for continued treatment of UTI, C.difficile colitis; pending appropriate disposition. Time Spent in Patient Care: 16 - 35 minutes (>than 50% of time spent in counselling and/or direct pt care on unit) . 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
[2020-01-24] MEDS: vancomycin 1,000 MG in sodium chloride 0.9% 250 ML 250 MG IV (23:00)
[2020-01-25] VITALS (11 sets, daily range): BP systolic 110–125; BP diastolic 52–70; PULSE 67–80; RESP 15–25; TEMP 36.5–36.8; O2SAT 94–98
[2020-01-25] MEDS: dronabinol 2.5 mg Capsule PO ×2 (06:59→18:14)
[2020-01-25] MEDS: levothyroxine 50 mcg Tablet PO (10:27)
[2020-01-25] MEDS: tamsulosin 0.4 mg Capsule PO (10:27)
[2020-01-25] MEDS: ARIPiprazole 2 mg Tablet PO (10:27)
[2020-01-25] MEDS: fluoxetine 20 mg Capsule 40 MG PO (10:27)
[2020-01-25] MEDS: pantoprazole DR 40 mg Tablet PO ×2 (10:28→18:13)
[2020-01-25] MEDS: digoxin 125 mcg Tablet PO (10:28)
--- NOTE | 2020-01-25 15:14 | PM.PN ---
Subjective Subjective: Interval history: Minimal oral intake, had 525 mL urine output overnight, hemodynamically stable and consistently afebrile. Remains on contact isolation precautions secondary to C. difficile infection. Sitter discontinued overnight as patient spends his time sleeping. He is arousable for brief periods of time but even simple conversation seems to exert much effort from him. Nephew Zachary Thibodeauxtonya updated at bedside this afternoon. Medications: Reviewed: Yes Medication Review Details: Active Medications Generic Name Dose Route Start Last Admin Trade Name Freq PRN Reason Stop Dose Admin Acetaminophen 650 mg 01/19/20 21:56 Acetaminophen 32 5 Mg Tablet PO Q6H PRN Mild/Mod Pain Or Temp >/= 101 Aripiprazole 2 mg 01/20/20 09:00 01/25/20 10:27 Aripiprazole 2 M g Tablet PO 2 mg DAILY PLACIDO Administration Bisacodyl 10 mg 01/19/20 22:03 Bisacodyl 10 Mg Supp [place] DAILY PRN Constipation Digoxin 125 mcg 01/25/20 09:00 01/25/20 10:28 Digoxin 125 Mcg Tablet PO 125 mcg EVERY OTHER DAY S CH Administration Dronabinol 2.5 mg 01/23/20 17:00 01/25/20 06:59 Dronabinol 2.5 M g Capsule PO 2.5 mg BIDAC PLACIDO Administration Fluoxetine HCl 40 mg 01/20/20 09:00 01/25/20 10:27 Fluoxetine 20 Mg Capsule PO 40 mg DAILY PLACIDO Administration Vancomycin HCl 1,0 00 mg/ 250 mls @ 250 mls /hr 01/19/20 23:00 01/24/20 23:00 Sodium Chloride IV 250 mls/hr Q24H PLACIDO Administration Protocol As Directed Levothyroxine Sodi um 50 mcg 01/20/20 09:00 01/25/20 10:27 Levothyroxine 50 Mcg Tablet PO 50 mcg DAILY PLACIDO Administration Ondansetron HCl 4 mg 01/19/20 21:56 Ondansetron 2 Mg /Ml Sdv 2 Ml IVP Q8H PRN vomiting, or N/V if npo Pantoprazole Sodiu m 40 mg 01/20/20 09:00 01/25/20 10:[address] 40 Mg Tablet PO 40 mg BID PLACIDO Administration Senna/Docusate Sod ium 1 tab 01/20/20 09:00 Sennosides-Docus ate Tablet PO BID PRN CONSTIPATION Sodium Phosphate 118 ml 01/19/20 22:03 Fleet Enema 133 Ml Enema [place] DAILY PRN Constipation Tamsulosin HCl 0.4 mg 01/20/20 09:00 01/25/20 10:27 Tamsulosin 0.4 M g Capsule PO 0.4 mg DAILY PLACIDO Administration Tramadol HCl 50 mg 01/19/20 22:03 Tramadol 50 Mg T ablet PO BID PRN Pain Vancomycin HCl 125 mg 01/21/20 03:45 01/25/20 10:27 Vancomycin 1,000 Mg Oral Jennifer (Btl) PO 1.25 ml Q6H PLACIDO Administration No Known Allergies Allergy (Verified 01/19/20 10:48) Vitals/I&O/Wt Last Vital Signs Temp 97.8 F 01/25/20 11:39 Pulse 76 01/25/20 11:39 Resp 17 01/25/20 11:39 BP 123/61 01/25/20 11:39 Pulse Ox 98 01/25/20 11:39 01/25/20 01/25/20 01/25/20 06:59 14:59 22:59 Intake Total 240 / 240 100 / 100 Output Total 525 / 525 100 / 100 Balance -285 / -285 0 / 0 Weight last 48 hrs Weight 83.733 kg Weight 82.27 kg Physical Exam Const: COMMON NORMALS: no acute distress GENERAL APPEARANCE: cooperative, comfortable and frail appearing ORIENTATION/CONSCIOUSNESS: Yes awake OTHER: -Appears quite fatigued, more so every day HENMT: COMMON NORMALS: normocephalic, atraumatic, hearing grossly normal bilaterally and moist oral mucous membranes HEAD & SCALP: normocephalic and atraumatic Eye: COMMON NORMALS: Equal, round and reactive pupils present, EOMs intact bilaterally and conjunctivae normal CONJUNCTIVA: Yes conjunctivae normal PUPIL: Yes Equal, round and reactive pupils present Neck/C-Spine: COMMON NORMALS: full ROM GENERAL: Yes normal visual inspection and Yes trachea midline Resp: COMMON NORMALS: normal respiratory effort, No retractions, No use of accessory muscles and clear to auscultation bilaterally EFFORT & INSPECTION: Yes able to speak in complete sentences, Yes symmetric chest movement and No tachypneic AUSCULTATION: clear to auscultation bilaterally OTHER: -on RA Cardio: COMMON NORMALS: regular rate, regular rhythm, S1 normal heart sound present, S2 normal heart sound present and No murmurs present (Cardio) RATE: regular rate RHYTHM: regular rhythm HEART SOUNDS: S1 normal heart sound present and S2 normal heart sound present GI: COMMON NORMALS: Normal to inspection, nondistended, normoactive bowel sounds present, Soft to palpation and non-tender INSPECTION: Yes central obesity PALPATION: Yes Soft to palpation : BLADDER/KIDNEY EXAM: Yes catheter in place Extremity: COMMON NORMALS: normal to inspection, full ROM and no clubbing, cyanosis or edema; negative for no pedal edema Neuro: COMMON NORMALS: moves all extremities, no focal motor deficits and no sensory deficits noted SENSORIUM/ORIENTATION: Yes Orientation impaired OTHER: -Generally quite weak Psych: COMMON NORMALS: mental status grossly normal, Normal thought process present, cooperative, normal affect and speech normal SPEECH: Yes normal speech THOUGHT PROCESS: Normal thought process present INSIGHT: Poor insight present (Psych) Skin: COMMON NORMALS: no rashes or lesions noted, no jaundice, no petechiae and no mottling GENERAL SKIN EXAM: no rashes or lesions noted Urinary Catheter Management^: Hernandez: Cath Placed During This Visit: no Reason for Continuing Indwelling Catheter: Chronic Indwelling Urinary Catheter on Admission Data : 01/21/20 04:10 01/23/20 04:42 Micro: Microbiology 01/20/20 04:32 Blood Culture - Final Blood NO GROWTH AFTER 5 DAYS 01/20/20 04:26 Blood Culture - Final Blood NO GROWTH AFTER 5 DAYS A&P Assessment and plan (1) Congestive heart failure: -Clinical evidence of acute systolic CHF exacerbation as evidenced by anasarca, hypoxia, significant BNP elevation greater than 27,000, evidence of subcutaneous edema on imaging, bilateral pleural effusions -off IV diuresis; has diuresed 2.5 L -Echo (08/2019): EF=40%, global LV hypokinesis, severe biatrial enlargement, mild AR -daily weights, monitor Is & Os, fluid restriction -telemetry monitoring -continue to monitor vital signs; currently stable -continue to monitor respiratory status -supplemental oxygen as needed Status: Acute Qualifiers: Heart failure chronicity: acute on chronic Heart failure type: systolic Qualified Code(s): I50.23 - Acute on chronic systolic (congestive) heart failure (2) Digoxin toxicity: -levels normalized (1.1) -on digoxin -unclear if this is contributed to change in mental status Status: Resolved Qualifiers: Encounter type: initial encounter Injury intent: accidental or unintentional Qualified Code(s): T46.0X1A - Poisoning by cardiac-stimulant glycosides and drugs of similar action, accidental (unintentional), initial encounter (3) CKD (chronic kidney disease): -RUMA on CKD stage 3; RUMA resolved -baseline Cr has been gradually increasing, was previously wnl, now around 1.5-1.6 -avoid nephrotoxins, renally dose meds -continue to monitor urine output -closely monitor renal function particularly with diuresis Status: Acute Qualifiers: Chronic kidney disease stage: stage 3 (moderate) Chronic kidney disease stage 3 subtype: stage 3a (GFR 45-59) Qualified Code(s): N18.31 - Chronic kidney disease, stage 3a (4) Altered mental status: -from history obtained, change in mental status has been gradual and progressive x 2-3 months -likely multifactorial given infection, high grade invasive bladder cancer, digoxin toxicity -CT head unremarkable -sitter needed -fall, aspiration precautions Status: Acute Qualifiers: Altered mental status type: unspecified Qualified Code(s): R41.82 - Altered mental status, unspecified (5) 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 Carranza on 01/08/20 -has already had large bladder tumor resection (08/2019) -very guarded prognosis; may be appropriate for hospice if agreeable Status: Chronic (6) Hernia, inguinal, left: -has known large left inguinal hernia Status: Chronic (7) UTI (urinary tract infection): -UA indicative of infection -urine cx: Staph epidermidis -blood cx: prelim negative -on empiric Vancomycin; had been on Bactrim due to MRSA + urine cx (10/2019) Status: Acute Qualifiers: Hematuria presence: with hematuria Urinary tract infection type: acute cystitis Qualified Code(s): N30.01 - Acute cystitis with hematuria Additional A&P Information -noted bilateral lung base atelectasis vs. pneumonia; on empiric antibiotics -Advanced age -BPH with evidence of bladder outlet obstruction; on flomax -hypothyroidism; on levothyroxine -hyperlipidemia; on statin -chronic atrial fibrillation; digoxin on hold; no AC due to hematuria from underlying bladder cancer -chronic normocytic anemia due to chronic blood loss from underlying malignancy; baseline Hg is 9-10; continue to monitor H/H -C.difficile colitis; on contact isolation precautions, on oral vancomycin (day 5) -mechanical soft diet as tolerated; oral intake has been quite poor -PT evaluation appreciated -DVT ppx with SCDs, no AC due to bleeding risk -Dispo: was living at assisted living facility, [place] [facility] [place] [place] Met with and spoke with his nephew Zachary James ([phone]) who states that he is the patient's DPOA. Indicates that patient would not want aggressive resuscitative measures and understands the patient is declining with poor prognosis overall. Found scanned copy of DPOA and healthcare directives from 2013 indicating patient wound not desire aggressive resuscitative measures. -Code status: DNR/DNI per discussion with patient's nephew Attestations Medical Necessity Statement*: Patient requires hospitalization for continued treatment of C.difficile colitis, UTI, on oral and IV antibiotics, poor oral intake; pending appropriate disposition. Time Spent in Patient Care: 16 - 35 minutes (>than 50% of time spent in counselling and/or direct pt care on unit). 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
[2020-01-25] MEDS: vancomycin 1,000 MG in sodium chloride 0.9% 250 ML 250 MG IV (23:13)
[2020-01-26] VITALS (8 sets, daily range): BP systolic 95–128; BP diastolic 53–67; PULSE 69–81; RESP 17–21; TEMP 36.3–36.8; O2SAT 96–99; BMI 21.9
[2020-01-26] MEDS: dronabinol 2.5 mg Capsule PO ×2 (06:43→17:37)
[2020-01-26] MEDS: ARIPiprazole 2 mg Tablet PO (08:42)
[2020-01-26] MEDS: levothyroxine 50 mcg Tablet PO (08:42)
[2020-01-26] MEDS: pantoprazole DR 40 mg Tablet PO ×2 (08:42→17:37)
[2020-01-26] MEDS: fluoxetine 20 mg Capsule 40 MG PO (08:42)
[2020-01-26] MEDS: tamsulosin 0.4 mg Capsule PO (08:43)
--- NOTE | 2020-01-26 09:15 | PC.SOCIAL ---
IMM Updated Page 2 of IMM updated and given to patient. Initialed, dated, and timed and placed back in chart.
--- NOTE | 2020-01-26 14:52 | PC.NURSE ---
Reported blood pressure to Pts nurse
--- NOTE | 2020-01-26 19:24 | PM.PN ---
Subjective Subjective: Interval history: Sitting in chair by bedside, per nursing staff has been sitting up since last night, seems more alert than of seen him so far, requesting something to eat. Remains off one-on-one monitoring. Hemodynamically stable, afebrile. Had 200 mL urine output overnight. [place] [facility] to facility tomorrow. Medications: Reviewed: Yes Medication Review Details: Active Medications Generic Name Dose Route Start Last Admin Trade Name Freq PRN Reason Stop Dose Admin Acetaminophen 650 mg 01/19/20 21:56 Acetaminophen 32 5 Mg Tablet PO Q6H PRN Mild/Mod Pain Or Temp >/= 101 Aripiprazole 2 mg 01/20/20 09:00 01/26/20 08:42 Aripiprazole 2 M g Tablet PO 2 mg DAILY PLACIDO Administration Bisacodyl 10 mg 01/19/20 22:03 Bisacodyl 10 Mg Supp OR DAILY PRN Constipation Digoxin 125 mcg 01/25/20 09:00 01/25/20 10:28 Digoxin 125 Mcg Tablet PO 125 mcg EVERY OTHER DAY S CH Administration Dronabinol 2.5 mg 01/23/20 17:00 01/26/20 17:37 Dronabinol 2.5 M g Capsule PO 2.5 mg BIDAC PLACIDO Administration Fluoxetine HCl 40 mg 01/20/20 09:00 01/26/20 08:42 Fluoxetine 20 Mg Capsule PO 40 mg DAILY PLACIDO Administration Vancomycin HCl 1,0 00 mg/ 250 mls @ 250 mls /hr 01/19/20 23:00 01/25/20 23:13 Sodium Chloride IV 250 mls/hr Q24H PLACIDO Administration Protocol As Directed Levothyroxine Sodi um 50 mcg 01/20/20 09:00 01/26/20 08:42 Levothyroxine 50 Mcg Tablet PO 50 mcg DAILY PLACIDO Administration Ondansetron HCl 4 mg 01/19/20 21:56 Ondansetron 2 Mg /Ml Sdv 2 Ml IVP Q8H PRN vomiting, or N/V if npo Pantoprazole Sodiu m 40 mg 01/20/20 09:00 01/26/20 17:[address] 40 Mg Tablet PO 40 mg BID PLACIDO Administration Senna/Docusate Sod ium 1 tab 01/20/20 09:00 Sennosides-Docus ate Tablet PO BID PRN CONSTIPATION Sodium Phosphate 118 ml 01/19/20 22:03 Fleet Enema 133 Ml Enema OR DAILY PRN Constipation Tamsulosin HCl 0.4 mg 01/20/20 09:00 01/26/20 08:43 Tamsulosin 0.4 M g Capsule PO 0.4 mg DAILY PLACIDO Administration Tramadol HCl 50 mg 01/19/20 22:03 Tramadol 50 Mg T ablet PO BID PRN Pain Vancomycin HCl 125 mg 01/21/20 03:45 01/26/20 14:47 Vancomycin 1,000 Mg Oral Jennifer (Btl) PO 1.25 ml Q6H PLACIDO Administration No Known Allergies Allergy (Verified 01/19/20 10:48) Vitals/I&O/Wt Last Vital Signs Temp 97.3 F L 01/26/20 18:56 Pulse 73 01/26/20 18:56 Resp 20 H 01/26/20 18:56 BP 128/67 01/26/20 18:56 Pulse Ox 97 01/26/20 18:56 01/26/20 01/26/20 01/26/20 06:59 14:59 22:59 Intake Total 240 / 340 240 / 240 Output Total 200 / 450 200 / 200 50 / 250 Balance 40 / -110 -200 / -200 190 / -10 Weight last 48 hrs Weight 65.453 kg Weight 65.402 kg Weight 83.733 kg Physical Exam Const: COMMON NORMALS: no acute distress GENERAL APPEARANCE: cooperative, comfortable and frail appearing ORIENTATION/CONSCIOUSNESS: Yes awake OTHER: -more alert today, sitting in chair by bedside. HENMT: COMMON NORMALS: normocephalic, atraumatic, hearing grossly normal bilaterally and moist oral mucous membranes HEAD & SCALP: normocephalic and atraumatic Eye: COMMON NORMALS: Equal, round and reactive pupils present, EOMs intact bilaterally and conjunctivae normal CONJUNCTIVA: Yes conjunctivae normal PUPIL: Yes Equal, round and reactive pupils present Neck/C-Spine: COMMON NORMALS: full ROM GENERAL: Yes normal visual inspection and Yes trachea midline Resp: COMMON NORMALS: normal respiratory effort, No retractions, No use of accessory muscles and clear to auscultation bilaterally EFFORT & INSPECTION: Yes able to speak in complete sentences, Yes symmetric chest movement and No tachypneic AUSCULTATION: clear to auscultation bilaterally OTHER: -on RA Cardio: COMMON NORMALS: regular rate, regular rhythm, S1 normal heart sound present, S2 normal heart sound present and No murmurs present (Cardio) RATE: regular rate RHYTHM: regular rhythm HEART SOUNDS: S1 normal heart sound present and S2 normal heart sound present GI: COMMON NORMALS: Normal to inspection, nondistended, normoactive bowel sounds present, Soft to palpation and non-tender INSPECTION: Yes central obesity PALPATION: Yes Soft to palpation : BLADDER/KIDNEY EXAM: Yes catheter in place Extremity: COMMON NORMALS: normal to inspection, full ROM and no clubbing, cyanosis or edema; negative for no pedal edema Neuro: COMMON NORMALS: moves all extremities, no focal motor deficits and no sensory deficits noted SENSORIUM/ORIENTATION: Yes Orientation impaired OTHER: -Generally quite weak Psych: COMMON NORMALS: mental status grossly normal, Normal thought process present, cooperative, normal affect and speech normal SPEECH: Yes normal speech THOUGHT PROCESS: Normal thought process present INSIGHT: Poor insight present (Psych) Skin: COMMON NORMALS: no rashes or lesions noted, no jaundice, no petechiae and no mottling GENERAL SKIN EXAM: no rashes or lesions noted Urinary Catheter Management^: Hernandez: Cath Placed During This Visit: no Reason for Continuing Indwelling Catheter: Chronic Indwelling Urinary Catheter on Admission Data : 01/21/20 04:10 01/23/20 04:42 A&P Assessment and plan (1) Congestive heart failure: -Clinical evidence of acute systolic CHF exacerbation as evidenced by anasarca, hypoxia, significant BNP elevation greater than 27,000, evidence of subcutaneous edema on imaging, bilateral pleural effusions -off IV diuresis; has diuresed 2.5 L -Echo (08/2019): EF=40%, global LV hypokinesis, severe biatrial enlargement, mild AR -daily weights, monitor Is & Os, fluid restriction -telemetry monitoring -continue to monitor vital signs; currently stable -continue to monitor respiratory status -supplemental oxygen as needed Status: Acute Qualifiers: Heart failure chronicity: acute on chronic Heart failure type: systolic Qualified Code(s): I50.23 - Acute on chronic systolic (congestive) heart failure (2) Digoxin toxicity: -levels normalized (1.1) -on digoxin -unclear if this is contributed to change in mental status Status: Resolved Qualifiers: Encounter type: initial encounter Injury intent: accidental or unintentional Qualified Code(s): T46.0X1A - Poisoning by cardiac-stimulant glycosides and drugs of similar action, accidental (unintentional), initial encounter (3) CKD (chronic kidney disease): -RUMA on CKD stage 3; RUMA resolved -baseline Cr has been gradually increasing, was previously wnl, now around 1.5-1.6 -avoid nephrotoxins, renally dose meds -continue to monitor urine output -closely monitor renal function particularly with diuresis Status: Acute Qualifiers: Chronic kidney disease stage: stage 3 (moderate) Chronic kidney disease stage 3 subtype: stage 3a (GFR 45-59) Qualified Code(s): N18.31 - Chronic kidney disease, stage 3a (4) Altered mental status: -from history obtained, change in mental status has been gradual and progressive x 2-3 months -likely multifactorial given infection, high grade invasive bladder cancer, digoxin toxicity -CT head unremarkable -sitter needed -fall, aspiration precautions -this is likely to be his new baseline, with intermittent confusion Status: Acute Qualifiers: Altered mental status type: unspecified Qualified Code(s): R41.82 - Altered mental status, unspecified (5) 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 Carranza on 01/08/20 -has already had large bladder tumor resection (08/2019) -very guarded prognosis; may be appropriate for hospice if agreeable Status: Chronic (6) Hernia, inguinal, left: -has known large left inguinal hernia Status: Chronic (7) UTI (urinary tract infection): -UA indicative of infection -urine cx: Staph epidermidis -blood cx: prelim negative -on empiric Vancomycin; had been on Bactrim due to MRSA + urine cx (10/2019) Status: Acute Qualifiers: Urinary tract infection type: acute cystitis Hematuria presence: with hematuria Qualified Code(s): N30.01 - Acute cystitis with hematuria Additional A&P Information -noted bilateral lung base atelectasis vs. pneumonia; on empiric antibiotics -Advanced age -BPH with evidence of bladder outlet obstruction; on flomax -hypothyroidism; on levothyroxine -hyperlipidemia; on statin -chronic atrial fibrillation; digoxin on hold; no AC due to hematuria from underlying bladder cancer -chronic normocytic anemia due to chronic blood loss from underlying malignancy; baseline Hg is 9-10; continue to monitor H/H -C.difficile colitis; on contact isolation precautions, on oral vancomycin (day 6) -mechanical soft diet as tolerated; oral intake has been quite poor. Somewhat improved today -PT evaluation appreciated -DVT ppx with SCDs, no AC due to bleeding risk -Dispo: was living at assisted living facility, needs [facility] [place] Met with and spoke with his nephew Zachary James ([phone]) who states that he is the patient's DPOA. Indicates that patient would not want aggressive resuscitative measures and understands the patient is declining with poor prognosis overall. Found scanned copy of DPOA and healthcare directives from 2013 indicating patient would not desire aggressive resuscitative measures. [facility] [place] -Code status: DNR/DNI per discussion with patient's nephew Attestations Medical Necessity Statement*: Patient requires hospitalization for continued treatment of C.difficile colitis, UTI, pending appropriate disposition. Time Spent in Patient Care: 16 - 35 minutes (>than 50% of time spent in counselling and/or direct pt care on unit). 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
[2020-01-26 21:04] LABS: Vancomycin Trough 24.9 ug/mL (10-15)
[2020-01-27] VITALS (7 sets, daily range): BP systolic 106–124; BP diastolic 62–72; PULSE 66–83; RESP 18–21; TEMP 36.3–36.6; O2SAT 95–97
--- NOTE | 2020-01-27 03:13 | PC.PHAR ---
Pharmacokinetic dosing service Date: 01/27/20 Time: 0300 Patient: Erika simms Floor: [id number] Weight: 65.453 Kilograms Vancomycin single level analysis: Current dose being given: 1000 mg Current dosing interval: 24 hrs Current infusion time (hrs): 1 Single level Trough Data: Trough level obtained: 24.9 mcg/ml Timing of trough - # of hrs before next dose: 0.5 Hrs Desired peak: 40 mcg/ml Desired trough: 15 mcg/ml Diagnosis: Relevant medical/social history: Cultures and sensitivities: Other labs: Estimated PK Parameters: New rate constant (barbie): 0.027 hr-1 Half-life: 25.67 Hours Vd from levels: 45.82 Liters (0.7 L/kg) CLvanco= 1.237 L/hr Estimated New Dose and Interval Recommended dose: 1179.1 mg Recommended interval: 37.3 Hrs Patient response: Patient is responding to treatment [yes/no] wbc decreasing, S/SX reduced [yes/no] Renal function is stable/unstable Recommendations: Give Vancomycin 1000 mg q 36 hrs. Infuse over 1 hrs Expected Cpeak: 34.6 mcg/mL Expected Ctrough: 13.4 mcg/mL AUC 0-24 /KEITH Data: KEITH 0.5 mcg/mL: AUC/KEITH: 1077.9 KEITH 1.0 mcg/mL: AUC/KEITH: 538.9 Recommended labs and intervals: Measure Bun and Scr 3 times/week. Renal dosing of other antibiotics (review renal dosing of other medications and list guidelines here): Thank you for the consult, will continue to follow. Signature: Ann Roberts [facility]
[2020-01-27] MEDS: dronabinol 2.5 mg Capsule PO (08:15)
[2020-01-27] MEDS: pantoprazole DR 40 mg Tablet PO (08:16)
[2020-01-27] MEDS: fluoxetine 20 mg Capsule 40 MG PO (08:16)
[2020-01-27] MEDS: digoxin 125 mcg Tablet PO (08:16)
[2020-01-27] MEDS: levothyroxine 50 mcg Tablet PO (08:17)
[2020-01-27] MEDS: FUROsemide 20 mg Tablet PO (08:17)
[2020-01-27] MEDS: tamsulosin 0.4 mg Capsule PO (08:17)
[2020-01-27] MEDS: ARIPiprazole 2 mg Tablet PO (08:17)
[2020-01-27] MEDS: vancomycin 1,000 MG in sodium chloride 0.9% 250 ML 250 MG IV (11:22)
--- NOTE | 2020-01-27 12:06 | PM.DCS ---
Discharge Providers Date of Admission: 01/19/20 20:18 Date of Discharge: January 27, 2020 Attending Provider at Admission: Rosa M Robles MD Attending Provider at Discharge: Nishi Angela MD Consults: None Primary Care Provider: Shyann Harman MD, [facility] [place] Diagnoses at Discharge Discharge Diagnosis (1) Congestive heart failure: Status: Acute Permanent problem details: -Clinical evidence of acute systolic CHF exacerbation as evidenced by anasarca, hypoxia, significant BNP elevation greater than 27,000, evidence of subcutaneous edema on imaging, bilateral pleural effusions -off IV diuresis; has diuresed 2.1 L -Echo (08/2019): EF=40%, global LV hypokinesis, severe biatrial enlargement, mild AR -daily weights, monitor Is & Os, fluid restriction -telemetry monitoring -continue to monitor vital signs; currently stable -continue to monitor respiratory status -supplemental oxygen as needed Qualifiers: Heart failure chronicity: acute on chronic Heart failure type: systolic Qualified Code(s): I50.23 - Acute on chronic systolic (congestive) heart failure (2) Digoxin toxicity: Status: Resolved Permanent problem details: -levels normalized (1.1) -on digoxin -unclear if this is contributed to change in mental status Qualifiers: Encounter type: initial encounter Injury intent: accidental or unintentional Qualified Code(s): T46.0X1A - Poisoning by cardiac-stimulant glycosides and drugs of similar action, accidental (unintentional), initial encounter (3) CKD (chronic kidney disease): Status: Acute Permanent problem details: -RUMA on CKD stage 3; RUMA resolved -baseline Cr has been gradually increasing, was previously wnl, now around 1.5-1.6 -avoid nephrotoxins, renally dose meds -continue to monitor urine output -closely monitor renal function particularly with diuresis Qualifiers: Chronic kidney disease stage: stage 3 (moderate) Chronic kidney disease stage 3 subtype: stage 3a (GFR 45-59) Qualified Code(s): N18.31 - Chronic kidney disease, stage 3a (4) Altered mental status: Status: Acute Permanent problem details: -from history obtained, change in mental status has been gradual and progressive x 2-3 months -likely multifactorial given infection, high grade invasive bladder cancer, digoxin toxicity -CT head unremarkable -sitter no longer needed -fall, aspiration precautions -this is likely to be his new baseline, with intermittent confusion Qualifiers: Altered mental status type: unspecified Qualified Code(s): R41.82 - Altered mental status, unspecified (5) 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 Carranza on 01/08/20 -has already had large bladder tumor resection (08/2019) -very guarded prognosis; may be appropriate for hospice if agreeable (6) Hernia, inguinal, left: Status: Chronic Permanent problem details: -has known large left inguinal hernia (7) UTI (urinary tract infection): Status: Acute Permanent problem details: -UA indicative of infection -urine cx: Staph epidermidis -blood cx: prelim negative -on empiric Vancomycin; had been on Bactrim due to MRSA + urine cx (10/2019) Qualifiers: Urinary tract infection type: acute cystitis Hematuria presence: with hematuria Qualified Code(s): N30.01 - Acute cystitis with hematuria Other Information Additional DC diagnoses/information: -noted bilateral lung base atelectasis vs. pneumonia; on empiric antibiotics -Advanced age -BPH with evidence of bladder outlet obstruction; on flomax -hypothyroidism; on levothyroxine -hyperlipidemia; on statin -chronic atrial fibrillation; digoxin on hold; no AC due to hematuria from underlying bladder cancer -chronic normocytic anemia due to chronic blood loss from underlying malignancy; baseline Hg is 9-10; continue to monitor H/H -C.difficile colitis; on contact isolation precautions, on oral vancomycin (day 09/04) Reason for Visit Reason for Visit: WEAKNESS, LOW O2 Hospital Course Hospital Course Patient was admitted to the medical surgical floor and started on empiric antibiotic therapy secondary to noted urinalysis indicative of UTI. He presented with altered mental status and this appears to have been a gradual change, I suspect that some degree of this will be his new baseline. He has a known history of invasive bladder cancer with poor prognosis in addition to other chronic comorbidities including CHF, CKD. He did develop clinical evidence of systolic CHF exacerbation which was treated with IV diuretics. He did develop acute kidney injury as well but this has improved and he is currently at his baseline renal function. He was found to have staph epidermidis on his urine cultures, blood cultures have been negative but unfortunately was also found to be positive for C. difficile. Both UTI and C. difficile colitis were treated with vancomycin, both IV and oral. He was maintained on isolation precautions and should continue this until completion of oral vancomycin treatment for C. difficile. His oral intake has been quite poor and this will likely continue. Overall prognosis is quite poor and I have discussed this with his family including his nephew who is is currently healthcare proxy. They understand the circumstances and agree that patient should not have aggressive resuscitative measures per his wishes. More than likely he will need to be transitioned to end-of-life care in the coming days with continued decompensation. He was previously living in an assisted living facility but due to continued frailty and overall deconditioning SNF placement was recommended. This has been arranged and patient will be discharged [place] [facility] [place] He will need to continue to follow-up with his primary care physician. Hernandez catheter will be left in place on discharge due to patient's overall physical deconditioning and high likelihood of transition to end-of-life care. Physical Exam Const: COMMON NORMALS: no acute distress GENERAL APPEARANCE: cooperative, comfortable and frail appearing ORIENTATION/CONSCIOUSNESS: Yes awake OTHER: -more alert today, sitting in chair by bedside. HENMT: COMMON NORMALS: normocephalic, atraumatic, hearing grossly normal bilaterally and moist oral mucous membranes HEAD & SCALP: normocephalic and atraumatic Eye: COMMON NORMALS: Equal, round and reactive pupils present, EOMs intact bilaterally and conjunctivae normal CONJUNCTIVA: Yes conjunctivae normal PUPIL: Yes Equal, round and reactive pupils present Neck/C-Spine: COMMON NORMALS: full ROM GENERAL: Yes normal visual inspection and Yes trachea midline Resp: COMMON NORMALS: normal respiratory effort, No retractions, No use of accessory muscles and clear to auscultation bilaterally EFFORT & INSPECTION: Yes able to speak in complete sentences, Yes symmetric chest movement and No tachypneic AUSCULTATION: clear to auscultation bilaterally OTHER: -on RA Cardio: COMMON NORMALS: regular rate, regular rhythm, S1 normal heart sound present, S2 normal heart sound present and No murmurs present (Cardio) RATE: regular rate RHYTHM: regular rhythm HEART SOUNDS: S1 normal heart sound present and S2 normal heart sound present GI: COMMON NORMALS: Normal to inspection, nondistended, normoactive bowel sounds present, Soft to palpation and non-tender INSPECTION: Yes central obesity PALPATION: Yes Soft to palpation : BLADDER/KIDNEY EXAM: Yes catheter in place Extremity: COMMON NORMALS: normal to inspection, full ROM and no clubbing, cyanosis or edema; negative for no pedal edema Neuro: COMMON NORMALS: moves all extremities, no focal motor deficits and no sensory deficits noted SENSORIUM/ORIENTATION: Yes Orientation impaired OTHER: -Generally quite weak Psych: COMMON NORMALS: mental status grossly normal, Normal thought process present, cooperative, normal affect and speech normal SPEECH: Yes normal speech THOUGHT PROCESS: Normal thought process present INSIGHT: Poor insight present (Psych) Skin: COMMON NORMALS: no rashes or lesions noted, no jaundice, no petechiae and no mottling GENERAL SKIN EXAM: no rashes or lesions noted Urinary Catheter Management^: Hernandez: Cath Placed During This Visit: no Reason for Continuing Indwelling Catheter: Chronic Indwelling Urinary Catheter on Admission Discharge Data Data Completed and Pending: Completed Studies During Hospitalization Category Date Time Status CT abdomen pelvis wo con [id number] Rout ine Cat Scan 01/19/20 21:[address] head wo con* 7 0450 Urgent Cat Scan 01/19/20 17:15 Completed XR chest 1V gavino ble [id number] Stat Exams 01/19/20 17:02 Completed Labs from last 24 hours 01/26/20 20:22 Vancomycin Trough 24.9 H Vitals: Last Vital Signs Temp 97.8 F 01/27/20 11:47 Pulse 83 01/27/20 11:47 Resp 18 01/27/20 11:47 BP 119/62 01/27/20 11:47 Pulse Ox 95 01/27/20 11:47 Discharge Plan Discharge Patient Disposition: [facility] Condition: Stable Prescriptions: New vancomycin 125 mg capsule 125 mg PO Q6H 4 Days Qty: 16 RF: 0 Continued fluoxetine 40 mg capsule 40 mg PO DAILY Qty: 30 RF: 0 tramadol 50 mg tablet 50 mg PO BID PRN (Reason: Pain) Qty: 30 RF: 0 methenamine hippurate 1 gram tablet 1 g PO BID Qty: 60 RF: 0 Milk of Magnesia 400 mg/5 mL suspension 30 ml PO DAILY PRN (Reason: Constipation) Qty: 30 RF: 0 tamsulosin 0.4 mg capsule 0.4 mg PO DAILY Qty: 30 RF: 0 levothyroxine 50 mcg tablet 50 mcg PO DAILY Qty: 30 RF: 0 pantoprazole 40 mg tablet,delayed release (DR/EC) 40 mg PO BID Qty: 60 RF: 0 digoxin 125 mcg (0.125 mg) tablet 125 mcg PO DAILY Qty: 30 RF: 0 furosemide 20 mg tablet 20 mg PO DAILY Qty: 30 RF: 0 acetaminophen 500 mg capsule 500 mg PO Q6H PRN (Reason: Pain) Qty: 30 RF: 0 aripiprazole 2 mg tablet 2 mg PO DAILY Qty: 30 RF: 0 Senna Plus 8.6-50 mg capsule 1 tab-cap PO BID PRN (Reason: Constipation) Qty: 60 RF: 0 Discontinued Enema 19-7 gram/118 mL enema 118 ml NV DAILY PRN (Reason: Constipation) RF: 0 diphenhydramine HCl [Benadryl] 25 mg capsule 25 mg PO DAILY RF: 0 ascorbic acid (vitamin C) 1,000 mg tablet 1 g PO BID RF: 0 calcium carbonate [Calcium 600] 600 mg calcium (1,500 mg) tablet 1,500 mg PO DAILY Qty: 30 RF: 0 bisacodyl 10 mg Suppository 10 mg NV DAILY PRN (Reason: Constipation) Qty: 30 RF: 0 cholecalciferol (vitamin D3) [Vitamin D3] 25 mcg (1,000 unit) Tablet 25 mcg PO DAILY Qty: 30 RF: 0 sulfamethoxazole-trimethoprim 800-160 mg tablet 1 tab PO BID RF: 0 Discharge Orders: Discharge Order (Routine); Ordered 01/27/20 Ordered By: Nishi Angela Referrals: [facility] [Outside] Shyann Harman MD, [facility] [place] [Primary Care Provider] - Jana Steve DO [Referring] - 4-7 days Discharge Diet: Advance as tolerated Discharge Activity: Increase activity as tolerated Patient Instructions: Clostridium Difficile, Heart Failure (DC), Urinary Tract Infection in Men (DC) Discharge Attestations Time Spent in Discharge Care*: greater than 30 min Specific Discharge Activities: educating patient, educating and/or supporting family/caregiver (nephew Zachary James), discussing with telephonic case manager/social workers/dc planners, documenting/other paperwork and evaluating patient/reviewing data Status at Discharge: Cognitive status at discharge: mildly impaired cognition, Behavioral status at discharge: cooperative and dependent in ADL's, Functional status at discharge: uses cane/walker Overall status at discharge: patient has a new baseline Quality Metrics Clinical Quality Measures During this hospital stay, did patient experience: None Coding Level of Care Code Acute Paper Inspector for Renzo Fwsara Diagnoses Congestive heart failure I50.23 Heart failure chronicity: acute on chronic Heart failure type: systolic Digoxin toxicity T46.0X1A Encounter type: initial encounter Injury intent: accidental or unintentional CKD (chronic kidney disease) N18.31 Chronic kidney disease stage: stage 3 (moderate) Chronic kidney disease stage 3 subtype: stage 3a (GFR 45-59) Altered mental status R41.82 Altered mental status type: unspecified 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
== END 2020-01-27 13:41 | disposition skilled nursing facility (03) | DRG 291 ==
LOC: ER 20:25 → MEDSURG 21:17
PROVIDERS: Admitting Provider Student in an Organized Health Care Education/Training Program; Emergency Provider Emergency Medicine; PCP Family Medicine; Visit Provider Family Medicine
DX: I13.0 Hypertensive heart and chronic kidney disease with heart failure and stage 1 through stage 4 chronic kidney disease, or unspecified chronic kidney disease (principal); I50.23 Acute on chronic systolic (congestive) heart failure; J18.9 Pneumonia, unspecified organism; G93.40 Encephalopathy, unspecified; I48.20 Chronic atrial fibrillation, unspecified; N13.8 Other obstructive and reflux uropathy; N17.9 Acute kidney failure, unspecified; J98.11 Atelectasis; A04.72 Enterocolitis due to Clostridium difficile, not specified as recurrent; N30.00 Acute cystitis without hematuria; I12.9 Hypertensive chronic kidney disease with stage 1 through stage 4 chronic kidney disease, or unspecified chronic kidney disease; N18.31 Chronic kidney disease, stage 3a; C67.2 Malignant neoplasm of lateral wall of bladder; Z86.718 Personal history of other venous thrombosis and embolism; Z86.14 Personal history of Methicillin resistant Staphylococcus aureus infection; N40.1 Benign prostatic hyperplasia with lower urinary tract symptoms; R33.8 Other retention of urine; K21.9 Gastro-esophageal reflux disease without esophagitis; E03.9 Hypothyroidism, unspecified; Z87.442 Personal history of urinary calculi; M19.90 Unspecified osteoarthritis, unspecified site; I73.9 Peripheral vascular disease, unspecified; T46.0X1A Poisoning by cardiac-stimulant glycosides and drugs of similar action, accidental (unintentional), initial encounter; K40.90 Unilateral inguinal hernia, without obstruction or gangrene, not specified as recurrent; Z66 Do not resuscitate; B95.8 Unspecified staphylococcus as the cause of diseases classified elsewhere; R01.1 Cardiac murmur, unspecified; D50.0 Iron deficiency anemia secondary to blood loss (chronic); E78.5 Hyperlipidemia, unspecified
CPT/HCPCS: 12345; 36415; 36600; 70450; 71045; 74176; 80048; 80053; 80162; 80202; 81001; 82805; 83605; 83735; 83880; 84145; 84443; 85025; 85610; 87040; 87077; 87086; 87186; 87426; 87493; 87804; 93005; 96372; 96375; 97110; 97116; 97161; 97530; 99283; J1644; J1940; J3370; J7050; Q0167

== ENCOUNTER 2020-02-09 11:00 | Inpatient (IN) | payer MEDICARE, OTHER, SELFPAY ==
[2020-02-09] VITALS (7 sets, daily range): BP systolic 111–125; BP diastolic 54–75; PULSE 67–87; RESP 16–22; TEMP 36.3–36.8; O2SAT 92–98; BMI 25.8
--- NOTE | 2020-02-09 11:05 | XR_ITS ---
WS: [id number] XR chest 1V portable [id number] REASON FOR EXAM: sob FINDINGS: Compared to 01/19/2020, no significant interval change is identified. There is very marked cardiomega ly and bilateral upper lobe pulmonary venous distention. There is probably a small amount of fluid in the minor fissure on the right and probably small pleural effusions. No definite acute abnormality i s identified. XR/XR chest 1V portable [id number] IMPRESSION: Very marked cardiomegaly with upper lobe pulmonary venous distention. No defini te acute abnormality.
--- NOTE | 2020-02-09 11:05 | ECG_ITS ---
[facility] Test Date: 2020-02-09 Pat Name: Alex James Department: Room: Gender: Male Medical Radiation Dosimetrist: : 1935 Requested By: Joselito Bernabe Order Number: [id number] MD: Makeda Cason M.D. Measurements Intervals [place] Rate: 77 P: CO: QRS: -27 QRSD: 101 T: 0 QT: 383 QTc: 435 Interpretive Statements ATRIAL FIBRILLATION BORDERLINE LEFT AXIS DEVIATION [QRS AXIS < -20] LOW QRS VOLTAGE IN EXTREMITY LEADS [QRS DEFLECTION < 0.5 mV IN LIMB LEADS] MODERATE ST DEPRESSION [0.05+ mV ST DEPRESSION] Compared to ECG 01/19/2020 18:29:14 Low QRS voltage now present Incomplete right bundle-branch block no longer present Left anterior fascicular block no longer present ST (T wave) deviation still present Electronically Signed On 02-10-2020 19:39:18 WATER RESOURCE ENGINEERING SPECIALIST by Makeda Cason M.D. [id number]
--- NOTE | 2020-02-09 11:15 | W.ED.RECABL ---
HPI - Recheck/Abnormal Lab/Rx General: Chief Complaint: Recheck/Abnormal Lab/Rx Stated Complaint: ABNORMAL LABS Time Seen by Provider: 02/09/20 11:00 Source: patient and EMS Mode of arrival: EMS Limitations: no limitations History of Present Illness: HPI narrative: Alex is an 84-year-old male who is here from [facility] with an elevated BNP. He has chronic congestive heart failure and was recently admitted here at the beginning of this month. Patient states that he feels fine he has had no shortness of breath and has no complaints. Denies any fever denies any worsening or improving factors. Review of Systems Const: Denies: fever(s), chills, body aches or change in appetite Eyes: Denies: blurry vision or eye discomfort ENMT: Denies: throat pain or dental pain Card: Denies: chest pain Resp: Denies: dyspnea GI: Denies: abdominal pain, nausea, vomiting or diarrhea : Denies: dysuria Musc: Denies: neck pain or back pain Skin/Breast: Denies: rash Neuro: Denies: headache(s) Psych: Denies: depression Adonay/Lymph: Denies: easy bruising All/Imm: Denies: urticaria PFSH ED PFSH: Medical History (Updated 02/09/20 @ 14:17 by Joselito Bernabe MD) BPH (benign prostatic hyperplasia) BPH NOS w ur obs/LUTS -continue tamsulosin -Noted chronic bladder wall thickening with evidence of bilateral hydronephrosis likely related to bladder outlet obstruction -3-way catheter in place due to need for CBI 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 Carranza on 01/08/20 -has already had large bladder tumor resection (08/2019) -very guarded prognosis; may be appropriate for hospice if agreeable Cardiomyopathy Chronic atrial fibrillation -Rate controlled -Telemetry monitoring Chronic GERD CKD (chronic kidney disease) -RUMA on CKD stage 3; RUMA resolved -baseline Cr has been gradually increasing, was previously wnl, now around 1.5-1.6 -avoid nephrotoxins, renally dose meds -continue to monitor urine output -closely monitor renal function particularly with diuresis Clot retention of urine -Noted to have urinary retention and required aggressive irrigation of bladder done by Dr. Carranza in clinic -Catheter placed; continue to monitor output -no need for continued continuous bladder irrigation -Urology evaluation by Dr. Carranza appreciated; s/p cystoscopy with clot evacuation and bladder tumor resection; POD # 4 -Due to noted gross hematuria, Coumadin on hold -Close monitoring of hemoglobin -UA with noted hematuria/+LE/+bacteria/minimal pyuria; on Ceftriaxone particularly with noted instrumentation, catheter placement, leukocytosis. Urine cx prelim negative. Blood cx prelim negative. Will d/c on continued antibiotics on discharge per discussion with Dr. Carranza Congestive heart failure -No evidence of CHF exacerbation currently -Echo: EF=40%, diffuse LV hypokinesis, severe biatrial enlargement Congestive heart failure -Clinical evidence of acute systolic CHF exacerbation as evidenced by anasarca, hypoxia, significant BNP elevation greater than 27,000, evidence of subcutaneous edema on imaging, bilateral pleural effusions -off IV diuresis; has diuresed 2.1 L -Echo (08/2019): EF=40%, global LV hypokinesis, severe biatrial enlargement, mild AR -daily weights, monitor Is & Os, fluid restriction -telemetry monitoring -continue to monitor vital signs; currently stable -continue to monitor respiratory status -supplemental oxygen as needed Hernia, inguinal, left -has known large left inguinal hernia Hyperlipidemia Hypertension -normotensive; continue to monitor vital signs -continue Coreg, resume low dose lasix, d/c ACEi -off IVF hydration Hypothyroidism -continue levothyroxine Kidney stone No intervention needed Osteoarthritis Peripheral vascular disease Thromboembolism History of DVT right lower extremity Urinary retention Surgical History H/O skin graft Following debridement on left lower extremity for necrotizing fasciitis History of bone marrow biopsy Previous back surgery Previously documented, but patient cannot remember having this done as of 09/26/2019 Family History Father , at age 96 No problems noted. Mother , at age 72 Cancer breast Social History Smoking and tobacco status: never smoked Alcohol intake: never Lives independently: Yes Housing: Assisted Living Facility Marital status: / Marital status details: x 52 yrs Current occupational status: retired History of recent travel: No Physical Exam Const: COMMON NORMALS: no acute distress, patient oriented x3 and healthy appearing HENMT: COMMON NORMALS: normocephalic and atraumatic HEAD & SCALP: normocephalic and atraumatic Eye: COMMON NORMALS: Equal, round and reactive pupils present and EOMs intact bilaterally PUPIL: Yes Equal, round and reactive pupils present Neck/C-Spine: COMMON NORMALS: full ROM and supple Chest: COMMONS NORMALS: normal inspection of the chest and normal palpation of entire chest wall Resp: COMMON NORMALS: normal respiratory effort, No retractions, No use of accessory muscles and clear to auscultation bilaterally AUSCULTATION: clear to auscultation bilaterally Cardio: COMMON NORMALS: regular rate, regular rhythm and No murmurs present (Cardio) RATE: regular rate RHYTHM: regular rhythm GI: COMMON NORMALS: Normal to inspection, nondistended, normoactive bowel sounds present, Soft to palpation, non-tender and no masses PALPATION: Yes Soft to palpation Extremity: COMMON NORMALS: normal to inspection and full ROM Neuro: COMMON NORMALS: patient oriented x3, moves all extremities and no focal motor deficits Psych: COMMON NORMALS: mental status grossly normal, Normal thought process present and cooperative THOUGHT PROCESS: Normal thought process present Skin: COMMON NORMALS: no rashes or lesions noted and no wounds GENERAL SKIN EXAM: no rashes or lesions noted Course Vital Signs: Vital signs: Vital Signs Temperature 97.4 F L 02/09/20 11:07 Pulse Rate 87 02/09/20 13:33 Respiratory Rate 22 H 02/09/20 13:33 Blood Pressure 117/62 02/09/20 13:33 Pulse Oximetry 92 02/09/20 13:33 MDM - Recheck/Abnormal Lab/Rx MDM Narrative: Medical decision making narrative: Patient presents here with congestive heart failure and does have an elevated BNP with some extremity swelling. He also has acute kidney injury with an elevated creatinine compared to his baseline. Spoke to hospitalist will admit for diuresis along with treatment of his acute kidney injury. Patient has been stable while here. Lab Data: Labs: Lab Results 02/09/20 02/09/20 02/09/20 Range/Units 11:23 11:23 11:23 WBC 5.2 (4.0-10.0) 10^3/ uL RBC 3.48 L (4.1-5.3) 10^6/u L Hgb 9.7 L (11.7-16.6) g/dL Hct 32.1 L (42.0-52.0) % MCV 92.2 (80-94) fL MCH 27.9 L (28.0-34.0) pg MCHC 30.2 (30.0-36.0) g/dL RDW 29.6 H (12.1-15.1) % Plt Count 111 L (130-400) 10^3/c mm MPV 12.0 H (7.4-10.4) fL Neut % (Auto) 79.3 % Lymph % (Auto) 7.3 % Jennings % (Auto) 6.5 % Eos % (Auto) 3.2 % Baso % (Auto) 1.0 % Neut # (Auto) 4.16 (1.8-7.7) 10^3/u L Lymph # (Auto) 0.4 L (0.8-4.8) 10^3/u L Jennings # (Auto) 0.3 (0.2-0.9) 10^3/u L Eos # (Auto) 0.2 (0.0-0.8) 10^3/u L Baso # (Auto) 0.1 (0.0-0.1) 10^3/u L Nucleated RBC % (a uto) 3.1 % Nucleated RBCs # 0.2 /100WBC Sodium 144 (136-145) mmol/L Potassium 4.6 (3.5-5.1) mmol/L Chloride 109 H (98-107) mmol/L Carbon Dioxide 21 L (22-29) mmol/L Anion Gap 18.6 (5-19) BUN 72 H (8-23) mg/dL Creatinine 2.7 H (0.7-1.2) mg/dL GFR Calculation Not Reportable Glucose 145 H (65-115) mg/dL Calculated Osmolal ity 322 H (285-295) mOsm/k g Calcium 8.5 (8.5-10.5) mg/dL Total Bilirubin 1.4 H (0.15-1.2) mg/dL AST 26 (0-40) U/L ALT 10 (0-41) U/L Alkaline Phosphata se 195 H (40-130) IU/L NT-Pro-B Natriuret Pep 69177 H (0-450) pg/mL Total Protein 6.3 L (6.6-8.7) g/dL Albumin 3.2 L (3.5-5.2) g/dL Globulin 3.1 (1.3-4.6) g/dL Digoxin 1.8 H (0.6-1.2) ng/mL Imaging Data^: CXR: Radiologist's impression: [id number] [id number] XRay Report Signed Patient: Alex James Unit #: [id number] : 1935 Age/Sex: 84 / M ADM Date: 02/09/20 Loc: ER Room/Bed: Attending Dr: Ordering Provider/Ordering MD: Joselito Bernabe MD Date of Service: 02/09/20 Procedure(s): XR chest 1V portable [id number] Accession Number(s): [id number] Report Number: [id number] WS: [id number] XR chest 1V portable [id number] REASON FOR EXAM: sob FINDINGS: Compared to 01/19/2020, no significant interval change is identified. There is very marked cardiomegaly and bilateral upper lobe pulmonary venous distention. There is probably a small amount of fluid in the minor fissure on the right and probably small pleural effusions. No definite acute abnormality is identified. XR/XR chest 1V portable [id number] IMPRESSION: Very marked cardiomegaly with upper lobe pulmonary venous distention. No definite acute abnormality. EKG Data^: EKG 1: Attestation: I personally reviewed and interpreted this EKG as follows: EKG interpretation date: 02/09/20 EKG interpretation time: 11:28 Interpretation: afib hr [address] or t wave abnormalities qrs 101 qtc 415 Discharge Plan Discharge Patient Disposition: Admitted As Inpatient Admit Provider: Dhaval Souza Clinical Impression: Acute kidney injury CHF (congestive heart failure) Qualifiers: Heart failure type: unspecified Heart failure chronicity: acute Qualified Code(s): I50.9 - Heart failure, unspecified Condition: Stable Coding Level of Care Code ED Tmr Teacher for Chg Fwd Exam Comprehensive
[2020-02-09 12:04] LABS: Digoxin 1.8 ng/mL (0.6-1.2)
[2020-02-09 12:11] LABS: Alanine Aminotransferase 10 U/L (0-41); Albumin Level 3.2 g/dL (3.5-5.2); Alkaline Phosphatase 195 IU/L (40-130); Anion Gap 18.6 (5-19); Aspartate Amino Transferase 26 U/L (0-40); Blood Urea Nitrogen 72 mg/dL (8-23); Calcium 8.5 mg/dL (8.5-10.5); Carbon Dioxide 21 mmol/L (22-29); Chloride 109 mmol/L (98-107); Globulin 3.1 g/dL (1.3-4.6); Glucose 145 mg/dL (65-115); Osmolality Calculated 322 mOsm/kg (285-295); Potassium 4.6 mmol/L (3.5-5.1); Sodium 144 mmol/L (136-145); Total Bilirubin 1.4 mg/dL (0.15-1.2); Total Protein 6.3 g/dL (6.6-8.7)
[2020-02-09 12:33] LABS: NT Pro B Type Natriuretic Pept 45043 pg/mL (0-450)
[2020-02-09 13:43] LABS: Basophils # 0.1 10^3/uL (0.0-0.1); Eosinophils # 0.2 10^3/uL (0.0-0.8); Eosinophils % 3.2 %; Hematocrit 32.1 % (42.0-52.0); Hemoglobin 9.7 g/dL (11.7-16.6); Lymphocytes # 0.4 10^3/uL (0.8-4.8); Lymphocytes % 7.3 %; Mean Corpuscular Hemoglobin 27.9 pg (28.0-34.0); Mean Corpuscular Volume 92.2 fL (80-94); Monocytes # 0.3 10^3/uL (0.2-0.9); Monocytes % 6.5 %; Neutrophils # 4.16 10^3/uL (1.8-7.7); Neutrophils % 79.3 %; Nucleated Red Blood Cells # 0.2 /100WBC; Nucleated Red Blood Cells % 3.1 %; Platelet Count 111 10^3/cmm (130-400); Red Blood Count 3.48 10^6/uL (4.1-5.3); Red Cell Distribution Width 29.6 % (12.1-15.1); White Blood Count 5.2 10^3/uL (4.0-10.0)
[2020-02-09 13:46] LABS: Mean Corpuscular HGB Conc 30.2 g/dL (30.0-36.0)
--- NOTE | 2020-02-09 13:56 | PM.HP ---
Providers/Chief Complaint Admitting Physician: Dhaval Souza Primary Care Provider: Shyann Harman MD, [facility] [place] Chief Complaint: ABNORMAL LABS History of Present Illness 84-year-old male with past medical history significant for hypothyroidism, hyperlipidemia, anemia of chronic disease, chronic left side femoral hernia, right lower extremity DVT, chronic atrial fibrillation on digoxin previously on Coumadin, benign prostatic hyperplasia with history of outlet obstruction s/p chronic indwelling tapia, invasive bladder cancer s/p hx of cystoscopy/tumor resection, gross hematuria, recent Clostridium difficile colitis treated with p.o. vancomycin, chronic stage 3 kidney disease with a baseline creatinine of around 1.5 and chronic systolic heart failure with last known EF 40% ( 08/2019) who was sent to ER for evaluvation of abnormal lab. Patient is slow to respond and somewhat confused not able to provide history leading to admission. Patient did answer yes or no to some questions. Denied worsening shortness of breath, chest pain, fever, nausea, vomiting or chills. Did nod yes for increasing edema. In review of SNF records it appears patient was recently tested for covid-19 antigen on 02/04/20 which was negative. Labs sent over were drawn on 02/05 during which hand written note states he was given 1L bolus prior to blood draw. Results sent showed WBC of 4.6, hemoglobin of 8.8, hematocrit 29.7 and a platelet count of 105. Sodium 143, potassium 4.6, chloride 109, bicarb 19, BUN 78 and creatinine of 2.80. Apparently patient also had elevated BMP however this was not noted on documentation. Upon arrival to emergency room patient was not found to be in any respiratory distress. His initial vitals showed a blood pressure of 125/75, heart rate of 73, respiratory rate of 18, temperature of 98.3 and oxygen saturation at 98% on room air. laboratory workup in emergency room today showed WBC 5.2, hemoglobin 9.7, hematocrit 32.1 and a platelet count of 111. Sodium 144, potassium 4.6, chloride 109, bicarb 21, BUN 72 and creatinine of 2.7 which was increased from baseline 1.5. Glucose was 145. AST 15, ALT of 26, alkaline phosphatase 195 and a total bilirubin of 1.4. Digoxin level 1.8. ProBNP of 45,043. Of note recently admitted to the hospital from 01/18 to 01/26 with altered mental status, systolic heart failure, RUMA on CKD, C-diff colitis and Dignoxin toxicity. Imaging studies included chest x-ray which showed very marked cardiomegaly with upper lobe pulmonary venous distension without any evidence of acute abnormality as these changes were noted on previous x-ray on 01/19/2020. It appears hospice consult was discussed due to overall decline, invasive bladder cancer for which he was not a candidate for chemo due to overall functional decline. Unclear if this was obtained. Advance directive was noted and patient wishes were to be DNR. Review of Systems General: Reports: ROS unobtainable due to medical condition Medications/Allergies Home Medications Medication Instructions Recorded Confirmed Last Taken Type Senna Plus 1 tab-cap PO BID PRN #60 cap 01/26/20 02/09/20 Unknown Rx acetaminophen 500 mg PO Q6H PRN #30 cap 01/26/20 02/09/20 Unknown Rx magnesium hydroxide [Milk of 30 ml PO DAILY PRN #30 ml 01/26/20 02/09/20 Unknown Rx Magnesia] tramadol 50 mg PO BID PRN #30 tab 01/26/20 02/09/20 02/09/20 Rx aripiprazole 2 mg PO DAILY@0800 02/09/20 02/09/20 02/09/20 History digoxin 125 mcg PO DAILY@0800 02/09/20 02/09/20 02/09/20 History fluoxetine 40 mg PO DAILY@0800 02/09/20 02/09/20 02/09/20 History furosemide 20 mg PO DAILY@0800 02/09/20 02/09/20 02/09/20 History levothyroxine 50 mcg PO DAILY@0530 02/09/20 02/09/20 02/09/20 History methenamine hippurate 1 g PO BID@0800,199902/09/20 02/09/20 02/09/20 History pantoprazole 40 mg PO BID@0800,199902/09/20 02/09/20 02/09/20 History polyethylene glycol 3350 [Miralax] 17 g PO DAILY PRN 02/09/20 02/09/20 Unknown History tamsulosin 0.4 mg PO DAILY@0800 02/09/20 02/09/20 Unknown History Allergies Allergy/AdvReac Type Severity Reaction Status Date / Time No Known Allergies Allergy Verified 01/19/20 10:48 PFSH Acute PFSH: Medical History (Updated 02/09/20 @ 17:59 by Dhaval Souza MD) BPH (benign prostatic hyperplasia) BPH NOS w ur obs/LUTS -continue tamsulosin -Noted chronic bladder wall thickening with evidence of bilateral hydronephrosis likely related to bladder outlet obstruction -3-way catheter in place due to need for CBI 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 Carranza on 01/08/20 -has already had large bladder tumor resection (08/2019) -very guarded prognosis; may be appropriate for hospice if agreeable Cardiomyopathy Chronic atrial fibrillation -Rate controlled -Telemetry monitoring Chronic GERD CKD (chronic kidney disease) -RUMA on CKD stage 3; RUMA resolved -baseline Cr has been gradually increasing, was previously wnl, now around 1.5-1.6 -avoid nephrotoxins, renally dose meds -continue to monitor urine output -closely monitor renal function particularly with diuresis Clot retention of urine -Noted to have urinary retention and required aggressive irrigation of bladder done by Dr. Carranza in clinic -Catheter placed; continue to monitor output -no need for continued continuous bladder irrigation -Urology evaluation by Dr. Carranza appreciated; s/p cystoscopy with clot evacuation and bladder tumor resection; POD # 4 -Due to noted gross hematuria, Coumadin on hold -Close monitoring of hemoglobin -UA with noted hematuria/+LE/+bacteria/minimal pyuria; on Ceftriaxone particularly with noted instrumentation, catheter placement, leukocytosis. Urine cx prelim negative. Blood cx prelim negative. Will d/c on continued antibiotics on discharge per discussion with Dr. Carranza Congestive heart failure -No evidence of CHF exacerbation currently -Echo: EF=40%, diffuse LV hypokinesis, severe biatrial enlargement Congestive heart failure -Clinical evidence of acute systolic CHF exacerbation as evidenced by anasarca, hypoxia, significant BNP elevation greater than 27,000, evidence of subcutaneous edema on imaging, bilateral pleural effusions -off IV diuresis; has diuresed 2.1 L -Echo (08/2019): EF=40%, global LV hypokinesis, severe biatrial enlargement, mild AR -daily weights, monitor Is & Os, fluid restriction -telemetry monitoring -continue to monitor vital signs; currently stable -continue to monitor respiratory status -supplemental oxygen as needed Hernia, inguinal, left -has known large left inguinal hernia Hyperlipidemia Hypertension -normotensive; continue to monitor vital signs -continue Coreg, resume low dose lasix, d/c ACEi -off IVF hydration Hypothyroidism -continue levothyroxine Kidney stone No intervention needed Osteoarthritis Peripheral vascular disease Thromboembolism History of DVT right lower extremity Urinary retention Surgical History H/O skin graft Following debridement on left lower extremity for necrotizing fasciitis History of bone marrow biopsy Previous back surgery Previously documented, but patient cannot remember having this done as of 09/26/2019 Family History Father , at age 96 No problems noted. Mother , at age 72 Cancer breast Social History Smoking and tobacco status: never smoked Alcohol intake: never Lives independently: Yes Housing: Assisted Living Facility Marital status: / Marital status details: x 52 yrs Current occupational status: retired History of recent travel: No Vitals/I&O/Wt Last Vital Signs Temp 97.4 F L 02/09/20 11:07 Pulse 87 02/09/20 13:33 Resp 22 H 02/09/20 13:33 BP 117/62 02/09/20 13:33 Pulse Ox 92 02/09/20 13:33 Weight last 48 hrs Weight 77.111 kg Physical Exam Narrative: EXAM NARRATIVE: General : chronically ill appearing, cachexia, HEENT : Grossly unremarkable CVS : irregular CHEST: mild labored respiration ABD : non-distended, large left inguinal hernia - Tapia Ext : Bilateral edema Data : 02/09/20 11:23 02/09/20 11:23 A&P Assessment and plan (1) Acute on chronic systolic (congestive) heart failure: Status: Acute (2) Acute renal failure superimposed on stage 3 chronic kidney disease: Status: Acute (3) Acute encephalopathy: Status: Acute (4) Digoxin toxicity: Status: Acute (5) 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: Status: Acute (6) BPH without urinary obstruction: Status: Acute (7) Chronic indwelling Tapia catheter: Status: Acute (8) Chronic atrial fibrillation: Status: Acute (9) Chronic GERD: Status: Acute Additional A&P Information Acute on chronic systolic (EF 40%) heart failure exacerbation with anasarca - Chest x-ray noted chronic cardiomegaly/pulmonary congestion with out any acute changes compared to x-ray on 01/18 - Will monitor fluid status - Check daily weight - Will order limited echo to assess LV function - Cautious diereses ( difficult due to renal failure) Acute on chronic stage 3 kidney failure - Possible cardio-renal possible obstructive vs medication included and poor oral intake. - Baseline creatinine 1.5 - Now 2.7 - Protein/creatinine ratio ordered - Nephrology on board - Lasix 20 mg IV Q12hr ordered - May consider CT abd/pelvis w/o contrast / Renal US Bladder cancer s/p TURBT ( 08/2019) - High grade urothelial carcinoma w/ invasion to lamina propria - Following with urology on a outpatient bases - Prior notes reviewed and pt has been a poor candidate for chemotherapy due to overall poor functional status Acute encephalopathy possibly on chronic - Baseline mental status is unclear - Recently noted to be confused on 01/18 admit - Etiology likely multi-factorial - Will rule out acute infection - Pro-calctonin in am - Possible due to digoxin toxicity - Will consult with SW/CM Digoxin toxicity - Dig Level 1.8 - Hold digoxin - Repeat level in AM - Hold on dig-bind Chronic atrial fibrillation - Digoxin 125 mcg PO daily - HOLD due to toxicity - Previosly on coumadin - Discontinued due to hematuria - Cardiac tele monitoring - Will consider cardiology consult 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 s/p indwelling tapia - Will hold Methenamine hippurate - Check UA - reflex culture - Will start abx if also febrile - Suspected colonization ( hx of MRSA ) Recent C-Diff colitis - On 01/19 - S/p treatment w/PO vancomycin - No reported recurrence Chronic left inguinal hernia - Noted in prior documentation - No evidence of incarceration Hx of MDRO infection/LLE necrotizing fasciitis - S/p hx of skin grafts Hyperlipidemia - Not on statin Hypothyroid - Synthroid 50 mcg PO daily Depression - Abilify 2 mg PO daily - Prozac 40 mg PO daily Severe malnutrition /Debility - Dietary/PT/OT consult - Bedside swallow - Low NA diet GI ppx - Protonix 40 mg PO daily DVT ppx - SCDs Attestations Medical Necessity Statement*: Patient admitted to the hospital with acute renal insufficiency, digoxin toxicity altered mental status and anasarca due to systolic heart failure requiring IV Lasix with likely require over 2 midnight stay in hospital. Time Spent in Patient Care: Greater than 35 minutes (>than 50% of time spent in counselling and/or direct pt care on unit). 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
--- NOTE | 2020-02-09 16:40 | PM.CONSULT ---
Providers/Reason For Consult Consulting Physican/Specialty*: Suly Sharma DO, telenephrology Reason for Consult*: RUMA, anasarca Attending Physician: Dhaval Souza Primary Care Provider: Shyann Harman MD, [facility] [place] History of Present Illness History of Present Illness Alex James is a 84 year old male presenting from [facility] for evaluation and treatment of volume overload and RUMA. Unable to obtain history from patient. Meds/Allergies Home Medications and Allergies Home Medications Medication Instructions Recorded Confirmed Last Taken Type Senna Plus 1 tab-cap PO BID PRN #60 cap 01/26/20 02/09/20 Unknown Rx acetaminophen 500 mg PO Q6H PRN #30 cap 01/26/20 02/09/20 Unknown Rx magnesium hydroxide [Milk of 30 ml PO DAILY PRN #30 ml 01/26/20 02/09/20 Unknown Rx Magnesia] tramadol 50 mg PO BID PRN #30 tab 01/26/20 02/09/20 02/09/20 Rx aripiprazole 2 mg PO DAILY@0800 02/09/20 02/09/20 02/09/20 History digoxin 125 mcg PO DAILY@0800 02/09/20 02/09/20 02/09/20 History fluoxetine 40 mg PO DAILY@0800 02/09/20 02/09/20 02/09/20 History furosemide 20 mg PO DAILY@0800 02/09/20 02/09/20 02/09/20 History levothyroxine 50 mcg PO DAILY@0530 02/09/20 02/09/20 02/09/20 History methenamine hippurate 1 g PO BID@0800,199902/09/20 02/09/20 02/09/20 History pantoprazole 40 mg PO BID@0800,199902/09/20 02/09/20 02/09/20 History polyethylene glycol 3350 [Miralax] 17 g PO DAILY PRN 02/09/20 02/09/20 Unknown History tamsulosin 0.4 mg PO DAILY@0800 02/09/20 02/09/20 Unknown History Allergies Allergy/AdvReac Type Severity Reaction Status Date / Time No Known Allergies Allergy Verified 01/19/20 10:48 PFSH Acute PFSH: Medical History BPH (benign prostatic hyperplasia) BPH NOS w ur obs/LUTS -continue tamsulosin -Noted chronic bladder wall thickening with evidence of bilateral hydronephrosis likely related to bladder outlet obstruction -3-way catheter in place due to need for CBI 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 Carranza on 01/08/20 -has already had large bladder tumor resection (08/2019) -very guarded prognosis; may be appropriate for hospice if agreeable Cardiomyopathy Chronic atrial fibrillation -Rate controlled -Telemetry monitoring Chronic GERD CKD (chronic kidney disease) -RUMA on CKD stage 3; RUMA resolved -baseline Cr has been gradually increasing, was previously wnl, now around 1.5-1.6 -avoid nephrotoxins, renally dose meds -continue to monitor urine output -closely monitor renal function particularly with diuresis Clot retention of urine -Noted to have urinary retention and required aggressive irrigation of bladder done by Dr. Carranza in clinic -Catheter placed; continue to monitor output -no need for continued continuous bladder irrigation -Urology evaluation by Dr. Carranza appreciated; s/p cystoscopy with clot evacuation and bladder tumor resection; POD # 4 -Due to noted gross hematuria, Coumadin on hold -Close monitoring of hemoglobin -UA with noted hematuria/+LE/+bacteria/minimal pyuria; on Ceftriaxone particularly with noted instrumentation, catheter placement, leukocytosis. Urine cx prelim negative. Blood cx prelim negative. Will d/c on continued antibiotics on discharge per discussion with Dr. Carranza Congestive heart failure -No evidence of CHF exacerbation currently -Echo: EF=40%, diffuse LV hypokinesis, severe biatrial enlargement Congestive heart failure -Clinical evidence of acute systolic CHF exacerbation as evidenced by anasarca, hypoxia, significant BNP elevation greater than 27,000, evidence of subcutaneous edema on imaging, bilateral pleural effusions -off IV diuresis; has diuresed 2.1 L -Echo (08/2019): EF=40%, global LV hypokinesis, severe biatrial enlargement, mild AR -daily weights, monitor Is & Os, fluid restriction -telemetry monitoring -continue to monitor vital signs; currently stable -continue to monitor respiratory status -supplemental oxygen as needed Hernia, inguinal, left -has known large left inguinal hernia Hyperlipidemia Hypertension -normotensive; continue to monitor vital signs -continue Coreg, resume low dose lasix, d/c ACEi -off IVF hydration Hypothyroidism -continue levothyroxine Kidney stone No intervention needed Osteoarthritis Peripheral vascular disease Thromboembolism History of DVT right lower extremity Urinary retention Surgical History H/O skin graft Following debridement on left lower extremity for necrotizing fasciitis History of bone marrow biopsy Previous back surgery Previously documented, but patient cannot remember having this done as of 09/26/2019 Family History Father , at age 96 No problems noted. Mother , at age 72 Cancer breast Social History Smoking and tobacco status: never smoked Alcohol intake: never Lives independently: Yes Housing: Assisted Living Facility Marital status: / Marital status details: x 52 yrs Current occupational status: retired History of recent travel: No Vitals/I&O/Wt Last Vital Signs Temp 98.3 F 02/09/20 15:31 Pulse 73 02/09/20 15:31 Resp 18 02/09/20 15:31 BP 125/75 02/09/20 15:31 Pulse Ox 98 02/09/20 15:31 Weight last 48 hrs Weight 77.111 kg Physical Exam Extremity: GENERAL: Yes edema Data Labs: Other Labs: BNP 45,043, calcium 8.5, albumin 3.2, dig 1.8 Imaging^: CXR: Radiologist's impression: Very marked cardiomegaly with upper lobe pulmonary venous distention. No definite acute abnormality. A&P Additional A&P Information 1. Acute kidney injury 2. Chronic kidney disease 3. CHF/Volume overload 4. Anemia 5. History of bladder cancer, urine retention (chronic tapia) Recommend: Low dose IV lasix Consult Attestations Medical Necessity Statement: per primary service Time Spent in Patient Care: 16 - 35 minutes Coding Level of Care Code Acute Men'S Swim Coach for Renzo Arana
[2020-02-09] MEDS: FUROsemide 10 mg/mL SDV 2mL 20 MG IVP (17:38)
[2020-02-09 19:31] LABS: Bilirubin Urine Neg (Negative); Blood Urine 3+ (Negative); Glucose Urine UA Norm (Normal); Ketones Urine Negative (Negative); Nitrate Urine Negative (Negative); Protein Urine 2+ (Negative); Urine Appearance Hazy (CLEAR); Urine Color Yellow (Yellow); Urobilinogen Urine Norm (Negative); pH Urine 5 (5-7)
[2020-02-09 19:32] LABS: Add Urine Culture? Yes; Add Urine Microscopic? YES; Bacteria Urine TRACE /hpf; Leukocyte Esterase Urine 1+ (Negative); RBC Urine >100 /hpf (0-2); Transitional Epi Cells Urine 0-4 /hpf; WBC Urine 0-4 /hpf (0-5)
[2020-02-10] VITALS (7 sets, daily range): BP systolic 101–152; BP diastolic 55–74; PULSE 65–90; RESP 17–20; TEMP 36.4–37.1; O2SAT 94–97
[2020-02-10] MEDS: FUROsemide 10 mg/mL SDV 2mL 20 MG IVP (04:03)
[2020-02-10 05:21] LABS: Blood Urea Nitrogen 75 mg/dL (8-23); Calcium 8.6 mg/dL (8.5-10.5); Carbon Dioxide 20 mmol/L (22-29); Chloride 109 mmol/L (98-107); Glucose 116 mg/dL (65-115); Osmolality Calculated 321 mOsm/kg (285-295); Sodium 144 mmol/L (136-145)
[2020-02-10 05:27] LABS: Anion Gap 19.4 (5-19); Digoxin 1.3 ng/mL (0.6-1.2); Potassium 4.4 mmol/L (3.5-5.1)
[2020-02-10 05:31] LABS: Procalcitonin 0.47 ng/mL (0-0.5)
[2020-02-10 06:06] LABS: NT Pro B Type Natriuretic Pept 44549 pg/mL (0-450)
[2020-02-10] MEDS: levothyroxine 50 mcg Tablet PO (06:10)
[2020-02-10 06:11] LABS: Basophils # 0.1 10^3/uL (0.0-0.1); Eosinophils # 0.2 10^3/uL (0.0-0.8); Eosinophils % 3.7 %; Hematocrit 31.1 % (42.0-52.0); Hemoglobin 9.6 g/dL (11.7-16.6); Lymphocytes # 0.5 10^3/uL (0.8-4.8); Lymphocytes % 9.2 %; Mean Corpuscular HGB Conc 30.9 g/dL (30.0-36.0); Mean Corpuscular Hemoglobin 27.9 pg (28.0-34.0); Mean Corpuscular Volume 90.4 fL (80-94); Monocytes # 0.4 10^3/uL (0.2-0.9); Monocytes % 6.3 %; Neutrophils # 4.56 10^3/uL (1.8-7.7); Neutrophils % 77.8 %; Nucleated Red Blood Cells # 0.1 /100WBC; Platelet Count 108 10^3/cmm (130-400); Red Blood Count 3.44 10^6/uL (4.1-5.3); Red Cell Distribution Width 29.8 % (12.1-15.1); White Blood Count 5.9 10^3/uL (4.0-10.0)
[2020-02-10 06:14] LABS: Slide Review Slide Review Perform
[2020-02-10] MEDS: tamsulosin 0.4 mg Capsule PO (08:44)
[2020-02-10] MEDS: pantoprazole DR 40 mg Tablet PO (08:44)
[2020-02-10] MEDS: ARIPiprazole 2 mg Tablet PO (08:44)
[2020-02-10] MEDS: fluoxetine 20 mg Capsule 40 MG PO (08:44)
--- NOTE | 2020-02-10 08:49 | PM.PN ---
Subjective Subjective: Interval history: 02/09 No new clinical events overnight. The patient was requiring assistance with feedings. Mental status did not improve. Remained afebrile. No nausea, vomiting. Respiratory status remained stable. Did not require supplemental oxygen. Vitals/I&O/Wt Last Vital Signs Temp 98.4 F 02/10/20 08:00 Pulse 88 02/10/20 08:00 Resp 18 02/10/20 08:00 BP 118/63 02/10/20 08:00 Pulse Ox 97 02/10/20 08:00 02/09/20 02/10/20 02/10/20 22:59 06:59 14:59 Intake Total 240 / 240 Output Total 300 / 300 Balance 240 / 240 -300 / -60 Weight last 48 hrs Weight 77.111 kg Physical Exam Narrative: EXAM NARRATIVE: General : chronically ill appearing, cachexia, HEENT : Grossly unremarkable CVS : irregular CHEST: mild labored respiration ABD : non-distended, large left inguinal hernia - Tapia Ext : Bilateral edema Urinary Catheter Management^: Tapia: Cath Placed During This Visit: no Reason for Continuing Indwelling Catheter: Chronic Indwelling Urinary Catheter on Admission Data : 02/10/20 04:29 02/10/20 04:29 A&P Assessment and plan (1) Acute on chronic systolic (congestive) heart failure: Status: Acute (2) Acute renal failure superimposed on stage 3 chronic kidney disease: Status: Acute (3) Acute encephalopathy: Status: Acute (4) Digoxin toxicity: Status: Acute (5) 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: Status: Acute (6) BPH without urinary obstruction: Status: Acute (7) Chronic indwelling Tapia catheter: Status: Acute (8) Chronic atrial fibrillation: Status: Acute (9) Chronic GERD: Status: Acute Additional A&P Information Acute on chronic systolic (EF 40%) heart failure exacerbation with anasarca - Chest x-ray noted chronic cardiomegaly/pulmonary congestion with out any acute changes compared to x-ray on 01/18 - Will monitor fluid status - Check daily weight - Echo to assess LV function - Limited study ordered - Pending - Cautiously diurese ( difficult due to renal failure) - Started on Lasix 20 mg IV BID - Monitor Urine output Acute on chronic stage 3 kidney failure - Possible cardiorenal possible obstructive vs medication incuded and poor oral intake. - Baseline creatinine 1.5 -> 2.7 ->2.7 - Protein/creatinine ratio ordered - pending - Nephrology on board - Lasix 20 mg IV Q12hr ordered - May consider CT abd/pelvis w/o contrast - Will order Renal US to assess for hydronephrosis Bladder cancer s/p TURBT ( 08/2019) - High grade urothelial carcinoma w/ invasion to lamina propria - Following with urology on a outpatient bases - Prior notes reviewed and pt has been a poor candidate for chemotherapy due to overall poor functional status Acute encephalopathy possibly on chronic - Baseline mental status is unclear - Recently noted to be confused on 01/18 admit - Etiology likley multifactorial - Will rule out acute infection - Pro-calctonin in am - Possible due to dignoxin toxicity - No change since admission - Likely baseline Dignoxin toxicity - Dig Level 1.8 - > 1.3 - Hold digoxin - Repeat level in AM Chronic atrial fibrillation - Currenlty normal ventricular rate - Dignoxin 125 mcg PO daily - HOLD due to toxicity - Previosly on coumadin - Discontinued due to hematuria - Cardiac tele monitoring - Will consider cardiology consult 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 s/p indwelling tapia - Will hold Methenamine hippurate - UA not significantly impressive for infection - trace leuk - Procalcitonin - 0.47, afebrile, WBC 5.9 - Will start abx if also febrile - Monitor off abx Recent C-Diff colitis - On 01/19 - S/p treatment w/PO vancomycin - No reported recurrance Chronic left inguinal hernia - Noted in prior documentation - No evidence of incarceration Hx of MDRO infection/LLE necrotizing fasciitis - S/p hx of skin grafts Hyperlipidemia - Not on statin Hypothyroid - Synthyroid 50 mcg PO daily Depression - Abilify 2 mg PO daily - Prozac 40 mg PO daily GI ppx - Protonix 40 mg PO daily DVT ppx - SCDs Attestations Medical Necessity Statement*: Will require further hospitalization for IV Lasix. Time Spent in Patient Care: Greater than 35 minutes (>than 50% of time spent in counselling and/or direct pt care on unit). 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
--- NOTE | 2020-02-10 13:20 | P.PN_ITS ---
Subjective Subjective: Interval history: no new complaints Medications: Reviewed: Yes Vitals/I&O/Wt Last Vital Signs Temp 97.5 F L 02/10/20 11:19 Pulse 80 02/10/20 11:19 Resp 17 02/10/20 11:19 BP 112/56 02/10/20 11:19 Pulse Ox 96 02/10/20 11:19 02/09/20 02/10/20 02/10/20 22:59 06:59 14:59 Intake Total 240 / 240 Output Total 300 / 300 Balance 240 / 240 -300 / -60 Weight last 48 hrs Weight 77.111 kg Physical Exam Urinary Catheter Management^: Tapia: Cath Placed During This Visit: no Reason for Continuing Indwelling Catheter: Chronic Indwelling Urinary Catheter on Admission Data : 02/10/20 04:29 02/10/20 04:29 Echo: Radiologist's impression: CONCLUSIONS Mild diffuse hypokinesia left ventricle with ejection fraction of 45 to 50%. Dilated right ventricle with some features of right ventricular hypertrophy. Slightly diminished ejection fraction. Moderate biatrial enlargement. Thickened mitral valve. Mild mitral annular calcification. Thickened aortic valve. There is no pericardial effusion. There are no intracardiac masses. Compared to the study from 09/17/2019, there is some improvement in the LV eje ction fraction Other data: dig 1.3, urinalysis + blood, 2+ protein A&P Additional A&P Information 1. Acute kidney injury 2. Chronic kidney disease 3. CHF/Volume overload, not diuresing on current dose of lasix 4. Anemia 5. History of bladder cancer, urine retention (chronic tapia), hematuria Recommend: Increase IV lasix. Prognosis poor. Attestations Medical Necessity Statement*: per primary service Time Spent in Patient Care: 16 - 35 minutes Coding Level of Care Code Acute Industrial Equipment Wirer for Renzo Arana
--- NOTE | 2020-02-10 13:26 | USCV_ITS ---
Alex James Age: 84 Gender: M : 1935 Exam Date: 02/10/2020 15:39 Ordering Phys: Dhaval Souza MD Technologist: Josué Vyas [place] [facility] [place] Indication: eval ef BP: / HR: 42 Rhythm: Sinus Technical Quality: Adequate MEASUREMENTS (Male / Female) Normal Values 2D ECHO LV Diastolic Diameter PLAX 5.9 cm 4.2 - 5.9 / 3.9 - 5.3 cm LV Systolic Diameter PLAX 4.1 cm IVS Diastolic Thickness 1.2 cm 0.6 - 1.0 / 0.6 - 0.9 cm IVS Systolic Thickness 1.8 cm LVPW Diastolic Thickness 1.3 cm 0.6 - 1.0 / 0.6 - 0.9 cm LVPW Systolic Thickness 2.2 cm LVOT Diameter 2.0 cm LV Ejection Fraction 2D Teich 57.7 % LV Ejection Fraction MOD 2C 70.2 % LV Ejection Fraction 2C AL 71.6 % LA Diameter 5.3 cm LA Width 4.3 cm LA Height 6.6 cm RA Width 6.2 cm RA Height 6.1 cm M-MODE LV Diastolic Diameter MM 6.2 cm 4.2 - 5.9 / 3.9 - 5.3 cm LV Systolic Diameter MM 4.4 cm LV Ejection Fraction MM Teich 54.8 % IVS Diastolic Thickness MM 1.8 cm 0.6 - 1.0 / 0.6 - 0.9 cm IVS Systolic Thickness MM 1.8 cm LVPW Diastolic Thickness MM 1.6 cm 0.6 - 1.0 / 0.6 - 0.9 cm LVPW Systolic Thickness MM 2.2 cm RV Diastolic Diameter MM 1.7 cm Aortic Annulus Diameter 4.3 cm LA Ao Ratio MM 1.3 MV E Point Septal Separation 1.2 cm FINDINGS Left Ventricle Mild diffuse hypokinesia left ventricle with ejection fraction of 45 to 50%. Right Ventricle Dilated right ventricle with some features of right ventricular hypertrophy. Slightly diminished ejection fraction. Right Atrium Moderately increased right atrial size. Left Atrium Moderately increased left atrial size. Mitral Valve Thickened mitral valve. Mild mitral annular calcification. Aortic Valve Thickened aortic valve. Tricuspid Valve No gross abnormalities noted . Pulmonic Valve No gross abnormalities noted Pericardium No pericardial effusion. Aorta Normal aortic annulus size. CONCLUSIONS Mild diffuse hypokinesia left ventricle with ejection fraction of 45 to 50%. Dilated right ventricle with some features of right ventricular hypertrophy. Slightly diminished ejection fraction. Moderate biatrial enlargementThickened mitral valve. Mild mitral annular calcification. Thickened aortic valve. There is no pericardial effusion. There are no intracardiac masses. Compared to the study from 09/17/2019, there is some improvement in the LV ejection fraction Dr Claudia Marquez MD FAC (Electronically Signed) Final Date: 10 February 2020 16:52 S
[2020-02-10] MEDS: FUROsemide 10 mg/mL SDV 4mL 40 MG IVP (18:22)
[2020-02-11] VITALS (9 sets, daily range): BP systolic 101–115; BP diastolic 33–55; PULSE 72–92; RESP 16–33; TEMP 36.4–37.2; O2SAT 92–97
[2020-02-11 05:39] LABS: Anion Gap 18.5 (5-19); Calcium 8.6 mg/dL (8.5-10.5); Carbon Dioxide 20 mmol/L (22-29); Chloride 110 mmol/L (98-107); Glucose 149 mg/dL (65-115); Osmolality Calculated 326 mOsm/kg (285-295); Potassium 4.5 mmol/L (3.5-5.1); Sodium 144 mmol/L (136-145)
[2020-02-11 05:54] LABS: Blood Urea Nitrogen 83 mg/dL (8-23)
[2020-02-11] MEDS: levothyroxine 50 mcg Tablet PO (06:16)
[2020-02-11 07:03] LABS: Basophils # 0.1 10^3/uL (0.0-0.1); Basophils % 0.9 %; Eosinophils # 0.2 10^3/uL (0.0-0.8); Eosinophils % 4.1 %; Hematocrit 29.4 % (42.0-52.0); Hemoglobin 8.8 g/dL (11.7-16.6); Lymphocytes # 0.5 10^3/uL (0.8-4.8); Lymphocytes % 8.9 %; Mean Corpuscular HGB Conc 29.9 g/dL (30.0-36.0); Mean Corpuscular Hemoglobin 27.1 pg (28.0-34.0); Mean Corpuscular Volume 90.5 fL (80-94); Mean Platelet Volume 10.6 fL (7.4-10.4); Monocytes # 0.4 10^3/uL (0.2-0.9); Monocytes % 7.1 %; Neutrophils # 4.16 10^3/uL (1.8-7.7); Neutrophils % 77.1 %; Nucleated Red Blood Cells # 0.1 /100WBC; Platelet Count 109 10^3/cmm (130-400); Red Blood Count 3.25 10^6/uL (4.1-5.3); Red Cell Distribution Width 29.2 % (12.1-15.1); White Blood Count 5.4 10^3/uL (4.0-10.0)
[2020-02-11] MEDS: ARIPiprazole 2 mg Tablet PO (10:44)
[2020-02-11] MEDS: tamsulosin 0.4 mg Capsule PO (10:44)
[2020-02-11] MEDS: fluoxetine 20 mg Capsule 40 MG PO (10:45)
[2020-02-11] MEDS: pantoprazole DR 40 mg Tablet PO (10:45)
--- NOTE | 2020-02-11 10:54 | PC.NURSE ---
0600 DOSE OF IVP LASIX WAS NOT GIVEN, PT PULLED IV OUT. IV ACCESS REESTABLISHED AND DR. GRANT GAVE VERBAL ORDERS TO HOLD LASIX TODAY.
--- NOTE | 2020-02-11 11:54 | P.PN_ITS ---
Subjective Subjective: Interval history: No acute events overnight. Currently still not able to make coherent communication, flat affect. Has remained afebrile, no nausea no vomiting. Poor urine output: Medications: Reviewed: Yes Vitals/I&O/Wt Last Vital Signs Temp 98.1 F 02/11/20 11:44 Pulse 79 02/11/20 11:44 Resp 16 02/11/20 11:44 BP 108/54 02/11/20 11:44 Pulse Ox 97 02/11/20 11:44 02/10/20 02/11/20 02/11/20 22:59 06:59 14:59 Output Total 450 / 450 350 / 800 Balance -450 / -210 -350 / -560 Physical Exam HENMT: COMMON NORMALS: normocephalic and atraumatic HEAD & SCALP: normocephalic and atraumatic Eye: COMMON NORMALS: no scleral icterus Chest: COMMONS NORMALS: normal inspection of the chest CHEST: Yes Symmetrical chest wall rise Resp: COMMON NORMALS: normal respiratory effort and clear to auscultation bilaterally EFFORT & INSPECTION: Yes symmetric chest movement AUSCU LTATION: clear to auscultation bilaterally Cardio: COMMON NORMALS: regular rate, regular rhythm, S1 normal heart sound present, S2 normal heart sound present, No gallops present (Cardio), No murmurs present (Cardio), No rub (Cardio) and Peripheral pulses 2+ throughout RATE: regular rate RHYTHM: regular rhythm HEART SOUNDS: S1 normal heart sound present and S2 normal heart sound present PERIPHERAL PULSES: Peripheral pulses 2+ throughout GI: COMMON NORMALS: Normal to inspection, nondistended, normoactive bowel sounds present, Soft to palpation, non-tender, No hepatosplenomegaly present and no masses AUSCULTATION: Yes normoactive bowel sounds PALPATION: Yes Soft to palpation and Yes No hepatosplenomegaly present RECTAL EXAM: Yes deferred Extremity: NARRATIVE EXTREMITY EXAM: B/L L/E 2+ Pitting edema present Urinary Catheter Management^: Tapia: Cath Placed During This Visit: no Reason for Continuing Indwelling Catheter: Acute Urinary Retention or Obstruction Data : 02/11/20 04:45 02/11/20 04:45 Micro: Microbiology 02/09/20 18:25 Urine Culture - Final Urine,Clean Catch A&P Assessment and plan (1) Acute on chronic systolic (congestive) heart failure: Status: Acute (2) Acute renal failure superimposed on stage 3 chronic kidney disease: Status: Acute (3) Acute encephalopathy: Status: Acute (4) Digoxin toxicity: Status: Acute (5) 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: Status: Acute (6) BPH without urinary obstruction: Status: Acute (7) Chronic indwelling Tapia catheter: Status: Acute (8) Chronic atrial fibrillation: Status: Acute (9) Chronic GERD: Status: Acute Additional A&P Information Acute on chronic systolic (EF 40%) heart failure exacerbation with anasarca - Chest x-ray noted chronic cardiomegaly/pulmonary congestion with out any acute changes compared to x-ray on 01/18 - Will monitor fluid status - Check daily weight - Echo to assess LV function - Limited study ordered - Pending - Cautiously diurese ( difficult due to renal failure) - Started on Lasix 20 mg IV BID - Monitor Urine output Acute on chronic stage 3 kidney failure - Possible cardiorenal possible obstructive vs medication incuded and poor oral intake. - Baseline creatinine 1.5 -> 2.7 ->2.7 - Protein/creatinine ratio ordered - pending - Nephrology on board - Lasix 20 mg IV 24h hr today - May consider CT abd/pelvis w/o contrast - Will order Renal US to assess for hydronephrosis Bladder cancer s/p TURBT ( 08/2019) - High grade urothelial carcinoma w/ invasion to lamina propria - Following with urology on a outpatient bases - Prior notes reviewed and pt has been a poor candidate for chemotherapy due to overall poor functional status Acute encephalopathy likely uremic/Digoxin tox possibly on chronic - Baseline mental status is unclear - Recently noted to be confused on 01/18 admit - Etiology likley multifactorial - Will rule out acute infection - Pro-calctonin:0.47 - No change since admission - Likely baseline Dignoxin toxicity - Dig Level 1.8 - > 1.3 - Hold digoxin - Repeat level in AM Chronic atrial fibrillation - Currenlty normal ventricular rate - Dignoxin 125 mcg PO daily - HOLD due to toxicity - Previosly on coumadin - Discontinued due to hematuria - Cardiac tele monitoring - Will consider cardiology consult 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 s/p indwelling tapia - Will hold Methenamine hippurate - UA not significantly impressive for infection - trace leuk - Procalcitonin - 0.47, afebrile, WBC 5.9 - Will start abx if also febrile - Monitor off abx Recent C-Diff colitis - On 01/19 - S/p treatment w/PO vancomycin - Per nursing stool is watery and has foul smell -Repeat C.Diff ordered Chronic left inguinal hernia - Noted in prior documentation - No evidence of incarceration Hx of MDRO infection/LLE necrotizing fasciitis - S/p hx of skin grafts Hyperlipidemia - Not on statin Hypothyroid - Synthyroid 50 mcg PO daily Depression - Abilify 2 mg PO daily - Prozac 40 mg PO daily GI ppx - Protonix 40 mg PO daily DVT ppx - SCDs Attestations Medical Necessity Statement*: Patient is to be in hospital for management of heart failure, acute kidney injury, encephalopathy. 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
--- NOTE | 2020-02-11 17:08 | PC.NURSE ---
PT RESP. INCREASED FROM [address] GRANT NOTIFIED, SAW PATIENT AND GAVE VERBAL ORDERS OF 20MG LASIX IVP AND ACETAMINOPHEN Q4H PO PRN PAIN.
[2020-02-11] MEDS: FUROsemide 10 mg/mL SDV 2mL 20 MG IVP (17:22)
[2020-02-11] MEDS: acetaminophen 325 mg Tablet 650 MG PO (17:22)
--- NOTE | 2020-02-11 19:49 | PM.PN ---
Subjective Subjective: Interval history: Rn reports intermittent tachypnea. he states he is doing ok Medications: Reviewed: Yes Vitals/I&O/Wt Last Vital Signs Temp 98.8 F 02/11/20 19:31 Pulse 92 02/11/20 19:31 Resp 16 02/11/20 19:31 BP 101/33 02/11/20 19:31 Pulse Ox 94 02/11/20 19:31 02/11/20 02/11/20 02/11/20 06:59 14:59 22:59 Intake Total 480 / 480 Output Total 350 / 800 300 / 300 Balance -350 / -560 180 / 180 Physical Exam Const: NUTRITIONAL APPEARANCE: cachectic Extremity: GENERAL: Yes edema (trace lower extremity) Urinary Catheter Management^: Tapia: Cath Placed During This Visit: no Reason for Continuing Indwelling Catheter: Chronic Indwelling Urinary Catheter on Admission Data : 02/11/20 04:45 02/11/20 04:45 Micro: Microbiology 02/09/20 18:25 Urine Culture - Final Urine,Clean Catch A&P Additional A&P Information 1. Acute kidney injury 2. Chronic kidney disease 3. CHF/Volume overload, urine output increased on higher dose of lasix, so has BUN and Cr 4. Anemia 5. History of bladder cancer, urine retention (chronic tapia), hematuria Recommend: Not appropriate dialysis candidate. Recommend comfort care. Attestations Medical Necessity Statement*: per primary service Time Spent in Patient Care: less than 15 minutes Coding Level of Care Code Acute Director Of Women'S Services for Renzo Arana
[2020-02-12] VITALS (10 sets, daily range): BP systolic 111–120; BP diastolic 46–69; PULSE 80–94; RESP 16–32; TEMP 36.4–36.8; O2SAT 93–98
[2020-02-12] MEDS: levothyroxine 50 mcg Tablet PO (05:43)
[2020-02-12 06:02] LABS: Basophils % 0.8 %; Eosinophils # 0.2 10^3/uL (0.0-0.8); Eosinophils % 4.1 %; Hematocrit 29.1 % (42.0-52.0); Hemoglobin 8.8 g/dL (11.7-16.6); Lymphocytes # 0.7 10^3/uL (0.8-4.8); Lymphocytes % 12.8 %; Mean Corpuscular HGB Conc 30.2 g/dL (30.0-36.0); Mean Corpuscular Hemoglobin 26.7 pg (28.0-34.0); Mean Corpuscular Volume 88.2 fL (80-94); Monocytes # 0.4 10^3/uL (0.2-0.9); Monocytes % 7.3 %; Neutrophils # 3.93 10^3/uL (1.8-7.7); Neutrophils % 73.7 %; Nucleated Red Blood Cells # 0.1 /100WBC; Nucleated Red Blood Cells % 2.1 %; Platelet Count 108 10^3/cmm (130-400); Red Cell Distribution Width 28.6 % (12.1-15.1); White Blood Count 5.3 10^3/uL (4.0-10.0)
[2020-02-12 06:27] LABS: Anion Gap 20.3 (5-19); Blood Urea Nitrogen 80 mg/dL (8-23); Calcium 8.3 mg/dL (8.5-10.5); Carbon Dioxide 17 mmol/L (22-29); Chloride 104 mmol/L (98-107); Glucose 91 mg/dL (65-115); Osmolality Calculated 308 mOsm/kg (285-295); Potassium 4.3 mmol/L (3.5-5.1); Sodium 137 mmol/L (136-145)
[2020-02-12] MEDS: pantoprazole DR 40 mg Tablet PO (08:43)
[2020-02-12] MEDS: ARIPiprazole 2 mg Tablet PO (08:43)
[2020-02-12] MEDS: tamsulosin 0.4 mg Capsule PO (08:43)
[2020-02-12] MEDS: fluoxetine 20 mg Capsule 40 MG PO (08:43)
--- NOTE | 2020-02-12 09:37 | PM.PN ---
Subjective Subjective: Interval history: Patient has significant weakness and flat affect.Minimal participation with PT/OT Today.SCR has likely peaked concerns for over diuresis. Minimum urine output.Has remained afebrile and has saturated well on 2Ls Oxygen via NC. Other Vitals and labs have been reviewed. Medications: Reviewed: Yes Vitals/I&O/Wt Last Vital Signs Temp 98.0 F 02/12/20 07:47 Pulse 84 02/12/20 07:47 Resp 17 02/12/20 07:47 BP 119/69 02/12/20 07:47 Pulse Ox 95 02/12/20 07:47 02/11/20 02/12/20 02/12/20 22:59 06:59 14:59 Intake Total 480 / 480 240 / 240 Output Total 300 / 300 150 / 450 Balance 180 / 180 -150 / 30 240 / 240 Physical Exam HENMT: COMMON NORMALS: normocephalic and atraumatic HEAD & SCALP: normocephalic and atraumatic Eye: COMMON NORMALS: no scleral icterus Chest: COMMONS NORMALS: normal inspection of the chest CHEST: Yes Symmetrical chest wall rise Resp: COMMON NORMALS: clear to auscultation bilaterally EFFORT & INSPECTION: Yes symmetric chest movement AUSCULTATION: clear to auscultation bilaterally Cardio: COMMON NORMALS: regular rate, regular rhythm, S1 normal heart sound present, S2 normal heart sound present, No gallops present (Cardio), No murmurs present (Cardio), No rub (Cardio) and Peripheral pulses 2+ throughout RATE: regular rate RHYTHM: regular rhythm HEART SOUNDS: S1 normal heart sound present and S2 normal heart sound present PERIPHERAL PULSES: Peripheral pulses 2+ throughout GI: COMMON NORMALS: Normal to inspection, nondistended, normoactive bowel sounds present, Soft to palpation, non-tender, No hepatosplenomegaly present and no masses AUSCULTATION: Yes normoactive bowel sounds PALPATION: Yes Soft to palpation and Yes No hepatosplenomegaly present RECTAL EXAM: Yes deferred Extremity: NARRATIVE EXTREMITY EXAM: 1 + B/L Pitting edema present with chronic skin changes. 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: Status: Acute (6) BPH without urinary obstruction: Status: Acute (7) Chronic indwelling Tapia catheter: Status: Acute (8) Chronic atrial fibrillation: Status: Acute (9) Chronic GERD: Status: Acute Additional A&P Information Acute on chronic systolic (EF 40%) heart failure exacerbation with anasarca - Chest x-ray noted chronic cardiomegaly/pulmonary congestion with out any acute changes compared to x-ray on 01/18 - Will monitor fluid status - Check daily weight - Echo to assess LV function - Limited study ordered - Pending - Cautiously diurese ( difficult due to renal failure) - Started on Lasix 20 mg IV BID - Monitor Urine output Acute on chronic stage 3 kidney failure - Possible cardiorenal possible obstructive vs medication incuded and poor oral intake. - Baseline creatinine 1.5 -> 2.7 ->2.7 - Protein/creatinine ratio ordered - pending - Nephrology on board - Lasix 20 mg IV 24h hr today - May consider CT abd/pelvis w/o contrast - Will order Renal US to assess for hydronephrosis Bladder cancer s/p TURBT ( 08/2019) - High grade urothelial carcinoma w/ invasion to lamina propria - Following with urology on a outpatient bases - Prior notes reviewed and pt has been a poor candidate for chemotherapy due to overall poor functional status Acute encephalopathy likely uremic/Digoxin tox possibly on chronic - Baseline mental status is unclear - Recently noted to be confused on 01/18 admit - Etiology likley multifactorial - Will rule out acute infection - Pro-calctonin:0.47 - No change since admission - Likely baseline Dignoxin toxicity - Dig Level 1.8 - > 1.3 - Hold digoxin - Repeat level in AM Chronic atrial fibrillation - Currenlty normal ventricular rate - Dignoxin 125 mcg PO daily - HOLD due to toxicity - Previosly on coumadin - Discontinued due to hematuria - Cardiac tele monitoring - Will avoid dgoxin and if needed will use Metoprolol.T -Currently HR is well controlled. 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 s/p indwelling tapia - Will hold Methenamine hippurate -will do repeat UA prior U/A is not significantly impressive for infection - trace leuk - Procalcitonin - 0.47, afebrile, WBC 5.9 - Will start him empirically on cef 1 gm q24 h I.V Daily Recent C-Diff colitis - On 01/19 - S/p treatment w/PO vancomycin - Per nursing stool is watery and has foul smell -Repeat C.Diff ordered Chronic left inguinal hernia - Noted in prior documentation - No evidence of incarceration Hx of MDRO infection/LLE necrotizing fasciitis - S/p hx of skin grafts Hyperlipidemia - Not on statin Hypothyroid - Synthyroid 50 mcg PO daily Depression - Abilify 2 mg PO daily - Prozac 40 mg PO daily GI ppx - Protonix 40 mg PO daily DVT ppx - SCDs -Disposition: Anticipated DC by 02/14/2020 to halfway. Attestations Medical Necessity Statement*: Patient needs to be in hospital for the management of RUMA on Progressively worsening CKD III as well as for management of H.F . 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
--- NOTE | 2020-02-12 10:25 | PC.SOCIAL ---
IMM Page 2 of IMM explained to patient. Initialed, dated, and timed and placed in chart. Copy provided to patient.
--- NOTE | 2020-02-12 11:44 | PM.PN ---
Subjective Subjective: Interval history: Remains weak, poorly interactive, complaining of diffuse abdo discomfort Mild right arm swelling. No edema in the legs and currently breathing comfortably No overt uremic Sx UO noted to be 450mL Vitals/I&O/Wt Last Vital Signs Temp 97.9 F 02/12/20 11:43 Pulse 80 02/12/20 11:43 Resp 17 02/12/20 11:43 BP 111/68 02/12/20 11:43 Pulse Ox 98 02/12/20 11:43 02/11/20 02/12/20 02/12/20 22:59 06:59 14:59 Intake Total 480 / 480 240 / 240 Output Total 300 / 300 150 / 450 Balance 180 / 180 -150 / 30 240 / 240 Physical Exam Narrative: EXAM NARRATIVE: Constitutional: Awake, comofortable HEENT: Wet mucosa, no jvp, non icteric Lungs: Bilaterally clear without discernible wheeze or rales in all lung zones CVS: S1 S2, no murmurs Abdo: Soft, BS ok Ext 4: Minimal edema, peripheral perfusion with no cyanosis Neurological: Grossly non-focal Urinary Catheter Management^: Hernandez: Cath Placed During This Visit: no Reason for Continuing Indwelling Catheter: Chronic Indwelling Urinary Catheter on Admission Data : 02/12/20 05:34 02/12/20 05:34 Micro: Microbiology 02/09/20 18:25 Urine Culture - Final Urine,Clean Catch A&P Additional A&P Information 1. RUMA - CRS although creatinine has plateaud since yesterday - Lasix now on hold and would continue to defer unless he develops acute respiratory compromise - Not a HD candidate and hopefully this can be avoided - avoid the usuals - am labs 2. Invasive bladder cancer - not currently a candidate for further treatment from this 3. Lytes look well balanced with acidosis noted - avoid sodium bicarb for now given sodium exposure 4. Hemodynamics remain stable - DC planning, possible home on hospice Ector gutierrez MD [facility] [phone] Attestations Medical Necessity Statement*: Eval for RUMA Coding Level of Care Code Acute Instructor Business Education for Chemag Sumit
[2020-02-12] MEDS: cefTRIAXone 1,000 MG in sodium chloride 0.9% (plus) 50 ML 100 MG IV (12:47)
--- NOTE | 2020-02-12 16:46 | PC.NURSE ---
Updated patient's brother Óscar at this time about patient's condition.
--- NOTE | 2020-02-12 19:18 | PC.NURSE ---
Report to Tiffanie JOHNSON at this time.
[2020-02-13] VITALS: BP 113/50; PULSE 81; RESP 28; TEMP 36.9; O2SAT 95
[2020-02-13 04:00] VITALS: BP 111/56; PULSE 85; RESP 28; TEMP 37.1; O2SAT 96
[2020-02-13] MEDS: levothyroxine 50 mcg Tablet PO (05:09)
[2020-02-13 08:00] VITALS: BP 126/69; PULSE 86; PULSE 89; RESP 17; TEMP 36.8; O2SAT 96
[2020-02-13] MEDS: tamsulosin 0.4 mg Capsule PO (08:05)
[2020-02-13] MEDS: ARIPiprazole 2 mg Tablet PO (08:05)
[2020-02-13] MEDS: fluoxetine 20 mg Capsule 40 MG PO (08:05)
[2020-02-13] MEDS: pantoprazole DR 40 mg Tablet PO (08:06)
--- NOTE | 2020-02-13 10:36 | P.PN_ITS ---
Subjective Subjective: Interval history: No new issues. He is comfortable and breathing well. No uremic Sx. Minimal global edema. Medications: Reviewed: Yes Vitals/I&O/Wt Last Vital Signs Temp 98.3 F 02/13/20 08:00 Pulse 89 02/13/20 08:00 Resp 17 02/13/20 08:00 BP 126/69 02/13/20 08:00 Pulse Ox 96 02/13/20 08:00 02/12/20 02/13/20 02/13/20 22:59 06:59 14:59 Intake Total 590 / 1360 120 / 1480 240 / 240 Output Total 400 / 400 350 / 750 Balance 190 / 960 -230 / 730 240 / 240 Physical Exam Narrative: EXAM NARRATIVE: Constitutional: Awake, comofortable HEENT: Wet mucosa, no jvp, non icteric Lungs: Bilaterally clear without discernible wheeze or rales in all lung zones CVS: S1 S2, no murmurs Abdo: Soft, BS ok Ext 4: Minimal edema, peripheral perfusion with no cyanosis Neurological: Grossly non-focal Urinary Catheter Management^: Hernandez: Cath Placed During This Visit: no Reason for Continuing Indwelling Catheter: Chronic Indwelling Urinary Catheter on Admission Data : 02/12/20 05:34 02/12/20 05:34 A&P Additional A&P Information 1. RUMA - labs pending for today - CRS although creatinine has plateau'ed since yesterday - Lasix now on hold and would continue to defer unless he develops acute respiratory compromise - Not a HD candidate and hopefully this can be avoided - avoid the usuals - am labs 2. Invasive bladder cancer - not currently a candidate for further treatment from this 3. Lytes - pending for today - yesterday they looked well balanced with acidosis noted - avoid sodium bicarb for now given sodium exposure 4. Hemodynamics remain stable - DC planning, back to [facility] today Ector gutierrez MD [facility] [phone] Attestations Medical Necessity Statement*: eval for RUMA Coding Level of Care Code Acute Sharepoint Consultant for Renzo Arana
[2020-02-13 11:38] VITALS: BP 113/52; PULSE 87; RESP 24; TEMP 36.4; O2SAT 98
[2020-02-13 11:39] LABS: Anion Gap 16.4 (5-19); Calcium 8.3 mg/dL (8.5-10.5); Carbon Dioxide 20 mmol/L (22-29); Chloride 104 mmol/L (98-107); Glucose 164 mg/dL (65-115); Osmolality Calculated 314 mOsm/kg (285-295); Potassium 4.4 mmol/L (3.5-5.1); Sodium 136 mmol/L (136-145)
[2020-02-13 11:47] LABS: Blood Urea Nitrogen 91 mg/dL (8-23)
[2020-02-13] MEDS: cefTRIAXone 1,000 MG in sodium chloride 0.9% (plus) 50 ML 100 MG IV (12:27)
--- NOTE | 2020-02-13 13:20 | PM.DCS ---
Discharge Providers Date of Admission: 02/09/20 12:46 Date of Discharge: February 13, 2020 Attending Provider at Admission: Dhaval Souza Attending Provider at Discharge: Cory Dailey MD Primary Care Provider: Shyann Harman MD, [facility] [place] Diagnoses at Discharge Discharge Diagnosis (1) Acute on chronic systolic (congestive) heart failure: Status: Resolved (2) Acute renal failure superimposed on stage 3 chronic kidney disease: Status: Acute Permanent problem details: - CRS although creatinine has plateau'ed since yesterday - Lasix now on hold and would continue to defer unless he develops acute --respiratory compromise - Not a HD candidate and hopefully this can be avoided (3) Acute encephalopathy: Status: Resolved (4) Digoxin toxicity: Status: Resolved (5) 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: Status: Chronic (6) BPH without urinary obstruction: Status: Chronic (7) Chronic indwelling Tapia catheter: Status: Chronic (8) Chronic atrial fibrillation: Status: Chronic (9) Chronic GERD: Status: Chronic Reason for Visit Reason for Visit: ABNORMAL LABS Hospital Course Hospital Course 84-year-old male with past medical history significant for hypothyroidism, hyperlipidemia, anemia of chronic disease, chronic left side femoral hernia, right lower extremity DVT, chronic atrial fibrillation on digoxin previously on Coumadin, benign prostatic hyperplasia with history of outlet obstruction s/p chronic indwelling tapia, invasive bladder cancer s/p hx of cystoscopy/tumor resection, gross hematuria, recent Clostridium difficile colitis treated with p.o. vancomycin, chronic stage 3 kidney disease with a baseline creatinine of around 1.5 and chronic systolic heart failure with last known EF 40% ( 08/2019) who was sent to ER for evaluvation of abnormal lab. Patient is slow to respond and somewhat confused not able to provide history leading to admission. Patient did answer yes or no to some questions. Denied worsening shortness of breath, chest pain, fever, nausea, vomiting or chills. Did nod yes for increasing edema. In review of SNF records it appears patient was recently tested for covid-19 antigen on 02/04/20 which was negative. Labs sent over were drawn on 02/05 during which hand written note states he was given 1L bolus prior to blood draw. Results sent showed WBC of 4.6, hemoglobin of 8.8, hematocrit 29.7 and a platelet count of 105. Sodium 143, potassium 4.6, chloride 109, bicarb 19, BUN 78 and creatinine of 2.80. Apparently patient also had elevated BMP however this was not noted on documentation. Upon arrival to emergency room patient was not found to be in any respiratory distress. His initial vitals showed a blood pressure of 125/75, heart rate of 73, respiratory rate of 18, temperature of 98.3 and oxygen saturation at 98% on room air. laboratory workup in emergency room today showed WBC 5.2, hemoglobin 9.7, hematocrit 32.1 and a platelet count of 111. Sodium 144, potassium 4.6, chloride 109, bicarb 21, BUN 72 and creatinine of 2.7 which was increased from baseline 1.5. Glucose was 145. AST 15, ALT of 26, alkaline phosphatase 195 and a total bilirubin of 1.4. Digoxin level 1.8. ProBNP of 45,043. Of note recently admitted to the hospital from 01/18 to 01/26 with altered mental status, systolic heart failure, RUMA on CKD, C-diff colitis and Digoxin toxicity. Imaging studies included chest x-ray which showed very marked cardiomegaly with upper lobe pulmonary venous distension without any evidence of acute abnormality as these changes were noted on previous x-ray on 01/19/2020. It appears hospice consult was discussed due to overall decline, invasive bladder cancer for which he was not a candidate for chemo due to overall functional decline. Unclear if this was obtained. Advance directive was noted and patient wishes were to be DNR/DNI Upon admission he was started on Lasix 20 mg IV q12 hour. Digoxin level decreased to 1.3. Respiratory status remained stable.Nephrology was consulted and assisted with diuresis.He was started on lasix 40 mg I.V Q24H daily as per renal recommendations with the thought that the RUMA is due to CRS. Later in the light of worsening kidney function Lasix was held and at the time of discharge his SCR has plateau'ed and lasix has been kept on hold given the fact that he has no significant respiratory distress.Repeat BMP in a week has been advised to recess the need to restart lasix or it can be restarted if the volume status changes,currently the patient is euvolemic. UA was checked and noted to have 1+ leukocyte esterace. since patient was afebrile and no leukocytosis he was initially monitored off antibiotics but later he was started on ceftriaxone 1 gm q24 h daily for empiric coverage and is being discharged on levofloxacin 500 mg q48 h daily for 7 days course.final urine culture is negative. Imaging Studies: 2D eCHO : Mild diffuse hypokinesia left ventricle with ejection fraction of 45 to 50%.Dilated right ventricle with some features of right ventricular hypertrophy.Slightly diminished ejection fraction.Moderate biatrial enlargement Thickened mitral valve. Mild mitral annular calcification. Thickened aortic valve. EKG: ATRIAL FIBRILLATION, With rate of 77. Incomplete right bundle-branch block no longer present. Physical Exam Narrative: EXAM NARRATIVE: currently AO*1 ( To self ) HENMT: COMMON NORMALS: normocephalic and atraumatic HEAD & SCALP: normocephalic and atraumatic Chest: COMMONS NORMALS: normal inspection of the chest CHEST: Yes Symmetrical chest wall rise Resp: COMMON NORMALS: normal respiratory effort and clear to auscultation bilaterally EFFORT & INSPECTION: Yes symmetric chest movement AUSCULTATION: clear to auscultation bilaterally Cardio: OTHER: Irrregularly irreugular, S1S2 of variable intensity. GI: COMMON NORMALS: Normal to inspection, nondistended, normoactive bowel sounds present, Soft to palpation, non-tender, No hepatosplenomegaly present and no masses AUSCULTATION: Yes normoactive bowel sounds PALPATION: Yes Soft to palpation and Yes No hepatosplenomegaly present RECTAL EXAM: Yes deferred Extremity: NARRATIVE EXTREMITY EXAM: 2 + B/L PITTING EDEMA Present Urinary Catheter Management^: Tapia: Cath Placed During This Visit: no Reason for Continuing Indwelling Catheter: Chronic Indwelling Urinary Catheter on Admission Discharge Data Data Completed and Pending: Completed Studies During Hospitalization Category Date Time Status XR chest 1V gavino ble [id number] Urgent Exams 02/09/20 11:05 Completed CV echo limited [id number] Routine Ultrasound 02/10/20 13:26 Completed Pending at discharge Category Date Time Status CDIFF [Clostridio ides Difficile PCR ] Routine Lab 02/11/20 15:17 Received Labs from last 24 hours 02/13/20 10:50 Sodium 136 Potassium 4.4 Chloride 104 Carbon Dioxide 20 L Anion Gap 16.4 BUN 91 H* Creatinine 3.3 H GFR Calculation Not Reportable Glucose 164 H Calculated Osmolal ity 314 H Calcium 8.3 L Vitals: Last Vital Signs Temp 97.5 F L 02/13/20 11:38 Pulse 87 02/13/20 11:38 Resp 24 H 02/13/20 11:38 BP 113/52 02/13/20 11:38 Pulse Ox 98 02/13/20 11:38 Discharge Plan Discharge Patient Disposition: Xfer SNF Condition: Stable Prescriptions: New metoprolol succinate 25 mg tablet extended release 24 hr 25 mg PO DAILY Qty: 30 RF: 0 levofloxacin 500 mg tablet 500 mg PO Q48H 7 Days Qty: 4 RF: 0 aspirin 81 mg tablet,delayed release (DR/EC) 81 mg PO DAILY Qty: 30 RF: 0 Continued tramadol 50 mg tablet 50 mg PO BID PRN (Reason: Pain) Qty: 30 RF: 0 magnesium hydroxide [Milk of Magnesia] 400 mg/5 mL suspension 30 ml PO DAILY PRN (Reason: Constipation) Qty: 30 RF: 0 acetaminophen 500 mg capsule 500 mg PO Q6H PRN (Reason: Pain) Qty: 30 RF: 0 Senna Plus 8.6-50 mg capsule 1 tab-cap PO BID PRN (Reason: Constipation) Qty: 60 RF: 0 Miralax 17 gram Powder In Packet 17 g PO DAILY PRN (Reason: Constipation) RF: 0 fluoxetine 40 mg capsule 40 mg PO DAILY@0800 RF: 0 tamsulosin 0.4 mg capsule 0.4 mg PO DAILY@0800 RF: 0 levothyroxine 50 mcg tablet 50 mcg PO DAILY@0530 RF: 0 pantoprazole 40 mg tablet,delayed release (DR/EC) 40 mg PO BID@08,1999 RF: 0 aripiprazole 2 mg tablet 2 mg PO DAILY@0800 RF: 0 methenamine hippurate 1 gram tablet 1 g PO BID@799,1999 RF: 0 Held furosemide 20 mg tablet 20 mg PO DAILY@0800 RF: 0 Hold Instructions: Resume on 02/20/20. Discontinued digoxin 125 mcg (0.125 mg) tablet 125 mcg PO DAILY@0800 RF: 0 Discharge Orders: Discharge Order (Routine); Ordered 02/13/20 Ordered By: Cory Dailey Discharge Diet: Cardiac Discharge Activity: Increase activity as tolerated Activity Restrictions/Additional Instructions: Kindly Follow Repeat BMP in 1 week for resumption of lasix. Discharge Attestations Time Spent in Discharge Care*: greater than 30 min Specific Discharge Activities: discussing with pcp/other providers, discussing with hospice case manager/social workers/dc planners, documenting/other paperwork and evaluating patient/reviewing data Status at Discharge: Cognitive status at discharge: mildly impaired cognition, Behavioral status at discharge: cooperative and dependent in ADL's, Overall status at discharge: patient is back to baseline Quality Metrics Clinical Quality Measures During this hospital stay, did patient experience: None Coding Level of Care Code Acute Buffer Automatic for Chg Fwd Exam Expanded Problem Focused Diagnoses Acute on chronic systolic (congestive) heart failure I50.23 Acute renal failure superimposed on stage 3 chronic kidney disease N17.9; N18.30 Acute encephalopathy G93.40 Digoxin toxicity T46.0X1A 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
[2020-02-13 16:00] VITALS: BP 91/47; PULSE 91; RESP 18; TEMP 37; O2SAT 96
--- NOTE | 2020-02-13 17:00 | PC.NURSE ---
Report called to Juana Israel LPN at [facility].
--- NOTE | 2020-02-13 18:47 | PC.NURSE ---
Report to Noreen ROWE. Patient to be discharged back to [facility] today.
[2020-02-13 20:00] VITALS: BP 119/59; PULSE 84; RESP 28; TEMP 36.4; O2SAT 95
--- NOTE | 2020-02-13 23:00 | PC.NURSE ---
Discharge [facility] here to transport patient to [facility]. Patient paperwork packet taken by EMS staff. Pt. off floor at this time for discharge.
[2020-02-14 05:23] VITALS: BP 119/59; PULSE 84; RESP 28; TEMP 36.4; O2SAT 95
== END 2020-02-13 23:00 | disposition skilled nursing facility (03) | DRG 291 ==
LOC: ER 11:39 → MEDSURG 13:41
PROVIDERS: Admitting Provider Hospitalist; Emergency Provider Emergency Medicine; PCP Family Medicine; Visit Provider Internal Medicine
DX: I13.0 Hypertensive heart and chronic kidney disease with heart failure and stage 1 through stage 4 chronic kidney disease, or unspecified chronic kidney disease (principal); I50.23 Acute on chronic systolic (congestive) heart failure; E43 Unspecified severe protein-calorie malnutrition; I48.20 Chronic atrial fibrillation, unspecified; N13.8 Other obstructive and reflux uropathy; N17.9 Acute kidney failure, unspecified; G93.40 Encephalopathy, unspecified; N18.30 Chronic kidney disease, stage 3 unspecified; E03.9 Hypothyroidism, unspecified; E78.5 Hyperlipidemia, unspecified; D63.1 Anemia in chronic kidney disease; K40.90 Unilateral inguinal hernia, without obstruction or gangrene, not specified as recurrent; Z86.718 Personal history of other venous thrombosis and embolism; N40.1 Benign prostatic hyperplasia with lower urinary tract symptoms; R33.8 Other retention of urine; Z96.0 Presence of urogenital implants; C67.2 Malignant neoplasm of lateral wall of bladder; Z66 Do not resuscitate; I42.9 Cardiomyopathy, unspecified; K21.9 Gastro-esophageal reflux disease without esophagitis; M19.90 Unspecified osteoarthritis, unspecified site; I73.9 Peripheral vascular disease, unspecified; T46.0X5A Adverse effect of cardiac-stimulant glycosides and drugs of similar action, initial encounter; F32.9 Major depressive disorder, single episode, unspecified; Z68.25 Body mass index [BMI] 25.0-25.9, adult; Z79.891 Long term (current) use of opiate analgesic
CPT/HCPCS: 12345; 36415; 51702; 71045; 80048; 80053; 80162; 81001; 83880; 84145; 85025; 87086; 87493; 93005; 93308; 94664; 96375; 97110; 97161; 97167; 97530; 97535; 99283; J0696; J1940; Q3014